=== PATIENT | male | born 1945 | race Caucasian/White ===

== ENCOUNTER → 2018-05-30 | Outpatient (CLI) | payer OTHER, MEDICARE ==
[~2018-05-30] MED LIST: ALFU1TAB2 PO; ALPR0.25 PO; ASCO1CAP3 PO; ASPI-461 PO; BICA50TA40 PO; BUME1TAB PO; CHOL20007 PO; FERR1TAB23; FINA5TAB4 PO; FOLI1TAB8 PO; INSDGI SC; LEVO100T PO; METO25TA4 PO; MULT-506 PO; OXGN; WARF3TAB PO; WARF6TAB PO; ZOLP5TAB PO; humalog
[2018-05-30 14:22] VITALS: BP 136/74; PULSE 70; TEMP 36.5; O2SAT 94
--- NOTE | 2018-05-30 16:09 | Radiation Oncology Follow-Up ---
Radiation Oncology Follow-Up Date of Visit May 30, 2018. Reason For Visit One-month follow-up and cancer survivorship care plan Radiation Completion Date 04/25/18 Diagnosis (1) Prostate cancer Status: Acute Onset Date: 01/14/2018 Location: Both lobes of the prostate Histology Subtype: Adenocarcinoma Stage: ll (Biopsy stage) Permanent Comment: History of benign prostatic hypertrophy Rising PSA, pretreatment PSA 5.7 corrected due to finasteride Status post ultrasound-guided biopsies January 14, 2018 Adenocarcinoma of the prostate Dallas 4+3 and 4+4 Prostate volume 74.6 Prostate density 0.076 Hormone suppression with Casodex. (Recommendation for 6-12 months) Gold fiducial markers and Space OAR were placed. Status post completion of radiation therapy April 25, 2018. He received 7000 cGy Last Edited By: Tricia Soto on May 06, 2018 07:56 History of Present Illness Mr. Shah is a 72-year-old male with a family history of prostate cancer. The patient's father was diagnosed with prostate cancer and treated with surgery. He passed in his 80s from causes unrelated to his prostate cancer. The patient has 2 brothers age 65 and 69 and they are both being screened. He has no children. The patient has been followed with screening mammograms. In October 2010 PSA was 0.69. September 2012 PSA was 0.92. In December 2013 PSA was 1.18. In June 2017 PSA was 2.17. On December 21, 2017 the PSA was 2.85. During this time the patient has been on finasteride and therefore each of these figures need to be doubled with an effective PSA in December of this year of 5.7. The patient was seen by Dr. Jen Cross on December 26, 2017 with the noted rising PSA while on finasteride. The finasteride was given for severe LUTS. Examination at that time reportedly revealed nodularity on the right side of the prostate. She discussed ultrasound-guided biopsies with the patient and he agreed. The patient was on Coumadin and his transition was performed. On January 14, 2018 the patient underwent ultrasound- guided biopsies. His estimated gland size on SEBASTIAN was 50 g with her examination showing no asymmetry or induration. By ultrasound the size of the prostate was 5.4 x 5.5 x 4.8 cm given an approximate volume of 74.6 cm. This gives a PSA density of 0.08. A total of 14 biopsies were taken. Biopsies in the left lateral base, left base, left lateral mid, left mid and left apex were all benign. One biopsy from the right base was positive for adenocarcinoma Rocio grade 4+3 involving 60% of the core tissue sample with no perineural invasion identified. Biopsy from the right lateral base was positive for adenocarcinoma Dallas grade 4+3 involving 80% of the core tissue sample with no perineural invasion identified. One of two biopsies from the right mid gland the right mid gland were positive for adenocarcinoma Rocio grade 4+3 involving 25% of the core tissue sample with no perineural invasion identified. One of two biopsies in the right lateral mid gland were positive for adenocarcinoma Rocio grade 4+3 involving 90% of the core tissue sample with no perineural invasion identified. One biopsy from the left lateral apex was positive for adenocarcinoma Orcio grade 4+4 involving 33% of the core tissue sample with no perineural invasion identified. One biopsy from the right apex was positive for adenocarcinoma Rocio grade 4+4 involving 50% of the core tissue sample with no perineural invasion identified. One biopsy from the right lateral apex was positive for adenocarcinoma Rocio grade 4+4 involving 33% of the core tissue sample with no perineural invasion identified. Therefore a total of 7of 14 biopsies were positive. 1 in the left gland and 10 in the right gland. 6 biopsies were Rocio grade 4+3 and 3 biopsies were Dallas grade 4+4. Accession #: [id number]. Patient therefore has a high risk prostate cancer. Patient return to discuss the results of the biopsy with Dr. Cross on January. He had tolerated the procedure well. Given the patient's age and the high risk cancer she felt the patient was likely to develop symptoms within his lifetime if left untreated. She was concerned that surgery may be difficult for him to tolerate and discussed all viable treatment options. She was kind enough to ask us to see this patient to review with him the radiation treatment options. His final decision was to proceed with hormone suppression with Casodex. He had gold fiducial markers and Space OAR placed. He then underwent radiation therapy utilizing hypo-fractionation. This is completed April 25, 2018. He received 7000 cGy. Interim History He has been doing well over the past month. His urinary symptoms have steadily improved. Today gave an AUA score of 8. At the end of treatment he had given an AUA score of 15. He completed and expanded prostate cancer index composite for clinical practice and gave a score of 1 of 12 and urinary incontinence symptoms. He gave a score of 2 of 12 and urinary irritation symptoms. He gave a score of 0 of 12 and bowel symptoms. He gave a score of 4 of 12 and sexual symptoms. He gave a score of 1 of 12 and hormonal vitality symptoms. His total was 8 of 60. He does continue on Proscar and Uroxatral. He also continues on bicalutamide. We discussed side effects of bicalutamide. He is having some nipple tenderness. He gives us a level 1. It only occurs if it is accidentally bumped. He had a recheck PSA May 27, 2018 and that was less than 0.02. Allergies Coded Allergies: Penicillins (Verified Allergy, Unknown, rash, 03/17/16) Statins (Verified Allergy, Unknown, ., 03/17/16) Furosemide (Verified Adverse Reaction, Severe, kidney failure, 03/17/16) Home Medications Scheduled Alfuzosin Hcl (Alfuzosin Hcl Er), 10 MG PO QAM Ascorbic Acid (Vitamin C), 500 MG PO QAM Aspirin (Aspirin), 81 MG PO QAM Bicalutamide (Casodex), 1 TAB PO DAILY Bumetanide (Bumex), 1 MG PO QAM Cholecalciferol (Vitamin D3), 1 TAB PO DAILY Ferrous Sulfate (Iron), TAB BID Finasteride (Proscar), 5 MG PO QAM Folic Acid (Folvite), 5 MG PO QAM Home O2 Therapy (Oxygen), 2 LITERS NA UD Insulin Glargine (Lantus), 50 SC PM Levothyroxine Sodium (Synthroid), 100 MCG PO QAM Metoprolol Succinate (Toprol Xl), 1 TAB PO DAILY Multivitamin (Multivitamin), 1 TAB PO DAILY Warfarin Sodium (Coumadin), 1 TAB PO Sunday and Sunday Warfarin Sodium (Coumadin), 1 TAB PO ue sun Zolpidem Tartrate (Ambien), 2.5 MG PO HSPRN [humalog], 2-10 blood sugar check Scheduled PRN Alprazolam (Xanax), 0.25 MG PO Q8H PRN for Anxiety Review of Systems Gastrointestinal: Symptoms: WNL Oral: Symptoms: No Problems Respiratory: Symptoms: WNL, SOB With Exertion Urinary: Symptoms: WNL, Nocturia Comments: Nocturia x 1-2, urge incontinence - dribbling, see AUA & EPIC Skin: Symptoms: No Problems Additional Notes: He completed a distress management report and answered "no" to all questions. Physical Exam Vital Signs Date Time Temp Pulse Resp B/P (MAP) Pulse Ox O2 Delivery O2 Flow Rate FiO2 05/30/18 14:22 36.5 70 16 136/74 94 ECOG Performance Status: 0 General Appearance: no apparent distress Eyes: normal inspection, EOMI ENT: normal ENT inspection, hearing grossly normal Neck: no adenopathy, thyroid normal Respiratory/Chest: lungs clear, no respiratory distress, no accessory muscle use Cardiovascular: regular rate, rhythm, no gallop, no murmur Abdomen: non tender, soft, no organomegaly Extremities: no pedal edema Neurologic/Psychiatric: no motor/sensory deficits, alert, normal mood/affect Skin: warm/dry Pain Management Patient Reports Pain: No Initial Pain Intensity: 0.0 Pain Management Plan He denies pain therefore requires no pain management. Laboratory Laboratory Results: were reviewed Laboratory Comments: See interim history. Pathology Pathology Results: were reviewed, and pertinent findings noted in HPI Imaging Imaging Studies: not applicable Assessment & Plan Plan: Continue regular follow-up with his primary care provider and urology. He continues on the Uroxatral, Proscar, and bicalutamide. We discussed the recommendation of bicalutamide for 12-18 months. He is having minimal side effects and plans to continue the medication. We asked him to return to our office in 6 months. An order was given for a PSA prior to that visit. He is seeing Dr. Cross June 25, 2018. Today we completed a cancer survivorship care plan. A copy of the document was given to the patient. He was given a survivorship booklet. He may call our office if he has any questions or concerns in the interim. Total Time In Follow-Up I spent 20 minutes speaking to the patient in performing examination. I spent 20 minutes reviewing information, preparing the survivorship document, and completing this note. Copy To James Lunsford MD; Jen Cross MD
== END | disposition home or self-care (01) ==
LOC: C.ONC 14:14
PROVIDERS: ATTEND Physician Assistant Medical
DX: Z08 Encounter for follow-up examination after completed treatment for malignant neoplasm (principal); Z92.3 Personal history of irradiation; Z85.46 Personal history of malignant neoplasm of prostate

== ENCOUNTER 2018-12-25 14:19 | Inpatient (IN) ==
--- NOTE | 2018-12-25 15:22 | XRay Report ---
SINGLE VIEW CHEST CLINICAL HISTORY: Atypical chest pain. FINDINGS: An AP, portable, upright chest radiograph is compared to study dated 03/19/2016 and correlate d with chest CT dated 03/17/2016. The examination is degraded by portable technique and patient rotatio n. A 3-lead cardiac pacemaker is new from previous and partially obscures the left upper chest. The p atient is status post midline sternotomy. The heart is enlarged and there is atherosclerotic calcific ation of the thoracic aorta. There is pulmonary vascular congestion with mild interstitial edema. The re are small pleural effusions with bibasilar consolidation. No pneumothorax is seen. The skeletal st ructures are osteopenic. The bony thorax is grossly intact. IMPRESSION: 1. Cardiomegaly and cardiac pacemaker. There is evidence of congestive failure and mild interstitial edema. 2. There are small pleural effusions with bibasilar consolidation. This likely represents atelectasis . Correlate clinically for evidence of superimposed pneumonia. Electronically signed by: Donnie Gomez M.D. 12/25/2018 3:21 PM
[2018-12-25] MEDS ORDERED: SODIUM CHLORIDE 0.9% 250 ML IV PRN ×2 (15:41→19:25)
[2018-12-25 15:54] LABS: Hematocrit (blood only) 21.2 % (42-52); Hemoglobin 6.9 g/dL (14.0-18.0); Mean Corpuscular Hgb Conc 32.5 g/dL (32-36); Mean Platelet Volume 10.3 fL (7.4-10.4); Nucleated RBC # (auto) 0.02 K/uL (0-0); Nucleated RBC % (auto) 0.4 %; Platelet Count 112 K/uL (130-400); RDW Coefficient of Variation 15.9 % (11.5-14.5); RDW Standard Deviation 57.3 fL (36.4-46.3); Red Blood Count 2.12 M/uL (4.7-6.1); White Blood Count 5.43 K/uL (4.8-10.8)
[2018-12-25 15:55] LABS: Albumin Level 3.4 gm/dl (3.4-5.0); Calcium 9.1 mg/dl (8.5-10.1); Creatinine Clr Calc Pharmacy 32.4 ml/min; Est GFR (African American) 28.7; Est GFR (Non-African American) 24.7; Potassium 4.5 mmol/L (3.5-5.1)
[2018-12-25 16:00] LABS: Albumin Globulin Ratio 0.8 (0.9-2); Bilirubin,Total 0.4 mg/dl (0.2-1); Globulin 4.3 gm/dl (2.5-4.0); Total Protein 7.7 gm/dl (6.4-8.2); Troponin I 0.045 ng/ml (0-0.045)
[2018-12-25 16:05] LABS: Prothrombin Time 45.7 Seconds (9.0-12.0)
[2018-12-25 16:08] LABS: Basophils # (auto) 0.01 K/uL (0-0.2); Basophils % (auto) 0.2 %; Eosinophils # (auto) 0.07 K/uL (0-0.5); Eosinophils % (auto) 1.3 %; Immature Granulocytes # (auto) 0.03 K/uL (0.00-0.02); Immature Granulocytes % (auto) 0.6 %; Lymphocytes # (auto) 0.83 K/uL (1.2-3.4); Lymphocytes % (auto) 15.3 %; Monocytes # (auto) 0.47 K/uL (0.11-0.59); Monocytes % (auto) 8.7 %; Neutrophils # (auto) 4.02 K/uL (1.4-6.5); Neutrophils % (auto) 73.9 %; RBC Morphology Unremarkable
[2018-12-25] MEDS ORDERED: PHYTONADIONE 5 MG in SODIUM CHLORIDE 0.9% 50 ML IV ONE (17:50)
--- NOTE | 2018-12-25 18:16 | History & Physical Report ---
Date of Service December 25, 2018 Assessment & Plan (1) Anemia: Pt with hx anemia of chronic disease, on procrit (last dose 12/13/18), follows with Dr Perez. Has had noted downtrending Hgb's over past several months. 11/18/18 Hgb: 7.5, had 1 unit PRBC transfusion on 11/19/18 and Hgb: 9.0 on 11/22/18. Hgb: 8.2 on 12/18/18. Today Hgb: 6.6 and was referred to ER. Pt reports past couple of weeks with fatigue, lightheaded with walking, SOB with exertion, intermittent CP not associated with exertion. Denies current CP Vitals stable in ER with P: 68, R: 18, BP: 134/80, 170.74, 100% on 3L NC In ER Hgb: 6.9, Hct: 21. Plt: 112. BUN: 83, Cr: 2.5, INR: 5. Was given NSS at 15ml/hr for 250ml total -type and cross and transfuse 2 units with lasix between 2 units -monitor H&H -hold aspirin and coumadin (2) Melena: Reported melena past week. Had positive FOBT outpatient last week. Denies hematochezia. Hx colonoscopy 2016 showed diverticulosis sigmoid colon INR: 5.0 GI bleed vs supratherapeutic INR -PRBC transfusion as above for anemia -protonix IV -clear liquids for now, NPO midnight -GI consult appreciate recommendations, spoke with thoracic surgeon and aware -monitor H&H, INR (3) Supratherapeutic INR: Last INR check on 12/03/18 was 2.7. INR: 5.0. Pt with melena -spoke with Dr Delarosa recommended 5-10mg vitamin K IV -hold coumadin and aspirin for now -monitor INR (4) Paroxysmal atrial fibrillation: INR: 5.0. Holding coumadin as above Current sinus rhythm -continue metoprolol -monitor (5) S/P AVR (aortic valve replacement): S/P bioprosthetic aortic valve replacement and bioprosthetic mitral valve replacement in 2016 at [facility] (6) CAD (coronary artery disease): S/P CABG reported intermittent left sided anterior CP x 1-2 months not associated with exertion Troponin: 0.045. EKG paced rhythm -trend troponin -holding aspirin for now with anemia and melena -continue metoprolol (7) Systolic and diastolic CHF, chronic: History echo 08/2018: EF: 53%, aortic bioprosthetic valve without significant regurgitation, mitral valve bioprosthesis without significant regurgitation, moderate left atrial enlargement, pulmonary hypertension present CXR: Cardiomegaly and cardiac pacemaker. There is evidence of congestive failure and mild interstitial edema. There are small pleural effusions with bibasilar consolidation. This likely represents atelectasis. No rales on exam -continue po bumex and spironolactone -monitor (8) History of complete heart block: S/P Pacemaker (9) DM type 2 (diabetes mellitus, type 2): A1c: 5.9 on 11/18/18. Pt on lantus and humalog sliding scale -basal bolus insulin -monitor BSGs (10) HTN (hypertension): Stable -continue metoprolol (11) CKD (chronic kidney disease), stage III: Hx CKD III-IV Cr: 2.5. Baseline Cr: 2.1-2.5 -monitor renal functions -avoid nephrotoxic agents when possible (12) Gin's thyroiditis: TSH: 4.3 on 12/03/18 -continue levothyroxine (13) CLARA (obstructive sleep apnea): Not on CPAP -continue 2L oxygen NC at night (14) Prostate cancer: S/P radiation -on casodex (15) BPH (benign prostatic hyperplasia): -continue alfuzosin, finasteride DVT Prophylaxis -SCDs when INR <2.0 Full Code as per discussion with pt Follows with Dr Lunsford for routine care Pt was seen with Dr Robb. See addendum History of Present Illness Chief Complaint: Anemia Primary Care Provider: James Lunsford Pt is 73 y/o M with PMH chronic anemia on Procrit, Gin's, DM II, CKD III- IV, thrombocytopenia, HTN, dyslipidemia, CLARA on 2L NCHS, obesity, restrictive lung disease, CAD s/p CABG, heart block s/p pacemaker, chronic systolic and diastolic heart failure, paroxysmal atrial fibrillation, carotid stenosis, pulmonary hypertension, prostate cancer s/p radiation is on casodex presented to ER for anemia with Hgb 6.6 today. Patient with history of chronic anemia and has been on Procrit. Last Procrit on 12/13/18, has been following with Dr. Perez- hematology. Has had noted downtrending hemoglobins over the past several months. Hemoglobin 7.5 on 11/18/18 and received 1 unit PRBCs on 11/19/18. Patient states for the past week has been having dark black colored stools and feeling lightheaded with walking, fatigue and short of breath. Patient states past couple of days has been using his oxygen continuous to help with shortness of breath (usually just uses HS). He also reports has been having intermittent anterior chest pain over the past 2 months not related to exertion that sometimes . Denies any current chest pain. Patient had positive fecal occult blood test last week. Last INR was 2.7 on 12/03/18. Pt reports chronic bilateral extremity edema, feels increased edema with increased salt intake. Denies fever/chills, diaphoresis, N/V/D/C, ALEJANDRO, syncope, vision changes, neck pain, palpitations, cough, sore throat, choking, otalgia, rhinorrhea, abdominal pain, paresthesias, rashes, urinary symptoms. History of colonoscopy in 2016: Diverticula in sigmoid colon History echo 08/2018: EF: 53%, aortic bioprosthetic valve without significant regurgitation, mitral valve bioprosthesis without significant regurgitation, moderate left atrial enlargement, pulmonary hypertension present Allergies Allergy/AdvReac Type Severity Reaction Status Date / Time Penicillins Allergy Unknown rash Verified 11/20/18 07:16 [id number] Reductase Allergy Unknown . Verified 11/20/18 07:16 Inhibitor furosemide AdvReac Severe kidney Verified 11/20/18 07:16 failure Home Medications Home Medications Medication Instructions Recorded Confirmed Type alfuzosin 1 tab PO PM 12/25/18 12/25/18 History aspirin 81 mg PO DAILY 12/25/18 12/25/18 History bicalutamide [Casodex] 50 mg PO DAILY 12/25/18 12/25/18 History bumetanide 1 mg PO DAILY 12/25/18 12/25/18 History cholecalciferol (vitamin D3) 2,000 unit PO BID 12/25/18 12/25/18 History [Vitamin D3] finasteride 5 mg PO HS 12/25/18 12/25/18 History folic acid 5 mg PO DAILY 12/25/18 12/25/18 History insulin glargine 50 unit SUBCUT HS 12/25/18 12/25/18 History insulin lispro [Humalog U-100 1 sliding scale dose SUBCUT UD 12/25/18 12/25/18 History Insulin] levothyroxine 100 mcg PO DAILY 12/25/18 12/25/18 History metoprolol succinate 50 mg PO BID 12/25/18 12/25/18 History spironolactone 12.5 mg PO UD 12/25/18 12/25/18 History warfarin 3 mg PO UD 12/25/18 12/25/18 History Past Med/Surg History Medical History History of complete heart block (Chronic) s/p pacemaker Paroxysmal atrial fibrillation (Chronic) History of pacemaker (Chronic) Dyslipidemia (Chronic) BPH (benign prostatic hyperplasia) (Chronic) Diverticulosis (Chronic) Depression (Chronic) Osteoarthritis (Chronic) Systolic and diastolic CHF, chronic (Chronic) "echo 03/16/2016 - EF 35-39% (was normal on prior echo), mod-severe aortic valve regurgitation, severe pulmonary HTN" Restrictive lung disease (Chronic) Moderate to severe pulmonary hypertension (Chronic) CLARA (obstructive sleep apnea) (Chronic) CKD (chronic kidney disease), stage III (Chronic) CKD III-IV DM type 2 (diabetes mellitus, type 2) (Chronic) HTN (hypertension) (Chronic) Gin's thyroiditis (Chronic) CAD (coronary artery disease) (Chronic) "1999 - CABG x 1 06/2014 - ACS, cath at the time showed patent graft, non obstructive disease to LAD and circumflex, augustine RCA 100% occluded " Aortic insufficiency (Chronic) Prostate cancer (Chronic 01/14/18) "History of benign prostatic hypertrophy Rising PSA, pretreatment PSA 5.7 corrected due to finasteride Status post ultrasound-guided biopsies January 14, 2018 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 (Recommendation for 6-12 months) Gold fiducial markers and Space OAR were placed. Status post completion of radiation therapy April 25, 2018. 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 Prostate volume 74.6 Prostate density 0.076 " Surgical History S/P MVR (mitral valve replacement) (Chronic) S/P CABG x 1 (Chronic) S/P AVR (aortic valve replacement) (Chronic) "1999, cadaver valve " Social History Communication Ability: Effective Editor In Chief Required: No Beliefs That Will Affect Care: None Current Living Situation: Spouse Other Information That Helps Us Care for You: No Feels Safe at Home: Yes Safety Concerns: Feels Safe At This Time Smoking Status: Former smoker Hx Alcohol Use: No Hx Substance Use: No Review of Systems All systems reviewed & are unremarkable except as noted in HPI & below Physical Exam Vital Signs (Past 24 Hours): Last Vital Signs Temp 36.5 C 12/25/18 18:01 Pulse 60 12/25/18 18:01 Resp 13 12/25/18 18:01 BP 143/66 H 12/25/18 18:01 Pulse Ox 100 12/25/18 18:01 Physical Exam: General: no acute distress, WDWN Head: normocephalic, atraumatic Eyes: PERRL, EOM's intact, pale conjunctiva, anicteric ENT: normal inspection external ears, nose, mucous membranes moist Neck: supple, trachea midline Lungs: clear, no respiratory distress CV: RRR, 1+ pretibial edema Abd: normal BS, soft, non-tender Ext: no cyanosis, no calf tenderness Neuro: A&O x 3, no focal deficits noted, normal affect Skin: warm, dry, pale Results & Data Laboratory Results Short CBC 12/25/18 Range/Units 15:21 WBC 5.43 (4.8-10.8) K/uL Hgb 6.9 L* (14.0-18.0) g/dL Hct 21.2 L (42-52) % Plt Count 112 L (130-400) K/uL BMP 12/25/18 15:21 Sodium 135 L Potassium 4.5 Chloride 100 Carbon Dioxide 29 BUN 83 H Creatinine 2.50 H Glucose 149 H Calcium 9.1 Cardiac Enzymes 12/25/18 Range/Units 15:21 Troponin I 0.045 (0-0.045) ng/ml Liver Function 12/25/18 Range/Units 15:21 Total Bilirubin 0.4 (0.2-1) mg/dl AST 18 (15-37) U/L ALT 21 (12-78) U/L Alkaline Phosphatase 133 H (45-117) U/L Albumin 3.4 (3.4-5.0) gm/dl Diagnostic Findings CXR: IMPRESSION: 1. Cardiomegaly and cardiac pacemaker. There is evidence of congestive failure and mild interstitial edema. 2. There are small pleural effusions with bibasilar consolidation. This likely represents atelectasis. Correlate clinically for evidence of superimposed pneumonia. ECG Rate (beats per minute): 66 Findings: + paced rhythm Supervising Physician Co-Signing Physician Notes I have seen and examined the patient and have discussed the case with the provider above. I agree with the assessment and plan as stated. Chronic anemia on Procrit with recent rise in INR for uncertain reason. No ETOH use. No OTC medications or diet changes. No recent medication changes. Melena noted for the last week. Currently appears euvolemic on exam. Lungs CTA, no peripheral edema, no abdominal pain. Hemodynamically stable. Therefore, agree with plan to continue diuretics even in the setting of possible GIB, as this appears to be slow and likley related to oozing from elevated INR. Also giving two units of blood and do not want to precipitate volume overload. If he was to have acute blood loss or hemodynamic instability, would recommend holding diuretics, of course. PPI BID, GI aware of case and will see in am. ASA held and coumadin reversed with vit K 5mg IV x 1 dose. Pt states he has had exposure to mustard gas as a child related to gardening, and that the plan moving forward was a BM biopsy. Cont supportive care. DO Cezar
[2018-12-25] MEDS ORDERED: GLUCOSE 40% GEL 15 GM TUBE PO PRN (19:17)
[2018-12-25] MEDS ORDERED: GLUCAGON FOR INJ 1 MG VIAL SQ PRN (19:17)
[2018-12-25] MEDS ORDERED: ACETAMINOPHEN 325 MG TAB PO PRN (19:17)
[2018-12-25] MEDS ORDERED: CARBOHYDRATES FOR HYPOGLYCEMIA PO PRN (19:17)
[2018-12-25] MEDS ORDERED: GLUCOSE 10 TABS/TUBE PO PRN (19:17)
[2018-12-25] MEDS ORDERED: DEXTROSE 50% 50 ML SYRINGE IV PRN (19:17)
[2018-12-25] MEDS ORDERED: FUROSEMIDE 40 MG in SYRINGE 0 ML IV SCH (20:00)
[2018-12-25] MEDS ORDERED: PANTOprazole 40 MG in SYRINGE 0 ML IV SCH (21:00)
[2018-12-25] MEDS: FINASTERIDE 5 MG TAB PO SCH (22:05)
[2018-12-25] MEDS: METOPROLOL SUCC 50MG EXT REL TAB PO SCH (22:05)
[2018-12-25] MEDS: ALFUZOSIN HCL 10 MG TAB PO SCH (22:05)
[2018-12-25] MEDS: INSULIN ASPART 100 UNITS/ML 3 ML PEN SC SCH (22:06)
[2018-12-25] MEDS: INSULIN GLARGINE SOLOSTAR 100 UNITS/ML 3 ML PEN SC SCH (22:06)
--- NOTE | 2018-12-26 00:39 | Emergency Department Note ---
Entered by Deniz Condon acting as a scribe for History of Present Illness General Chief complaint: Chest Pain Stated complaint: CHEST PAIN, WEAKNESS, DIZZINESS Time Seen by Provider: 12/25/18 14:40 Source: patient and family Limitations: no limitations History of Present Illness Provider complaint: Anemia Onset (ago): week(s) (3) Location: chest Radiation: back and extremity (Left arm) Pain Consistency: + intermittent Maximum Pain Intensity: 8 Quality: + other (Pressure) Associated symptoms: + other (Hemoglobin of 6.0); no shortness of breath Treatments prior to arrival: none The patient is a 73 year old male who presents to the Emergency Room for an anemic hemoglobin levels. The patient states that he had a hemoglobin level of 6.0 today. He does have low hemoglobin at baseline, but usually runs from 8-9, 6.0 is a significantly low level for him. The patient adds that he has noticed "black" stools recently, and had his last bowel movement yesterday. The patient was transfused 1 liter of blood 3 weeks ago as an outpatient. The patient has a history of CABG 3 years ago as well as replacement of the aortic and mitral valves. He complains of intermittent chest pain for the past 3 weeks as well. He describes the pain as a "pressure" that lasts 1-3 minutes before spontaneously resolving. This pain radiates into the back and down the left arm. This pain is not exertional and usually onsets later in the evening. The patient's at bedside adds that he has seemed more short of breath recently, but he has not increased his home oxygen. The patient does sleep sitting up. Home Medications Home Medications Medication Instructions Recorded Confirmed Type alfuzosin 1 tab PO PM 12/25/18 12/25/18 History aspirin 81 mg PO DAILY 12/25/18 12/25/18 History bicalutamide [Casodex] 50 mg PO DAILY 12/25/18 12/25/18 History bumetanide 1 mg PO DAILY 12/25/18 12/25/18 History cholecalciferol (vitamin D3) 2,000 unit PO BID 12/25/18 12/25/18 History [Vitamin D3] finasteride 5 mg PO HS 12/25/18 12/25/18 History folic acid 5 mg PO DAILY 12/25/18 12/25/18 History insulin glargine 50 unit SUBCUT HS 12/25/18 12/25/18 History insulin lispro [Humalog U-100 1 sliding scale dose SUBCUT UD 12/25/18 12/25/18 History Insulin] levothyroxine 100 mcg PO DAILY 12/25/18 12/25/18 History metoprolol succinate 50 mg PO BID 12/25/18 12/25/18 History spironolactone 12.5 mg PO UD 12/25/18 12/25/18 History warfarin 3 mg PO UD 12/25/18 12/25/18 History Allergies Allergy/AdvReac Type Severity Reaction Status Date / Time Penicillins Allergy Unknown rash Verified 11/20/18 07:16 Wlvqtel-Kuz-Rjp Reductase Allergy Unknown . Verified 11/20/18 07:16 Inhibitor furosemide AdvReac Severe kidney Verified 11/20/18 07:16 failure Past Med/Surg History Medical History History of complete heart block (Chronic) s/p pacemaker Paroxysmal atrial fibrillation (Chronic) History of pacemaker (Chronic) Dyslipidemia (Chronic) BPH (benign prostatic hyperplasia) (Chronic) Diverticulosis (Chronic) Depression (Chronic) Osteoarthritis (Chronic) Systolic and diastolic CHF, chronic (Chronic) "echo 03/16/2016 - EF 35-39% (was normal on prior echo), mod-severe aortic valve regurgitation, severe pulmonary HTN" Restrictive lung disease (Chronic) Moderate to severe pulmonary hypertension (Chronic) CLARA (obstructive sleep apnea) (Chronic) CKD (chronic kidney disease), stage III (Chronic) CKD III-IV DM type 2 (diabetes mellitus, type 2) (Chronic) HTN (hypertension) (Chronic) Gin's thyroiditis (Chronic) CAD (coronary artery disease) (Chronic) "1999 - CABG x 1 06/2014 - ACS, cath at the time showed patent graft, non obstructive disease to LAD and circumflex, [place] RCA 100% occluded " Aortic insufficiency (Chronic) Prostate cancer (Chronic 01/14/18) "History of benign prostatic hypertrophy Rising PSA, pretreatment PSA 5.7 corrected due to finasteride Status post ultrasound-guided biopsies January 14, 2018 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 (Recommendation for 6-12 months) Gold fiducial markers and Space OAR were placed. Status post completion of radiation therapy April 25, 2018. 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 Prostate volume 74.6 Prostate density 0.076 " Surgical History S/P MVR (mitral valve replacement) (Chronic) S/P CABG x 1 (Chronic) S/P AVR (aortic valve replacement) (Chronic) "1999, cadaver valve " Family History Other Hypertension Prostate cancer Social History Communication Ability: Effective Check Out Cashier Required: No Beliefs That Will Affect Care: None Current Living Situation: Spouse Other Information That Helps Us Care for You: No Feels Safe at Home: Yes Safety Concerns: Feels Safe At This Time Smoking Status: Former smoker Hx Alcohol Use: No Hx Substance Use: No Review of Systems See HPI for pertinent positives & negatives. and A total of 10 systems reviewed and were otherwise negative Physical Exam Vital Signs Vital Signs - 24 hr 12/25/18 14:22 12/25/18 14:45 12/25/18 15:00 Temperature 36.4 C L Temperature Source Oral Sepsis Recent Fever Within 48 Hours No Sepsis Action Taken by Nursing No Action Required Pulse Rate 68 75 Pulse Rate [Apical] 71 Pulse Rate from SpO2 Sensor 93 H Pulse Rhythm Pulse Rhythm [Apical] Regular Pulse Strength Pulse Strength [Apical] Respiratory Rate 18 15 6 L Respiratory Effort / Characteristics Non-Labored Non-Labored Respiratory Depth Normal Normal Respiratory Pattern Regular Regular Blood Pressure 134/80 143/59 H Blood Pressure [Right Arm] 126/80 Blood Pressure Mean 98 87 Blood Pressure Mean [Right Arm] 95 Blood Pressure Position Sitting Blood Pressure Position [Right Arm] Sitting Pulse Oximetry 92 100 100 Oxygen Delivery Method Nasal Cannula Nasal Cannula Nasal Cannula Oxygen Flow Rate 2 3 3 12/25/18 15:10 12/25/18 15:37 12/25/18 18:01 Temperature 36.5 C Temperature Source Oral Sepsis Recent Fever Within 48 Hours Sepsis Action Taken by Nursing Pulse Rate 60 Pulse Rate [Apical] 64 Pulse Rate from SpO2 Sensor Pulse Rhythm Pulse Rhythm [Apical] Pulse Strength Pulse Strength [Apical] Respiratory Rate 16 13 Respiratory Effort / Characteristics Respiratory Depth Respiratory Pattern Blood Pressure 143/66 H Blood Pressure [Right Arm] 170/74 H Blood Pressure Mean 91 Blood Pressure Mean [Right Arm] 106 Blood Pressure Position Sitting Blood Pressure Position [Right Arm] Pulse Oximetry 100 100 100 Oxygen Delivery Method Nasal Cannula Nasal Cannula Oxygen Flow Rate 3 3 3 12/25/18 18:19 12/25/18 18:28 12/25/18 18:34 Temperature 36.6 C 36.7 C Temperature Source Oral Oral Sepsis Recent Fever Within 48 Hours Sepsis Action Taken by Nursing Pulse Rate 63 62 Pulse Rate [Apical] 60 Pulse Rate from SpO2 Sensor Pulse Rhythm Pulse Rhythm [Apical] Regular Pulse Strength Pulse Strength [Apical] Respiratory Rate 10 L 10 L 12 Respiratory Effort / Characteristics Non-Labored Respiratory Depth Normal Respiratory Pattern Blood Pressure 155/71 H 155/77 H Blood Pressure [Right Arm] 155/71 H Blood Pressure Mean 99 103 Blood Pressure Mean [Right Arm] 99 Blood Pressure Position Sitting Sitting Blood Pressure Position [Right Arm] Sitting Pulse Oximetry 100 100 3 L Oxygen Delivery Method Room Air Oxygen Flow Rate 3 3 12/25/18 19:00 12/25/18 19:04 12/25/18 19:42 Temperature 36.5 C 36.5 C 36.6 C Temperature Source Oral Oral Axillary Sepsis Recent Fever Within 48 Hours Sepsis Action Taken by Nursing Pulse Rate 62 63 Pulse Rate [Apical] 62 Pulse Rate from SpO2 Sensor Pulse Rhythm Regular Pulse Rhythm [Apical] Regular Pulse Strength Normal Pulse Strength [Apical] Normal Respiratory Rate 20 20 18 Respiratory Effort / Characteristics Non-Labored Spontaneous Respiratory Depth Normal Respiratory Pattern Regular Blood Pressure 151/81 H 167/78 H Blood Pressure [Right Arm] 151/81 H Blood Pressure Mean 104 107 Blood Pressure Mean [Right Arm] 104 Blood Pressure Position Lying Blood Pressure Position [Right Arm] Lying Pulse Oximetry 96 98 99 Oxygen Delivery Method Nasal Cannula Oxygen Flow Rate 2 2 12/25/18 20:04 12/25/18 20:38 12/25/18 20:39 Temperature 36.1 C L 36.5 C 36.5 C Temperature Source Axillary Oral Oral Sepsis Recent Fever Within 48 Hours Sepsis Action Taken by Nursing Pulse Rate 62 62 62 Pulse Rate [Apical] Pulse Rate from SpO2 Sensor Pulse Rhythm Regular Regular Pulse Rhythm [Apical] Pulse Strength Normal Normal Pulse Strength [Apical] Respiratory Rate 16 18 18 Respiratory Effort / Characteristics Respiratory Depth Respiratory Pattern Blood Pressure 151/63 H 143/56 H 143/56 H Blood Pressure [Right Arm] Blood Pressure Mean 92 85 85 Blood Pressure Mean [Right Arm] Blood Pressure Position Lying Lying Blood Pressure Position [Right Arm] Pulse Oximetry 98 99 99 Oxygen Delivery Method Oxygen Flow Rate 2 4 4 12/25/18 21:10 12/25/18 21:25 12/25/18 21:48 Temperature 36.6 C 36.4 C L 36.5 C Temperature Source Oral Oral Oral Sepsis Recent Fever Within 48 Hours Sepsis Action Taken by Nursing Pulse Rate 65 66 68 Pulse Rate [Apical] Pulse Rate from SpO2 Sensor Pulse Rhythm Regular Regular Pulse Rhythm [Apical] Pulse Strength Normal Normal Pulse Strength [Apical] Respiratory Rate 18 18 18 Respiratory Effort / Characteristics Respiratory Depth Respiratory Pattern Blood Pressure 165/65 H 165/84 H 180/90 H Blood Pressure [Right Arm] Blood Pressure Mean 98 111 120 Blood Pressure Mean [Right Arm] Blood Pressure Position Lying Blood Pressure Position [Right Arm] Pulse Oximetry 99 98 68 L Oxygen Delivery Method Oxygen Flow Rate 4 4 12/25/18 22:10 12/25/18 23:09 12/25/18 23:55 Temperature 36.7 C 36.5 C 36.6 C Temperature Source Oral Oral Oral Sepsis Recent Fever Within 48 Hours Sepsis Action Taken by Nursing Pulse Rate 64 81 82 Pulse Rate [Apical] Pulse Rate from SpO2 Sensor Pulse Rhythm Regular Pulse Rhythm [Apical] Pulse Strength Normal Pulse Strength [Apical] Respiratory Rate 18 16 18 Respiratory Effort / Characteristics Respiratory Depth Respiratory Pattern Blood Pressure 170/79 H 154/59 H 136/54 L Blood Pressure [Right Arm] Blood Pressure Mean 109 90 81 Blood Pressure Mean [Right Arm] Blood Pressure Position Lying Blood Pressure Position [Right Arm] Pulse Oximetry 98 99 98 Oxygen Delivery Method Oxygen Flow Rate 4 2 2 GENERAL: Awake, alert, chronically-ill appearing. HENT: Normocephalic, atraumatic. Oropharynx with dry mucous membranes and ot herwise unremarkable. EYES: Normal conjunctiva. Sclera non-icteric. NECK: Supple. No nuchal rigidity. FROM. No JVD. RESPIRATORY: Clear to auscultation. CARDIAC: Regular rate, normal rhythm. Extremities warm and well perfused. Pulses equal. ABDOMEN: Soft, non-distended. No tenderness to palpation. No rebound or guarding. No masses. RECTAL: Per Resident Physician rectal exam - Melena guiac positive stool on exam. MUSCULOSKELETAL: Chest examination reveals no tenderness. The back is symmetrical on inspection without obvious abnormality. There is no CVA tenderness to palpation. No joint edema. LOWER EXTREMITIES: Calves are equal size bilaterally and non-tender. No edema. No discoloration. NEURO: Normal sensorium. No sensory or motor deficits noted. SKIN: No rash or jaundice noted. Mild pallor. Course 1526: The patient was seen and evaluated by the Resident Physician at this time. History and physical were discussed with me. 1546: Past medical records reviewed. The patient was evaluated in room C10, and a complete history and physical examination were performed. 1541: I reviewed the patient's case with Dr. Ian Wallace [facility] Hospitalist. He will evaluate the patient for further management. Administered Medications Alfuzosin HCl (Uroxatral) 10 mg PO PM EZE Stop: 01/24/19 20:59 Last Admin: 12/25/18 22:05 Dose: 10 mg Documented by: [id number] Finasteride (Proscar) 5 mg PO HS EZE Stop: 01/24/19 20:59 Last Admin: 12/25/18 22:05 Dose: 5 mg Documented by: [id number] Pantoprazole Sodium 40 mg/ (Syringe) 10 mls @ 5 mls/min IV BID EZE Stop: 01/24/19 20:59 Last Admin: 12/25/18 22:06 Dose: 5 mls/min Documented by: [id number] Furosemide 40 mg/ Syringe 4 mls @ 4 mls/min IV TODAY@1999 [facility] Stop: 12/26/18 06:00 Last Admin: 12/25/18 21:22 Dose: 4 mls/min Documented by: [id number] Insulin Aspart (Novolog Flexpen) 0 units SC ACHS EZE Stop: 01/24/19 20:59 Last Admin: 12/25/18 22:06 Dose: 1 units Documented by: [id number] Cosigned by: [id number] Insulin Glargine (Lantus Solostar Pen) 0 - 25 units SC Q12 EZE; Protocol Stop: 01/24/19 20:59 Last Admin: 12/25/18 22:06 Dose: 25 units Documented by: [id number] Cosigned by: [id number] Metoprolol Succinate (Toprol Xl) 50 mg PO BID EZE Stop: 01/24/19 20:59 Last Admin: 12/25/18 22:05 Dose: 50 mg Documented by: [id number] Discontinued Medications Phytonadione 5 mg/ Sodium (Chloride) 50.5 mls @ 101 mls/hr IV ONE ONE Stop: 12/25/18 18:19 Last Infusion: 12/25/18 18:52 Dose: 0 mls/hr Documented by: [id number] Admin: 12/25/18 18:22 Dose: 101 mls/hr Documented by: [id number] Medical Decision Making Differential Diagnosis Differential diagnosis: Etiologies such as esophagitis, variceal bleed, [place], [place] tear, gastritis, peptic ulcer disease, AVM, inflammatory bowel disease, ischemia, diverticulosis, colitis, malignancy, coagulopathy, thrombocytopenia, fissure, hemorrhoid, epistaxis , as well as others were entertained. Medical Records Attestation: I reviewed the patient's medical records. Home Medications Current Medication List: was personally reviewed by me Laboratory Data Attestation: I reviewed the patient's lab results. Result diagrams: 12/25/18 15:21 12/25/18 15:21 Lab Results 12/25/18 12/25/18 12/25/18 Range/Units 15:21 15:21 15:21 WBC 5.43 (4.8-10.8) K/uL RBC 2.12 L (4.7-6.1) M/uL Hgb 6.9 L* (14.0-18.0) g/dL Hct 21.2 L (42-52) % MCV 100.0 (80-100) fL MCH 32.5 (25-34) pg MCHC 32.5 (32-36) g/dL RDW Std Deviation 57.3 H (36.4-46.3) fL RDW Coeff of Imtiaz 15.9 H (11.5-14.5) % Plt Count 112 L (130-400) K/uL MPV 10.3 (7.4-10.4) fL Immature Gran % (Auto) 0.6 % Neut % (Auto) 73.9 % Lymph % (Auto) 15.3 % Stephenson % (Auto) 8.7 % Eos % (Auto) 1.3 % Baso % (Auto) 0.2 % Immature Gran # (Auto) 0.03 H (0.00-0.02) K/uL Neut # (Auto) 4.02 (1.4-6.5) K/uL Lymph # (Auto) 0.83 L (1.2-3.4) K/uL Stephenson # (Auto) 0.47 (0.11-0.59) K/uL Eos # (Auto) 0.07 (0-0.5) K/uL Baso # (Auto) 0.01 (0-0.2) K/uL Absolute Nucleated RBC 0.02 H (0-0) K/uL Nucleated RBC % (auto) 0.4 % RBC Morphology Unremarkable PT 45.7 H (9.0-12.0) Seconds INR 5.0 H (0.9-1.1) Sodium 135 L (136-145) mmol/L Potassium 4.5 (3.5-5.1) mmol/L Chloride 100 (98-107) mmol/L Carbon Dioxide 29 (21-32) mmol/L Anion Gap 6.0 (3-11) BUN 83 H (7-18) mg/dl Creatinine 2.50 H (0.6-1.4) mg/dl Est Cr Clr Drug Dosing 32.4 ml/min Est GFR ( Amer) 28.7 Est GFR (Non-Af Amer) 24.7 BUN/Creatinine Ratio 33.0 H (10-20) Glucose 149 H (70-99) mg/dl POC Glucose (70-99) Calcium 9.1 (8.5-10.1) mg/dl Magnesium 2.0 (1.8-2.4) mg/dl Total Bilirubin 0.4 (0.2-1) mg/dl AST 18 (15-37) U/L ALT 21 (12-78) U/L Alkaline Phosphatase 133 H (45-117) U/L Troponin I 0.045 (0-0.045) ng/ml NT-Pro-B Natriuret Pep 5053 H (0-900) pg/ml Total Protein 7.7 (6.4-8.2) gm/dl Albumin 3.4 (3.4-5.0) gm/dl Globulin 4.3 H (2.5-4.0) gm/dl Albumin/Globulin Ratio 0.8 L (0.9-2) Blood Type Antibody Screen Crossmatch 12/25/18 12/25/18 12/25/18 Range/Units 15:21 15:21 15:36 WBC (4.8-10.8) K/uL RBC (4.7-6.1) M/uL Hgb (14.0-18.0) g/dL Hct (42-52) % MCV (80-100) fL MCH (25-34) pg MCHC (32-36) g/dL RDW Std Deviation (36.4-46.3) fL RDW Coeff of Imtiaz (11.5-14.5) % Plt Count (130-400) K/uL MPV (7.4-10.4) fL Immature Gran % (Auto) % Neut % (Auto) % Lymph % (Auto) % Stephenson % (Auto) % Eos % (Auto) % Baso % (Auto) % Immature Gran # (Auto) (0.00-0.02) K/uL Neut # (Auto) (1.4-6.5) K/uL Lymph # (Auto) (1.2-3.4) K/uL Stephenson # (Auto) (0.11-0.59) K/uL Eos # (Auto) (0-0.5) K/uL Baso # (Auto) (0-0.2) K/uL Absolute Nucleated RBC (0-0) K/uL Nucleated RBC % (auto) % RBC Morphology PT (9.0-12.0) Seconds INR (0.9-1.1) Sodium (136-145) mmol/L Potassium (3.5-5.1) mmol/L Chloride (98-107) mmol/L Carbon Dioxide (21-32) mmol/L Anion Gap (3-11) BUN (7-18) mg/dl Creatinine (0.6-1.4) mg/dl Est Cr Clr Drug Dosing ml/min Est GFR ( Amer) Est GFR (Non-Af Amer) BUN/Creatinine Ratio (10-20) Glucose (70-99) mg/dl POC Glucose (70-99) Calcium (8.5-10.1) mg/dl Magnesium Cancelled (1.8-2.4) mg/dl Total Bilirubin (0.2-1) mg/dl AST (15-37) U/L ALT (12-78) U/L Alkaline Phosphatase (45-117) U/L Troponin I (0-0.045) ng/ml NT-Pro-B Natriuret Pep Cancelled (0-900) pg/ml Total Protein (6.4-8.2) gm/dl Albumin (3.4-5.0) gm/dl Globulin (2.5-4.0) gm/dl Albumin/Globulin Ratio (0.9-2) Blood Type O Negative Antibody Screen NEGATIVE Crossmatch See Detail 12/25/18 12/25/18 12/25/18 Range/Units 21:02 21:03 22:01 WBC (4.8-10.8) K/uL RBC (4.7-6.1) M/uL Hgb (14.0-18.0) g/dL Hct (42-52) % MCV (80-100) fL MCH (25-34) pg MCHC (32-36) g/dL RDW Std Deviation (36.4-46.3) fL RDW Coeff of Imtiaz (11.5-14.5) % Plt Count (130-400) K/uL MPV (7.4-10.4) fL Immature Gran % (Auto) % Neut % (Auto) % Lymph % (Auto) % Stephenson % (Auto) % Eos % (Auto) % Baso % (Auto) % Immature Gran # (Auto) (0.00-0.02) K/uL Neut # (Auto) (1.4-6.5) K/uL Lymph # (Auto) (1.2-3.4) K/uL Stephenson # (Auto) (0.11-0.59) K/uL Eos # (Auto) (0-0.5) K/uL Baso # (Auto) (0-0.2) K/uL Absolute Nucleated RBC (0-0) K/uL Nucleated RBC % (auto) % RBC Morphology PT (9.0-12.0) Seconds INR (0.9-1.1) Sodium (136-145) mmol/L Potassium (3.5-5.1) mmol/L Chloride (98-107) mmol/L Carbon Dioxide (21-32) mmol/L Anion Gap (3-11) BUN (7-18) mg/dl Creatinine (0.6-1.4) mg/dl Est Cr Clr Drug Dosing ml/min Est GFR ( Amer) Est GFR (Non-Af Amer) BUN/Creatinine Ratio (10-20) Glucose (70-99) mg/dl POC Glucose 198 H 188 H (70-99) Calcium (8.5-10.1) mg/dl Magnesium (1.8-2.4) mg/dl Total Bilirubin (0.2-1) mg/dl AST (15-37) U/L ALT (12-78) U/L Alkaline Phosphatase (45-117) U/L Troponin I 0.042 (0-0.045) ng/ml NT-Pro-B Natriuret Pep (0-900) pg/ml Total Protein (6.4-8.2) gm/dl Albumin (3.4-5.0) gm/dl Globulin (2.5-4.0) gm/dl Albumin/Globulin Ratio (0.9-2) Blood Type Antibody Screen Crossmatch Imaging Data Attestation: I personally reviewed and interpreted this imaging study as follows: Radiologist's Impression: SINGLE VIEW CHEST CLINICAL HISTORY: Atypical chest pain. FINDINGS: An AP, portable, upright chest radiograph is compared to study dated 03/19/2016 and correlated with chest CT dated 03/17/2016. The examination is degraded by portable technique and patient rotation. A 3-lead cardiac pacemaker is new from previous and partially obscures the left upper chest. The patient is status post midline sternotomy. The heart is enlarged and there is atherosclerotic calcification of the thoracic aorta. There is pulmonary vascular congestion with mild interstitial edema. There are small pleural effusions with bibasilar consolidation. No pneumothorax is seen. The skeletal structures are osteopenic. The bony thorax is grossly intact. IMPRESSION: 1. Cardiomegaly and cardiac pacemaker. There is evidence of congestive failure and mild interstitial edema. 2. There are small pleural effusions with bibasilar consolidation. This likely represents atelectasis. Correlate clinically for evidence of superimposed pneumonia. Electronically signed by: Donnie Gomez M.D. 12/25/2018 3:21 PM ECG Data Attestation: I personally reviewed and interpreted this ECG as follows: Indication: chest pain Rate (beats per minute): 66 Rhythm: other (Paced rhythm) Findings: no ST depression, no ST elevation and no acute ischemic change Blood Pressure Blood Pressure Findings: Elevated blood pressure Blood Pressure Disposition: further management by hospitalist RENETTA Eddy The patient is a pleasant 73 y/o gentleman with a pmhx of CHF, heart block s/p ppm, MVR, AVR, HTN, HLD, CKD, CLARA who presents to the emergency department with intermittent CP and SOB in the setting of black stools over the past week with outpatient labs demonstrating Hbg 6.6 per HPI. On arrival the patient is fatigued/chronically ill appearing but in NAD, AFVSS. On exam patient has mild pallor. Abdomen is nontender. Rectal exam per Dr. Gallagher, resident, demonstrates melena/guaiac positive. EKG demonstrates paced rhythm without evidence of ischemia. CXR with evidence of mild congestive failure. Given labs confirmed through [facility] in the setting of active melena patient was consented for blood trasnfusion by Dr. Gallagher and 2 units prbcs were ordered. Labs in ED confirming patients anemia with Hbg 6.9. Platelets 112 similar to prior range. Cr. 2.5 similar to recent value however BUN elevated from previous at 83. Troponin 0.045. INR 5.0 will defer reversal to admitting team given hemodynamically stable. Of note, patient blood type is O negative. Patient was approved to be given O+ by Dr. Young given low inventory of O negative blood. Dr. Gallagher confirmed with Dr. Young. Case was d/w by Dr. Gallagher with Evangelina Erazo, [employer] PAC, who will evaluate the patient for admission and likely GI consultation for endoscopy. Impression & Plan Acute upper GI bleeding Critical Care Time I have personally spent greater than 76 minutes of critical care time in the direct management of this patient. This includes bedside care, interpretation of diagnostic studies, and testing, discussion with consultants, patient, and family members, and other required patient management activities. This 76 minutes is in excess of all separately billable procedures. Critical Care Time: Yes Total Critical Care Time: 76 Discharge Plan Visit Data *Final* Discharge Date/Time: 12/25/18 18:33 Chief Complaint: Chest Pain Stated Complaint: CHEST PAIN, WEAKNESS, DIZZINESS ED Provider: Neri Fletcher ED Midlevel Provider: Kobi Gallagher Discharge Problem: Acute upper GI bleeding Patient Disposition: Admitted As Inpatient Discharge Instructions Interventions: ED Discharge Assessment Last Done: 12/25/18 18:33 The scribe's documentation has been prepared under my direction and personally reviewed by me in its entirety. I confirm that the note above accurately reflects all work, treatment, procedures, and medical decision making performed by me.
[2018-12-26 02:37] LABS: Hematocrit (blood only) 23.2 % (42-52); Hemoglobin 7.7 g/dL (14.0-18.0); Mean Corpuscular Hgb Conc 33.2 g/dL (32-36); Mean Corpuscular Volume 97.1 fL (80-100); Mean Platelet Volume 9.6 fL (7.4-10.4); Platelet Count 112 K/uL (130-400); RDW Coefficient of Variation 16.5 % (11.5-14.5); RDW Standard Deviation 57.1 fL (36.4-46.3); Red Blood Count 2.39 M/uL (4.7-6.1); White Blood Count 4.93 K/uL (4.8-10.8)
[2018-12-26 02:48] LABS: INR 2.3 (0.9-1.1); Prothrombin Time 22.5 Seconds (9.0-12.0)
[2018-12-26 02:57] LABS: BUN Creatinine Ratio 34.9 (10-20); Calcium 8.8 mg/dl (8.5-10.1); Creatinine Clr Calc Pharmacy 34.2 ml/min; Est GFR (African American) 30.6; Est GFR (Non-African American) 26.4; Potassium 4.1 mmol/L (3.5-5.1)
[2018-12-26 03:08] LABS: Troponin I 0.092 ng/ml (0-0.045)
[2018-12-26] MEDS ORDERED: SODIUM CHLORIDE 0.9% 250 ML IV PRN (03:15)
[2018-12-26] MEDS: LEVOTHYROXINE SODIUM 100 MCG TABLET PO SCH (06:59)
[2018-12-26] MEDS: INSULIN ASPART 100 UNITS/ML 3 ML PEN SC SCH ×4 (09:06→21:28)
[2018-12-26] MEDS: INSULIN GLARGINE SOLOSTAR 100 UNITS/ML 3 ML PEN SC SCH ×2 (09:25→21:28)
[2018-12-26] MEDS ORDERED: PHYTONADIONE 5 MG in SODIUM CHLORIDE 0.9% 50 ML IV STA (09:49)
[2018-12-26] MEDS ORDERED: PANTOPRAZOLE BOLUS/DRIP 1 EA IV STA (09:51)
[2018-12-26 10:08] LABS: Hematocrit (blood only) 26.4 % (42-52); Hemoglobin 8.9 g/dL (14.0-18.0)
[2018-12-26] MEDS: FOLIC ACID 1 MG TAB PO SCH (10:18)
[2018-12-26] MEDS: METOPROLOL TARTRATE 1 MG/ML VIAL IV SCH ×3 (10:19→21:27)
[2018-12-26] MEDS: METOPROLOL SUCC 50MG EXT REL TAB PO SCH ×2 (10:19→21:26)
[2018-12-26 10:25] LABS: INR 1.8 (0.9-1.1)
[2018-12-26] MEDS ORDERED: PANTOprazole 80 MG in DEXTROSE 5% 100 ML IV ONE (10:30)
[2018-12-26] MEDS: PANTOprazole 40 MG in DEXTROSE 5% 100 ML IV SCH ×3 (10:53→19:47)
--- NOTE | 2018-12-26 11:17 | Cardiology Consultation ---
Date of Consultation December 26, 2018 Assessment & Plan (1) Anemia: s/p 1 unit PRBC symptoms improved to be followed (2) Supratherapeutic INR: reversed with Vit K coumadin being held history reviewed pt initially d/c'ed home after MVR with coumadin and has been continued since surprisingly, no objective findings of atrial fibrillation longer than a few seconds with hx of MVR no other indication for anticoagulation discussed this with the patient and in light of GIB, coumadin will be held for now will cont to monitor pacer checks as an outpatient for episodes of afib pt aware and accepting of cardioembolic risk should he go into afib will cont to follow as an outpatient (3) History of complete heart block: s/p BiV ICD [facility] [facility] device interrogations show only very short bursts of afib longest lasting 8 seconds (4) S/P MVR (mitral valve replacement): as above no indication for anticoagulation after 30 days post-op most recent echo shows appropriately functioning (5) History of pacemaker: (6) Systolic and diastolic CHF, chronic: most recent EF of 53% has required uptitration of BB for PVC suppression to facilitate BiV pacing will change to IV now given npo status follow after EGD (7) Chest pain: resolved with transfusion likely Type II demand ischemia from profound anemia no objective finding of ischemia no further testing necessary at this time will follow as outpatient History of Present Illness Attending Physician: Leona Robb DO History of Present Illness 73 yo cardiovascularly complex M who normally folllows with Dr. Luong/Fran Ennis PA-C of our practice. Presented to [facility] on 12/25/18 with complaints of black tarry stools and chest discomfort at rest. Hgb down to 6.6 with baseline around 9. Symptoms started approx 2 weeks ago. Became tired, fatigued and noticed stool color change. Also developed chest discomfort described as a dull ache. Only occurred at rest. Denied associated symptoms but patient could tell that his anemia had worsened. Seen by pcp on 12/19 with above complaints, testing ordered that showed FOCT + and anemia of 6.6, admission recommended. Received 1 unit PRBC last evening with resolution of symptoms. For EGD by GI colleagues today. Currently feels well at rest. PMHX: 1. S/p Redo AVR and aortic root with 23mm Epic/28mm Gelweave composite root, MVR 29mm Epic, CABG x 1 (Ao- PDA), EVH by Dr. Hendrix 03/23/16 2. Post op complete heart block prompting Biventricular pacemaker ([facility] [id number]) by Dr. Barnes 03/29/16 3. H/o severe pulmonary hypertension -PASP > 70 mm Hg, 03/16/2016, in retrospect likely pulmonary venous hypertension due to left heart failure rather than pulmonary artery hypertension due to lung disease 4. Stage III-IV CKD Allergies Allergy/AdvReac Type Severity Reaction Status Date / Time Penicillins Allergy Unknown rash Verified 11/20/18 07:16 Soskvtu-Cti-Lgm Reductase Allergy Unknown . Verified 11/20/18 07:16 Inhibitor furosemide AdvReac Severe kidney Verified 11/20/18 07:16 failure Home Medications Home Medications Medication Instructions Recorded Confirmed Type alfuzosin 1 tab PO PM 12/25/18 12/25/18 History aspirin 81 mg PO DAILY 12/25/18 12/25/18 History bicalutamide [Casodex] 50 mg PO DAILY 12/25/18 12/25/18 History bumetanide 1 mg PO DAILY 12/25/18 12/25/18 History cholecalciferol (vitamin D3) 2,000 unit PO BID 12/25/18 12/25/18 History [Vitamin D3] finasteride 5 mg PO HS 12/25/18 12/25/18 History folic acid 5 mg PO DAILY 12/25/18 12/25/18 History insulin glargine 50 unit SUBCUT HS 12/25/18 12/25/18 History insulin lispro [Humalog U-100 1 sliding scale dose SUBCUT UD 12/25/18 12/25/18 History Insulin] levothyroxine 100 mcg PO DAILY 12/25/18 12/25/18 History metoprolol succinate 50 mg PO BID 12/25/18 12/25/18 History spironolactone 12.5 mg PO UD 12/25/18 12/25/18 History warfarin 3 mg PO UD 12/25/18 12/25/18 History Patient History Medical History History of complete heart block (Chronic) s/p pacemaker Paroxysmal atrial fibrillation (Chronic) History of pacemaker (Chronic) Dyslipidemia (Chronic) BPH (benign prostatic hyperplasia) (Chronic) Diverticulosis (Chronic) Depression (Chronic) Osteoarthritis (Chronic) Systolic and diastolic CHF, chronic (Chronic) "echo 03/16/2016 - EF 35-39% (was normal on prior echo), mod-severe aortic valv e regurgitation, severe pulmonary HTN" Restrictive lung disease (Chronic) Moderate to severe pulmonary hypertension (Chronic) CLARA (obstructive sleep apnea) (Chronic) CKD (chronic kidney disease), stage III (Chronic) CKD III-IV DM type 2 (diabetes mellitus, type 2) (Chronic) HTN (hypertension) (Chronic) Gin's thyroiditis (Chronic) CAD (coronary artery disease) (Chronic) "1999 - CABG x 1 06/2014 - ACS, cath at the time showed patent graft, non obstructive disease to LAD and circumflex, stebbins RCA 100% occluded " Aortic insufficiency (Chronic) Prostate cancer (Chronic 01/14/18) "History of benign prostatic hypertrophy Rising PSA, pretreatment PSA 5.7 corrected due to finasteride Status post ultrasound-guided biopsies January 14, 2018 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 (Recommendation for 6-12 months) Gold fiducial markers and Space OAR were placed. Status post completion of radiation therapy April 25, 2018. He received 7000 cGy" On 02/06/18 11:33 Tricia Soto wrote "History of benign prostatic hypertrophy Rising PSA, pretreatment PSA 5.7 corrected due to finasteride Status post ultrasound-guided biopsies January 14, 2018 Adenocarcinoma of the prostate [place] 4+3 and 4+4 Prostate volume 74.6 Prostate density 0.076 " Surgical History S/P MVR (mitral valve replacement) (Chronic) S/P CABG x 1 (Chronic) S/P AVR (aortic valve replacement) (Chronic) "1999, cadaver valve " Family History Other Hypertension Prostate cancer Social History Communication Ability: Effective Director Of [employer] Services Required: No Beliefs That Will Affect Care: None Current Living Situation: Spouse Other Information That Helps Us Care for You: No Feels Safe at Home: Yes Safety Concerns: Feels Safe At This Time Smoking Status: Former smoker Hx Alcohol Use: No Hx Substance Use: No Review of Systems as per HPI, all other ROS reviewed and negative. Physical Exam Vital Signs (Past 24 Hours): Last Vital Signs Temp 36.8 C 12/26/18 09:30 Pulse 78 12/26/18 10:19 Resp 18 12/26/18 09:30 BP 153/45 H 12/26/18 10:19 Pulse Ox 98 12/26/18 09:30 Physical Exam: General: Awake, alert and oriented x 3. No acute distress. HEENT: Normocephalic, atraumatic. Pupils equal, round and reactive to light and accommodation. Extraocular muscles are intact. Anicteric sclera. Moist mucous membranes. Neck: No JVD. No bruit. Cardiovascular: Regular. Positive S-4. Normal S-1 and S-2. No S-3. No murmurs or rubs. Pulmonary: Clear to auscultation B/L. No rales, rhonchi or wheezing Abdomen: Bowel sounds x 4, soft. No rebound, guarding or tenderness. No organomegaly. Extremities: No clubbing, cyanosis or edema. +2 pedal pulses bilaterally. Skin: Warm and dry. Results & Data Laboratory Results Laboratory Results - last 24 hr 12/25/18 12/25/18 12/25/18 15:21 15:21 15:21 WBC 5.43 RBC 2.12 L Hgb 6.9 L* Hct 21.2 L MCV 100.0 MCH 32.5 MCHC 32.5 RDW Std Deviation 57.3 H RDW Coeff of Imtiaz 15.9 H Plt Count 112 L MPV 10.3 Immature Gran % (Auto) 0.6 Neut % (Auto) 73.9 Lymph % (Auto) 15.3 [place] % (Auto) 8.7 Eos % (Auto) 1.3 Baso % (Auto) 0.2 Immature Gran # (Auto) 0.03 H Neut # (Auto) 4.02 Lymph # (Auto) 0.83 L [place] # (Auto) 0.47 Eos # (Auto) 0.07 Baso # (Auto) 0.01 Absolute Nucleated RBC 0.02 H Nucleated RBC % (auto) 0.4 RBC Morphology Unremarkable PT 45.7 H INR 5.0 H Sodium 135 L Potassium 4.5 Chloride 100 Carbon Dioxide 29 Anion Gap 6.0 BUN 83 H Creatinine 2.50 H Est Cr Clr Drug Dosing 32.4 Est GFR ( Amer) 28.7 Est GFR (Non-Af Amer) 24.7 BUN/Creatinine Ratio 33.0 H Glucose 149 H POC Glucose Calcium 9.1 Magnesium 2.0 Total Bilirubin 0.4 AST 18 ALT 21 Alkaline Phosphatase 133 H Troponin I 0.045 NT-Pro-B Natriuret Pep 5053 H Total Protein 7.7 Albumin 3.4 Globulin 4.3 H Albumin/Globulin Ratio 0.8 L Blood Type Antibody Screen Crossmatch 12/25/18 12/25/18 12/25/18 15:21 15:21 15:36 WBC RBC Hgb Hct MCV MCH MCHC RDW Std Deviation RDW Coeff of Imtiaz Plt Count MPV Immature Gran % (Auto) Neut % (Auto) Lymph % (Auto) [place] % (Auto) Eos % (Auto) Baso % (Auto) Immature Gran # (Auto) Neut # (Auto) Lymph # (Auto) [place] # (Auto) Eos # (Auto) Baso # (Auto) Absolute Nucleated RBC Nucleated RBC % (auto) RBC Morphology PT INR Sodium Potassium Chloride Carbon Dioxide Anion Gap BUN Creatinine Est Cr Clr Drug Dosing Est GFR ( Amer) Est GFR (Non-Af Amer) BUN/Creatinine Ratio Glucose POC Glucose Calcium Magnesium Cancelled Total Bilirubin AST ALT Alkaline Phosphatase Troponin I NT-Pro-B Natriuret Pep Cancelled Total Protein Albumin Globulin Albumin/Globulin Ratio Blood Type O Negative Antibody Screen NEGATIVE Crossmatch See Detail 12/25/18 12/25/18 12/25/18 21:02 21:03 22:01 WBC RBC Hgb Hct MCV MCH MCHC RDW Std Deviation RDW Coeff of Imtiaz Plt Count MPV Immature Gran % (Auto) Neut % (Auto) Lymph % (Auto) [place] % (Auto) Eos % (Auto) Baso % (Auto) Immature Gran # (Auto) Neut # (Auto) Lymph # (Auto) [place] # (Auto) Eos # (Auto) Baso # (Auto) Absolute Nucleated RBC Nucleated RBC % (auto) RBC Morphology PT INR Sodium Potassium Chloride Carbon Dioxide Anion Gap BUN Creatinine Est Cr Clr Drug Dosing Est GFR ( Amer) Est GFR (Non-Af Amer) BUN/Creatinine Ratio Glucose POC Glucose 198 H 188 H Calcium Magnesium Total Bilirubin AST ALT Alkaline Phosphatase Troponin I 0.042 NT-Pro-B Natriuret Pep Total Protein Albumin Globulin Albumin/Globulin Ratio Blood Type Antibody Screen Crossmatch 12/26/18 12/26/18 12/26/18 02:22 02:22 02:22 WBC 4.93 RBC 2.39 L Hgb 7.7 L Hct 23.2 L MCV 97.1 MCH 32.2 MCHC 33.2 RDW Std Deviation 57.1 H RDW Coeff of Imtiaz 16.5 H Plt Count 112 L MPV 9.6 Immature Gran % (Auto) Neut % (Auto) Lymph % (Auto) [place] % (Auto) Eos % (Auto) Baso % (Auto) Immature Gran # (Auto) Neut # (Auto) Lymph # (Auto) [place] # (Auto) Eos # (Auto) Baso # (Auto) Absolute Nucleated RBC Nucleated RBC % (auto) RBC Morphology PT 22.5 H INR 2.3 H Sodium 139 Potassium 4.1 Chloride 101 Carbon Dioxide 32 Anion Gap 6.0 BUN 83 H Creatinine 2.37 H Est Cr Clr Drug Dosing 34.2 Est GFR ( Amer) 30.6 Est GFR (Non-Af Amer) 26.4 BUN/Creatinine Ratio 34.9 H Glucose 94 POC Glucose Calcium 8.8 Magnesium Total Bilirubin AST ALT Alkaline Phosphatase Troponin I 0.092 H* NT-Pro-B Natriuret Pep Total Protein Albumin Globulin Albumin/Globulin Ratio Blood Type Antibody Screen Crossmatch 12/26/18 12/26/18 12/26/18 03:32 07:38 09:54 WBC RBC Hgb 8.9 L Hct 26.4 L MCV MCH MCHC RDW Std Deviation RDW Coeff of Imtiaz Plt Count MPV Immature Gran % (Auto) Neut % (Auto) Lymph % (Auto) [place] % (Auto) Eos % (Auto) Baso % (Auto) Immature Gran # (Auto) Neut # (Auto) Lymph # (Auto) [place] # (Auto) Eos # (Auto) Baso # (Auto) Absolute Nucleated RBC Nucleated RBC % (auto) RBC Morphology PT INR Sodium Potassium Chloride Carbon Dioxide Anion Gap BUN Creatinine Est Cr Clr Drug Dosing Est GFR ( Amer) Est GFR (Non-Af Amer) BUN/Creatinine Ratio Glucose POC Glucose 96 117 H Calcium Magnesium Total Bilirubin AST ALT Alkaline Phosphatase Troponin I NT-Pro-B Natriuret Pep Total Protein Albumin Globulin Albumin/Globulin Ratio Blood Type Antibody Screen Crossmatch 12/26/18 12/26/18 09:54 09:54 WBC RBC Hgb Hct MCV MCH MCHC RDW Std Deviation RDW Coeff of Imtiaz Plt Count MPV Immature Gran % (Auto) Neut % (Auto) Lymph % (Auto) [place] % (Auto) Eos % (Auto) Baso % (Auto) Immature Gran # (Auto) Neut # (Auto) Lymph # (Auto) [place] # (Auto) Eos # (Auto) Baso # (Auto) Absolute Nucleated RBC Nucleated RBC % (auto) RBC Morphology PT 18.0 H INR 1.8 H Sodium Potassium Chloride Carbon Dioxide Anion Gap BUN Creatinine Est Cr Clr Drug Dosing Est GFR ( Amer) Est GFR (Non-Af Amer) BUN/Creatinine Ratio Glucose POC Glucose Calcium Magnesium Total Bilirubin AST ALT Alkaline Phosphatase Troponin I 0.095 H* NT-Pro-B Natriuret Pep Total Protein Albumin Globulin Albumin/Globulin Ratio Blood Type Antibody Screen Crossmatch
[2018-12-26] MEDS: BICALUTAMIDE 50 MG TAB PO SCH (11:49)
[2018-12-26] MEDS: BUMETANIDE 1 MG TAB PO SCH (11:49)
--- NOTE | 2018-12-26 13:48 | Gastrointestinal Consultation ---
Date of Consultation December 26, 2018 Assessment & Plan (1) Anemia: Pt is a 73 y/o male who presented w worsening anemia, black stools in setting of supratherapuetic INR w Coumadin use for mitral valve replacement and Afib. - Monitor H/H and transfuse prn - PPI bolus and gtt - He's never had EGD eval in the past. Denies tobacco, ETOH, NSAIDs. Discussed w Dr. Trujillo indication for possible EGD evaluation however given his cardiac comorbidities, no continued signs of active GI bleeding, prefer to hold off on EGD at this time and monitor him off Coumadin. - I spoke w Dr. Win (Cardiology): pt may not need to restart Coumadin per Dr. Win; cleared for endoscopic evaluation if needed. - Pt ok for CL diet today. - Will follow (2) Black stool: (3) Supratherapeutic INR: Supervising Physician Co-Signing Physician Notes I have personally seen and examined the patient with ANA Madison. Her note reflects my exam and findings. I agree with her impression and plan. Bleeding related to over anticoagulation. Slowly advance diet as tolerates. Follow H/H. Pt needs daily PPI. Endoscopy would not anything to his care at this point thus making risk of procedure higher than benefits. Bk Trujillo M.D. History of Present Illness Reason for Consultation: Anemia Requesting Physician: Dr. Leona Robb Attending Physician: Dr. Bk Trujillo History of Present Illness Pt is a 73 y/o male w PMHx of chronic anemia on Procrit, Gin's, DM II, CKD III-IV, thrombocytopenia, HTN, dyslipidemia, CLARA on 2L [facility], obesity, restrictive lung disease, CAD s/p CABG, heart block s/p pacemaker, chronic systolic and diastolic heart failure, paroxysmal atrial fibrillation, s/p pacemaker placement, mitral valve replacement on Coumadin, carotid stenosis, pulmonary hypertension, prostate cancer s/p radiation is on casodex presented to ER for wosening anemia. His baseline Hgb is around 9, found to be 6s on presentation. He's been c/o increased fatigue and slight more dyspnea on exertion. His stools have also been black in color x >1 week but stools are formed per his report. He denies any n/v, abd pain. Good appetite. Besides the worsening anemia, his labs are notable for INR of 5, elevated BNP 5053. INR reversed to 1.8 w Vit K 5mg IV last night. He also has elevated Troponin. CXR showed signs of cardiomegaly, congestive failure and mild interstitial edema. Overnight he was tranfused 4U PRBC, H/h up to 8.9/26.4 now. He had BM this AM which was black and soft. His INR was 1.8 today. He's never had EGD eval before. Hx of Colonoscopy in 2016: diverticulosis Allergies Allergy/AdvReac Type Severity Reaction Status Date / Time Penicillins Allergy Unknown rash Verified 11/20/18 07:16 [id number] Reductase Allergy Unknown . Verified 11/20/18 07:16 Inhibitor furosemide AdvReac Severe kidney Verified 11/20/18 07:16 failure Home Medications Home Medications Medication Instructions Recorded Confirmed Type alfuzosin 1 tab PO PM 12/25/18 12/25/18 History aspirin 81 mg PO DAILY 12/25/18 12/25/18 History bicalutamide [Casodex] 50 mg PO DAILY 12/25/18 12/25/18 History bumetanide 1 mg PO DAILY 12/25/18 12/25/18 History cholecalciferol (vitamin D3) 2,000 unit PO BID 12/25/18 12/25/18 History [Vitamin D3] finasteride 5 mg PO HS 12/25/18 12/25/18 History folic acid 5 mg PO DAILY 12/25/18 12/25/18 History insulin glargine 50 unit SUBCUT HS 12/25/18 12/25/18 History insulin lispro [Humalog U-100 1 sliding scale dose SUBCUT UD 12/25/18 12/25/18 History Insulin] levothyroxine 100 mcg PO DAILY 12/25/18 12/25/18 History metoprolol succinate 50 mg PO BID 12/25/18 12/25/18 History spironolactone 12.5 mg PO UD 12/25/18 12/25/18 History warfarin 3 mg PO UD 12/25/18 12/25/18 History Patient History Medical History History of complete heart block (Chronic) s/p pacemaker Paroxysmal atrial fibrillation (Chronic) History of pacemaker (Chronic) Dyslipidemia (Chronic) BPH (benign prostatic hyperplasia) (Chronic) Diverticulosis (Chronic) Depression (Chronic) Osteoarthritis (Chronic) Systolic and diastolic CHF, chronic (Chronic) "echo 03/16/2016 - EF 35-39% (was normal on prior echo), mod-severe aortic valve regurgitation, severe pulmonary HTN" Restrictive lung disease (Chronic) Moderate to severe pulmonary hypertension (Chronic) CLARA (obstructive sleep apnea) (Chronic) CKD (chronic kidney disease), stage III (Chronic) CKD III-IV DM type 2 (diabetes mellitus, type 2) (Chronic) HTN (hypertension) (Chronic) Gin's thyroiditis (Chronic) CAD (coronary artery disease) (Chronic) "1999 - CABG x 1 06/2014 - ACS, cath at the time showed patent graft, non obstructive disease to LAD and circumflex, [place] RCA 100% occluded " Aortic insufficiency (Chronic) Prostate cancer (Chronic 01/14/18) "History of benign prostatic hypertrophy Rising PSA, pretreatment PSA 5.7 corrected due to finasteride Status post ultrasound-guided biopsies January 14, 2018 Adenocarcinoma of the prostate [place] 4+3 and 4+4 Prostate volume 74.6 Prostate density 0.076 Hormone suppression with Casodex. (Recommendation for 6-12 months) Gold fiducial markers and Space OAR were placed. Status post completion of radiation therapy April 25, 2018. He received 7000 cGy" On 02/06/18 11:33 Tricia Soto wrote "History of benign prostatic hypertrophy Rising PSA, pretreatment PSA 5.7 corrected due to finasteride Status post ultrasound-guided biopsies January 14, 2018 Adenocarcinoma of the prostate [place] 4+3 and 4+4 Prostate volume 74.6 Prostate density 0.076 " Surgical History S/P MVR (mitral valve replacement) (Chronic) S/P CABG x 1 (Chronic) S/P AVR (aortic valve replacement) (Chronic) "1999, cadaver valve " Family History Other Hypertension Prostate cancer Social History Communication Ability: Effective Beliefs That Will Affect Care: None Current Living Situation: Spouse Other Information That Helps Us Care for You: No Feels Safe at Home: Yes Safety Concerns: Feels Safe At This Time Smoking Status: Former smoker Hx Alcohol Use: No Hx Substance Use: No Review of Systems Respiratory: + dyspnea on exertion; no cough Cardiovascular: no chest pain Gastrointestinal: as per Subjective / HPI Physical Exam Vital Signs (Past 24 Hours): Last Vital Signs Temp 36.8 C 12/26/18 11:31 Pulse 72 12/26/18 11:31 Resp 18 12/26/18 11:31 BP 156/62 H 12/26/18 11:31 Pulse Ox 98 12/26/18 11:31 Constitutional: WD/WN, vitals as above well groomed, cooperative and comfortable Eyes: PERRL, conjunctivae normal, anicteric sclerae ENMT: external ear and nose normal, oropharynx normal Respiratory: Auscultation: + diminished lung sounds and + crackles Cardiovascular: RRR, no murmur, no edema Gastrointestinal (Abdomen): normal bowel sounds, soft, nontender, no hepatosplenomegaly Skin: no rashes, warm and dry no jaundice Neurologic: Motor/Sensory: no asterixis Psychiatric: A+Ox3, euthymic affect Lymphatic: no lymphedema Results & Data Laboratory Results Laboratory Results - last 72 hr 12/25/18 12/25/18 12/25/18 15:21 15:21 15:21 WBC 5.43 RBC 2.12 L Hgb 6.9 L* Hct 21.2 L MCV 100.0 MCH 32.5 MCHC 32.5 RDW Std Deviation 57.3 H RDW Coeff of Imtiaz 15.9 H Plt Count 112 L MPV 10.3 Immature Gran % (Auto) 0.6 Neut % (Auto) 73.9 Lymph % (Auto) 15.3 [place] % (Auto) 8.7 Eos % (Auto) 1.3 Baso % (Auto) 0.2 Immature Gran # (Auto) 0.03 H Neut # (Auto) 4.02 Lymph # (Auto) 0.83 L [place] # (Auto) 0.47 Eos # (Auto) 0.07 Baso # (Auto) 0.01 Absolute Nucleated RBC 0.02 H Nucleated RBC % (auto) 0.4 RBC Morphology Unremarkable PT 45.7 H INR 5.0 H Sodium 135 L Potassium 4.5 Chloride 100 Carbon Dioxide 29 Anion Gap 6.0 BUN 83 H Creatinine 2.50 H Est Cr Clr Drug Dosing 32.4 Est GFR ( Amer) 28.7 Est GFR (Non-Af Amer) 24.7 BUN/Creatinine Ratio 33.0 H Glucose 149 H POC Glucose Calcium 9.1 Magnesium 2.0 Total Bilirubin 0.4 AST 18 ALT 21 Alkaline Phosphatase 133 H Troponin I 0.045 NT-Pro-B Natriuret Pep 5053 H Total Protein 7.7 Albumin 3.4 Globulin 4.3 H Albumin/Globulin Ratio 0.8 L Blood Type Antibody Screen Crossmatch 12/25/18 12/25/18 12/25/18 15:21 15:21 15:36 WBC RBC Hgb Hct MCV MCH MCHC RDW Std Deviation RDW Coeff of Imtiaz Plt Count MPV Immature Gran % (Auto) Neut % (Auto) Lymph % (Auto) [place] % (Auto) Eos % (Auto) Baso % (Auto) Immature Gran # (Auto) Neut # (Auto) Lymph # (Auto) [place] # (Auto) Eos # (Auto) Baso # (Auto) Absolute Nucleated RBC Nucleated RBC % (auto) RBC Morphology PT INR Sodium Potassium Chloride Carbon Dioxide Anion Gap BUN Creatinine Est Cr Clr Drug Dosing Est GFR ( Amer) Est GFR (Non-Af Amer) BUN/Creatinine Ratio Glucose POC Glucose Calcium Magnesium Cancelled Total Bilirubin AST ALT Alkaline Phosphatase Troponin I NT-Pro-B Natriuret Pep Cancelled Total Protein Albumin Globulin Albumin/Globulin Ratio Blood Type O Negative Antibody Screen NEGATIVE Crossmatch See Detail 12/25/18 12/25/18 12/25/18 21:02 21:03 22:01 WBC RBC Hgb Hct MCV MCH MCHC RDW Std Deviation RDW Coeff of Imtiaz Plt Count MPV Immature Gran % (Auto) Neut % (Auto) Lymph % (Auto) [place] % (Auto) Eos % (Auto) Baso % (Auto) Immature Gran # (Auto) Neut # (Auto) Lymph # (Auto) [place] # (Auto) Eos # (Auto) Baso # (Auto) Absolute Nucleated RBC Nucleated RBC % (auto) RBC Morphology PT INR Sodium Potassium Chloride Carbon Dioxide Anion Gap BUN Creatinine Est Cr Clr Drug Dosing Est GFR ( Amer) Est GFR (Non-Af Amer) BUN/Creatinine Ratio Glucose POC Glucose 198 H 188 H Calcium Magnesium Total Bilirubin AST ALT Alkaline Phosphatase Troponin I 0.042 NT-Pro-B Natriuret Pep Total Protein Albumin Globulin Albumin/Globulin Ratio Blood Type Antibody Screen Crossmatch 12/26/18 12/26/18 12/26/18 02:22 02:22 02:22 WBC 4.93 RBC 2.39 L Hgb 7.7 L Hct 23.2 L MCV 97.1 MCH 32.2 MCHC 33.2 RDW Std Deviation 57.1 H RDW Coeff of Imtiaz 16.5 H Plt Count 112 L MPV 9.6 Immature Gran % (Auto) Neut % (Auto) Lymph % (Auto) [place] % (Auto) Eos % (Auto) Baso % (Auto) Immature Gran # (Auto) Neut # (Auto) Lymph # (Auto) [place] # (Auto) Eos # (Auto) Baso # (Auto) Absolute Nucleated RBC Nucleated RBC % (auto) RBC Morphology PT 22.5 H INR 2.3 H Sodium 139 Potassium 4.1 Chloride 101 Carbon Dioxide 32 Anion Gap 6.0 BUN 83 H Creatinine 2.37 H Est Cr Clr Drug Dosing 34.2 Est GFR ( Amer) 30.6 Est GFR (Non-Af Amer) 26.4 BUN/Creatinine Ratio 34.9 H Glucose 94 POC Glucose Calcium 8.8 Magnesium Total Bilirubin AST ALT Alkaline Phosphatase Troponin I 0.092 H* NT-Pro-B Natriuret Pep Total Protein Albumin Globulin Albumin/Globulin Ratio Blood Type Antibody Screen Crossmatch 12/26/18 12/26/18 12/26/18 03:32 07:38 09:54 WBC RBC Hgb 8.9 L Hct 26.4 L MCV MCH MCHC RDW Std Deviation RDW Coeff of Imtiaz Plt Count MPV Immature Gran % (Auto) Neut % (Auto) Lymph % (Auto) [place] % (Auto) Eos % (Auto) Baso % (Auto) Immature Gran # (Auto) Neut # (Auto) Lymph # (Auto) [place] # (Auto) Eos # (Auto) Baso # (Auto) Absolute Nucleated RBC Nucleated RBC % (auto) RBC Morphology PT INR Sodium Potassium Chloride Carbon Dioxide Anion Gap BUN Creatinine Est Cr Clr Drug Dosing Est GFR ( Amer) Est GFR (Non-Af Amer) BUN/Creatinine Ratio Glucose POC Glucose 96 117 H Calcium Magnesium Total Bilirubin AST ALT Alkaline Phosphatase Troponin I NT-Pro-B Natriuret Pep Total Protein Albumin Globulin Albumin/Globulin Ratio Blood Type Antibody Screen Crossmatch 12/26/18 12/26/18 12/26/18 09:54 09:54 11:06 WBC RBC Hgb Hct MCV MCH MCHC RDW Std Deviation RDW Coeff of Imtiaz Plt Count MPV Immature Gran % (Auto) Neut % (Auto) Lymph % (Auto) [place] % (Auto) Eos % (Auto) Baso % (Auto) Immature Gran # (Auto) Neut # (Auto) Lymph # (Auto) [place] # (Auto) Eos # (Auto) Baso # (Auto) Absolute Nucleated RBC Nucleated RBC % (auto) RBC Morphology PT 18.0 H INR 1.8 H Sodium Potassium Chloride Carbon Dioxide Anion Gap BUN Creatinine Est Cr Clr Drug Dosing Est GFR ( Amer) Est GFR (Non-Af Amer) BUN/Creatinine Ratio Glucose POC Glucose 119 H Calcium Magnesium Total Bilirubin AST ALT Alkaline Phosphatase Troponin I 0.095 H* NT-Pro-B Natriuret Pep Total Protein Albumin Globulin Albumin/Globulin Ratio Blood Type Antibody Screen Crossmatch
--- NOTE | 2018-12-26 18:04 | Hospitalist Progress Note ---
Date of Service December 26, 2018 Assessment & Plan (1) Anemia: acute blood loss anemia in the setting of anemia of chronic disease. s/p blood overnight and he is improved. Cont to monitor H/H off coumadin. No further vit K reversal is warranted. GI deferring EGD at this time. Advancing diet. (2) Supratherapeutic INR: resolved after vitamin K, INR 1.8 today. (3) S/P AVR (aortic valve replacement): S/P bioprosthetic aortic valve replacement and bioprosthetic mitral valve replacement in 2016 at [facility] [place]. Cardiology consulted. (4) CAD (coronary artery disease): S/P CABG, cont medical management (5) Systolic and diastolic CHF, chronic: euvolemic, chronic and stable. (6) DM type 2 (diabetes mellitus, type 2): A1c: 5.9 on 11/18/18. DC Lantus and cont ISS/Novolog with carb coverage. (7) CKD (chronic kidney disease), stage III: Hx CKD III-IV Cr: improved to 2.4. Baseline Cr: 2.1-2.5 -monitor renal functions -avoid nephrotoxic agents when possible (8) CLARA (obstructive sleep apnea): Not on CPAP -continue 2L oxygen NC at night (9) History of pacemaker: (10) DVT prophylaxis: chemoprophylaxis for DVT contraindicated in setting of bleeding Full Code dispo-to home when medically stable. Leona Robb DO [facility] Hospitalist Subjective doing well persistent bloody stools overnight required 3 units pRBCs feeling well this am denies abd pain Physical Exam Vital Signs (Past 24 Hours): Last Vital Signs Temp 36.6 C 12/26/18 15:02 Pulse 79 12/26/18 15:02 Resp 18 12/26/18 15:02 BP 146/54 H 12/26/18 15:02 Pulse Ox 99 12/26/18 15:02 Physical Exam: General: no acute distress, WDWN Head: normocephalic, atraumatic ENT: MMM Lungs: clear, no respiratory distress CV: RRR, S1/2 heard Abd: normal BS, soft, non-tender Ext: no cyanosis, no calf tenderness Neuro: A&O x 3, no focal deficits noted, normal affect Skin: warm, dry Results & Data Laboratory Results Short CBC 12/26/18 12/26/18 Range/Units 02:22 09:54 WBC 4.93 (4.8-10.8) K/uL Hgb 7.7 L 8.9 L (14.0-18.0) g/dL Hct 23.2 L 26.4 L (42-52) % Plt Count 112 L (130-400) K/uL BMP 12/26/18 02:22 Sodium 139 Potassium 4.1 Chloride 101 Carbon Dioxide 32 BUN 83 H Creatinine 2.37 H Glucose 94 Calcium 8.8 Cardiac Enzymes 12/25/18 12/26/18 12/26/18 Range/Units 21:02 02:22 09:54 Troponin I 0.042 0.092 H* 0.095 H* (0-0.045) ng/ml Medications Administered Current Inpatient Medications Acetaminophen (Tylenol) 650 mg PO Q4H PRN PRN Reason: Pain or Fever Stop: 01/24/19 19:16 Alfuzosin HCl (Uroxatral) 10 mg PO PM EZE Stop: 01/24/19 20:59 Last Admin: 12/25/18 22:05 Dose: 10 mg Documented by: Bicalutamide (Casodex) 50 mg PO DAILY EZE Stop: 01/25/19 08:59 Last Admin: 12/26/18 11:49 Dose: 50 mg Documented by: Bumetanide (Bumex) 1 mg PO DAILY EZE Stop: 01/25/19 08:59 Last Admin: 12/26/18 11:49 Dose: 1 mg Documented by: Dextrose (Dextrose 50%) 25 - 50 ml IV UD PRN; Protocol PRN Reason: Hypoglycemia Protocol Stop: 01/24/19 19:16 Finasteride (Proscar) 5 mg PO HS EZE Stop: 01/24/19 20:59 Last Admin: 12/25/18 22:05 Dose: 5 mg Documented by: Folic Acid (Folvite) 5 mg PO DAILY EZE Stop: 01/25/19 08:59 Last Admin: 12/26/18 10:18 Dose: Not Given Documented by: Glucagon (Glucagen) 1 mg SQ UD PRN; Protocol PRN Reason: Hypoglycemia Protocol Stop: 01/24/19 19:16 Glucose (Glucose 40%) 15 - 30 gm PO UD PRN; Protocol PRN Reason: Hypoglycemia Protocol Stop: 01/24/19 19:16 Glucose (Dex4 Glucose) 4 - 8 tabs PO UD PRN; Protocol PRN Reason: Hypoglycemia Protocol Stop: 01/24/19 19:16 Sodium Chloride (Nss) 250 mls @ 15 mls/hr IV .[id number] PRN PRN Reason: For Transfusion Stop: 01/25/19 03:14 Pantoprazole Sodium 40 mg/ (Dextrose) 100 mls @ 20 mls/hr IV Q5H [facility] Stop: 01/25/19 10:29 Last Admin: 12/26/18 15:26 Dose: 20 mls/hr Documented by: Insulin Aspart (Novolog Flexpen) 0 units SC ACHS [facility] Stop: 01/24/19 20:59 Last Admin: 12/26/18 17:43 Dose: Not Given Documented by: Insulin Glargine (Lantus Solostar Pen) 0 - 25 units SC Q12 [facility]; Protocol Stop: 01/24/19 20:59 Last Admin: 12/26/18 09:25 Dose: 13 units Documented by: Levothyroxine Sodium (Synthroid) 100 mcg PO DAILYBB [facility] Stop: 01/25/19 06:29 Last Admin: 12/26/18 06:59 Dose: 100 mcg Documented by: Metoprolol Succinate (Toprol Xl) 50 mg PO BID [facility] Stop: 01/24/19 20:59 Last Admin: 12/26/18 10:19 Dose: Not Given Documented by: Metoprolol Tartrate (Lopressor) 5 mg IV Q6H [facility] Stop: 01/25/19 09:59 Last Admin: 12/26/18 17:42 Dose: 5 mg Documented by: Miscellaneous (Carbohydrates For Hypoglycemia) 15 - 30 gm PO UD PRN PRN Reason: Hypoglycemia Treatment Stop: 01/24/19 19:16 Spironolactone (Aldactone) 12.5 mg PO MoWeFr@0900 [facility] Stop: 01/26/19 08:59
[2018-12-26] MEDS: ALFUZOSIN HCL 10 MG TAB PO SCH (21:26)
[2018-12-26] MEDS: FINASTERIDE 5 MG TAB PO SCH (21:26)
[2018-12-27] MEDS: PANTOprazole 40 MG in DEXTROSE 5% 100 ML IV SCH ×3 (00:38→12:08)
[2018-12-27] MEDS: METOPROLOL TARTRATE 1 MG/ML VIAL IV SCH (04:00)
[2018-12-27] MEDS: LEVOTHYROXINE SODIUM 100 MCG TABLET PO SCH (05:39)
[2018-12-27 06:38] LABS: Hematocrit (blood only) 26.5 % (42-52); Hemoglobin 8.7 g/dL (14.0-18.0); Mean Corpuscular Hgb Conc 32.8 g/dL (32-36); Mean Corpuscular Volume 96.4 fL (80-100); Mean Platelet Volume 10.4 fL (7.4-10.4); Nucleated RBC # (auto) 0.02 K/uL (0-0); Nucleated RBC % (auto) 0.3 %; Platelet Count 118 K/uL (130-400); RDW Coefficient of Variation 17.3 % (11.5-14.5); RDW Standard Deviation 59.2 fL (36.4-46.3); Red Blood Count 2.75 M/uL (4.7-6.1); White Blood Count 5.67 K/uL (4.8-10.8)
[2018-12-27 07:15] LABS: BUN Creatinine Ratio 27.5 (10-20); Calcium 8.7 mg/dl (8.5-10.1); Creatinine Clr Calc Pharmacy 31.3 ml/min; Est GFR (African American) 27.5; Est GFR (Non-African American) 23.7; Potassium 3.8 mmol/L (3.5-5.1)
[2018-12-27] MEDS: INSULIN ASPART 100 UNITS/ML 3 ML PEN SC SCH ×4 (07:59→20:31)
[2018-12-27] MEDS ORDERED: SPIRONOLACTONE 25 MG TAB PO SCH (09:00)
[2018-12-27] MEDS: BICALUTAMIDE 50 MG TAB PO SCH (10:54)
[2018-12-27] MEDS: BUMETANIDE 1 MG TAB PO SCH (10:54)
[2018-12-27] MEDS: FOLIC ACID 1 MG TAB PO SCH (10:54)
[2018-12-27] MEDS: METOPROLOL SUCC 50MG EXT REL TAB PO SCH ×2 (10:54→20:27)
--- NOTE | 2018-12-27 11:37 | Hospitalist Progress Note ---
Date of Service December 27, 2018 Assessment & Plan (1) Anemia: Anemia secondary to acute blood loss secondary to supratherapeutic INR with warfarin. Warfarin was reversed with vitamin K and the patient received a total of 3 units of packed red blood cells with improvement in H&H. Overnight H&H has remained stable. Patient reports no further bowel movements that are concerning. He does have baseline anemia and therefore may not respond as quickly from his bleed. Would like to monitor 1 more day to ensure counts are steady and there is normalization of his bowel movements. Continue regular diet. GI is deferring EGD at this time. Per cardiology patient does not need any further Coumadin. (2) S/P AVR (aortic valve replacement): S/P bioprosthetic aortic valve replacement and bioprosthetic mitral valve replacement in 2016 at [facility] [place] Cardiology consulted. (3) CAD (coronary artery disease): S/P CABG, cont medical management (4) Systolic and diastolic CHF, chronic: euvolemic, chronic and stable. (5) DM type 2 (diabetes mellitus, type 2): A1c: 5.9 on 11/18/18. DC Lantus and cont ISS/Novolog with carb coverage. (6) CKD (chronic kidney disease), stage III: Hx CKD III-IV Cr: improved to 2.4. Baseline Cr: 2.1-2.5 -monitor renal functions -avoid nephrotoxic agents when possible (7) CLARA (obstructive sleep apnea): Not on CPAP -continue 2L oxygen NC at night (8) History of pacemaker: (9) DVT prophylaxis: chemoprophylaxis for DVT contraindicated in setting of bleeding Full Code dispo-to home when medically stable. Leona Robb DO [facility] Hospitalist Subjective Patient feels well today. He reports no consistent blood in his stool. However, he reports several bowel movements consistent with diarrhea after eating a salad last night. He denies any abdominal pain this morning. He reports being afebrile. He has some weakness because of his issues with bleeding. He reports being sedentary at home and then here as well. He has been moving around minimally with assistance in his room but is not traveled into the hallway to take labs. He lives at home and is independent at baseline. Will have physical therapy see him today. Physical Exam Vital Signs (Past 24 Hours): Last Vital Signs Temp 37.2 C 12/27/18 07:56 Pulse 86 12/27/18 10:50 Resp 18 12/27/18 07:56 BP 131/63 12/27/18 10:50 Pulse Ox 99 12/27/18 07:56 Physical Exam: General: no acute distress, WDWN Head: normocephalic, atraumatic ENT: MMM Lungs: clear, no respiratory distress CV: RRR, S1/2 heard Abd: normal BS, soft, non-tender Ext: no cyanosis, no calf tenderness Neuro: A&O x 3, no focal deficits noted, normal affect Skin: warm, dry Results & Data Laboratory Results Short CBC 12/27/18 Range/Units 05:52 WBC 5.67 (4.8-10.8) K/uL Hgb 8.7 L (14.0-18.0) g/dL Hct 26.5 L (42-52) % Plt Count 118 L (130-400) K/uL BMP 12/27/18 05:52 Sodium 137 Potassium 3.8 Chloride 101 Carbon Dioxide 30 BUN 71 H Creatinine 2.59 H Glucose 100 H Calcium 8.7 Medications Administered Current Inpatient Medications Acetaminophen (Tylenol) 650 mg PO Q4H PRN PRN Reason: Pain or Fever Stop: 01/24/19 19:16 Alfuzosin HCl (Uroxatral) 10 mg PO PM EZE Stop: 01/24/19 20:59 Last Admin: 12/26/18 21:26 Dose: 10 mg Documented by: Bicalutamide (Casodex) 50 mg PO DAILY EZE Stop: 01/25/19 08:59 Last Admin: 12/27/18 10:54 Dose: 50 mg Documented by: Bumetanide (Bumex) 1 mg PO DAILY EZE Stop: 01/25/19 08:59 Last Admin: 12/27/18 10:54 Dose: 1 mg Documented by: Dextrose (Dextrose 50%) 25 - 50 ml IV UD PRN; Protocol PRN Reason: Hypoglycemia Protocol Stop: 01/24/19 19:16 Finasteride (Proscar) 5 mg PO HS EZE Stop: 01/24/19 20:59 Last Admin: 12/26/18 21:26 Dose: 5 mg Documented by: Folic Acid (Folvite) 5 mg PO DAILY EZE Stop: 01/25/19 08:59 Last Admin: 12/27/18 10:54 Dose: 5 mg Documented by: Glucagon (Glucagen) 1 mg SQ UD PRN; Protocol PRN Reason: Hypoglycemia Protocol Stop: 01/24/19 19:16 Glucose (Glucose 40%) 15 - 30 gm PO UD PRN; Protocol PRN Reason: Hypoglycemia Protocol Stop: 01/24/19 19:16 Glucose (Dex4 Glucose) 4 - 8 tabs PO UD PRN; Protocol PRN Reason: Hypoglycemia Protocol Stop: 01/24/19 19:16 Sodium Chloride (Nss) 250 mls @ 15 mls/hr IV .[id number] PRN PRN Reason: For Transfusion Stop: 01/25/19 03:14 Pantoprazole Sodium 40 mg/ (Dextrose) 100 mls @ 20 mls/hr IV Q5H [facility] Stop: 01/25/19 10:29 Last Admin: 12/27/18 05:39 Dose: 20 mls/hr Documented by: Insulin Aspart (Novolog Flexpen) 0 units SC ACHS EZE Stop: 01/24/19 20:59 Last Admin: 12/27/18 07:59 Dose: 3 units Documented by: Levothyroxine Sodium (Synthroid) 100 mcg PO DAILYBB [facility] Stop: 01/25/19 06:29 Last Admin: 12/27/18 05:39 Dose: 100 mcg Documented by: Metoprolol Succinate (Toprol Xl) 50 mg PO BID [facility] Stop: 01/24/19 20:59 Last Admin: 12/27/18 10:54 Dose: 50 mg Documented by: Miscellaneous (Carbohydrates For Hypoglycemia) 15 - 30 gm PO UD PRN PRN Reason: Hypoglycemia Treatment Stop: 01/24/19 19:16 Spironolactone (Aldactone) 12.5 mg PO MoWeFr@0900 EZE Stop: 01/26/19 08:59 Last Admin: 12/27/18 10:54 Dose: 12.5 mg Documented by:
--- NOTE | 2018-12-27 13:06 | Gastroenterology Progress Note ---
Date of Service December 27, 2018 Assessment & Plan (1) Anemia: Pt is a 73 y/o male who presented w worsening anemia, black stools in setting of supratherapuetic INR w Coumadin use for mitral valve replacement and Afib. Coumadin held. INR now 1.8, most recent gross bleeding last evening. At this point, would defer upper endoscopy (no prior GI symptoms, bleeding likely diffuse, due to supratherapeutic INR). DC protonix drip. Daily po PPI. Advance diet as tolerated. GI will sign off. Please notify us if new/worsening GI issues. (2) Black stool: (3) Supratherapeutic INR: Supervising Physician Co-Signing Physician Notes I have personally seen and examined the patient with ANA Rueda. Her note reflects my exam and findings. I agree with her impression and plan. Stable from GI perspective. Eating well with no signs of active bleeding. Bk Trujillo M.D. Subjective Mr. Justus Shah is a 73 yr old male admitted 12/26 for melena, anemia in the setting of supra-therapeutic INR. Today INR 8. Hb 6.1 on arrival, received 2 unitls of blood, Hb 8.9 yesterday ->8.7 today. Most recent Melena last night, large, loose. No abdominal pain. hemodynamically stable. Constitutional: + fatigue (very); no fever, no chills and no body aches Eyes: no problem reported Ear, Nose, Mouth, Throat: no problem reported Respiratory: + dyspnea (on limited physical activity post transfusion); no cough, no hemoptysis and no wheezing Cardiovascular: no chest pain, no palpitations and no edema Gastrointestinal: as per Subjective / HPI; no abdominal pain Neurologic: no gait abnormality, no localized weakness, no tremor(s) and no confusion Psychiatric: no behavioral changes and no panic attacks Allergy / Immunological: no cough and no rash Physical Exam Vital Signs (Past 24 Hours): Last Vital Signs Temp 37.2 C 12/27/18 12:02 Pulse 74 12/27/18 12:02 Resp 18 12/27/18 12:02 BP 107/41 L 12/27/18 12:02 Pulse Ox 90 12/27/18 12:02 Constitutional: WD/WN, vitals as above Eyes: PERRL, conjunctivae normal, anicteric sclerae ENMT: external ear and nose normal, oropharynx normal Neck: trachea midline, no thyromegaly Respiratory: normal respiratory effort, lungs clear to auscultation Cardiovascular: RRR, no murmur, no edema Gastrointestinal (Abdomen): Inspection/Auscultation: + hypoactive bowel sounds Percussion/Palpation: abdomen soft; abdomen nontender Skin: no rashes, warm and dry Neurologic: PERRL, EOMI, accommodation nl, no face palsy, no dysarthria Lymphatic: no cervical or axillary lymphadenopathy Results & Data Laboratory Results See HPI Diagnostic Findings CXR 12/25 1. Cardiomegaly and cardiac pacemaker. There is evidence of congestive failure and mild interstitial edema. 2. There are small pleural effusions with bibasilar consolidation. This likely represents atelectasis. Correlate clinically for evidence of superimposed pneumonia. Medications Administered PPI drip
[2018-12-27] MEDS: FINASTERIDE 5 MG TAB PO SCH (20:27)
[2018-12-27] MEDS: ALFUZOSIN HCL 10 MG TAB PO SCH (20:27)
[2018-12-28] MEDS: LEVOTHYROXINE SODIUM 100 MCG TABLET PO SCH (06:37)
[2018-12-28 07:04] LABS: Hematocrit (blood only) 26.5 % (42-52); Hemoglobin 8.8 g/dL (14.0-18.0); Mean Corpuscular Hgb Conc 33.2 g/dL (32-36); Mean Corpuscular Volume 97.8 fL (80-100); RDW Coefficient of Variation 16.9 % (11.5-14.5); RDW Standard Deviation 59.2 fL (36.4-46.3); Red Blood Count 2.71 M/uL (4.7-6.1); White Blood Count 4.91 K/uL (4.8-10.8)
[2018-12-28 07:30] LABS: Creatinine Clr Calc Pharmacy 29.7 ml/min; Est GFR (African American) 25.8; Est GFR (Non-African American) 22.2; Potassium 4.1 mmol/L (3.5-5.1)
[2018-12-28 07:39] LABS: Mean Platelet Volume 9.4 fL (7.4-10.4); Platelet Count 97 K/uL (130-400); Platelet Estimate Decreased (Normal)
[2018-12-28] MEDS: METOPROLOL SUCC 50MG EXT REL TAB PO SCH (08:39)
[2018-12-28] MEDS: BUMETANIDE 1 MG TAB PO SCH (08:43)
[2018-12-28] MEDS: BICALUTAMIDE 50 MG TAB PO SCH (08:43)
[2018-12-28] MEDS: FOLIC ACID 1 MG TAB PO SCH (08:44)
[2018-12-28] MEDS: INSULIN ASPART 100 UNITS/ML 3 ML PEN SC SCH ×2 (08:48→13:29)
[2018-12-28] MEDS ORDERED: PANTOprazole 40 MG TAB PO SCH (09:00)
--- NOTE | 2018-12-28 14:20 | Discharge Summary ---
Date of Service December 28, 2018 Admission HPI Per Admitting Provider Pt is 73 y/o M with PMH chronic anemia on Procrit, Gin's, DM II, CKD III- IV, thrombocytopenia, HTN, dyslipidemia, CLARA on 2L NCHS, obesity, restrictive lung disease, CAD s/p CABG, heart block s/p pacemaker, chronic systolic and diastolic heart failure, paroxysmal atrial fibrillation, carotid stenosis, pulmonary hypertension, prostate cancer s/p radiation is on casodex presented to ER for anemia with Hgb 6.6 today. Patient with history of chronic anemia and has been on Procrit. Last Procrit on 12/13/18, has been following with Dr. Perez- hematology. Has had noted downtrending hemoglobins over the past several months. Hemoglobin 7.5 on 11/18/18 and received 1 unit PRBCs on 11/19/18. Patient states for the past week has been having dark black colored stools and feeling lightheaded with walking, fatigue and short of breath. Patient states past couple of days has been using his oxygen continuous to help with shortness of breath (usually just uses HS). He also reports has been having intermittent anterior chest pain over the past 2 months not related to exertion that sometimes . Denies any current chest pain. Patient had positive fecal occult blood test last week. Last INR was 2.7 on 12/03/18. Pt reports chronic bilateral extremity edema, feels increased edema with increased salt intake. Denies fever/chills, diaphoresis, N/V/D/C, ALEJANDRO, syncope, vision changes, neck pain, palpitations, cough, sore throat, choking, otalgia, rhinorrhea, abdominal pain, paresthesias, rashes, urinary symptoms. History of colonoscopy in 2016: Diverticula in sigmoid colon History echo 08/2018: EF: 53%, aortic bioprosthetic valve without significant regurgitation, mitral valve bioprosthesis without significant regurgitation, moderate left atrial enlargement, pulmonary hypertension present Admission Exam Per Admitting Provider General: no acute distress, WDWN Head: normocephalic, atraumatic Eyes: PERRL, EOM's intact, pale conjunctiva, anicteric ENT: normal inspection external ears, nose, mucous membranes moist Neck: supple, trachea midline Lungs: clear, no respiratory distress CV: RRR, 1+ pretibial edema Abd: normal BS, soft, non-tender Ext: no cyanosis, no calf tenderness Neuro: A&O x 3, no focal deficits noted, normal affect Skin: warm, dry, pale Principal Diagnosis Acute GI blood loss anemia in setting of chronic idiopathic anemia Stage IV CKD Discharge Data Allergies Allergy/AdvReac Type Severity Reaction Status Date / Time Penicillins Allergy Unknown rash Verified 11/20/18 07:16 [id number] Reductase Allergy Unknown . Verified 11/20/18 07:16 Inhibitor furosemide AdvReac Severe kidney Verified 11/20/18 07:16 failure Consultations 12/25/18 19:17 Consult Case Management - Discharge Planning Routine 12/25/18 19:27 Consult Cardiology Routine Consult Gastroenterology Routine Hospital Course (1) Anemia: (2) S/P AVR (aortic valve replacement): (3) CAD (coronary artery disease): (4) Systolic and diastolic CHF, chronic: (5) DM type 2 (diabetes mellitus, type 2): (6) CKD (chronic kidney disease), stage III: (7) CLARA (obstructive sleep apnea): (8) History of pacemaker: 73 yo M on coumadin presented with INR 5.2 and a Hb of 6.0 after black stools for several days. He has a h/o chronic anemia for many years for which he is followed by Hematology and is currently taking Procrit. He was admitted to the Hospitalist service and transfused 3 units pRBC after reversal of INR with vitamin K. PPI drip was started for possibly upper GI bleed. GI was consulted and recommended against endoscopy with clinical improvement with blood replacement. Cardiology was consulted in the setting of chest pains that were reported. The patient also had a notable history of aortic and mitral bioprosthetic valves which was the reason for the coumadin. His pacemaker was interrogated revealing no significant episodes of atrial fibrillation and in light of recent GI bleed, coumadin was discontinued. After receiving the blood he received a dose of Lasix. He is typically on Bumex, and stated that the Lasix had made his creatinine rise significantly in the past. His creatinine did continue to rise but was still within reasonable range at discharge as discussed with Nephrology. Baseline creatinine was 2.1-2.5 and creatinine at discharge was 2.7. He is typically seen by Dr. Acevedo, and will plan for BMP weekly x 3 weeks to ensure he is not progressing with respect to his CKD. On day of discharge he was hemodynamically stable and afebrile. He was not physically examined as he had to leave without being seen to get to a function with family. I did speak with him by phone regarding his follow-up appointments and the need for bloodwork. He verbalized understanding with intent to comply. Total Time Total Time Spent Total Time Spent (In Minutes): 60 Total Time Includes: Examination of the Patient, Discharge Planning, Medication Reconciliation, Communication With Other Providers and Other (setup followup) Discharge Plan Discharge Items Patient Disposition: Home - Self-Care Reason For Visit: ANEMIA Discharge Diagnosis: Acute GI blood loss anemia in setting of chronic idiopathic anemia Stage IV CKD Condition: Good Discharge Goals: Improve disease control Activity: Resume your previous activity Non-emergency contact: Primary Care Provider and Roving Hand Call non-emergency contact if: you have any medication questions, your symptoms worsen, your pain is not controlled and you have a fever Follow-up/Referrals: James Lunsford M.D. [Primary Care Provider] - Diet: Carb Consistent or DM2 and Heart Healthy Other Ambulatory Orders: Basic Metabolic Panel (Q7D) Timeframe: 20190111 Location: Determined by Patient Ordered By: Leona Robb Basic Metabolic Panel (Q7D) Timeframe: 20190118 Location: Determined by Patient Ordered By: Leona Robb Basic Metabolic Panel (Q7D) Timeframe: 20190104 Location: Determined by Patient Ordered By: Leona Robb Addtl Provider Instructions: Please take all medications as instructed on discharge list below. Please note your no longer needing Coumadin moving forward. He will need weekly blood work for the next 3 weeks which should be sent to your primary care doctor as well as Dr. Burnham and nephrology. This is to monitor your kidney function. Blood work will be nonfasting. You had the following appointments scheduled post discharge: Date & Time 01/02/2019 9:40 AM Provider Bhumi Fallon DO Department Family [facility] [place] [facility] Date & Time 01/03/2019 12:30 PM Provider ANA Umanzor Department Gastroenterology, [facility] It was a pleasure taking care of you! Please call if you have any questions or problems. You can reach a [facility] hospitalist on duty at [facility] 24 hours a day by calling [phone]. Take care of yourself. DO John Roman Hospitalist Prescriptions: New pantoprazole 40 mg Tablet,Delayed Release (Dr/Ec) 40 mg PO QAM Qty: 90 RF: 1 Continued bicalutamide [Casodex] 50 mg Tablet 50 mg PO DAILY RF: 0 insulin glargine 100 unit/mL Solution 50 unit SUBCUT HS RF: 0 metoprolol succinate 50 mg Tablet Extended Release 24 Hr 50 mg PO BID RF: 0 aspirin 81 mg Tablet,Delayed Release (Dr/Ec) 81 mg PO DAILY RF: 0 spironolactone 25 mg Tablet 12.5 mg PO UD RF: 0 levothyroxine 100 mcg Tablet 100 mcg PO DAILY RF: 0 bumetanide 1 mg Tablet 1 mg PO DAILY RF: 0 folic acid 1 mg Tablet 5 mg PO DAILY RF: 0 finasteride 5 mg Tablet 5 mg PO HS RF: 0 Humalog U-100 Insulin 100 unit/mL Cartridge 1 sliding scale dose SUBCUT UD RF: 0 alfuzosin 10 mg tablet extended release 24 hr 1 tab PO PM RF: 0 cholecalciferol (vitamin D3) [Vitamin D3] 2,000 unit Capsule 2,000 unit PO BID RF: 0 Discontinued warfarin 6 mg Tablet 3 mg PO UD RF: 0 Stand-Alone Forms: Call Back Authorization, [facility] Discharge Orders: Discharge Order (Routine); Ordered 12/28/18 Ordered By: Leona Robb Admission Data Admit Date/Time: 12/25/18 17:39 Attending Provider: Leona Robb Admit Provider: Leona Robb Primary Care Provider: James Lunsford Other Providers: Abisai Durham Donald S. Service: Medical Other Interventions: Discharge Summary Assessment (RN) Last Done: 12/28/18 14:35 DC Date/Time DO NOT enter until pt leaves facility: 12/28/18 15:15
== END 2018-12-28 15:15 | disposition home or self-care (01) | DRG 378 ==
LOC: ED 14:19 → 2E 18:33 → 4W 12-27 14:15

== ENCOUNTER 2019-08-25 15:21 | Inpatient (IN) ==
[2019-08-25] MEDS ORDERED: ACETAMINOPHEN 325 MG TAB PO PRN (15:23)
--- NOTE | 2019-08-25 17:04 | XRay Report ---
XR chest 2V PA/lateral CLINICAL HISTORY: 73 years-old Male presenting with volume overload. TECHNIQUE: PA and lateral views of the chest were obtained. COMPARISON: 12/25/2018. FINDINGS: Left subclavian pacer with leads to the right atrium, right ventricular apex, and coronary sinus. Med isis sternotomy wires. Atherosclerosis of the aortic arch. Cardiac silhouette moderately enlarged. Vale n pulmonary artery may also be enlarged. Persistent extensive irregular bandlike opacities in the rig ht mid to lower lung and to a lesser extent at the left lung base. Small right pleural effusion, whic h may be increased from prior. No pneumothorax. Degenerative changes of the thoracic spine. Upper abd omen normal. IMPRESSION: 1. Cardiomegaly with new or increased right pleural effusion. 2. Partially chronic mid to basilar irregular bandlike opacities, right greater than left. This coul d represent chronic scarring though this may be increased especially on the right. Superimposed infil trate at the right lung base is difficult to exclude. Electronically signed by: Kiran Herrera M.D. 08/25/2019 5:02 PM
--- NOTE | 2019-08-25 18:05 | History & Physical Report ---
Date of Service August 25, 2019 Assessment & Plan (1) Acute on chronic combined systolic and diastolic CHF (congestive heart failure): Pt with progressive peripheral edema, worsening respiratory status/increased O2 demand, and 10 lb wt gain over past 2-3 weeks. Saw cardiology today who referred pt for direct admission for IV diuresis. Creatinine is elevated from baseline at 3.63 and pt has noted decreased urinary output over past few days. BNP >9000 - Consult cardiology - IV diuresis but will need to discuss with nephrology ongoing plan due to worsening renal function - Daily weights - I's and O'S - Low salt diet (2) CKD (chronic kidney disease), stage III: Creatinine is elevated from baseline with decreased urinary output - Consult nephrology - Follow labs daily (3) DM type 2 (diabetes mellitus, type 2): Pt is on baseline Lantus with Humalog sliding scale at home. He noted some issues with hyperglycemia when he was on the prednisone with sugars up to 400 but improved since stopping. Sugars may be >200 in evenings but this morning sugar was 76, which is typical for him. - Baseline insulin with sliding scale while admitted (4) Paroxysmal atrial fibrillation: Not on Coumadin due to recent GI bleed and symptomatic anemia (5) History of complete heart block: s/p PPM placement in 2016 - EKG reviewed and appears to be appropriately paced (6) CAD (coronary artery disease): s/p CABG x 1 (7) Moderate to severe pulmonary hypertension: Question of underlying lung disease contributing - pt being worked up for potential sarcoidosis as outpatient. Based on results of bronchoscopy and EUS, potential whole LN biopsy is being discussed (8) Dyslipidemia: Patient has a history of statin intolerance so not currently on medication for this (9) Anemia: Multifactorial due to iron deficiency and CKD - last Hgb outpt on 08/11/19 was 9.2 - Follow while admitted although no evidence of active bleeding at present - Procrit per nephrology Patient seen and examined with collaborating physician, Dr. Harris. Plan of care discussed and as outlined above. Dr. Harris will discuss diuretic dosing with nephrology this evening. Code status discussed with pt and his - he would like to be full code at this time. DVT prophyaxis with MASSIMO murphy. 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 History obtained from patient, his and pt's [employer] head[employer] operator (Dr. Luong). Pt has been undergoing extensive work-up for possible sarcoid as an outpatient including bronchoscopy 07/10/19 and EUS 08/19/19. Overall, pt has maintained baseline until past few weeks. Over the past 2-3 weeks, pt has noted progressive dyspnea on exertion - will get short of breath even walking from room to room. Although he has not noted shortness of breath at rest, his pulseox on room air at rest has been in the upper 80s at times. Pt uses oxygen at night and prn during the day. Typically he only uses 2L but has noted increased oxygen demand to 3L at times over the past few days. Pt has also noted progressive LE edema with associated 10 lb wt gain over the past two weeks. Of note, pt has been on prednisone due to the question of sarcoidosis but this was weaned down and stopped 2 days ago. Pt also had been on amlodipine but this was stopped a week ago due to the worsening edema. Pt was at the urologist office today for routine follow-up and mentioned that he has had minimal urine output the past 2-3 days, particularly today. Urology told patient that there was no mechanical obstruction. Pt presented to the [employer] head[employer] operator office for further evaluation and was ultimately referred for direct admission. Allergies Allergy/AdvReac Type Severity Reaction Status Date / Time Penicillins Allergy Unknown rash Verified 08/06/19 15:33 furosemide AdvReac Severe kidney Verified 08/06/19 15:33 failure ropinirole [From Requip] AdvReac Unknown psych Verified 08/25/19 19:31 complications Hqymzuc-Bhr-Lxx Reductase AdvReac Unknown Muscle Pain Verified 08/06/19 15:33 Inhibitor Home Medications Home Medications Medication Instructions Recorded Confirmed Type Humalog U-100 Insulin 1 sliding scale dose SUBCUT UD 12/25/18 08/25/19 History Lantus U-100 Insulin 50 unit SUBCUT HS 12/25/18 08/25/19 History alfuzosin 1 tab PO PM 12/25/18 08/25/19 History aspirin 81 mg PO HS 12/25/18 08/25/19 History folic acid 5 mg PO DAILY 12/25/18 08/25/19 History levothyroxine 100 mcg PO DAILY 12/25/18 08/25/19 History metoprolol succinate 50 mg PO BID 12/25/18 08/25/19 History spironolactone 12.5 mg PO 3XWK 12/25/18 08/25/19 History Procrit 10,000 unit SUBCUT Q14D 08/06/19 08/25/19 History furosemide 80 mg PO DAILY 08/06/19 08/25/19 History pantoprazole 40 mg PO DAILY 08/06/19 08/25/19 History Past Med/Surg History Medical History Anemia Anxiety Aortic insufficiency (Chronic) BPH (benign prostatic hyperplasia) (Chronic) CAD (coronary artery disease) (Chronic) "1999 - CABG x 1 06/2014 - ACS, cath at the time showed patent graft, non obstructive disease to LAD and circumflex, [place] RCA 100% occluded " Chronic back pain CKD (chronic kidney disease), stage III (Chronic) CKD III-IV, monitoring. Diverticulosis (Chronic) DM type 2 (diabetes mellitus, type 2) (Chronic) iddm Dyslipidemia (Chronic) Gin's thyroiditis (Chronic) History of complete heart block (Chronic) s/p pacemaker History of pacemaker (Chronic) March 2016, [facility]. HTN (hypertension) (Chronic) Hypothyroidism Lung nodule 3mm - benign Moderate to severe pulmonary hypertension (Chronic) hx On home oxygen therapy 2lpm via n/c CLARA (obstructive sleep apnea) (Chronic) hx. Osteoarthritis (Chronic) Pacemaker [employer] device. Placed March 2016, follows with Dr. Luong, last checked ~1.5 months ago. Paroxysmal atrial fibrillation (Chronic) infrequently Prostate cancer (Chronic 01/14/18) "History of benign prostatic hypertrophy Rising PSA, pretreatment PSA 5.7 corrected due to finasteride Status post ultrasound-guided biopsies January 14, 2018 Adenocarcinoma of the prostate [place] 4+3 and 4+4 Prostate volume 74.6 Prostate density 0.076 Hormone suppression with Casodex. (Recommendation for 6-12 months) Gold fiducial markers and Space OAR were placed. Status post completion of radiation therapy April 25, 2018. He received 7000 cGy" On 02/06/18 11:33 Tricia Vargas Soto wrote "History of benign prostatic hypertrophy Rising PSA, pretreatment PSA 5.7 corrected due to finasteride Status post ultrasound-guided biopsies January 14, 2018 Adenocarcinoma of the prostate [place] 4+3 and 4+4 Prostate volume 74.6 Prostate density 0.076 " Skin cancer Systolic and diastolic CHF, chronic (Chronic) "echo 03/16/2016 - EF 35-39% (was normal on prior echo), mod-severe aortic valve regurgitation, severe pulmonary HTN" Surgical History History of bronchoscopy History of colonoscopy History of surgical removal of lesion S/P AVR (aortic valve replacement) (Chronic) 1999, valve & 2015 [employer] Mechanical valve ([place]) S/P CABG x 1 (Chronic) 1999 & 2015 ([place]) S/P MVR (mitral valve replacement) (Chronic) Family History Other Hypertension Prostate cancer Social History Preferred Language: Slovenian Communication Ability: Effective Digital 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 Manager Required: No Beliefs That Will Affect Care: None Current Living Situation: Spouse Other Information That Helps Us Care for You: No Feels Safe at Home: Yes Safety Concerns: Feels Safe At This Time Smoking Status: Never smoker Tobacco Type: cigarettes ; Cigarettes Per Day: 20 x4 years ; Do You Dip or Chew Tobacco: No ; Second Hand Exposure: No ; Hx Alcohol Use: No Hx Substance Use: No Review of Systems Review of Systems: All systems reviewed & are unremarkable except as noted in HPI & below Constitutional: + fatigue, + anorexia and + weight gain; no fever, no chills and no sweats Eyes: no diplopia and no worsening vision Ear, Nose, Mouth, Throat: no nasal congestion, no nasal discharge and no sore throat Respiratory: + cough (occasional dry) and + dyspnea on exertion; no chest congestion, no hemoptysis and no wheezing Cardiovascular: + orthopnea and + edema; no chest pain, no palpitations, no lightheadedness and no syncope Gastrointestinal: + diarrhea/loose stools (loose stools past couple weeks); no abdominal pain, no nausea, no vomiting, no constipation and no blood in stools Genitourinary: + difficulty urinating and + decreased urination; no dysuria, no urinary frequency and no hematuria Musculoskeletal: + problem reported (chronic arthritis); no back pain and no neck pain Integumentary: no rash and no skin ulcer Neurologic: + unsteadiness (due to neuropathy) and + numbness; no seizure-like activity, no dizziness, no syncope and no headache(s) Psychiatric: no depression and no anxiety Endocrine: Insulin-requiring diabetes - sugar this AM 77 Physical Exam Constitutional: WD/WN, vitals as above no acute distress Eyes: + anicteric sclerae; no conjunctival abnormality ENMT: external ear and nose normal, oropharynx normal Neck: trachea midline Respiratory: no respiratory distress and does not use accessory muscles Auscultation: + diminished lung sounds (at right > left base) and + crackles (faint bibasilar crackles); no rhonchi and no wheezes Cardiovascular: Rate/Rhythm: regular rate and regular rhythm Heart Sounds: no gallop and no cardiac rub Vessels: no JVD Extremities: normal capillary refill and + edema (to just below knees bilaterally) +crisp valve click Gastrointestinal (Abdomen): Inspection/Auscultation: + abdomen distended and normal bowel sounds Percussion/Palpation: abdomen soft; abdomen nontender Musculoskeletal: Head/Neck/Chest: normocephalic, head atraumatic and neck supple Extremities: no cyanosis Skin: no jaundice Neurologic: moves all extremities; no focal motor deficits Speech / Cognition: normal speech Markedly diminished sensation bilateral LE distal to mid-boles Psychiatric: A+Ox3, euthymic affect Results & Data Vital Signs (Past 12 Hours) Vital Signs Temp Pulse Resp BP Pulse Ox 08/25/19 16:15 36.5 C 75 21 160/57 H 92 Laboratory Results Laboratory Results - last 24 hr 08/25/19 08/25/19 08/25/19 16:26 17:45 17:45 WBC 7.15 RBC 2.77 L Hgb 8.5 L Hct 25.7 L MCV 92.8 MCH 30.7 MCHC 33.1 RDW Std Deviation 48.5 H RDW Coeff of Imtiaz 14.2 Plt Count 118 L MPV 10.0 Immature Gran % (Auto) 0.4 Neut % (Auto) 71.5 Lymph % (Auto) 16.9 [place] % (Auto) 10.3 Eos % (Auto) 0.8 Baso % (Auto) 0.1 Immature Gran # (Auto) 0.03 H Neut # (Auto) 5.10 Lymph # (Auto) 1.21 [place] # (Auto) 0.74 H Eos # (Auto) 0.06 Baso # (Auto) 0.01 Sodium 133 L Potassium 4.6 Chloride 98 Carbon Dioxide 27 Anion Gap 8.0 BUN 79 H Creatinine 3.63 H Est Cr Clr Drug Dosing Not Reportable Est GFR ( Amer) 18.3 Est GFR (Non-Af Amer) 15.8 BUN/Creatinine Ratio 21.8 H Glucose 109 H POC Glucose 117 H Calcium 8.8 Magnesium 1.9 Total Bilirubin 0.8 AST 9 L ALT 15 Alkaline Phosphatase 104 NT-Pro-B Natriuret Pep 9042 H Total Protein 7.4 Albumin 3.1 L Globulin 4.3 H Albumin/Globulin Ratio 0.7 L Diagnostic Findings CXR 08/25/19 - IMPRESSION: 1. Cardiomegaly with new or increased right pleural effusion. 2. Partially chronic mid to basilar irregular bandlike opacities, right greater than left. This could represent chronic scarring though this may be increased especially on the right. Superimposed infiltrate at the right lung base is difficult to exclude. Code Status & VTE Plan VTE Prophylaxis Plan VTE Prophylaxis will be ordered: Yes Supervising Physician Co-Signing Physician Notes Attending Addendum: delayed entry date of service 08/25/19 care coordinated with MAKENZIE Sharpe please refer to her notes for full details, I agree with her notes patient seen and examined, records reviewed by myself as well on exam, patient seen resting in bed, comfortable on 2 L NC denies active chest pain, dyspnea, dizziness no other symptoms VS noted and reviewed oriented x 3, not in distress, speaks in sentences with no effort nor accessory muscle use normal rate, regular rhythm, no murmurs mild rales at the bases, no wheezing obese, non distended, soft, nontender grade 2 lower leg edema, erythema, warmth no neuro deficits Hg 8.1 Crea 3.6 CXR 1. Cardiomegaly with new or increased right pleural effusion. 2. Partially chronic mid to basilar irregular bandlike opacities, right greater than left. This could represent chronic scarring though this may be increased especially on the right. Superimposed infiltrate at the right lung base is diffi cult to exclude. ASSESSMENT AND PLAN ACUTE ON CHRONIC DIASTOLIC AND SYSTOLIC CHF EXACERBATION CKD 3-4 - baseline crea 2.7, now 3.6 - discussed with Dr. 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 transplanted heart: [place] heart Qualified Code(s): I25.10 - Atherosclerotic heart disease of [place] coronary artery without angina pectoris (3) Anemia Anemia type: unspecified type Qualified Code(s): D64.9 - Anemia, unspecified
[2019-08-25 18:08] LABS: Basophils # (auto) 0.01 K/uL (0-0.2); Basophils % (auto) 0.1 %; Eosinophils # (auto) 0.06 K/uL (0-0.5); Eosinophils % (auto) 0.8 %; Hematocrit (blood only) 25.7 % (42-52); Hemoglobin 8.5 g/dL (14.0-18.0); Immature Granulocytes # (auto) 0.03 K/uL (0.00-0.02); Immature Granulocytes % (auto) 0.4 %; Lymphocytes # (auto) 1.21 K/uL (1.2-3.4); Lymphocytes % (auto) 16.9 %; Mean Corpuscular Hemoglobin 30.7 pg (25-34); Mean Corpuscular Volume 92.8 fL (80-100); Monocytes # (auto) 0.74 K/uL (0.11-0.59); Monocytes % (auto) 10.3 %; Neutrophils % (auto) 71.5 %; Platelet Count 118 K/uL (130-400); RDW Coefficient of Variation 14.2 % (11.5-14.5); RDW Standard Deviation 48.5 fL (36.4-46.3); Red Blood Count 2.77 M/uL (4.7-6.1); White Blood Count 7.15 K/uL (4.8-10.8)
[2019-08-25 18:15] LABS: Mean Corpuscular Hgb Conc 33.1 g/dL (32-36)
[2019-08-25 18:18] LABS: Alanine Aminotransferase 15 U/L (12-78); Albumin Level 3.1 gm/dl (3.4-5.0); Aspartate Aminotransferase 9 U/L (15-37); BUN Creatinine Ratio 21.8 (10-20); Blood Urea Nitrogen 79 mg/dl (7-18); Calcium 8.8 mg/dl (8.5-10.1); Carbon Dioxide 27 mmol/L (21-32); Chloride 98 mmol/L (98-107); Est GFR (African American) 18.3; Est GFR (Non-African American) 15.8; Glucose 109 mg/dl (70-99); Magnesium 1.9 mg/dl (1.8-2.4); Potassium 4.6 mmol/L (3.5-5.1); Sodium 133 mmol/L (136-145)
[2019-08-25 18:24] LABS: Albumin Globulin Ratio 0.7 (0.9-2); Alkaline Phosphatase 104 U/L (45-117); Bilirubin,Total 0.8 mg/dl (0.2-1); Globulin 4.3 gm/dl (2.5-4.0); NT Pro B Type Natriuretic Pept 9042 pg/ml (0-900); Total Protein 7.4 gm/dl (6.4-8.2)
[2019-08-25] MEDS ORDERED: DEXTROSE 50% 50 ML SYRINGE IV PRN (19:26)
[2019-08-25] MEDS ORDERED: GLUCOSE 10 TABS/TUBE PO PRN (19:26)
[2019-08-25] MEDS ORDERED: CARBOHYDRATES FOR HYPOGLYCEMIA PO PRN (19:26)
[2019-08-25] MEDS ORDERED: GLUCAGON FOR INJ 1 MG VIAL SQ PRN (19:26)
[2019-08-25] MEDS ORDERED: GLUCOSE 40% GEL 15 GM TUBE PO PRN (19:26)
[2019-08-25] MEDS: ASPIRIN 81 MG ECTAB PO SCH (20:59)
[2019-08-25] MEDS: INSULIN GLARGINE SOLOSTAR 100 UNITS/ML 3 ML PEN SC SCH (20:59)
[2019-08-25] MEDS ORDERED: FUROSEMIDE 80 MG in SYRINGE 0 ML IV SCH (21:00)
[2019-08-25] MEDS: INSULIN ASPART 100 UNITS/ML 3 ML PEN SC SCH (21:02)
[2019-08-25] MEDS: METOPROLOL SUCC 50MG EXT REL TAB PO SCH (21:02)
[2019-08-25] MEDS: ALFUZOSIN HCL 10 MG TAB PO SCH (21:03)
[2019-08-26] MEDS: LEVOTHYROXINE SODIUM 100 MCG TABLET PO SCH (05:35)
[2019-08-26 05:45] LABS: Basophils # (auto) 0.01 K/uL (0-0.2); Basophils % (auto) 0.2 %; Eosinophils # (auto) 0.06 K/uL (0-0.5); Hematocrit (blood only) 25.4 % (42-52); Hemoglobin 8.1 g/dL (14.0-18.0); Immature Granulocytes # (auto) 0.02 K/uL (0.00-0.02); Immature Granulocytes % (auto) 0.3 %; Lymphocytes # (auto) 0.93 K/uL (1.2-3.4); Lymphocytes % (auto) 16.1 %; Mean Corpuscular Hemoglobin 29.8 pg (25-34); Mean Corpuscular Hgb Conc 31.9 g/dL (32-36); Mean Corpuscular Volume 93.4 fL (80-100); Monocytes # (auto) 0.71 K/uL (0.11-0.59); Monocytes % (auto) 12.3 %; Neutrophils # (auto) 4.03 K/uL (1.4-6.5); Neutrophils % (auto) 70.1 %; Platelet Count 108 K/uL (130-400); RDW Coefficient of Variation 14.3 % (11.5-14.5); RDW Standard Deviation 48.9 fL (36.4-46.3); Red Blood Count 2.72 M/uL (4.7-6.1); White Blood Count 5.76 K/uL (4.8-10.8)
[2019-08-26 06:11] LABS: BUN Creatinine Ratio 22.3 (10-20); Blood Urea Nitrogen 86 mg/dl (7-18); Calcium 8.5 mg/dl (8.5-10.1); Carbon Dioxide 28 mmol/L (21-32); Chloride 98 mmol/L (98-107); Est GFR (African American) 16.8; Est GFR (Non-African American) 14.5; Glucose 124 mg/dl (70-99); Magnesium 1.8 mg/dl (1.8-2.4); Potassium 4.8 mmol/L (3.5-5.1); Sodium 132 mmol/L (136-145)
[2019-08-26] MEDS: INSULIN ASPART 100 UNITS/ML 3 ML PEN SC SCH ×5 (07:43→21:01)
[2019-08-26] MEDS: INSULIN GLARGINE SOLOSTAR 100 UNITS/ML 3 ML PEN SC SCH ×2 (07:43→21:00)
[2019-08-26] MEDS: METOPROLOL SUCC 50MG EXT REL TAB PO SCH ×2 (07:44→20:59)
[2019-08-26] MEDS: PANTOprazole 40 MG TAB PO SCH (07:44)
[2019-08-26] MEDS: FOLIC ACID 1 MG TAB PO SCH (07:45)
[2019-08-26] MEDS ORDERED: BUMETANIDE 2 MG in SYRINGE 0 ML IV ONE (09:15)
--- NOTE | 2019-08-26 10:13 | Cardiology Consultation ---
Date of Consultation August 26, 2019 Assessment & Plan (1) Volume overload: This does appear to be multifactorial in nature with most significant component being worsening renal failure. Unfortunately he has not diuresed at all with 80 mg of IV Lasix overnight. The patient believes the Bumex works better for him so I will give him Bumex 2 mg IV x1 now and follow his urine output. My suspicion is that this will not be a more beneficial and he will likely require increased diuresis with the either continuous IV diuretic infusion or initiation of dialysis. Obvious I will defer this to our nephrology colleagues. (2) Acute on chronic renal failure: (3) History of complete heart block: (4) Paroxysmal atrial fibrillation: (5) CAD (coronary artery disease): (6) S/P AVR (aortic valve replacement): (7) Moderate to severe pulmonary hypertension: (8) Restrictive lung disease: History of Present Illness Reason for Consultation: `volume overload Requesting Physician: Reji Attending Physician: Gianluca Sharp MD History of Present Illness It was my pleasure to see Mr. Shah in consultation today August 26, 2019. He is a very pleasant 73-year-old gentleman who follows very closely with Dr. Luong of our cardiology practice. He presented to [facility] clinic on 08/25/2019 to be evaluated for urology for possible urinary obstruction after he is been retaining fluid for several weeks now. At that time no urinary obstruction was found and he was seen in the cardiology clinic with Dr. Holt. He was found to be significantly volume overloaded and directly admitted to telemetry. Mr. Shah states that ever since he was discharged from [facility] he has been starting to retain fluid. He was admitted there for symptomatic hypercalcemia at which time his chronic Bumex was changed to furosemide. Since discharge he notes that he has been up over 10 pounds and is having significant dyspnea with minimal exertion. His lower extremity edema has significantly worsened as well to the point where now his legs are very heavy and uncomfortable to walk with. On admission he was found to have worsening renal function and he was given 80 mg of IV Lasix overnight without any urine output. Currently states he feels okay at rest but admits that he does not have much of an appetite and the food just does not taste the same anymore. From Dr. Luong's clinic note of 08/25/19: "in May, the patient had outpatient blood work revealing new severe hypercalcemia with calcium level of 14. His calculated GFR creatinine were little bit worse than his previous baseline but not elevated to the point that would explain his hypercalcemia. He was subsequently admitted to [facility] from 06/12/2019 until 06/16/2019. His chronic diuretic treatment with Bumex was discontinued at that time and replaced with furosemide 80 milligrams by mouth daily. There were concerns of possible sarcoidosis based on lymphadenopathy seen on chest imaging. He therefore had been seen by thoracic medicine and underwent endobronchial ultrasound guided lymph node biopsy. The biopsy was negative for sarcoid, met as noted in the thoracic medicine follow-up note, this does not completely exclude sarcoid. He finished a tapering course of prednisone 2 days ago. His recent transthoracic echocardiogram had revealed a interval decline in his LVEF to the range of 45%. He had undergone a transesophageal echocardiogram on 08/12/2019 for evaluation of possible bile prosthetic mitral valve dysfunction. Both the bioprosthetic mitral valve and the aortic valve bioprosthesis well seated and functioning normally without significant stenosis or regurgitation. A 1.3 centimeter x 0.5 centimeter mobile echodensity was noted on the ventricular aspect of the prosthetic mitral valve. It was felt that the differential diagnosis included potential thrombus, or retained rupture chordae from the [place] subvalvular mitral valve apparatus. It was felt that it was less likely to be a vegetation as it was on the ventricular aspect of the prosthesis and his recent blood cultures were within normal limits." Allergies Allergy/AdvReac Type Severity Reaction Status Date / Time Penicillins Allergy Unknown rash Verified 08/06/19 15:33 furosemide AdvReac Severe kidney Verified 08/06/19 15:33 failure ropinirole [From Requip] AdvReac Unknown psych Verified 08/25/19 19:31 complications Zolzjxq-Zuh-Avv Reductase AdvReac Unknown Muscle Pain Verified 08/06/19 15:33 Inhibitor Home Medications Home Medications Medication Instructions Recorded Confirmed Type Humalog U-100 Insulin 1 sliding scale dose SUBCUT UD 12/25/18 08/25/19 History Lantus U-100 Insulin 50 unit SUBCUT HS 12/25/18 08/25/19 History alfuzosin 1 tab PO PM 12/25/18 08/25/19 History aspirin 81 mg PO HS 12/25/18 08/25/19 History folic acid 5 mg PO DAILY 12/25/18 08/25/19 History levothyroxine 100 mcg PO DAILY 12/25/18 08/25/19 History metoprolol succinate 50 mg PO BID 12/25/18 08/25/19 History spironolactone 12.5 mg PO 3XWK 12/25/18 08/25/19 History Procrit 10,000 unit SUBCUT Q14D 08/06/19 08/25/19 History furosemide 80 mg PO DAILY 08/06/19 08/25/19 History pantoprazole 40 mg PO DAILY 08/06/19 08/25/19 History Patient History Medical History Anemia Anxiety Aortic insufficiency (Chronic) BPH (benign prostatic hyperplasia) (Chronic) CAD (coronary artery disease) (Chronic) "1999 - CABG x 1 06/2014 - ACS, cath at the time showed patent graft, non obstructive disease to LAD and circumflex, [place] RCA 100% occluded " Chronic back pain CKD (chronic kidney disease), stage III (Chronic) CKD III-IV, monitoring. Diverticulosis (Chronic) DM type 2 (diabetes mellitus, type 2) (Chronic) iddm Dyslipidemia (Chronic) Gin's thyroiditis (Chronic) History of complete heart block (Chronic) s/p pacemaker History of pacemaker (Chronic) March 2016, [facility]. HTN (hypertension) (Chronic) Hypothyroidism Lung nodule 3mm - benign Moderate to severe pulmonary hypertension (Chronic) hx On home oxygen therapy 2lpm via n/c LCARA (obstructive sleep apnea) (Chronic) hx. Osteoarthritis (Chronic) Pacemaker [employer] device. Placed March 2016, follows with Dr. Luong, last checked ~1.5 months ago. Paroxysmal atrial fibrillation (Chronic) infrequently Prostate cancer (Chronic 01/14/18) "History of benign prostatic hypertrophy Rising PSA, pretreatment PSA 5.7 corrected due to finasteride Status post ultrasound-guided biopsies January 14, 2018 Adenocarcinoma of the prostate [place] 4+3 and 4+4 Prostate volume 74.6 Prostate density 0.076 Hormone suppression with Casodex. (Recommendation for 6-12 months) Gold fiducial markers and Space OAR were placed. Status post completion of radiation therapy April 25, 2018. He received 7000 cGy" On 02/06/18 11:33 Tricia Soto wrote "History of benign prostatic hypertrophy Rising PSA, pretreatment PSA 5.7 corrected due to finasteride Status post ultrasound-guided biopsies January 14, 2018 Adenocarcinoma of the prostate [place] 4+3 and 4+4 Prostate volume 74.6 Prostate density 0.076 " Skin cancer Systolic and diastolic CHF, chronic (Chronic) "echo 03/16/2016 - EF 35-39% (was normal on prior echo), mod-severe aortic valve regurgitation, severe pulmonary HTN" Surgical History History of bronchoscopy History of colonoscopy History of surgical removal of lesion S/P AVR (aortic valve replacement) (Chronic) 1999, & 2016 Bovine Mechanical valve ([facility]) S/P CABG x 1 (Chronic) 1999 & 2015 ([facility]) S/P MVR (mitral valve replacement) (Chronic) Family History Other Hypertension Prostate cancer Social History Preferred Language: [place] Communication Ability: Effective 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 No acute distress. HEENT: Normocephalic, atraumatic. Pupils equal, round and reactive to light and accommodation. Extraocular muscles are intact. Anicteric sclera. Moist mucous membranes. Neck: No JVD. No bruit. Cardiovascular: Regular. Positive S-4. Normal S-1 and S-2. No S-3. No murmurs or rubs. Pulmonary: Clear to auscultation B/L but poor air movement in the B/L bases. No rales, rhonchi or wheezing Abdomen: Bowel sounds x 4, soft. No rebound, guarding or tenderness. No organomegaly. Extremities: No clubbing, cyanosis. +1 B/L LE pitting edema. +2 pedal pulses bilaterally. Skin: Warm and dry. Results & Data Vital Signs (Past 12 Hours) Vital Signs Temp Pulse Resp BP Pulse Ox 08/26/19 08:14 36.9 C 86 18 161/76 H 97 08/26/19 04:40 37.0 C 68 20 130/79 97 08/26/19 00:04 36.8 C 70 19 130/64 98 Laboratory Results Current Inpatient Medications Acetaminophen (Tylenol) 650 mg PO Q4H PRN PRN Reason: Pain or Fever Stop: 09/24/19 15:22 Alfuzosin HCl (Uroxatral) 10 mg PO PM EZE Stop: 09/24/19 20:59 Last Admin: 08/25/19 21:03 Dose: 10 mg Documented by: Aspirin (Ecotrin Ectab) 81 mg PO HS EZE Stop: 09/24/19 20:59 Last Admin: 08/25/19 20:59 Dose: 81 mg Documented by: Dextrose (Dextrose 50%) 25 - 50 ml IV UD PRN; Protocol PRN Reason: Hypoglycemia Protocol Stop: 09/24/19 19:25 Folic Acid (Folvite) 5 mg PO DAILY EZE Stop: 09/25/19 08:59 Last Admin: 08/26/19 07:45 Dose: 5 mg Documented by: Glucagon (Glucagen) 1 mg SQ UD PRN; Protocol PRN Reason: Hypoglycemia Protocol Stop: 09/24/19 19:25 Glucose (Dex4 Glucose) 4 - 8 tabs PO UD PRN; Protocol PRN Reason: Hypoglycemia Protocol Stop: 09/24/19 19:25 Glucose (Glucose 40%) 15 - 30 gm PO UD PRN; Protocol PRN Reason: Hypoglycemia Protocol Stop: 09/24/19 19:25 Insulin Aspart (Novolog Flexpen) 0 units SC ACHS [facility] Stop: 09/24/19 20:59 Last Admin: 08/26/19 07:51 Dose: 6 units Documented by: Insulin Glargine (Lantus Solostar Pen) 20 units SC BID [facility] Stop: 09/24/19 20:59 Last Admin: 08/26/19 07:43 Dose: 20 units Documented by: Levothyroxine Sodium (Synthroid) 100 mcg PO DAILYBB [facility] Stop: 09/25/19 06:29 Last Admin: 08/26/19 05:35 Dose: 100 mcg Documented by: Metoprolol Succinate (Toprol Xl) 50 mg PO BID EZE Stop: 09/24/19 20:59 Last Admin: 08/26/19 07:44 Dose: 50 mg Documented by: Miscellaneous (Carbohydrates For Hypoglycemia) 15 - 30 gm PO UD PRN PRN Reason: Hypoglycemia Protocol Stop: 09/24/19 19:25 Pantoprazole Sodium (Protonix) 40 mg PO DAILY EZE Stop: 09/25/19 08:59 Last Admin: 08/26/19 07:44 Dose: 40 mg Documented by: Medications Administered Laboratory Results - last 24 hr 08/25/19 08/25/19 08/25/19 16:26 17:45 17:45 WBC 7.15 RBC 2.77 L Hgb 8.5 L Hct 25.7 L MCV 92.8 MCH 30.7 MCHC 33.1 RDW Std Deviation 48.5 H RDW Coeff of Imtiaz 14.2 Plt Count 118 L MPV 10.0 Immature Gran % (Auto) 0.4 Neut % (Auto) 71.5 Lymph % (Auto) 16.9 [place]rell % (Auto) 10.3 Eos % (Auto) 0.8 Baso % (Auto) 0.1 Immature Gran # (Auto) 0.03 H Neut # (Auto) 5.10 Lymph # (Auto) 1.21 Terrell # (Auto) 0.74 H Eos # (Auto) 0.06 Baso # (Auto) 0.01 Sodium 133 L Potassium 4.6 Chloride 98 Carbon Dioxide 27 Anion Gap 8.0 BUN 79 H Creatinine 3.63 H Est Cr Clr Drug Dosing Not Reportable Est GFR ( Amer) 18.3 Est GFR (Non-Af Amer) 15.8 BUN/Creatinine Ratio 21.8 H Glucose 109 H POC Glucose 117 H Calcium 8.8 Magnesium 1.9 Total Bilirubin 0.8 AST 9 L ALT 15 Alkaline Phosphatase 104 NT-Pro-B Natriuret Pep 9042 H Total Protein 7.4 Albumin 3.1 L Globulin 4.3 H Albumin/Globulin Ratio 0.7 L 08/25/19 08/26/19 08/26/19 20:45 03:16 05:23 WBC RBC Hgb Hct MCV MCH MCHC RDW Std Deviation RDW Coeff of Imtiaz Plt Count MPV Immature Gran % (Auto) Neut % (Auto) Lymph % (Auto) Terrell % (Auto) Eos % (Auto) Baso % (Auto) Immature Gran # (Auto) Neut # (Auto) Lymph # (Auto) Terrell # (Auto) Eos # (Auto) Baso # (Auto) Sodium 132 L Potassium 4.8 Chloride 98 Carbon Dioxide 28 Anion Gap 6.0 BUN 86 H Creatinine 3.88 H Est Cr Clr Drug Dosing Not Reportable Est GFR ( Amer) 16.8 Est GFR (Non-Af Amer) 14.5 BUN/Creatinine Ratio 22.3 H Glucose 124 H POC Glucose 170 H 83 Calcium 8.5 Magnesium 1.8 Total Bilirubin AST ALT Alkaline Phosphatase NT-Pro-B Natriuret Pep Total Protein Albumin Globulin Albumin/Globulin Ratio 08/26/19 08/26/19 05:23 07:14 WBC 5.76 RBC 2.72 L Hgb 8.1 L Hct 25.4 L MCV 93.4 MCH 29.8 MCHC 31.9 L RDW Std Deviation 48.9 H RDW Coeff of Imtiaz 14.3 Plt Count 108 L MPV 10.0 Immature Gran % (Auto) 0.3 Neut % (Auto) 70.1 Lymph % (Auto) 16.1 [place]rell % (Auto) 12.3 Eos % (Auto) 1.0 Baso % (Auto) 0.2 Immature Gran # (Auto) 0.02 Neut # (Auto) 4.03 Lymph # (Auto) 0.93 L [place]rell # (Auto) 0.71 H Eos # (Auto) 0.06 Baso # (Auto) 0.01 Sodium Potassium Chloride Carbon Dioxide Anion Gap BUN Creatinine Est Cr Clr Drug Dosing Est GFR ( Amer) Est GFR (Non-Af Amer) BUN/Creatinine Ratio Glucose POC Glucose 169 H Calcium Magnesium Total Bilirubin AST ALT Alkaline Phosphatase NT-Pro-B Natriuret Pep Total Protein Albumin Globulin Albumin/Globulin Ratio (1) CAD (coronary artery disease) Associated angina: without angina Coronary Disease-Associated Artery/Lesion type: [place] artery [place] vs. transplanted heart: [place] heart Qualified Code(s): I25.10 - Atherosclerotic heart disease of [place] coronary artery without angina pectoris
[2019-08-26] MEDS: AMLODIPINE BESYLATE 5 MG TAB PO SCH ×2 (11:11→11:16)
--- NOTE | 2019-08-26 15:22 | Hospitalist Progress Note ---
Date of Service August 26, 2019 Assessment & Plan (1) Acute on chronic combined systolic and diastolic CHF (congestive heart failure): Pt was sent to the ER from cardiology office to the ER for with worsening SOB and weight gained in 2-3 weeks CXR showed cardiomegaly with new or increased right pleural effusion. Partially chronic mid to basilar irregular bandlike opacities, right greater than left. BNP admission 9K Received 80mg IV lasix with minimal urine outpout Pt believes that bumex is more effective for him compare to lasix Case discussed with cardiology and Bumex1 given today Monitor I/O's Continue fluid restriction Follow up cxr in am Continue BMP (2) CKD (chronic kidney disease), stage III: Creatinine worsening to 3.88 Nephrology on board for diuretic management Monitor BMP daily (3) DM type 2 (diabetes mellitus, type 2): Will check Hab1c On Lantus 20mg BID Monitor BS (4) Paroxysmal atrial fibrillation: Not on Coumadin due to recent GI bleed and symptomatic anemia (5) History of complete heart block: s/p PPM placement in 2016 Stable (6) CAD (coronary artery disease): s/p CABG x 1 (7) Moderate to severe pulmonary hypertension: Question of underlying lung disease contributing - pt being worked up for potential sarcoidosis as outpatient. Based on results of bronchoscopy and EUS, potential whole LN biopsy is being discussed (8) Dyslipidemia: Patient has a history of statin intolerance so not currently on medication for this (9) Anemia: Multifactorial due to iron deficiency and CKD Hgb dropped to 8.1 Monitor CBC DVT px on SCD due to thrombocytopenia Code Status FULL CODE Subjective Pt was seen and examined Sitting in chair with no distress Pt said that his breathing is ok as long as he does not exert himself He said that he did not diuresis much with the Lasix Denies any chest pain, palpitation and SOB Physical Exam Physical Exam: General- No acute distress Head- atraumatic Eyes- PERRL, EOMI, ENT- oropharynx clear Neck- supple, no JVD Lungs- clear to auscultation Heart- regular rhythm; no murmur Abdomen- normal bowel sounds, soft, nontender Extremities- no calf tenderness, +edema Neuro- alert, oriented x 3; PERRL, EOMI; no facial palsy; no dysarthria Skin- warm & dry Results & Data Vital Signs (Past 12 Hours) Vital Signs Temp Pulse Resp BP Pulse Ox 08/26/19 11:10 36.7 C 65 18 141/66 H 98 08/26/19 08:14 36.9 C 86 18 161/76 H 97 08/26/19 04:40 37.0 C 68 20 130/79 97 (1) DM type 2 (diabetes mellitus, type 2) Diabetes mellitus mcfp insulin use: with mcfp use Diabetes mellitus complication status: with neurologic complications Diabetes mellitus complication detail: with unspecified neuropathy Qualified Code(s): E11.40 - Type 2 diabetes mellitus with diabetic neuropathy, unspecified; Z79.4 - jail (current) use of insulin (2) CAD (coronary artery disease) Coronary Disease-Associated Artery/Lesion type: [place] artery [place] vs. transplanted heart: [place] heart Associated angina: without angina Qualified Code(s): I25.10 - Atherosclerotic heart disease of [place] coronary artery without angina pectoris (3) Anemia Anemia type: unspecified type Qualified Code(s): D64.9 - Anemia, unspecified
--- NOTE | 2019-08-26 17:39 | Nephrology Consultation ---
Date of Consultation August 26, 2019 Assessment & Plan (1) Acute on chronic renal failure: baseline creatinine high 2s w/ historically about 200 mg daily proteinuria from dm. presented 08/25 w/ volume overload and creatinine 3.6, up to 3.9 today after 80 mg iv lasix; needs diuresis -urine studies ordered -cont strict I/O -daily bmp -no urgent HD needed, cannot r/o this admission -avoid nephrotoxins Present on Admission?: Yes (2) Volume overload: had 2 mg bumex this am; will give another 3 mg now IV -cont FR, low Na diet -daily standing wt -needs diuresis and if we cannot achieve this needs dialysis Present on Admission?: Yes (3) Anemia: follows w/ anemia clinic; hgb generally 9-10s; 8 today > ? low d/t volume on board/ dilution. chronic immune thrombocytopenia w/ plts in 90-100s Present on Admission?: Yes History of Present Illness Reason for Consultation: CRISTIN on CKd Requesting Physician: Dr Harris Attending Physician: Gianluca Sharp MD History of Present Illness 73 y/o M whom I'm asked to see for CRISTIN on CKD after he was admitted w/ acute on chronic heart failure. Other PMH includes CKD4, DM>20 years, htn dx'd in his teens, CAD s/p 1V CABG, aortic root repair and aortic redo and mitral valve replacements, pAF not on AC, severe plm HTN, prostate CA s/p XRT, chronic anemia follows at anemia clinic, chronic immune thrombocytopenia, suspected sarcoidosis. Admitted late may 3 days to [facility] for what proved to be non PTH mediated hypercalcemia (ca 14.6): had bronch, LN bx which were negative for sarcoid but the dx is still under consideration. At d/c his bumex was changed to lasix. Recent TTE w/ EF decline to 45%. Late last month he had KWESI > valves working well but noted to have thrombus v ruptured c. tendinae versus much less likely vegetation on mitral prosthesis. In past 2 wks as of yesterday had gained 10 lb and w/ worsening LE edema, exertional dyspnea. He follows w/ Dr Soliman in CKD clinic; baseline creatinine in mid - high 2's. On presentation his creatinine was 3.6; this am up to 3.9. chemistries including Ca acceptable. Last evening he had 80 mg iv lasix yesterday; had 2 mg iv lasix this am. no standing wts recorded so far this admission. he is about 200 mL negative today. stopped amlodipine about 10 days ago and completed steroid course for suspected sarcoid about saem time- feels swelling worsened a lot on these meds Allergies Allergy/AdvReac Type Severity Reaction Status Date / Time Penicillins Allergy Unknown rash Verified 08/06/19 15:33 furosemide AdvReac Severe kidney Verified 08/06/19 15:33 failure ropinirole [From Requip] AdvReac Unknown psych Verified 08/25/19 19:31 complications Ehqurqb-Jhx-Iby Reductase AdvReac Unknown Muscle Pain Verified 08/06/19 15:33 Inhibitor Home Medications Home Medications Medication Instructions Recorded Confirmed Type Humalog U-100 Insulin 1 sliding scale dose SUBCUT UD 12/25/18 08/25/19 History Lantus U-100 Insulin 50 unit SUBCUT HS 12/25/18 08/25/19 History alfuzosin 1 tab PO PM 12/25/18 08/25/19 History aspirin 81 mg PO HS 12/25/18 08/25/19 History folic acid 5 mg PO DAILY 12/25/18 08/25/19 History levothyroxine 100 mcg PO DAILY 12/25/18 08/25/19 History metoprolol succinate 50 mg PO BID 12/25/18 08/25/19 History spironolactone 12.5 mg PO 3XWK 12/25/18 08/25/19 History Procrit 10,000 unit SUBCUT Q14D 08/06/19 08/25/19 History furosemide 80 mg PO DAILY 08/06/19 08/25/19 History pantoprazole 40 mg PO DAILY 08/06/19 08/25/19 History Patient History Medical History Anemia Anxiety Aortic insufficiency (Chronic) BPH (benign prostatic hyperplasia) (Chronic) CAD (coronary artery disease) (Chronic) "1999 - CABG x 1 06/2014 - ACS, cath at the time showed patent graft, non obstructive disease to LAD and circumflex, [place] RCA 100% occluded " Chronic back pain CKD (chronic kidney disease), stage III (Chronic) CKD III-IV, monitoring. Diverticulosis (Chronic) DM type 2 (diabetes mellitus, type 2) (Chronic) iddm Dyslipidemia (Chronic) Gin's thyroiditis (Chronic) History of complete heart block (Chronic) s/p pacemaker History of pacemaker (Chronic) March 2016, [facility]. HTN (hypertension) (Chronic) Hypothyroidism Lung nodule 3mm - benign Moderate to severe pulmonary hypertension (Chronic) hx On home oxygen therapy 2lpm via n/c CLARA (obstructive sleep apnea) (Chronic) hx. Osteoarthritis (Chronic) Pacemaker [employer] device. Placed March 2016, follows with Dr. Luong, last checked ~1.5 months ago. Paroxysmal atrial fibrillation (Chronic) infrequently Prostate cancer (Chronic 01/14/18) "History of benign prostatic hypertrophy Rising PSA, pretreatment PSA 5.7 corrected due to finasteride Status post ultrasound-guided biopsies January 14, 2018 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 (Recommendation for 6-12 months) Gold fiducial markers and Space OAR were placed. Status post completion of radiation therapy April 25, 2018. He received 7000 cGy" On 02/06/18 11:33 Tricia M Charles wrote "History of benign prostatic hypertrophy Rising PSA, pretreatment PSA 5.7 corrected due to finasteride Status post ultrasound-guided biopsies January 14, 2018 Adenocarcinoma of the prostate [place] 4+3 and 4+4 Prostate volume 74.6 Prostate density 0.076 " Skin cancer Systolic and diastolic CHF, chronic (Chronic) "echo 03/16/2016 - EF 35-39% (was normal on prior echo), mod-severe aortic valve regurgitation, severe pulmonary HTN" Surgical History History of bronchoscopy History of colonoscopy History of surgical removal of lesion S/P AVR (aortic valve replacement) (Chronic) 1999, & 2016 Bovine Mechanical valve ([facility]) S/P CABG x 1 (Chronic) 1999 & 2016 ([facility]) S/P MVR (mitral valve replacement) (Chronic) Family History Other Hypertension Prostate cancer Social History Preferred Language: [place] Communication Ability: Effective Account Liaison Hospice Required: No Beliefs That Will Affect Care: None Current Living Situation: Spouse Other Information That Helps Us Care for You: No Feels Safe at Home: Yes Safety Concerns: Feels Safe At This Time Smoking Status: Never smoker Tobacco Type: cigarettes ; Cigarettes Per Day: 20 x4 years ; Do You Dip or Chew Tobacco: No ; Second Hand Exposure: No ; Hx Alcohol Use: No Hx Substance Use: No Review of Systems Review of Systems: All systems reviewed & are unremarkable except as noted in HPI & below Respiratory: as per Subjective / HPI Cardiovascular: as per Subjective / HPI Genitourinary: + as per Subjective / HPI and + decreased urination Neurologic: no behavioral changes Psychiatric: + anxiety Physical Exam Constitutional: well developed, well nourished, + obese and cooperative sitting u pin chair on 02nc Eyes: EOM intact bilaterally ENMT: Ears: no external ear abnormality Nose: no external nose abnormality Mouth: + dry oral mucous membranes Neck: no nuchal rigidity Respiratory: normal respiratory effort Auscultation: + diminished lung sounds Cardiovascular: Rate/Rhythm: regular rate and regular rhythm Extremities: + edema (4+ pedal, 1+ distal thigh BL, 2-3+ ant tibial) Gastrointestinal (Abdomen): Inspection/Auscultation: normal bowel sounds Percussion/Palpation: abdomen soft; abdomen nontender Musculoskeletal: Extremities: strength 5/5 throughout Skin: no rashes, warm and dry Neurologic: guerin, fluent speech, no tremor Psychiatric: Orientation: alert and oriented x 3 Eye Contact: good eye contact Speech: normal rate/rhythm/volume of speech Affect: + anxious affect Genitourinary: no hein Results & Data Vital Signs (Past 12 Hours) Vital Signs Temp Pulse Pulse Resp BP Pulse Ox 08/26/19 15:51 68 08/26/19 15:45 36.6 C 67 20 136/59 L 97 08/26/19 11:10 36.7 C 65 18 141/66 H 98 08/26/19 08:14 36.9 C 86 18 161/76 H 97 Laboratory Results 08/26/19 05:23 08/26/19 05:23 Diagnostic Findings CXR 1. Cardiomegaly with new or increased right pleural effusion. 2. Partially chronic mid to basilar irregular bandlike opacities, right greater than left. This could represent chronic scarring though this may be increased especially on the right. Superimposed infiltrate at the right lung base is diffi cult to exclude. (1) Anemia Anemia type: unspecified type Qualified Code(s): D64.9 - Anemia, unspecified (2) Acute on chronic renal failure Acute renal failure type: unspecified Chronic kidney disease stage: stage 4 (severe) Qualified Code(s): N17.9 - Acute kidney failure, unspecified; N18.4 - Chronic kidney disease, stage 4 (severe) (3) Volume overload Hypervolemia type: other Qualified Code(s): E87.79 - Other fluid overload
[2019-08-26] MEDS ORDERED: BUMETANIDE 3 MG in SYRINGE 0 ML IV ONE (18:00)
[2019-08-26 19:19] LABS: Appearance Urine Clear (Clear); Bacteria Urine Automated Negative (Negative); Bilirubin Urine Negative (Negative); Blood Urine 3+ (Negative); Color Urine Yellow; Glucose Urine UA Negative (Negative); Ketones Urine Negative (Negative); Leukocyte Esterase Urine Trace (Negative); Nitrite Urine Negative (Negative); Protein Urine 2+ (Negative); Specific Gravity Urine 1.014 (1.000-1.030); Urobilinogen Urine Negative (Negative)
[2019-08-26 19:31] LABS: Creatinine Urine Random 64.6 mg/dl; Protein Creatinine Ratio Urine 0.9 (0-0.2); Total Protein Urine Random 57.1 mg/dl (0-11.9)
[2019-08-26] MEDS: ALFUZOSIN HCL 10 MG TAB PO SCH (20:58)
[2019-08-26] MEDS: ASPIRIN 81 MG ECTAB PO SCH (20:59)
[2019-08-27] MEDS: LEVOTHYROXINE SODIUM 100 MCG TABLET PO SCH (06:23)
[2019-08-27 06:38] LABS: Basophils # (auto) 0.01 K/uL (0-0.2); Basophils % (auto) 0.2 %; Eosinophils # (auto) 0.07 K/uL (0-0.5); Eosinophils % (auto) 1.1 %; Hematocrit (blood only) 23.7 % (42-52); Hemoglobin 7.7 g/dL (14.0-18.0); Immature Granulocytes # (auto) 0.02 K/uL (0.00-0.02); Immature Granulocytes % (auto) 0.3 %; Lymphocytes # (auto) 1.07 K/uL (1.2-3.4); Lymphocytes % (auto) 16.9 %; Mean Corpuscular Hemoglobin 30.1 pg (25-34); Mean Corpuscular Hgb Conc 32.5 g/dL (32-36); Mean Corpuscular Volume 92.6 fL (80-100); Mean Platelet Volume 10.1 fL (7.4-10.4); Monocytes % (auto) 12.7 %; Neutrophils # (auto) 4.35 K/uL (1.4-6.5); Neutrophils % (auto) 68.8 %; Platelet Count 116 K/uL (130-400); RDW Coefficient of Variation 14.3 % (11.5-14.5); RDW Standard Deviation 47.8 fL (36.4-46.3); Red Blood Count 2.56 M/uL (4.7-6.1); White Blood Count 6.32 K/uL (4.8-10.8)
[2019-08-27 07:04] LABS: RBC Morphology Unremarkable
[2019-08-27 07:16] LABS: BUN Creatinine Ratio 23.3 (10-20); Blood Urea Nitrogen 97 mg/dl (7-18); Calcium 8.4 mg/dl (8.5-10.1); Carbon Dioxide 28 mmol/L (21-32); Chloride 99 mmol/L (98-107); Est GFR (African American) 15.4; Est GFR (Non-African American) 13.3; Glucose 99 mg/dl (70-99); Potassium 4.5 mmol/L (3.5-5.1); Sodium 135 mmol/L (136-145)
[2019-08-27] MEDS: METOPROLOL SUCC 50MG EXT REL TAB PO SCH ×2 (07:57→21:07)
[2019-08-27] MEDS: PANTOprazole 40 MG TAB PO SCH (07:57)
[2019-08-27] MEDS: FOLIC ACID 1 MG TAB PO SCH (07:57)
[2019-08-27] MEDS: INSULIN ASPART 100 UNITS/ML 3 ML PEN SC SCH ×4 (07:58→21:10)
[2019-08-27] MEDS: INSULIN GLARGINE SOLOSTAR 100 UNITS/ML 3 ML PEN SC SCH ×2 (07:59→21:11)
[2019-08-27] MEDS: AMLODIPINE BESYLATE 5 MG TAB PO SCH (09:43)
--- NOTE | 2019-08-27 09:44 | Cardiology Progress Note ---
Date of Service August 27, 2019 Assessment & Plan (1) Volume overload: This does appear to be multifactorial in nature with most significant component being worsening renal failure. Unfortunately only minimal diuresis overnight with additional IV bumex Obvious I will defer this to our nephrology colleagues. (2) Acute on chronic renal failure: renal function continues to decline approx 1L negative (3) History of complete heart block: s/p PPM placement current V-paced rhythm with underlying afib (4) Paroxysmal atrial fibrillation: likely now permanent INR subtherapeutic, cont coumadin would not start heparin at this time (5) CAD (coronary artery disease): stable (6) S/P AVR (aortic valve replacement): s/p KWESI valve functioning appropriately (7) Moderate to severe pulmonary hypertension: stable (8) Restrictive lung disease: stable Subjective Pt seen and examined, oob in chair. States that he feels about the same. Can't tell if there's improvement in his breathing or LE edema. Refused amlodipine, believed it would cause swelling. Denies cp, palpitations, lightheadedness or dizziness. tele reviewed: afib with v-pacing. Review of Systems Review of Systems: All systems reviewed & are unremarkable except as noted in HPI & below Physical Exam Physical Exam: General: Awake, alert and oriented x 3. No acute distress. HEENT: Normocephalic, atraumatic. Pupils equal, round and reactive to light and accommodation. Extraocular muscles are intact. Anicteric sclera. Moist mucous membranes. Neck: No JVD. No bruit. Cardiovascular: irregularly irregular, unable to appreciate murmur, rub or gallop. Pulmonary: Clear to auscultation bilaterally with poor air movement in the B/L bases. No rales, rhonchi, or wheezing. Abdomen: Bowel sounds x 4, soft. No rebound, guarding or tenderness. No organomegaly. Extremities: No clubbing, cyanosis. Chronic venous stasis changes. +edema. +2 pedal pulses bilaterally. Skin: Warm and dry. Results & Data Vital Signs (Past 12 Hours) Vital Signs Temp Pulse Pulse Resp BP Pulse Ox 08/27/19 07:55 37 C 62 18 143/61 H 97 08/27/19 04:28 36.4 C L 60 19 128/56 L 97 08/27/19 00:00 68 08/26/19 23:26 36.3 C L 69 18 125/64 95 (1) Volume overload Hypervolemia type: other Qualified Code(s): E87.79 - Other fluid overload (2) Acute on chronic renal failure Acute renal failure type: unspecified Chronic kidney disease stage: stage 4 (severe) Qualified Code(s): N17.9 - Acute kidney failure, unspecified; N18.4 - Chronic kidney disease, stage 4 (severe) (3) CAD (coronary artery disease) Coronary Disease-Associated Artery/Lesion type: [place] artery [place] vs. transplanted heart: [place] heart Associated angina: without angina Qualified Code(s): I25.10 - Atherosclerotic heart disease of [place] coronary artery without angina pectoris
--- NOTE | 2019-08-27 16:49 | Hospitalist Progress Note ---
Date of Service August 27, 2019 Assessment & Plan (1) Acute on chronic combined systolic and diastolic CHF (congestive heart failure): Admitted with volume overload, acute decompensation of biventricular CHF Pt was sent to the ER from cardiology office to the ER for with worsening SOB and weight gained in 2-3 weeks CXR showed cardiomegaly with new or increased right pleural effusion. Partially chronic mid to basilar irregular bandlike opacities, right greater than left. BNP admission 9K Received 80mg IV Lasix with minimal urine output Appreciate input from cardiology and nephrology Nephrology ordered Bumex 3 mg IV x1 at 1700/Then Bumex 2 mg IV x1 at 2100 then scheduled bumex dose 4 mg IV BID ( 7 am /5 pm ) Monitor I/O's Continue fluid restriction 1.5 L /daily (2) CKD (chronic kidney disease), stage III: Creatinine worsening to 3.88 -> 4 Nephrology on board for diuretic as above has progressive renal disease with minimum urine output with aggressive diuresis may need Dialysis if medical tx ( diuretics not effective ) for vol management pt and his aware (3) DM type 2 (diabetes mellitus, type 2): On Lantus 20mg BID insulin SSI (4) Paroxysmal atrial fibrillation: Not on Coumadin due to recent GI bleed and symptomatic anemia (5) History of complete heart block: s/p PPM placement in 2016 Stable (6) CAD (coronary artery disease): s/p CABG x 1 (7) Moderate to severe pulmonary hypertension: Question of underlying lung disease contributing - pt being worked up for potential sarcoidosis as outpatient. (8) Dyslipidemia: Patient has a history of statin intolerance so not currently on medication for this (9) Anemia: Multifactorial due to iron deficiency and CKD Hgb dropped to 8.1-> 7.7 tx for hb < 7 or if symptomatic given vol overload , will be cautious about transfusion IMMUNE THROMBOCYTOPENIA : chronic follow cbc no evidence of active bleeding DVT px on SCD due to thrombocytopenia Code Status FULL CODE DISPOSITION ; lives at home with has home 02 cont tele monitoring in PCU plan to discharge home when medically stable Subjective Patient sitting up on chair, no complaint of shortness of breath, no cough, no chest heaviness States he feels like the same, does not appreciate much improvement of his symptoms since admission Chronic orthopnea Urine output remains very poor Mild improvement on lower extremity edema Patient and his voiced concern: Side effect of Norvasc/amlodipine can worsen his lower extremity edema Once to avoid it Willing for other antihypertensive agents Ordered for Norvasc to be on hold We will discussed with cardiology for alternative antihypertensive meds if indicated Review of Systems Review of Systems: All systems reviewed & are unremarkable except as noted in HPI & below Physical Exam Constitutional: WD/WN, vitals as above + obese; no acute distress Eyes: PERRL, conjunctivae normal, anicteric sclerae ENMT: external ear and nose normal, oropharynx normal Neck: trachea midline, no thyromegaly Respiratory: normal respiratory effort; no respiratory distress and no cough Auscultation: + rales Bibasilar Rales Cardiovascular: Rate/Rhythm: + abnormal rate (Irregularly irregular) Extremities: + pedal edema (+1 bilateral ankle edema) Gastrointestinal (Abdomen): Inspection/Auscultation: + abdomen distended and normal bowel sounds Percussion/Palpation: abdomen soft; abdomen nontender Musculoskeletal: no cyanosis or clubbing, extremities motor strength 5/5 Skin: no rashes, warm and dry Neurologic: PERRL, EOMI, accommodation nl, no face palsy, no dysarthria Psychiatric: A+Ox3, euthymic affect Results & Data Vital Signs (Past 12 Hours) Vital Signs Temp Pulse Resp BP Pulse Ox 08/27/19 16:30 36.8 C 18 140/69 96 08/27/19 11:09 36.5 C 67 20 136/65 97 08/27/19 07:55 37 C 62 18 143/61 H 97 (1) DM type 2 (diabetes mellitus, type 2) Diabetes mellitus complication detail: with unspecified neuropathy Diabetes mellitus complication status: with neurologic complications 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 transplanted heart: [place] heart Qualified Code(s): I25.10 - Atherosclerotic heart disease of [place] coronary artery without angina pectoris (3) Anemia Anemia type: unspecified type Qualified Code(s): D64.9 - Anemia, unspecified
[2019-08-27] MEDS ORDERED: BUMETANIDE 3 MG in SYRINGE 0 ML IV ONE (17:04)
[2019-08-27] MEDS ORDERED: BUMETANIDE 2 MG in SYRINGE 0 ML IV ONE ×2 (17:40→21:10)
--- NOTE | 2019-08-27 18:56 | Nephrology Progress Note ---
Date of Service August 27, 2019 Assessment & Plan (1) Acute on chronic renal failure: baseline creatinine high 2s w/ historically about 200 mg daily proteinuria from dm. presented 08/25 w/ volume overload and creatinine 3.6, up to 4.2 today after 80 mg iv lasix; needs diuresis -urine studies ordered -cont strict I/O -daily bmp -no urgent HD needed, cannot r/o this admission -avoid nephrotoxins (2) Volume overload: will start standing bumex IV 2 mg bid [address] wt = 105.1 > 104 -cont FR, low Na diet -daily standing wt -needs diuresis and if we cannot achieve this needs dialysis (3) Anemia: follows w/ anemia clinic; hgb generally 9-10s; dropped further to 7.7 today > ? low d/t volume on board/ dilution. will check iron studies in am; consider epo dose tomorrow as well. chronic immune thrombocytopenia w/ plts in 90-100s Subjective seen on rounds today at 1020 approx; care coordinated w/ dr torres. uneventful nightsome response to bumex; no worsening sob; edema not much changed; denies voidign difficulties, rash, decreased po, n/v Review of Systems Review of Systems: All systems reviewed & are unremarkable except as noted in HPI & below Physical Exam Constitutional: well developed, well nourished, + obese and cooperative (sitting in bed on 2L NC) Eyes: EOM intact bilaterally ENMT: Ears: no external ear abnormality Nose: no external nose abnormality Mouth: + dry oral mucous membranes Neck: no nuchal rigidity Respiratory: normal respiratory effort Auscultation: + diminished lung sounds Cardiovascular: Rate/Rhythm: regular rate and regular rhythm Extremities: + edema (3+ pedal, 1+ distal thigh BL, 2+ ant tibial) Gastrointestinal (Abdomen): Inspection/Auscultation: normal bowel sounds Percussion/Palpation: abdomen soft; abdomen nontender Musculoskeletal: Extremities: strength 5/5 throughout Skin: no rashes, warm and dry Neurologic: guerin, fluent speech, no tremor Psychiatric: Orientation: alert and oriented x 3 Eye Contact: good eye contact Speech: normal rate/rhythm/volume of speech Affect: + anxious affect Results & Data Vital Signs (Past 12 Hours) Vital Signs Temp Pulse Pulse Resp BP Pulse Ox 08/27/19 16:30 36.8 C 18 140/69 96 11/13/19 16:00 64 08/27/19 11:09 36.5 C 67 20 136/65 97 08/27/19 07:55 37 C 62 18 143/61 H 97 (1) Acute on chronic renal failure Acute renal failure type: unspecified Chronic kidney disease stage: stage 4 (severe) Qualified Code(s): N17.9 - Acute kidney failure, unspecified; N18.4 - Chronic kidney disease, stage 4 (severe) (2) Volume overload Hypervolemia type: other Qualified Code(s): E87.79 - Other fluid overload (3) Anemia Anemia type: unspecified type Qualified Code(s): D64.9 - Anemia, unspecified
[2019-08-27] MEDS: ASPIRIN 81 MG ECTAB PO SCH (21:06)
[2019-08-27] MEDS: ALFUZOSIN HCL 10 MG TAB PO SCH (21:08)
[2019-08-28 05:50] LABS: Hematocrit (blood only) 23.5 % (42-52); Hemoglobin 7.8 g/dL (14.0-18.0); Mean Corpuscular Hemoglobin 30.5 pg (25-34); Mean Corpuscular Hgb Conc 33.2 g/dL (32-36); Mean Corpuscular Volume 91.8 fL (80-100); Mean Platelet Volume 9.9 fL (7.4-10.4); Platelet Count 127 K/uL (130-400); RDW Coefficient of Variation 14.1 % (11.5-14.5); RDW Standard Deviation 47.2 fL (36.4-46.3); Red Blood Count 2.56 M/uL (4.7-6.1); White Blood Count 5.79 K/uL (4.8-10.8)
[2019-08-28 06:24] LABS: BUN Creatinine Ratio 23.7 (10-20); Blood Urea Nitrogen 101 mg/dl (7-18); Calcium 8.3 mg/dl (8.5-10.1); Carbon Dioxide 26 mmol/L (21-32); Chloride 100 mmol/L (98-107); Est GFR (Non-African American) 12.9; Glucose 74 mg/dl (70-99); Potassium 4.5 mmol/L (3.5-5.1); Sodium 137 mmol/L (136-145)
[2019-08-28 06:26] LABS: Iron 30 mcg/dl (35-175); Transferrin 190 mg/dl (200-360); Transferrin Percent Saturation 11 % (20-50)
[2019-08-28] MEDS: LEVOTHYROXINE SODIUM 100 MCG TABLET PO SCH (06:28)
[2019-08-28 07:11] LABS: Anisocytosis Present
--- NOTE | 2019-08-28 08:11 | Hospitalist Progress Note ---
Date of Service August 28, 2019 Assessment & Plan (1) Acute on chronic combined systolic and diastolic CHF (congestive heart failure): Volume status continues to improve, Got total 5 mg of IV Bumex yesterday: Urine output:Total Output 1350 mL negative Balance -585 ml Continue to monitor I/O's Continue fluid restriction 1.5 L /daily Admitted with volume overload, acute decompensation of biventricular CHF Pt was sent to the ER from cardiology office to the ER for with worsening SOB and weight gained in 2-3 weeks CXR showed cardiomegaly with new or increased right pleural effusion. Partially chronic mid to basilar irregular bandlike opacities, right greater than left. BNP admission 9K Received 80mg IV Lasix admission with minimal urine output Appreciate input from cardiology and nephrology Nephrology ordered Bumex 3 mg IV x1 at 1700/Then Bumex 2 mg IV x1 at 2100- given on 08/27/2019 then scheduled bumex dose 4 mg IV BID ( 7 am /5 pm ) We will continue to monitor volume status, renal function while receiving diuretics POSSIBLE OBSTRUCTIVE SLEEP APNEA Reports of having poor sleep for a number of years Feels " foggy" throughout the day Does report of having shortness of breath at night, which he attributed to his heart failure Was diagnosed with CLARA in the past, had CPAP machine Afterwards he had significant weight loss, not had a refitting for the CPAP mask,-machine was returned for not using it We will order for nocturnal pulse oximetry Trial of CPAP afterwards, if patient's nocturnal pulse oximetry showed significant desaturation And patient's underlying biventricular heart failure CPAP machine at night may help significantly-counseling provided to patient, willing to be compliant with CPAP machine-if approved (2) CKD (chronic kidney disease), stage III: Creatinine worsening to 3.88 -> 4 Nephrology on board for diuretic as above has progressive renal disease with minimum urine output with aggressive diuresis may need Dialysis if medical tx ( diuretics not effective ) for vol management pt and his aware ANEMIA OF CHRONIC DISEASE Hemoglobin 7.8 Continue to monitor Was on Procrit as an outpatient Iron studies shows low iron 30, transferrin: 190, percent saturation 11%: Suggestive of iron deficiency anemia, We will add iron supplement Transfusion for hemoglobin less than 7 or if patient is symptomatic Given patient's presentation with volume overload, will be cautious about PRBC transfusion (3) DM type 2 (diabetes mellitus, type 2): On Lantus 20mg BID insulin SSI (4) Paroxysmal atrial fibrillation: Rate controlled Not on Coumadin due to recent GI bleed and symptomatic anemia On metoprolol succinate 50 mg twice daily (5) History of complete heart block: s/p PPM placement in 2016 Stable (6) CAD (coronary artery disease): s/p CABG x 1 No complaint of angina symptoms, no chest heaviness, No outpatient cardiac meds (7) Moderate to severe pulmonary hypertension: Question of underlying lung disease contributing - pt being worked up for potential sarcoidosis as outpatient. Order nocturnal pulse oximetry to assess for obstructive sleep apnea (8) Dyslipidemia: Patient has a history of statin intolerance so not currently on medication for this IMMUNE THROMBOCYTOPENIA : chronic follow cbc no evidence of active bleeding DVT px on SCD due to thrombocytopenia CODE STATUS: Full code Disposition: Lives at home with , independent in his ADLs Has home O2, on 2 L oxygen via nasal cannula chronically Plan to discharge home when medically stable Subjective Patient sitting up on edge of bed, finishing breakfast Had an uneventful night, No complaint of chest heaviness, shortness of breath, no dyspnea on exertion of palpitation no dizzy spell or lightheadedness reports he was not able to sleep more than 1-2 hours last night, has been a chronic issue Thinks his urination was a little bit better after getting IV Bumex Lower extremity swelling has improved No cough, no fever or chills Review of Systems Review of Systems: All systems reviewed & are unremarkable except as noted in HPI & below Physical Exam Constitutional: WD/WN, vitals as above + obese; no acute distress Eyes: PERRL, conjunctivae normal, anicteric sclerae ENMT: external ear and nose normal, oropharynx normal Neck: trachea midline, no thyromegaly Respiratory: normal respiratory effort; no respiratory distress and no cough Auscultation: + rales (Bibasilar,) Cardiovascular: Rate/Rhythm: + abnormal rate (Irregularly irregular) Extrem ities: + pedal edema (Trace bilateral ankle edema, improved since yesterday); no edema (No lower extremity edema) Gastrointestinal (Abdomen): Inspection/Auscultation: normal bowel sounds Percussion/Palpation: abdomen soft; abdomen nontender Musculoskeletal: no cyanosis or clubbing, extremities motor strength 5/5 Skin: no rashes, warm and dry Neurologic: PERRL, EOMI, accommodation nl, no face palsy, no dysarthria Psychiatric: A+Ox3, euthymic affect Results & Data Vital Signs (Past 12 Hours) Vital Signs Temp Pulse Resp BP Pulse Ox 08/28/19 07:06 36.8 C 61 19 149/64 H 97 08/28/19 04:27 36.5 C 62 20 132/58 L 96 08/27/19 23:35 36.8 C 66 18 139/55 L 96 (1) DM type 2 (diabetes mellitus, type 2) Diabetes mellitus complication detail: with unspecified neuropathy Diabetes mellitus complication status: with neurologic complications Diabetes mellitus longterm insulin use: with longterm use Qualified Code(s): E11.40 - Type 2 diabetes mellitus with diabetic neuropathy, unspecified; 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 transplanted heart: [place] heart Qualified Code(s): I25.10 - Atherosclerotic heart disease of [place] coronary artery without angina pectoris
[2019-08-28] MEDS: INSULIN ASPART 100 UNITS/ML 3 ML PEN SC SCH ×4 (08:29→21:28)
[2019-08-28] MEDS: BUMETANIDE 2 MG in SYRINGE 0 ML IV SCH ×2 (08:30→16:51)
[2019-08-28] MEDS: FOLIC ACID 1 MG TAB PO SCH (08:31)
[2019-08-28] MEDS: INSULIN GLARGINE SOLOSTAR 100 UNITS/ML 3 ML PEN SC SCH ×2 (08:33→21:30)
[2019-08-28] MEDS: FERROUS FUMARATE/ASCORBIC ACID 65 MG CAPCR PO SCH (08:57)
[2019-08-28] MEDS: PANTOprazole 40 MG TAB PO SCH (08:58)
[2019-08-28] MEDS: METOPROLOL SUCC 50MG EXT REL TAB PO SCH ×2 (08:58→21:22)
[2019-08-28] MEDS ORDERED: IRON SUCROSE 200 MG in 0.9 % SODIUM CHLORIDE 100 ML IV ONE (09:00)
--- NOTE | 2019-08-28 11:45 | Cardiology Progress Note ---
Date of Service August 28, 2019 Assessment & Plan (1) Volume overload: This does appear to be multifactorial in nature with most significant component being worsening renal failure. Unfortunately only minimal diuresis overnight with continued IV bumex Obvious I will defer this to our nephrology colleagues for diuresis management. (2) Acute on chronic renal failure: renal function continues to decline approx 1.4 L negative since admission (3) History of complete heart block: s/p PPM placement current V-paced rhythm with underlying afib (4) Paroxysmal atrial fibrillation: likely now permanent Coumadin has been previously held due to anemia Would not restart at this time Risk of cardioembolic event discussed with the patient and he is in agreement with holding anticoagulation (5) CAD (coronary artery disease): stable (6) S/P AVR (aortic valve replacement): s/p KWESI valve functioning appropriately (7) Moderate to severe pulmonary hypertension: stable (8) Restrictive lung disease: stable Subjective Pt seen and examined out of bed in chair, states he is doing okay today but still has persistent lower extremity edema and dyspnea with minimal exertion. Denies any chest pain, palpitations, lightheadedness, dizziness or syncope. Telemetry review: Shows atrial fibrillation with a ventricular paced rhythm Review of Systems Review of Systems: All systems reviewed & are unremarkable except as noted in HPI & below Physical Exam Physical Exam: General: Awake, alert and oriented x 3. No acute distress. HEENT: Normocephalic, atraumatic. Pupils equal, round and reactive to light and accommodation. Extraocular muscles are intact. Anicteric sclera. Moist mucous membranes. Neck: No JVD. No bruit. Cardiovascular: irregularly irregular, unable to appreciate murmur, rub or gallop. Pulmonary: Clear to auscultation bilaterally with poor air movement bilateral bases. No rales, rhonchi, or wheezing. Abdomen: Bowel sounds x 4, soft. No rebound, guarding or tenderness. No organomegaly. Extremities: No clubbing, cyanosis, chronic venous stasis changes and +1 edema. +2 pedal pulses bilaterally. Skin: Warm and dry. Results & Data Vital Signs (Past 12 Hours) Vital Signs Temp Pulse Resp BP Pulse Ox 08/28/19 07:06 36.8 C 61 19 149/64 H 97 08/28/19 04:27 36.5 C 62 20 132/58 L 96 Laboratory Results Laboratory Results - last 24 hr 08/27/19 08/27/19 08/27/19 06:00 16:06 20:13 WBC RBC Hgb Hct MCV MCH MCHC RDW Std Deviation RDW Coeff of Imtiaz Plt Count MPV Anisocytosis Present Sodium Potassium Chloride Carbon Dioxide Anion Gap BUN Creatinine Est Cr Clr Drug Dosing Est GFR ( Amer) Est GFR (Non-Af Amer) BUN/Creatinine Ratio Glucose POC Glucose 191 H 193 H Calcium Iron Transferrin Transferrin % Sat Ferritin 08/28/19 08/28/19 08/28/19 05:24 05:24 05:24 WBC 5.79 RBC 2.56 L Hgb 7.8 L Hct 23.5 L MCV 91.8 MCH 30.5 MCHC 33.2 RDW Std Deviation 47.2 H RDW Coeff of Imtiaz 14.1 Plt Count 127 L MPV 9.9 Anisocytosis Sodium 137 Potassium 4.5 Chloride 100 Carbon Dioxide 26 Anion Gap 11.0 BUN 101 H Creatinine 4.27 H Est Cr Clr Drug Dosing Not Reportable Est GFR ( Amer) 15.0 Est GFR (Non-Af Amer) 12.9 BUN/Creatinine Ratio 23.7 H Glucose 74 POC Glucose Calcium 8.3 L Iron 30 L Transferrin 190 L Transferrin % Sat 11 L Ferritin 213.9 08/28/19 08/28/19 08/28/19 06:16 07:07 11:34 WBC RBC Hgb Hct MCV MCH MCHC RDW Std Deviation RDW Coeff of Imtiaz Plt Count MPV Anisocytosis Sodium Potassium Chloride Carbon Dioxide Anion Gap BUN Creatinine Est Cr Clr Drug Dosing Est GFR ( Amer) Est GFR (Non-Af Amer) BUN/Creatinine Ratio Glucose POC Glucose 101 H 93 Pending Calcium Iron Transferrin Transferrin % Sat Ferritin Medications Administered Current Inpatient Medications Acetaminophen (Tylenol) 650 mg PO Q4H PRN PRN Reason: Pain or Fever Stop: 09/24/19 15:22 Alfuzosin HCl (Uroxatral) 10 mg PO PM EZE Stop: 09/24/19 20:59 Last Admin: 08/27/19 21:08 Dose: 10 mg Documented by: Amlodipine Besylate (Norvasc) 5 mg PO QAM EZE Stop: 09/25/19 10:14 Last Admin: 08/27/19 09:43 Dose: Not Given Documented by: Aspirin (Ecotrin Ectab) 81 mg PO HS EZE Stop: 09/24/19 20:59 Last Admin: 08/27/19 21:06 Dose: 81 mg Documented by: Dextrose (Dextrose 50%) 25 - 50 ml IV UD PRN; Protocol PRN Reason: Hypoglycemia Protocol Stop: 09/24/19 19:25 Docusate Sodium/Ferrous Fumarate (Linda-Sequels) 65 mg PO QAM EZE Stop: 09/27/19 08:59 Last Admin: 08/28/19 08:57 Dose: 65 mg Documented by: Folic Acid (Folvite) 5 mg PO DAILY EZE Stop: 09/25/19 08:59 Last Admin: 08/28/19 08:31 Dose: 5 mg Documented by: Glucagon (Glucagen) 1 mg SQ UD PRN; Protocol PRN Reason: Hypoglycemia Protocol Stop: 09/24/19 19:25 Glucose (Dex4 Glucose) 4 - 8 tabs PO UD PRN; Protocol PRN Reason: Hypoglycemia Protocol Stop: 09/24/19 19:25 Glucose (Glucose 40%) 15 - 30 gm PO UD PRN; Protocol PRN Reason: Hypoglycemia Protocol Stop: 09/24/19 19:25 Bumetanide 2 mg/ Syringe 8 mls @ 4 mls/min IV BID@0900,1700 EZE Stop: 09/27/19 08:59 Last Admin: 08/28/19 08:30 Dose: 4 mls/min Documented by: Insulin Aspart (Novolog Flexpen) 0 units SC ACHS EZE Stop: 09/24/19 20:59 Last Admin: 08/28/19 08:29 Dose: Not Given Documented by: Insulin Glargine (Lantus Solostar Pen) 20 units SC BID EZE Stop: 09/24/19 20:59 Last Admin: 08/28/19 08:33 Dose: 20 units Documented by: Levothyroxine Sodium (Synthroid) 100 mcg PO DAILYBB EZE Stop: 09/25/19 06:29 Last Admin: 08/28/19 06:28 Dose: 100 mcg Documented by: Metoprolol Succinate (Toprol Xl) 50 mg PO BID EZE Stop: 09/24/19 20:59 Last Admin: 08/28/19 08:58 Dose: 50 mg Documented by: Miscellaneous (Carbohydrates For Hypoglycemia) 15 - 30 gm PO UD PRN PRN Reason: Hypoglycemia Protocol Stop: 09/24/19 19:25 Last Admin: 08/27/19 04:02 Dose: 15 gm Documented by: Pantoprazole Sodium (Protonix) 40 mg PO DAILY EZE Stop: 09/25/19 08:59 Last Admin: 08/28/19 08:58 Dose: 40 mg Documented by: (1) Volume overload Hypervolemia type: other Qualified Code(s): E87.79 - Other fluid overload (2) Acute on chronic renal failure Acute renal failure type: unspecified Chronic kidney disease stage: stage 4 (severe) Qualified Code(s): N17.9 - Acute kidney failure, unspecified; N18.4 - Chronic kidney disease, stage 4 (severe) (3) CAD (coronary artery disease) Coronary Disease-Associated Artery/Lesion type: [place] artery [place] vs. transplanted heart: [place] heart Associated angina: without angina Qualified Code(s): I25.10 - Atherosclerotic heart disease of [place] coronary artery without angina pectoris
--- NOTE | 2019-08-28 17:12 | Nephrology Progress Note ---
Date of Service August 28, 2019 Assessment & Plan (1) Acute on chronic renal failure: baseline creatinine high 2s w/ historically about 200 mg daily proteinuria from dm. presented 08/25 w/ volume overload and creatinine 3.6, up to 4.3 today after 80 mg iv lasix; needs diuresis -urine studies ordered -cont strict I/O -daily bmp> chemistries remain acceptable -no urgent HD needed, cannot r/o this admission -avoid nephrotoxins (2) Volume overload: will start standing bumex IV 2 mg bid [address] wt = 105.1 > 104 >103.6 -cont FR, low Na diet -daily standing wt appreciated and should continue -needs diuresis and if we cannot achieve this needs dialysis (3) Anemia: follows w/ anemia clinic; hgb generally 9-10s; stable at 7.8 today > ? low d/t volume on board/ dilution. t stn = 11% > started venofer load 200 mg 08/28; consider epo dose tomorrow as well. chronic immune thrombocytopenia w/ plts in 90-100s adn at baseline Subjective no change in poor sleep; wt down 1/2 kg; creat continues to worsen but rate has slowed some; no voidnign difficiutles; minimal change to edema; no n/v, no confusion or tremors Review of Systems Review of Systems: All systems reviewed & are unremarkable except as noted in HPI & below Physical Exam Constitutional: well developed, well nourished, + obese and cooperative (sitting in chair on 2L NC) Eyes: EOM intact bilaterally ENMT: Ears: no external ear abnormality Nose: no external nose abnormality Mouth: + dry oral mucous membranes Neck: no nuchal rigidity Respiratory: normal respiratory effort Auscultation: + diminished lung sounds and + crackles (bibasilar) Cardiovascular: Rate/Rhythm: regular rate and regular rhythm Extremities: + edema (3+ pedal, 1+ distal thigh BL, 2+ ant tibial) Gastrointestinal (Abdomen): Inspection/Auscultation: normal bowel sounds Percussion/Palpation: abdomen soft; abdomen nontender Musculoskeletal: Extremities: strength 5/5 throughout Skin: no rashes, warm and dry Psychiatric: Orientation: alert and oriented x 3 Eye Contact: good eye contact Speech: normal rate/rhythm/volume of speech Affect: + anxious affect Results & Data Vital Signs (Past 12 Hours) Vital Signs Temp Pulse Resp BP Pulse Ox 08/28/19 15:37 36.5 C 63 21 145/65 H 96 08/28/19 12:14 36.6 C 67 18 143/62 H 97 08/28/19 07:06 36.8 C 61 19 149/64 H 97 Laboratory Results 08/28/19 05:24 08/28/19 05:24 (1) Acute on chronic renal failure Acute renal failure type: unspecified Chronic kidney disease stage: stage 4 (severe) Qualified Code(s): N17.9 - Acute kidney failure, unspecified; N18.4 - Chronic kidney disease, stage 4 (severe) (2) Volume overload Hypervolemia type: other Qualified Code(s): E87.79 - Other fluid overload (3) Anemia Anemia type: unspecified type Qualified Code(s): D64.9 - Anemia, unspecified
[2019-08-28] MEDS: ALFUZOSIN HCL 10 MG TAB PO SCH (21:23)
[2019-08-28] MEDS: ASPIRIN 81 MG ECTAB PO SCH (21:23)
[2019-08-29] MEDS: LEVOTHYROXINE SODIUM 100 MCG TABLET PO SCH (06:34)
[2019-08-29 06:55] LABS: Hemoglobin 7.9 g/dL (14.0-18.0); Mean Corpuscular Hemoglobin 30.6 pg (25-34); Mean Corpuscular Hgb Conc 32.9 g/dL (32-36); Mean Platelet Volume 9.5 fL (7.4-10.4); Platelet Count 126 K/uL (130-400); RDW Coefficient of Variation 14.3 % (11.5-14.5); RDW Standard Deviation 48.6 fL (36.4-46.3); Red Blood Count 2.58 M/uL (4.7-6.1); White Blood Count 6.29 K/uL (4.8-10.8)
[2019-08-29 07:32] LABS: BUN Creatinine Ratio 23.6 (10-20); Blood Urea Nitrogen 103 mg/dl (7-18); Calcium 7.9 mg/dl (8.5-10.1); Carbon Dioxide 27 mmol/L (21-32); Chloride 101 mmol/L (98-107); Est GFR (African American) 14.6; Est GFR (Non-African American) 12.6; Glucose 102 mg/dl (70-99); Potassium 4.5 mmol/L (3.5-5.1); Sodium 137 mmol/L (136-145)
[2019-08-29] MEDS ORDERED: IRON SUCROSE 300 MG in SODIUM CHLORIDE 0.9% 250 ML IV SCH (08:00)
[2019-08-29] MEDS: INSULIN ASPART 100 UNITS/ML 3 ML PEN SC SCH ×5 (08:00→22:31)
[2019-08-29] MEDS: FERROUS FUMARATE/ASCORBIC ACID 65 MG CAPCR PO SCH (08:03)
[2019-08-29] MEDS: INSULIN GLARGINE SOLOSTAR 100 UNITS/ML 3 ML PEN SC SCH ×2 (08:04→22:31)
[2019-08-29] MEDS: FOLIC ACID 1 MG TAB PO SCH (08:04)
[2019-08-29] MEDS: METOPROLOL SUCC 50MG EXT REL TAB PO SCH ×2 (08:05→20:58)
[2019-08-29] MEDS: PANTOprazole 40 MG TAB PO SCH (08:05)
[2019-08-29] MEDS ORDERED: metOLazone 2.5 MG TABLET PO ONE (08:30)
[2019-08-29] MEDS: BUMETANIDE 3 MG in SYRINGE 0 ML IV SCH ×2 (08:40→17:05)
--- NOTE | 2019-08-29 09:24 | Cardiology Progress Note ---
Date of Service August 29, 2019 Assessment & Plan (1) Volume overload: This does appear to be multifactorial in nature with most significant component being worsening renal failure. Unfortunately only minimal diuresis overnight with continued IV bumex Obvious I will defer this to our nephrology colleagues for diuresis management. (2) Acute on chronic renal failure: renal function continues to decline approx 2.3 L negative since admission (3) History of complete heart block: s/p PPM placement current V-paced rhythm with underlying afib (4) Paroxysmal atrial fibrillation: likely now permanent Coumadin has been previously held due to anemia Would not restart at this time Risk of cardioembolic event discussed with the patient and he is in agreement with holding anticoagulation (5) CAD (coronary artery disease): stable (6) S/P AVR (aortic valve replacement): s/p KWESI valve functioning appropriately (7) Moderate to severe pulmonary hypertension: stable (8) Restrictive lung disease: stable Subjective Pt seen and examined out of bed in chair, states he is doing okay today, no sob at rest but has not ambulated much. Denies any chest pain, palpitations, lightheadedness, dizziness or syncope. He is accepting of the likelihood that HD will be necessary. Telemetry review: Shows atrial fibrillation with a ventricular paced rhythm Review of Systems Review of Systems: All systems reviewed & are unremarkable except as noted in HPI & below Physical Exam Physical Exam: General: Awake, alert and oriented x 3. No acute distress. HEENT: Normocephalic, atraumatic. Pupils equal, round and reactive to light and accommodation. Extraocular muscles are intact. Anicteric sclera. Moist mucous membranes. Neck: No JVD. No bruit. Cardiovascular: irregularly irregular, unable to appreciate murmur, rub or gallop. Pulmonary: Clear to auscultation bilaterally. No rales, rhonchi, or wheezing. Abdomen: Bowel sounds x 4, soft. No rebound, guarding or tenderness. No organomegaly. Extremities: No clubbing, cyanosis or edema. +2 pedal pulses bilaterally. Skin: Warm and dry. Results & Data Vital Signs (Past 12 Hours) Vital Signs Temp Pulse Pulse Resp BP Pulse Ox Pulse Ox 08/29/19 07:19 36.5 C 60 18 125/61 97 08/29/19 03:13 36.5 C 67 19 140/64 97 08/29/19 01:00 65 100 08/28/19 23:22 37.0 C 60 19 123/61 99 08/28/19 21:36 72 98 (1) Volume overload Hypervolemia type: other Qualified Code(s): E87.79 - Other fluid overload (2) Acute on chronic renal failure Acute renal failure type: unspecified Chronic kidney disease stage: stage 4 (severe) Qualified Code(s): N17.9 - Acute kidney failure, unspecified; N18.4 - Chronic kidney disease, stage 4 (severe) (3) CAD (coronary artery disease) Coronary Disease-Associated Artery/Lesion type: [place] artery [place] vs. transplanted heart: [place] heart Associated angina: without angina Qualified Code(s): I25.10 - Atherosclerotic heart disease of [place] coronary artery without angina pectoris
--- NOTE | 2019-08-29 13:01 | Nephrology Progress Note ---
Date of Service August 29, 2019 Assessment & Plan (1) Acute on chronic renal failure: baseline creatinine high 2s w/ historically about 200 mg daily proteinuria from dm. presented 08/25 w/ volume overload and creatinine 3.6, up to 4.4 today on bid bumex 2 mg iv; needs more diuresis; no steven uremia yet but concern will develop -urine studies ordered -cont strict I/O -daily bmp> chemistries remain acceptable -no urgent HD needed, cannot r/o this admission and will actually consult genie goodson for possible TDC for 09/01 given slow diuresis and climbing bun; Dr Davis aware -avoid nephrotoxins (2) Volume overload: >>increased standing bumex IV 2 >> 3 mg bid 17 and added metolazone 2.5 mg 30 mg before am dose admitting st wt = 105.1 > 104 >103.6>103.5 -cont FR, low Na diet -daily standing wt appreciated and should continue -needs diuresis and if we cannot achieve this needs dialysis (3) Anemia: follows w/ anemia clinic; hgb generally 9-10s; stable at 7.8 today > ? low d/t volume on board/ dilution. t stn = 11% > started venofer load 200 mg 08/28; 300 mg IV venofer given 08/29; ordered epo dose [id number] units for tomorrow as well as another 300 mg venofer chronic immune thrombocytopenia w/ plts in 90-100s adn at baseline Subjective seen on rounds at 0745; no change in breathing or edema. takes his meds in [place] and tolerates few other vehicles he states. no n/v. no confusion or tremor Review of Systems Review of Systems: All systems reviewed & are unremarkable except as noted in HPI & below Physical Exam Constitutional: well developed, well nourished, + obese and cooperative (si tting in chair on 2L NC) Eyes: EOM intact bilaterally ENMT: Ears: no external ear abnormality Nose: no external nose abnormality Mouth: + dry oral mucous membranes Neck: no nuchal rigidity Respiratory: normal respiratory effort Auscultation: + diminished lung sounds and + crackles (bibasilar) Cardiovascular: Rate/Rhythm: regular rate and regular rhythm Extremities: + edema (3+ pedal, 1+ distal thigh BL, 2+ ant tibial) Gastrointestinal (Abdomen): Inspection/Auscultation: normal bowel sounds Percussion/Palpation: abdomen soft; abdomen nontender Musculoskeletal: Extremities: strength 5/5 throughout Skin: no rashes, warm and dry Psychiatric: Orientation: alert and oriented x 3 Eye Contact: good eye contact Speech: normal rate/rhythm/volume of speech Affect: + anxious affect Results & Data Vital Signs (Past 12 Hours) Vital Signs Temp Pulse Resp BP Pulse Ox 08/29/19 11:12 36.7 C 62 18 153/60 H 97 08/29/19 07:19 36.5 C 60 18 125/61 97 08/29/19 03:13 36.5 C 67 19 140/64 97 Laboratory Results 08/29/19 06:35 08/29/19 06:35 (1) Anemia Anemia type: unspecified type Qualified Code(s): D64.9 - Anemia, unspecified (2) Acute on chronic renal failure Acute renal failure type: unspecified Chronic kidney disease stage: stage 4 (severe) Qualified Code(s): N17.9 - Acute kidney failure, unspecified; N18.4 - Chronic kidney disease, stage 4 (severe) (3) Volume overload Hypervolemia type: other Qualified Code(s): E87.79 - Other fluid overload
--- NOTE | 2019-08-29 17:05 | Hospitalist Progress Note ---
Date of Service August 29, 2019 Assessment & Plan (1) Acute on chronic combined systolic and diastolic CHF (congestive heart failure): Bumex dose adjusted to 3 mg IV BID added 2.5 mg of Metolazone 2.5 mg 30 min before Am dose of Iv bumex given the continued worsening of BUN/Cr -concern for possible need for dialysis in near future Nephrology discussed the option with Pt and family , Continue to monitor I/O's Continue fluid restriction 1.5 L /daily Admitted with volume overload, acute decompensation of biventricular CHF Pt was sent to the ER from cardiology office to the ER for with worsening SOB and weight gained in 2-3 weeks CXR showed cardiomegaly with new or increased right pleural effusion. Partially chronic mid to basilar irregular bandlike opacities, right greater than left. BNP admission 9K Received 80mg IV Lasix admission with minimal urine output Appreciate input from cardiology and nephrology POSSIBLE OBSTRUCTIVE SLEEP APNEA Reports of having poor sleep for a number of years Feels " foggy" throughout the day Does report of having shortness of breath at night, which he attributed to his heart failure Was diagnosed with CLARA in the past, had CPAP machine Afterwards he had significant weight loss, not had a refitting for the CPAP mask,-machine was returned for not using it nocturnal pulse oximetry shows desaturation of spo2 below 88% for 32 sec (2) CKD (chronic kidney disease), stage III: Creatinine worsening to 3.88 -> 4 Nephrology on board for diuretic as above has progressive renal disease with minimum urine output with aggressive diuresis may need Dialysis if medical tx ( diuretics not effective ) for vol management pt and his aware ANEMIA OF CHRONIC DISEASE Hemoglobin 7.8 Continue to monitor ordered for Procrit by Nephrology , Iron studies shows low iron 30, transferrin: 190, percent saturation 11%: Suggestive of iron deficiency anemia, ordered Iv venofer by Nephrology (3) DM type 2 (diabetes mellitus, type 2): On Lantus 20mg BID insulin SSI (4) Paroxysmal atrial fibrillation: Rate controlled Not on Coumadin due to recent GI bleed and symptomatic anemia On metoprolol succinate 50 mg twice daily (5) History of complete heart block: s/p PPM placement in 2016 Stable (6) CAD (coronary artery disease): s/p CABG x 1 No complaint of angina symptoms, no chest heaviness, No outpatient cardiac meds (7) Moderate to severe pulmonary hypertension: Question of underlying lung disease contributing - pt being worked up for potential sarcoidosis as outpatient. nocturnal pulse oximetry ordered (8) Dyslipidemia: Patient has a history of statin intolerance so not currently on medication for this IMMUNE THROMBOCYTOPENIA : chronic follow cbc no evidence of active bleeding DVT px on SCD due to thrombocytopenia CODE STATUS: Full code Disposition: Lives at home with , independent in his ADLs Has home O2, on 2 L oxygen via nasal cannula chronically Plan to discharge home when medically stable Subjective pt sitting on chair no complain of SOB , on 2 L 02 ( chronically ) no fever or chills no cough pt reports of some improvement of urine out put ( says he is been urinating a bit more since past 2 days , after addition of IV bumex ) feels lower ext edema has remained unchanged no change in appetite no sign of uremia -normal baseline energy , comfortable , conversing appropriately present at bedside Physical Exam Constitutional: WD/WN, vitals as above + obese; no acute distress Eyes: PERRL, conjunctivae normal, anicteric sclerae ENMT: external ear and nose normal, oropharynx normal Neck: trachea midline, no thyromegaly Respiratory: normal respiratory effort; no respiratory distress and no cough Auscultation: + rales (Bibasilar,) Cardiovascular: Rate/Rhythm: + abnormal rate (Irregularly irregular) Extremities: + pedal edema +1 bilateral pedal edema Gastrointestinal (Abdomen): Inspection/Auscultation: normal bowel sounds Percussion/Palpation: abdomen soft; abdomen nontender Musculoskeletal: no cyanosis or clubbing, extremities motor strength 5/5 Skin: no rashes, warm and dry Neurologic: PERRL, EOMI, accommodation nl, no face palsy, no dysarthria Psychiatric: A+Ox3, euthymic affect Results & Data Vital Signs (Past 12 Hours) Vital Signs Temp Pulse Resp BP Pulse Ox 08/29/19 15:47 36.5 C 63 16 140/66 95 08/29/19 11:12 36.7 C 62 18 153/60 H 97 08/29/19 07:19 36.5 C 60 18 125/61 97 (1) DM type 2 (diabetes mellitus, type 2) Diabetes mellitus complication detail: with unspecified neuropathy Diabetes mellitus complication status: with neurologic complications Diabetes mellitus exterminator helper insulin use: with exterminator helper use Qualified Code(s): E11.40 - Type 2 diabetes mellitus with diabetic neuropathy, unspecified; Z79.4 - terminal gauger supervisor (current) use of insulin (2) CAD (coronary artery disease) Associated angina: without angina Coronary Disease-Associated Artery/Lesion type: [place] artery [place] vs. transplanted heart: [place] heart Qualified Code(s): I25.10 - Atherosclerotic heart disease of [place] coronary artery without angina pectoris
[2019-08-29] MEDS: ALFUZOSIN HCL 10 MG TAB PO SCH (20:58)
[2019-08-29] MEDS: ASPIRIN 81 MG ECTAB PO SCH (20:58)
[2019-08-30 06:57] LABS: Hematocrit (blood only) 24.6 % (42-52); Mean Corpuscular Hemoglobin 30.2 pg (25-34); Mean Corpuscular Hgb Conc 32.5 g/dL (32-36); Mean Corpuscular Volume 92.8 fL (80-100); Platelet Count 134 K/uL (130-400); RDW Coefficient of Variation 14.3 % (11.5-14.5); RDW Standard Deviation 48.8 fL (36.4-46.3); Red Blood Count 2.65 M/uL (4.7-6.1)
[2019-08-30 07:36] LABS: BUN Creatinine Ratio 24.1 (10-20); Blood Urea Nitrogen 106 mg/dl (7-18); Calcium 7.8 mg/dl (8.5-10.1); Carbon Dioxide 27 mmol/L (21-32); Chloride 102 mmol/L (98-107); Est GFR (African American) 14.5; Est GFR (Non-African American) 12.5; Glucose 85 mg/dl (70-99); Potassium 4.2 mmol/L (3.5-5.1); Sodium 138 mmol/L (136-145)
[2019-08-30] MEDS: PANTOprazole 40 MG TAB PO SCH (08:32)
[2019-08-30] MEDS: METOPROLOL SUCC 50MG EXT REL TAB PO SCH ×2 (08:32→20:28)
[2019-08-30] MEDS: IRON SUCROSE 300 MG in SODIUM CHLORIDE 0.9% 250 ML IV SCH (08:32)
[2019-08-30] MEDS: FERROUS FUMARATE/ASCORBIC ACID 65 MG CAPCR PO SCH (08:32)
[2019-08-30] MEDS: BUMETANIDE 3 MG in SYRINGE 0 ML IV SCH ×2 (08:32→17:00)
[2019-08-30] MEDS: LEVOTHYROXINE SODIUM 100 MCG TABLET PO SCH (08:32)
[2019-08-30] MEDS: FOLIC ACID 1 MG TAB PO SCH (08:32)
[2019-08-30] MEDS: INSULIN GLARGINE SOLOSTAR 100 UNITS/ML 3 ML PEN SC SCH ×2 (08:41→22:45)
[2019-08-30] MEDS: INSULIN ASPART 100 UNITS/ML 3 ML PEN SC SCH ×4 (08:41→22:45)
[2019-08-30] MEDS ORDERED: EPOETIN ALFA 40,000 UNITS/ML VIAL SQ ONE (11:50)
--- NOTE | 2019-08-30 11:50 | Cardiology Progress Note ---
Date of Service August 30, 2019 Assessment & Plan (1) Volume overload: This does appear to be multifactorial in nature with most significant component being worsening renal failure. on bumex gtt Obvious I will defer this to our nephrology colleagues for diuresis management. (2) Acute on chronic renal failure: renal function without significant change from 08/29 approx 2.8 L negative since admission (3) History of complete heart block: s/p PPM placement current V-paced rhythm with underlying afib (4) Paroxysmal atrial fibrillation: likely now permanent Coumadin has been previously held due to anemia Would not restart at this time Risk of cardioembolic event discussed with the patient and he is in agreement with holding anticoagulation (5) CAD (coronary artery disease): stable (6) S/P AVR (aortic valve replacement): s/p KWESI valve functioning appropriately (7) Moderate to severe pulmonary hypertension: stable (8) Restrictive lung disease: stable Subjective Pt seen and examined, oob in chair, sleeping. No complaints. Denies cp, sob, palpitations, lightheadedness or dizziness. tele reviewed: vpaced with underlying afib Review of Systems Review of Systems: All systems reviewed & are unremarkable except as noted in HPI & below Physical Exam Physical Exam: General: Awake, alert and oriented x 3. No acute distress. HEENT: Normocephalic, atraumatic. Pupils equal, round and reactive to light and accommodation. Extraocular muscles are intact. Anicteric sclera. Moist mucous membranes. Neck: No JVD. No bruit. Cardiovascular: irregularly irregular, unable to appreciate murmur, rub or gallop. Pulmonary: Clear to auscultation bilaterally. No rales, rhonchi, or wheezing. Abdomen: Bowel sounds x 4, soft. No rebound, guarding or tenderness. No o rganomegaly. Extremities: No clubbing, cyanosis or edema. +2 pedal pulses bilaterally. Skin: Warm and dry. Results & Data Vital Signs (Past 12 Hours) Vital Signs Temp Pulse Resp BP Pulse Ox 08/30/19 07:59 37.2 C 71 18 147/86 H 95 08/30/19 03:41 36.8 C 78 20 143/69 H 97 Laboratory Results Laboratory Results - last 24 hr 08/29/19 08/29/19 08/30/19 16:32 20:30 06:18 WBC 6.70 RBC 2.65 L Hgb 8.0 L Hct 24.6 L MCV 92.8 MCH 30.2 MCHC 32.5 RDW Std Deviation 48.8 H RDW Coeff of Imtiaz 14.3 Plt Count 134 MPV 10.0 Sodium Potassium Chloride Carbon Dioxide Anion Gap BUN Creatinine Est Cr Clr Drug Dosing Est GFR ( Amer) Est GFR (Non-Af Amer) BUN/Creatinine Ratio Glucose POC Glucose 144 H 136 H Calcium 08/30/19 08/30/19 08/30/19 06:18 07:33 11:15 WBC RBC Hgb Hct MCV MCH MCHC RDW Std Deviation RDW Coeff of Imtiaz Plt Count MPV Sodium 138 Potassium 4.2 Chloride 102 Carbon Dioxide 27 Anion Gap 9.0 BUN 106 H Creatinine 4.39 H Est Cr Clr Drug Dosing Not Reportable Est GFR ( Amer) 14.5 Est GFR (Non-Af Amer) 12.5 BUN/Creatinine Ratio 24.1 H Glucose 85 POC Glucose 121 H 158 H Calcium 7.8 L Medications Administered Current Inpatient Medications Acetaminophen (Tylenol) 650 mg PO Q4H PRN PRN Reason: Pain or Fever Stop: 09/24/19 15:22 Last Admin: 08/29/19 13:38 Dose: 650 mg Documented by: Alfuzosin HCl (Uroxatral) 10 mg PO PM EZE Stop: 09/24/19 20:59 Last Admin: 08/29/19 20:58 Dose: 10 mg Documented by: Amlodipine Besylate (Norvasc) 5 mg PO QAM EZE Stop: 09/25/19 10:14 Last Admin: 08/27/19 09:43 Dose: Not Given Documented by: Aspirin (Ecotrin Ectab) 81 mg PO HS EZE Stop: 09/24/19 20:59 Last Admin: 08/29/19 20:58 Dose: 81 mg Documented by: Dextrose (Dextrose 50%) 25 - 50 ml IV UD PRN; Protocol PRN Reason: Hypoglycemia Protocol Stop: 09/24/19 19:25 Docusate Sodium/Ferrous Fumarate (Linda-Sequels) 65 mg PO QAM EZE Stop: 09/27/19 08:59 Last Admin: 08/30/19 08:32 Dose: 65 mg Documented by: Epoetin Chris (Procrit) 40,000 units SQ ONE ONE Stop: 08/30/19 11:51 Folic Acid (Folvite) 5 mg PO DAILY EZE Stop: 09/25/19 08:59 Last Admin: 08/30/19 08:32 Dose: 5 mg Documented by: Glucagon (Glucagen) 1 mg SQ UD PRN; Protocol PRN Reason: Hypoglycemia Protocol Stop: 09/24/19 19:25 Glucose (Dex4 Glucose) 4 - 8 tabs PO UD PRN; Protocol PRN Reason: Hypoglycemia Protocol Stop: 09/24/19 19:25 Glucose (Glucose 40%) 15 - 30 gm PO UD PRN; Protocol PRN Reason: Hypoglycemia Protocol Stop: 09/24/19 19:25 Bumetanide 3 mg/ Syringe 12 mls @ 4 mls/min IV BID@0900,1700 EZE Stop: 09/28/19 08:59 Last Admin: 08/30/19 08:32 Dose: 4 mls/min Documented by: Iron Sucrose 300 mg/ Sodium (Chloride) 265 mls @ 176.667 mls/hr IV TODAY EZE Stop: 09/29/19 07:59 Last Infusion: 08/30/19 10:13 Dose: Infused Documented by: Insulin Aspart (Novolog Flexpen) 0 units SC ACHS EZE Stop: 09/24/19 20:59 Last Admin: 08/30/19 08:41 Dose: 3 units Documented by: Insulin Glargine (Lantus Solostar Pen) 20 units SC BID EZE Stop: 09/24/19 20:59 Last Admin: 08/30/19 08:41 Dose: 20 units Documented by: Levothyroxine Sodium (Synthroid) 100 mcg PO DAILYBB EZE Stop: 09/25/19 06:29 Last Admin: 08/30/19 08:32 Dose: 100 mcg Documented by: Metoprolol Succinate (Toprol Xl) 50 mg PO BID EZE Stop: 09/24/19 20:59 Last Admin: 08/30/19 08:32 Dose: 50 mg Documented by: Miscellaneous (Carbohydrates For Hypoglycemia) 15 - 30 gm PO UD PRN PRN Reason: Hypoglycemia Protocol Stop: 09/24/19 19:25 Last Admin: 08/27/19 04:02 Dose: 15 gm Documented by: Pantoprazole Sodium (Protonix) 40 mg PO DAILY EZE Stop: 09/25/19 08:59 Last Admin: 08/30/19 08:32 Dose: 40 mg Documented by: (1) Volume overload Hypervolemia type: other Qualified Code(s): E87.79 - Other fluid overload (2) Acute on chronic renal failure Acute renal failure type: unspecified Chronic kidney disease stage: stage 4 (severe) Qualified Code(s): N17.9 - Acute kidney failure, unspecified; N18.4 - Chronic kidney disease, stage 4 (severe) (3) CAD (coronary artery disease) Coronary Disease-Associated Artery/Lesion type: [place] artery [place] vs. transplanted heart: [place] heart Associated angina: without angina Qualified Code(s): I25.10 - Atherosclerotic heart disease of [place] coronary artery without angina pectoris
[2019-08-30] MEDS ORDERED: METOPROLOL TARTRATE 1 MG/ML VIAL IV PRN (12:51)
--- NOTE | 2019-08-30 16:05 | Hospitalist Progress Note ---
Date of Service August 30, 2019 Assessment & Plan (1) Acute on chronic combined systolic and diastolic CHF (congestive heart failure): On Bumex 3 mg IV twice daily given the continued worsening of BUN/Cr -concern for possible need for dialysis in near future Nephrology discussed the option with Pt and family , Continue to monitor I/O's Continue fluid restriction 1.5 L /daily Admitted with volume overload, acute decompensation of biventricular CHF Pt was sent to the ER from cardiology office to the ER for with worsening SOB and weight gained in 2-3 weeks CXR showed cardiomegaly with new or increased right pleural effusion. Partially chronic mid to basilar irregular bandlike opacities, right greater than left. BNP admission 9K Received 80mg IV Lasix admission with minimal urine output Appreciate input from cardiology and nephrology TACHYARRHYTHMIA/DIZZY SPELL Episode of tachycardia noted in telemetry, Patient is continued with beta-kati, ordered IV PRN Lopressor for heart rate more than 100 Patient was asymptomatic during that. Reports of worsening of fatigue, feeling dizzy lightheaded when standing up Concern of being too dehydrated with ongoing IV diuresis Ordered for orthostatic vital to be checked POSSIBLE OBSTRUCTIVE SLEEP APNEA Reports of having poor sleep for a number of years Feels " foggy" throughout the day Does report of having shortness of breath at night, which he attributed to his heart failure Was diagnosed with CLARA in the past, had CPAP machine Afterwards he had significant weight loss, not had a refitting for the CPAP mask,-machine was returned for not using it nocturnal pulse oximetry shows desaturation of spo2 below 88% for 32 sec (2) CKD (chronic kidney disease), stage III: Creatinine worsening to 3.88 -> 4.37-> 4.39 significant change in creatinine since 1115 Approximately 2.8 L negative balance since admission Nephrology on board for diuretic as above has progressive renal disease with minimum urine output with aggressive diuresis may need Dialysis if medical tx ( diuretics not effective ) for vol management pt and his aware ANEMIA OF CHRONIC DISEASE Hemoglobin remained stable 7.87.98 Continue to monitor ordered for Procrit by Nephrology , Iron studies shows low iron 30, transferrin: 190, percent saturation 11%: Suggestive of iron deficiency anemia, ordered Iv venofer by Nephrology (3) DM type 2 (diabetes mellitus, type 2): On Lantus 20mg BID insulin SSI (4) Paroxysmal atrial fibrillation: Rate controlled Not on Coumadin due to recent GI bleed and symptomatic anemia On metoprolol succinate 50 mg twice daily (5) History of complete heart block: s/p PPM placement in 2016 Stable (6) CAD (coronary artery disease): s/p CABG x 1 No complaint of angina symptoms, no chest heaviness, No outpatient cardiac meds (7) Moderate to severe pulmonary hypertension: Question of underlying lung disease contributing - pt being worked up for potential sarcoidosis as outpatient. nocturnal pulse oximetry ordered (8) Dyslipidemia: Patient has a history of statin intolerance so not currently on medication for this IMMUNE THROMBOCYTOPENIA : chronic follow cbc no evidence of active bleeding DVT px on SCD due to thrombocytopenia CODE STATUS: Full code Disposition: Lives at home with , independent in his ADLs Has home O2, on 2 L oxygen via nasal cannula chronically Plan to discharge home when medically stable Update given to patient's present at bedside Subjective Brief episode of tachyarrhythmia heart rate went up to 120s noted and monitor around 12: 30 pm today Patient remained symptomatic, sitting on chair, Heart rate improved to 70s80s spontaneously Patient reports of improvement of urine output, Still feels very weak and tired, Complains of feeling dizzy and lightheaded when trying to stand up in attempt to go to the restroom Fever or chills Bilateral lower extremity swelling remains unchanged Physical Exam Constitutional: WD/WN, vitals as above + obese; no acute distress Eyes: PERRL, conjunctivae normal, anicteric sclerae ENMT: external ear and nose normal, oropharynx normal Neck: trachea midline, no thyromegaly Respiratory: normal respiratory effort; no respiratory distress and no cough Auscultation: + rales (Bibasilar,) Cardiovascular: Rate/Rhythm: + abnormal rate (Irregularly irregular) Extremities: + pedal edema Gastrointestinal (Abdomen): Inspection/Auscultation: normal bowel sounds Percussion/Palpation: abdomen soft; abdomen nontender Musculoskeletal: no cyanosis or clubbing, extremities motor strength 5/5 Skin: no rashes, warm and dry Neurologic: PERRL, EOMI, accommodation nl, no face palsy, no dysarthria Psychiatric: A+Ox3, euthymic affect Results & Data Vital Signs (Past 12 Hours) Vital Signs Temp Pulse Resp BP Pulse Ox Pulse Ox Pulse Ox 08/30/19 15:37 36.7 C 65 21 143/52 H 99 08/30/19 15:04 98 96 08/30/19 11:36 36.8 C 71 18 157/75 H 94 08/30/19 07:59 37.2 C 71 18 147/86 H 95 (1) DM type 2 (diabetes mellitus, type 2) Diabetes mellitus complication detail: with unspecified neuropathy Diabetes mellitus complication status: with neurologic complications Diabetes mellitus usp insulin use: with intermediate designer use Qualified Code(s): E11.40 - Type 2 diabetes mellitus with diabetic neuropathy, unspecified; Z79.4 - penitentiary (current) use of insulin (2) CAD (coronary artery disease) Associated angina: without angina Coronary Disease-Associated Artery/Lesion type: [place] artery [place] vs. transplanted heart: [place] heart Qualified Code(s): I25.10 - Atherosclerotic heart disease of [place] coronary artery w ithout angina pectoris
--- NOTE | 2019-08-30 17:30 | Hospitalist Progress Note ---
Date of Service August 30, 2019 Subjective ORTHOSTATIC VITALS DONE : Lyin/46 HR : 64 sitting : 132/62 ; HR 67 standing :133/65 : HR 79 -no orthostatic change in Vitals no sign of dehydration ok to continue with current regimen of IV bumex Roberta Rosario MD Results & Data Vital Signs (Past 12 Hours) Vital Signs Temp Pulse Resp BP Pulse Ox Pulse Ox Pulse Ox 08/30/19 15:37 36.7 C 65 21 143/52 H 99 08/30/19 15:04 98 96 08/30/19 11:36 36.8 C 71 18 157/75 H 94 08/30/19 07:59 37.2 C 71 18 147/86 H 95
[2019-08-30] MEDS: ASPIRIN 81 MG ECTAB PO SCH (20:29)
[2019-08-30] MEDS: ALFUZOSIN HCL 10 MG TAB PO SCH (20:29)
[2019-08-31] MEDS: LEVOTHYROXINE SODIUM 100 MCG TABLET PO SCH (06:52)
--- NOTE | 2019-08-31 08:03 | Consultation ---
Date of Consultation August 31, 2019 Assessment & Plan (1) Acute on chronic renal failure: Patient is scheduled for PermCath insertion on Sunday. Will wait to hear the final decision from nephrology in the morning on Sunday. I have discussed the risks options and benefits of the procedure with the patient. The patient understands the risks options and benefits and agrees to the procedure. Acute renal failure type: unspecified Chronic kidney disease stage: stage 4 (severe) Qualified Code(s): N17.9 - Acute kidney failure, unspecified; N18.4 - Chronic kidney disease, stage 4 (severe) History of Present Illness Reason for Consultation: Acute kidney injury Attending Physician: Roberta Rosario MD History of Present Illness This is a 73-year-old gentleman who has acute injury on chronic kidney disease. He was admitted for acute on chronic congestive heart failure. His other pertinent diseases or diabetes mellitus, hypertension, coronary occlusive disease with coronary bypass grafting, aortic root repair, aortic redo and right mitral valve replacement, atrial fib, severe pulmonary hypertension, prostate cancer, chronic immune thrombocytopenia. He has had treatment while in the hospital diuretics. At this point he is in need of dialysis for removal of external fluid. Allergies Allergy/AdvReac Type Severity Reaction Status Date / Time Penicillins Allergy Unknown rash Verified 08/06/19 15:33 furosemide AdvReac Severe kidney Verified 08/06/19 15:33 failure ropinirole [From Requip] AdvReac Unknown psych Verified 08/25/19 19:31 complications Grdngje-Uag-Zcx Reductase AdvReac Unknown Muscle Pain Verified 08/06/19 15:33 Inhibitor Home Medications Home Medications Medication Instructions Recorded Confirmed Type Humalog U-100 Insulin 1 sliding scale dose SUBCUT UD 12/25/18 08/25/19 History Lantus U-100 Insulin 50 unit SUBCUT HS 12/25/18 08/25/19 History alfuzosin 1 tab PO PM 12/25/18 08/25/19 History aspirin 81 mg PO HS 12/25/18 08/25/19 History folic acid 5 mg PO DAILY 12/25/18 08/25/19 History levothyroxine 100 mcg PO DAILY 12/25/18 08/25/19 History metoprolol succinate 50 mg PO BID 12/25/18 08/25/19 History spironolactone 12.5 mg PO 3XWK 12/25/18 08/25/19 History Procrit 10,000 unit SUBCUT Q14D 08/06/19 08/25/19 History furosemide 80 mg PO DAILY 08/06/19 08/25/19 History pantoprazole 40 mg PO DAILY 08/06/19 08/25/19 History Patient History Medical History Anemia Anxiety Aortic insufficiency (Chronic) BPH (benign prostatic hyperplasia) (Chronic) CAD (coronary artery disease) (Chronic) "1999 - CABG x 1 06/2014 - ACS, cath at the time showed patent graft, non obstructive disease to LAD and circumflex, ute RCA 100% occluded " Chronic back pain CKD (chronic kidney disease), stage III (Chronic) CKD III-IV, monitoring. Diverticulosis (Chronic) DM type 2 (diabetes mellitus, type 2) (Chronic) iddm Dyslipidemia (Chronic) Gin's thyroiditis (Chronic) History of complete heart block (Chronic) s/p pacemaker History of pacemaker (Chronic) March 2016, [facility]. HTN (hypertension) (Chronic) Hypothyroidism Lung nodule 3mm - benign Moderate to severe pulmonary hypertension (Chronic) hx On home oxygen therapy 2lpm via n/c CLARA (obstructive sleep apnea) (Chronic) hx. Osteoarthritis (Chronic) Pacemaker [employer] device. Placed March 2016, follows with Dr. Luong, last checked ~1.5 months ago. 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 (Recommendation for 6-12 months) Gold fiducial markers and Space OAR were placed. Status post completion of radiation therapy April 25, 2018. 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 Prostate volume 74.6 Prostate density 0.076 " Skin cancer Systolic and diastolic CHF, chronic (Chronic) "echo 03/16/2016 - EF 35-39% (was normal on prior echo), mod-severe aortic valve regurgitation, severe pulmonary HTN" Surgical History History of bronchoscopy History of colonoscopy History of surgical removal of lesion S/P AVR (aortic valve replacement) (Chronic) 1999, valve & 2016 [employer] Mechanical valve ([place]) S/P CABG x 1 (Chronic) 1999 & 2016 ([place]) S/P MVR (mitral valve replacement) (Chronic) Family History Other Hypertension Prostate cancer Social History Preferred Language: Croatian Communication Ability: Effective Edge Glue 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 Tender Required: No Beliefs That Will Affect Care: None Current Living Situation: Spouse Other Information That Helps Us Care for You: No Feels Safe at Home: Yes Safety Concerns: Feels Safe At This Time Smoking Status: Never smoker Tobacco Type: cigarettes ; Cigarettes Per Day: 20 x4 years ; Do You Dip or Chew Tobacco: No ; Second Hand Exposure: No ; Hx Alcohol Use: No Hx Substance Use: No Review of Systems Review of Systems: All systems reviewed & are unremarkable except as noted in HPI & below Physical Exam Constitutional: WD/WN, vitals as above Neck: trachea midline Respiratory: normal respiratory effort Auscultation: + diminished lung sounds Cardiovascular: Rate/Rhythm: regular rate and regular rhythm Extremities: + edema Gastrointestinal (Abdomen): Inspection/Auscultation: abdomen normal to inspection Skin: no rashes, warm and dry Psychiatric: Orientation: alert and oriented x 3 Results & Data Vital Signs (Past 12 Hours) Vital Signs Temp Pulse Resp BP Pulse Ox 08/31/19 07:19 36.9 C 77 18 156/69 H 96 08/31/19 04:52 37.1 C 70 18 136/63 90 08/30/19 23:35 37.2 C 60 20 130/62 96
[2019-08-31] MEDS: INSULIN ASPART 100 UNITS/ML 3 ML PEN SC SCH ×4 (08:07→21:58)
[2019-08-31] MEDS: INSULIN GLARGINE SOLOSTAR 100 UNITS/ML 3 ML PEN SC SCH ×2 (08:08→21:57)
[2019-08-31] MEDS: BUMETANIDE 3 MG in SYRINGE 0 ML IV SCH (08:09)
[2019-08-31] MEDS: IRON SUCROSE 300 MG in SODIUM CHLORIDE 0.9% 250 ML IV SCH (08:09)
[2019-08-31] MEDS: PANTOprazole 40 MG TAB PO SCH (08:10)
[2019-08-31] MEDS: FOLIC ACID 1 MG TAB PO SCH (08:10)
[2019-08-31] MEDS: METOPROLOL SUCC 50MG EXT REL TAB PO SCH ×2 (08:10→20:45)
[2019-08-31] MEDS: FERROUS FUMARATE/ASCORBIC ACID 65 MG CAPCR PO SCH (08:11)
[2019-08-31 10:35] LABS: BUN Creatinine Ratio 25.5 (10-20); Blood Urea Nitrogen 115 mg/dl (7-18); Calcium 7.6 mg/dl (8.5-10.1); Carbon Dioxide 27 mmol/L (21-32); Chloride 100 mmol/L (98-107); Est GFR (African American) 14.1; Est GFR (Non-African American) 12.2; Glucose 199 mg/dl (70-99); Potassium 3.9 mmol/L (3.5-5.1); Sodium 137 mmol/L (136-145)
--- NOTE | 2019-08-31 11:34 | Cardiology Progress Note ---
Date of Service August 31, 2019 Assessment & Plan (1) Volume overload: This does appear to be multifactorial in nature with most significant component being worsening renal failure. on bumex gtt Obvious I will defer this to our nephrology colleagues for diuresis management. (2) Acute on chronic renal failure: renal function without significant change from 08/29 approx 3.2 L negative since admission he is now becoming frustrated with lack of diuresis tentative plan for port placement I would place him as a moderate risk for any adverse periprocedural cardiac events, risk approx <5% discussed risk with him, patient states that he understands, is accepting of the risk and would wish to proceed should it be deemed necessary (3) History of complete heart block: s/p PPM placement current V-paced rhythm with underlying afib (4) Paroxysmal atrial fibrillation: likely now permanent Coumadin has been previously held due to anemia Would not restart at this time Risk of cardioembolic event discussed with the patient and he is in agreement with holding anticoagulation (5) CAD (coronary artery disease): stable (6) S/P AVR (aortic valve replacement): s/p KWESI valve functioning appropriately (7) Moderate to severe pulmonary hypertension: stable (8) Restrictive lung disease: stable Subjective Pt seen and examined, oob in chair. States that he does not feel well today. Has not been sleeping well, a little depressed given ongoing renal impairment and lack of diuresis. LE edema persists. Denies cp, sob, palpitations, lightheadedness or dizziness. tele reviewed: vpaced with underlying afib Review of Systems Review of Systems: All systems reviewed & are unremarkable except as noted in HPI & below Physical Exam Physical Exam: General: Awake, alert and oriented x 3. No acute distress. HEENT: Normocephalic, atraumatic. Pupils equal, round and reactive to light and accommodation. Extraocular muscles are intact. Anicteric sclera. Moist mucous membranes. Neck: No JVD. No bruit. Cardiovascular: Regular. Positive S-4. Normal S-1 and S-2. No S-3. No murmurs or rubs. Pulmonary: Clear to auscultation B/L. No rales, rhonchi or wheezing Abdomen: Bowel sounds x 4, soft. No rebound, guarding or tenderness. No organomegaly. Extremities: No clubbing, cyanosis or edema. +2 pedal pulses bilaterally. Skin: Warm and dry. Results & Data Vital Signs (Past 12 Hours) Vital Signs Temp Pulse Resp BP Pulse Ox 08/31/19 11:21 37 C 72 18 146/69 H 97 08/31/19 07:19 36.9 C 77 18 156/69 H 96 08/31/19 04:52 37.1 C 70 18 136/63 90 08/30/19 23:35 37.2 C 60 20 130/62 96 Laboratory Results Laboratory Results - last 24 hr 08/30/19 08/30/19 08/31/19 16:29 20:32 07:13 Sodium Potassium Chloride Carbon Dioxide Anion Gap BUN Creatinine Est Cr Clr Drug Dosing Est GFR ( Amer) Est GFR (Non-Af Amer) BUN/Creatinine Ratio Glucose POC Glucose 140 H 134 H 109 H Calcium 08/31/19 08/31/19 09:42 11:21 Sodium 137 Potassium 3.9 Chloride 100 Carbon Dioxide 27 Anion Gap 10.0 BUN 115 H Creatinine 4.49 H Est Cr Clr Drug Dosing Not Reportable Est GFR ( Amer) 14.1 Est GFR (Non-Af Amer) 12.2 BUN/Creatinine Ratio 25.5 H Glucose 199 H POC Glucose 171 H Calcium 7.6 L Medications Administered Current Inpatient Medications Acetaminophen (Tylenol) 650 mg PO Q4H PRN PRN Reason: Pain or Fever Stop: 09/24/19 15:22 Last Admin: 08/29/19 13:38 Dose: 650 mg Documented by: Alfuzosin HCl (Uroxatral) 10 mg PO PM EZE Stop: 09/24/19 20:59 Last Admin: 08/30/19 20:29 Dose: 10 mg Documented by: Amlodipine Besylate (Norvasc) 5 mg PO QAM ZEE Stop: 09/25/19 10:14 Last Admin: 08/27/19 09:43 Dose: Not Given Documented by: Aspirin (Ecotrin Ectab) 81 mg PO HS [facility] Stop: 09/24/19 20:59 Last Admin: 08/30/19 20:29 Dose: 81 mg Documented by: Dextrose (Dextrose 50%) 25 - 50 ml IV UD PRN; Protocol PRN Reason: Hypoglycemia Protocol Stop: 09/24/19 19:25 Docusate Sodium/Ferrous Fumarate (Linda-Sequels) 65 mg PO QAM EZE Stop: 09/27/19 08:59 Last Admin: 08/31/19 08:11 Dose: 65 mg Documented by: Folic Acid (Folvite) 5 mg PO DAILY EZE Stop: 09/25/19 08:59 Last Admin: 08/31/19 08:10 Dose: 5 mg Documented by: Glucagon (Glucagen) 1 mg SQ UD PRN; Protocol PRN Reason: Hypoglycemia Protocol Stop: 09/24/19 19:25 Glucose (Dex4 Glucose) 4 - 8 tabs PO UD PRN; Protocol PRN Reason: Hypoglycemia Protocol Stop: 09/24/19 19:25 Glucose (Glucose 40%) 15 - 30 gm PO UD PRN; Protocol PRN Reason: Hypoglycemia Protocol Stop: 09/24/19 19:25 Bumetanide 3 mg/ Syringe 12 mls @ 4 mls/min IV BID@0900,1700 [facility] Stop: 09/28/19 08:59 Last Admin: 08/31/19 08:09 Dose: 4 mls/min Documented by: Iron Sucrose 300 mg/ Sodium (Chloride) 265 mls @ 176.667 mls/hr IV TODAY [facility] Stop: 09/29/19 07:59 Last Infusion: 08/31/19 09:44 Dose: Infused Documented by: Clindamycin Phosphate (Cleocin) 600 mg in 54 mls @ 100 mls/hr IV PREOP [facility] Stop: 09/02/19 05:59 Insulin Aspart (Novolog Flexpen) 0 units SC ACHS [facility] Stop: 09/24/19 20:59 Last Admin: 08/31/19 08:07 Dose: 3 units Documented by: Insulin Glargine (Lantus Solostar Pen) 20 units SC BID EZE Stop: 09/24/19 20:59 Last Admin: 08/31/19 08:08 Dose: 20 units Documented by: Levothyroxine Sodium (Synthroid) 100 mcg PO DAILYBB [facility] Stop: 09/25/19 06:29 Last Admin: 08/31/19 06:52 Dose: 100 mcg Documented by: Metoprolol Succinate (Toprol Xl) 50 mg PO BID [facility] Stop: 09/24/19 20:59 Last Admin: 08/31/19 08:10 Dose: 50 mg Documented by: Metoprolol Tartrate (Lopressor) 5 mg IV Q6 PRN PRN Reason: HR> 100 Stop: 09/29/19 17:59 Miscellaneous (Carbohydrates For Hypoglycemia) 15 - 30 gm PO UD PRN PRN Reason: Hypoglycemia Protocol Stop: 09/24/19 19:25 Last Admin: 08/27/19 04:02 Dose: 15 gm Documented by: Pantoprazole Sodium (Protonix) 40 mg PO DAILY EZE Stop: 09/25/19 08:59 Last Admin: 08/31/19 08:10 Dose: 40 mg Documented by: (1) Volume overload Hypervolemia type: other Qualified Code(s): E87.79 - Other fluid overload (2) Acute on chronic renal failure Acute renal failure type: unspecified Chronic kidney disease stage: stage 4 (severe) Qualified Code(s): N17.9 - Acute kidney failure, unspecified; N18.4 - Chronic kidney disease, stage 4 (severe) (3) CAD (coronary artery disease) Coronary Disease-Associated Artery/Lesion type: [place] artery [place] vs. transplanted heart: [place] heart Associated angina: without angina Qualified Code(s): I25.10 - Atherosclerotic heart disease of [place] coronary artery without angina pectoris
--- NOTE | 2019-08-31 12:28 | Hospitalist Progress Note ---
Date of Service August 31, 2019 Assessment & Plan (1) Acute on chronic combined systolic and diastolic CHF (congestive heart failure): On Bumex 3 mg IV twice daily given the continued worsening of BUN/Cr -may need Dialysis Nephrology discussed the option with Pt and family , vascular surgery consulted scheduled for Perm Cath placement for dialysis access tomorrow pt is ordered for NPO past mid night Continue to monitor I/O's Continue fluid restriction 1.5 L /daily Admitted with volume overload, acute decompensation of biventricular CHF Pt was sent to the ER from cardiology office to the ER for with worsening SOB and weight gained in 2-3 weeks CXR showed cardiomegaly with new or increased right pleural effusion. Partially chronic mid to basilar irregular bandlike opacities, right greater than left. BNP admission 9K Received 80mg IV Lasix admission with minimal urine output Appreciate input from cardiology and nephrology TACHYARRHYTHMIA/DIZZY SPELL no further episode possible due to Uremia Patient is continued with beta-kati, ordered IV PRN Lopressor for heart rate more than 100 Patient was asymptomatic during that. Reports of worsening of fatigue, feeling dizzy lightheaded when standing up Orthostatic vitals been negative scheduled for Dialysis catheter tomorrow Nephrology to decide when ist session of dialysis will be done POSSIBLE OBSTRUCTIVE SLEEP APNEA Reports of having poor sleep for a number of years Feels " foggy" throughout the day Does report of having shortness of breath at night, which he attributed to his heart failure Was diagnosed with CLARA in the past, had CPAP machine Afterwards he had significant weight loss, not had a refitting for the CPAP mask,-machine was returned for not using it repeat out pt sleep study recommended (2) CKD (chronic kidney disease), stage III: Creatinine worsening to 3.88 -> 4.37-> 4.39 -remains the same Approximately 2.8 L negative balance since admission Nephrology on board for diuretic as above has progressive renal disease with minimum urine output with aggressive diuresis may need Dialysis if medical tx ( diuretics not effective ) for vol management pt and his aware /scheduled for dialysis catheter tomorrow ANEMIA OF CHRONIC DISEASE Hemoglobin remained stable 7.87.98 Continue to monitor ordered for Procrit by Nephrology , Iron studies shows low iron 30, transferrin: 190, percent saturation 11%: Suggestive of iron deficiency anemia, IV venofer ordered by Nephrology (3) DM type 2 (diabetes mellitus, type 2): On Lantus 20mg BID insulin SSI (4) Paroxysmal atrial fibrillation: Rate controlled Not on Coumadin due to recent GI bleed and symptomatic anemia On metoprolol succinate 50 mg twice daily (5) History of complete heart block: s/p PPM placement in 2016 Stable (6) CAD (coronary artery disease): s/p CABG x 1 No complaint of angina symptoms, no chest heaviness, No outpatient cardiac meds (7) Moderate to severe pulmonary hypertension: Question of underlying lung disease contributing - pt being worked up for potential sarcoidosis as outpatient. needs out pt sleep study for CPAP /Bipap at night (8) Dyslipidemia: Patient has a history of statin intolerance so not currently on medication for this IMMUNE THROMBOCYTOPENIA : chronic follow cbc no evidence of active bleeding DVT px on SCD due to thrombocytopenia CODE STATUS: Full code Disposition: Lives at home with , independent in his ADLs Has home O2, on 2 L oxygen via nasal cannula chronically Plan to discharge home when medically stable Update given to patient's present at bedside Subjective complains of ongoing weakness and fatigue no complain of chest pain , has baseline Orthopnea /CONNER which has not improved much no complain of palpitation , dizzy spell no cough , no fever or chills lower ext + 1 edema remains unchanged Physical Exam Constitutional: WD/WN, vitals as above + obese; no acute distress Eyes: PERRL, conjunctivae normal, anicteric sclerae ENMT: external ear and nose normal, oropharynx normal Neck: trachea midline, no thyromegaly Respiratory: normal respiratory effort; no respiratory distress and no cough Auscultation: + rales (Bibasilar,) Cardiovascular: Rate/Rhythm: + abnormal rate (Irregularly irregular) Extremities: + pedal edema Gastrointestinal (Abdomen): Inspection/Auscultation: normal bowel sounds Percussion/Palpation: abdomen soft; abdomen nontender Musculoskeletal: no cyanosis or clubbing, extremities motor strength 5/5 Skin: no rashes, warm and dry Neurologic: PERRL, EOMI, accommodation nl, no face palsy, no dysarthria Psychiatric: A+Ox3, euthymic affect Results & Data Vital Signs (Past 12 Hours) Vital Signs Temp Pulse Resp BP Pulse Ox 08/31/19 11:21 37 C 72 18 146/69 H 97 08/31/19 07:19 36.9 C 77 18 156/69 H 96 08/31/19 04:52 37.1 C 70 18 136/63 90 (1) DM type 2 (diabetes mellitus, type 2) Diabetes mellitus complication detail: with unspecified neuropathy Diabetes mellitus complication status: with neurologic complications Diabetes mellitus adjunct faculty for medical terminology insulin use: with adjunct faculty for medical terminology use Qualified Code(s): E11.40 - Type 2 diabetes mellitus with diabetic neuropathy, unspecified; Z79.4 - skilled nursing (current) use of insulin (2) CAD (coronary artery disease) Associated angina: without angina Coronary Disease-Associated Artery/Lesion t ype: [place] artery [place] vs. transplanted heart: [place] heart Qualified Code(s): I25.10 - Atherosclerotic heart disease of [place] coronary artery without angina pectoris
[2019-08-31] MEDS ORDERED: metOLazone 5 MG TABLET PO ONE (14:30)
--- NOTE | 2019-08-31 15:49 | Progress Note ---
DATE: 08/31/2019 SUBJECTIVE: Despite high dose of IV Bumex, no significant diuresis and he still has massive volume overload. He does have shortness of breath. Appetite is poor. PHYSICAL EXAMINATION: GENERAL: Elderly white male who is in some respiratory distress. He is obese. HEENT: Mucous membrane is moist. NECK: Supple. No jugular venous distention. CARDIOVASCULAR: Regular rate and rhythm. EXTREMITIES: Shows 3+ edema all the way extending into his upper abdomen. No rashes or issues with the skin. VITAL SIGNS: From this morning blood pressure 146/69, pulse rate 72, temperature 37 degrees Celsius, 97% on 2 liter nasal cannula. LABORATORY TESTS: Hemoglobin is down to 8.0, platelet count 134, BUN 115, creatinine 4.49, calcium 7.6. Chest x-ray shows cardiomegaly with right pleural effusion. ASSESSMENT AND PLAN: Acute on chronic renal failure. At this time, the patient's BUN and creatinine is getting worse and he is getting increasingly volume overloaded. This is despite aggressive dose of Bumex, but even with that, he is really not diuresing and he is quite frustrated. At this time, I agree with the plan of starting dialysis for fluid removal. I discussed his plan for outpatient dialysis which will be done in [place]. He would like the dialysis to be done with [facility] in [place] as that unit has 6 days a week of dialysis. Increase dose of Bumex to 4 mg 3 times a day and add metolazone 5 mg for now. MTDD
[2019-08-31] MEDS: BUMETANIDE 4 MG in SYRINGE 0 ML IV SCH (16:25)
[2019-08-31] MEDS: ASPIRIN 81 MG ECTAB PO SCH (20:45)
[2019-08-31] MEDS: ALFUZOSIN HCL 10 MG TAB PO SCH (20:45)
[2019-09-01] MEDS ORDERED: CLINDAMYCIN 600 MG/54 ML BAG IV SCH (06:00)
[2019-09-01] MEDS: LEVOTHYROXINE SODIUM 100 MCG TABLET PO SCH (07:15)
--- NOTE | 2019-09-01 08:05 | Nephrology Progress Note ---
Date of Service September 01, 2019 Assessment & Plan (1) Acute on chronic renal failure: baseline creatinine high 2s w/ historically about 200 mg daily proteinuria from dm. presented 08/25 w/ volume overload and creatinine 3.6, up to 4.8 yesterday on bid bumex iv, intensified over weekend; biggest indication to start hd is vol OL -cont strict I/O and FR -daily bmp> f/u from today -for TDC today; plan first HD this afternoon or tomorrow depending on timing of tdc; HD not emergent; plan HD tomorrow as well if still in house >>>pt needs OP HD [facility] [place] arranged before d/c -avoid nephrotoxins (2) Volume overload: >>for now cont intensified bumex IV and metolazone admitting st wt = 105.1 > 104 >103.6>103.5 >> 103.2 today -cont FR, low Na diet -daily standing wt appreciated and should continue -diuresis stalled even on intensified diuretics so needs dialysis (3) Anemia: follows w/ anemia clinic; hgb generally 9-10s; stable in 8s recently > ? low d/t volume on board/ dilution. t stn = 11% > started venofer load 200 mg 08/28; 300 mg IV venofer given 08/29; 08/30 had epo dose 28135 units as well as another 300 mg venofer >will give venofer w/ HD and epo chronic immune thrombocytopenia w/ plts in 90-100s adn at baseline Subjective had run of vtach overnight w/ some sx lightheadedness, malaise. has happened a few times this admission; was during BM. this am feels fine. npo for tdc; unchanged edema, no n/v, no sob, no voiding issue. Review of Systems Review of Systems: All systems reviewed & are unremarkable except as noted in HPI & below Physical Exam Constitutional: well developed, well nourished, + obese and cooperative (sitting in chair on 02 NC) Eyes: EOM intact bilaterally ENMT: Ears: no external ear abnormality Nose: no external nose abnormality Mouth: + dry oral mucous membranes Neck: no nuchal rigidity Respiratory: normal respiratory effort Auscultation: + diminished lung sounds and + crackles (bibasilar) Cardiovascular: Rate/Rhythm: regular rate and regular rhythm Extremities: + edema (3+ pedal, 2+ ant tibial) Gastrointestinal (Abdomen): Inspection/Auscultation: normal bowel sounds Percussion/Palpation: abdomen soft; abdomen nontender Musculoskeletal: Extremities: strength 5/5 throughout Skin: no rashes, warm and dry Neurologic: guerin, fluent speech, no tremor Psychiatric: Orientation: alert and oriented x 3 Eye Contact: good eye contact Speech: normal rate/rhythm/volume of speech Affect: + anxious affect Results & Data Vital Signs (Past 12 Hours) Vital Signs Temp Pulse Resp BP Pulse Ox 09/01/19 07:41 36.8 C 68 16 142/69 H 98 09/01/19 04:00 36.8 C 76 18 145/48 H 94 08/31/19 23:25 36.8 C 63 20 164/60 H 97 Laboratory Results AM labs pending (1) Anemia Anemia type: unspecified type Qualified Code(s): D64.9 - Anemia, unspecified (2) Acute on chronic renal failure Acute renal failure type: unspecified Chronic kidney disease stage: stage 4 (severe) Qualified Code(s): N17.9 - Acute kidney failure, unspecified; N18.4 - Chronic kidney disease, stage 4 (severe) (3) Volume overload Hypervolemia type: other Qualified Code(s): E87.79 - Other fluid overload
[2019-09-01] MEDS: INSULIN ASPART 100 UNITS/ML 3 ML PEN SC SCH ×4 (08:13→20:59)
[2019-09-01] MEDS: IRON SUCROSE 300 MG in SODIUM CHLORIDE 0.9% 250 ML IV SCH (08:15)
[2019-09-01] MEDS: BUMETANIDE 4 MG in SYRINGE 0 ML IV SCH ×2 (08:16→17:07)
[2019-09-01] MEDS ORDERED: EPOETIN ALFA 10,000 UNITS/ML VIAL IV ONE (08:25)
[2019-09-01] MEDS ORDERED: SODIUM CHLORIDE 0.9% 1000ML 1,000 ML IV PRN (08:25)
[2019-09-01 08:38] LABS: Hemoglobin 8.3 g/dL (14.0-18.0); Mean Corpuscular Hgb Conc 31.9 g/dL (32-36); Mean Corpuscular Volume 93.9 fL (80-100); Mean Platelet Volume 9.7 fL (7.4-10.4); Platelet Count 143 K/uL (130-400); RDW Coefficient of Variation 14.5 % (11.5-14.5); RDW Standard Deviation 49.6 fL (36.4-46.3); Red Blood Count 2.77 M/uL (4.7-6.1); White Blood Count 7.17 K/uL (4.8-10.8)
[2019-09-01 09:16] LABS: BUN Creatinine Ratio 25.3 (10-20); Blood Urea Nitrogen 124 mg/dl (7-18); Calcium 7.7 mg/dl (8.5-10.1); Carbon Dioxide 29 mmol/L (21-32); Chloride 101 mmol/L (98-107); Est GFR (African American) 12.7; Est GFR (Non-African American) 10.9; Glucose 99 mg/dl (70-99); Potassium 4.1 mmol/L (3.5-5.1); Sodium 138 mmol/L (136-145)
[2019-09-01] MEDS ORDERED: HEPARIN SOD (PORCINE) 5,000 UNITS/ML VIAL ONE (09:56)
[2019-09-01] MEDS ORDERED: LIDOCAINE HCL 1% 20 ML VIAL ONE (09:56)
--- NOTE | 2019-09-01 10:09 | History & Physical Bridge Note ---
Date of Service September 01, 2019 History & Physical Bridge Note Patient for permcath insertion today. I have discussed the risks options and benefits of the procedure with the patient. The patient understands the risks options and benefits and agrees to the procedure. I have examined the patient, reviewed the History & Physical and in the interval since the performance of the History & Physical I have noted the following changes of clinical significance: no changes noted
[2019-09-01] MEDS ORDERED: fentaNYL citrate 100 MCG/2 ML VIAL ONE (10:30)
[2019-09-01] MEDS ORDERED: MIDAZOLAM HCL 1 MG/ML 2ML VIAL ONE (10:30)
--- NOTE | 2019-09-01 10:35 | Pre Anesthesia Assessment ---
Date of Service September 01, 2019 Pre Sedation Assessment Vital Signs Temp Pulse Pulse Resp BP BP Pulse Ox 09/01/19 09:27 36.9 C 76 20 157/66 H 97 09/01/19 07:41 36.8 C 68 16 142/69 H 98 09/01/19 04:00 36.8 C 76 18 145/48 H 94 08/31/19 23:25 36.8 C 63 20 164/60 H 97 08/31/19 19:11 36.3 C L 69 17 137/70 95 08/31/19 15:44 36.8 C 61 21 132/60 96 08/31/19 11:21 37 C 72 18 146/69 H 97 Cardiovascular RRR, no murmur, no edema Respiratory normal respiratory effort, lungs clear to auscultation Pre-Sedation Airway Assessment Smoking Status: Never smoker Hx Sleep Apnea: Yes Short, Thick Neck: No Thyromental Distance: > or= 3.5 Finger Breadths Oral Cavity: + WNL Mallampati Class: II ASA: ASA4 NPO Status Date of Last Intake of Fluids: 08/31/19 Time of Last Intake of Fluids: 21:00 Date of Last Intake of Solid Food: 08/31/19 Time of Last Intake of Solid Foods: 21:00 Procedure Planning Contraindications for Sedation: none Current Medications Reviewed: Yes Notes The planned sedation has been discussed with the patient. Informed Consent was obtained. I have identified the patient, determined the appropriateness of sedation and have assessed the patient immediately prior to the procedure. All medicine(s) and interventions are by my order.
--- NOTE | 2019-09-01 11:07 | Post Operative Brief Note ---
Immediate Post Op Note v1 Date of Surgery September 01, 2019 Pre & Post Diagnosis Operation Date: 09/01/19 08:20 Pre-Op Diagnosis: acute kidney injury Post-Op Diagnosis: acute kidney injury I identified the patient and participated in the time-out.: Yes Procedure Operation Date: 09/01/19 08:20 Actual Procedures p Insertion Of Perm Catheter, Right Internal Jugular Approach, Ultrasound Localization Of Right Internal Jugular Vein, Fluoroscopy For Positioning, Moderate Concious Sedation 1038 to 1116(Right) - Chris Davis MD Surgeon Chris Davis MD Food Safety Coordinator MD Ambar Estimated Blood Loss 5 Findings Consistent with Post-Op Diagnosis Anesthesia Type RN Sedation Complications none Disposition Accompanied Patient To Recovery: No Disposition: Recovery Room
--- NOTE | 2019-09-01 11:13 | Operative Report ---
Post Operative Report Pre & Post Diagnosis Operation Date: 09/01/19 08:20 Pre-Op Diagnosis: acute kidney injury Post-Op Diagnosis: acute kidney injury I identified the patient and participated in the time-out.: Yes Procedure Operation Date: 09/01/19 08:20 Actual Procedures p Insertion Of Perm Catheter, Right Internal Jugular Approach, Ultrasound Loc alization Of Right Internal Jugular Vein, Fluoroscopy For Positioning, Moderate Concious Sedation 1038 to(Right) - Chris Davis MD Surgeon Chris Davis MD Hammer Smith MD Ambar Estimated Blood Loss 5 Findings Consistent with Post-Op Diagnosis Specimens none Anesthesia Type RN Sedation Complications none Disposition Accompanied Patient To Recovery: No Disposition: Recovery Room Indications 73-year-old gentleman who has acute injury on chronic kidney disease. He was admitted for acute on chronic congestive heart failure. He needs dialysis for removal of fluid. I have discussed the risks options and benefits of the procedure with the patient. The patient understands the risks options and benefits and agrees to the procedure. Description of Procedure Patient was taken to the angio suite and placed in the supine position. The [right] side of the neck and chest wall were prepped and draped in a sterile manner. The patient was identified and a timeout was performed. Local anesthe felix was then administered to the appropriate areas of the neck and chest wall. Ultrasound was then used to locate the [right] internal jugular vein. The vein compressed easily, had no filing defects, and was patent. The vein was then punctured under direct ultrasound imaging. A guidewire was then passed centrally under fluoroscopic imaging. A stab wound was then made in the anterior chest wall and a [19] cm permcath was passed from the stab wound on the chest wall to the puncture site on the neck. The puncture site was then dilated till the 14Fr peel away sheath was inserted. The permcath was then inserted through the sheath to a central position in the distal superior vena cava. The peel away sheath was then removed. The catheter was then sutured in place using nylon sutures. The puncture was then closed using a 4-0 Vicryl subcuticular suture. Dermabond was used for a dressing on the puncture site. Both ports aspirated and flushed easily and were then packed with heparin. A sterile dressing was applied to the catheter. The patient left the angio suite in good condition and tolerated the procedure well. 1.4min flouro, [address] Davis was present and scrubbed for the entire procedure.
[2019-09-01] MEDS: INSULIN GLARGINE SOLOSTAR 100 UNITS/ML 3 ML PEN SC SCH ×2 (11:16→20:58)
--- NOTE | 2019-09-01 11:32 | Post Anesthesia Assessment ---
Date of Service September 01, 2019 Post Sedation Assessment Vital Signs Temp Pulse Pulse Pulse Resp BP BP 09/01/19 11:16 77 17 163/83 H 09/01/19 11:11 78 17 151/86 H 09/01/19 11:08 74 17 173/100 H 09/01/19 11:03 76 17 179/88 H 09/01/19 10:58 74 17 173/68 H 09/01/19 10:53 78 18 158/46 H 09/01/19 10:48 76 18 166/77 H 09/01/19 10:43 76 18 113/38 L 09/01/19 10:38 75 18 172/82 H 09/01/19 10:36 76 18 167/81 H 09/01/19 09:27 36.9 C 76 20 157/66 H 09/01/19 07:41 36.8 C 68 16 142/69 H 09/01/19 04:00 36.8 C 76 18 145/48 H 08/31/19 23:25 36.8 C 63 20 164/60 H 08/31/19 19:11 36.3 C L 69 17 137/70 08/31/19 15:44 36.8 C 61 21 132/60 Pulse Ox 09/01/19 11:16 98 09/01/19 11:11 98 09/01/19 11:08 100 09/01/19 11:03 100 09/01/19 10:58 100 09/01/19 10:53 100 09/01/19 10:48 100 09/01/19 10:43 100 09/01/19 10:38 100 09/01/19 10:36 99 09/01/19 09:27 97 09/01/19 07:41 98 09/01/19 04:00 94 08/31/19 23:25 97 08/31/19 19:11 95 08/31/19 15:44 96 Recovery Score Activity: Moves 4 extremities Respiration: Deep Breath/Cough Circulation: +/-20% PreAnes Value Consciousness: Fully Awake Oxygen Saturation: O2 needed for >90% Post Anesthesia Score: 9 Discharge Sedation Level of Care: Fast Track Phase II Post Sedation Plan On clinical assessment, the patient appears to have tolerated the sedation without complications. Patient is recovering as anticipated. Patient will continue to be monitored by nursing and may be discharged when sedation discharge criteria are met per below protocol. Upon Completions of procedure up to 15 minutes continue every 5 minute vital signs and the P.A.R. score; then discharge to a Phase I or Fast Track to Phase II per the following guidelines: * Discharge Patient to appropriate Phase II area if PAR is 8 or greater or return to pre- procedure baseline. The post - procedure orders will be as directed. * If PAR score is less than 8 or not return to pre-procedure baseline then patient will follow Phase I monitoring till PAR is reached for Phase II. The Phase I may be done in procedure room or may call to secure a Phase I area. * If naloxone or flumazenil are used for reversal, hold in Phase I for continued monitoring from when last reversal dose was given for a minimum of 60 minutes or longer pending the nurse and/or physician discretion of patient condition before discharge to Phase II. Please call the Sedation Physician to re-evaluate and complete post-note for discharge to Phase II area. Do NOT discharge from procedure sedation or Phase 1 until post- sedation evaluation note is complete by procedure /sedation MD Sedation Discharge Instructions to be given to the patient at discharge to home.
[2019-09-01] MEDS: PANTOprazole 40 MG TAB PO SCH (13:14)
[2019-09-01] MEDS: FOLIC ACID 1 MG TAB PO SCH (13:15)
[2019-09-01] MEDS: FERROUS FUMARATE/ASCORBIC ACID 65 MG CAPCR PO SCH (13:15)
[2019-09-01] MEDS: METOPROLOL SUCC 50MG EXT REL TAB PO SCH ×2 (13:15→20:57)
[2019-09-01 14:36] LABS: Hepatitis B Surface Ab Quant < 3.10 mIU/mL (>or=10mIU/mL Immune); Hepatitis B Surface Antibody Non-Immune
[2019-09-01 14:47] LABS: Hepatitis B Surface Antigen Neg (Neg)
--- NOTE | 2019-09-01 15:43 | Cardiology Progress Note ---
Date of Service September 01, 2019 Assessment & Plan (1) Volume overload: This does appear to be multifactorial in nature with most significant component being worsening renal failure. For initiation of dialysis today (2) Acute on chronic renal failure: Unsuccessful IV diuresis. For initiation of hemodialysis starting today. I would place him as a moderate risk for any adverse periprocedural cardiac events, risk approx <5% discussed risk with him, patient states that he understands, is accepting of the risk and would wish to proceed should it be deemed necessary (3) History of complete heart block: s/p PPM placement current V-paced rhythm with underlying afib (4) Paroxysmal atrial fibrillation: likely now permanent Coumadin has been previously held due to anemia Would not restart at this time Risk of cardioembolic event discussed with the patient and he is in agreement with holding anticoagulation (5) CAD (coronary artery disease): stable (6) S/P AVR (aortic valve replacement): s/p KWESI valve functioning appropriately (7) Moderate to severe pulmonary hypertension: stable (8) Restrictive lung disease: stable Subjective Patient seen and examined status post port placement. States he is currently feeling well and is anxious to start dialysis treatment. Denies any chest pain, shortness of breath, palpitations, lightheadedness, dizziness or syncope. Telemetry reviewed: Shows a V paced rhythm with underlying atrial fibrillation. Review of Systems Review of Systems: All systems reviewed & are unremarkable except as noted in HPI & below Physical Exam Physical Exam: General: Awake, alert and oriented x 3. No acute distress. HEENT: Normocephalic, atraumatic. Pupils equal, round and reactive to light and accommodation. Extraocular muscles are intact. Anicteric sclera. Moist mucous membranes. Neck: No JVD. No bruit. Cardiovascular: irregularly irregular, unable to appreciate murmur, rub or gallop. Pulmonary: Clear to auscultation bilaterally. No rales, rhonchi, or wheezing. Abdomen: Bowel sounds x 4, soft. No rebound, guarding or tenderness. No organomegaly. Extremities: No clubbing, cyanosis or edema. +2 pedal pulses bilaterally. Skin: Warm and dry. Results & Data Vital Signs (Past 12 Hours) Vital Signs Temp Pulse Pulse Pulse Pulse Resp BP 09/01/19 15:30 74 154/38 H 09/01/19 15:15 69 129/55 L 09/01/19 15:00 79 133/68 09/01/19 14:45 72 122/40 L 09/01/19 14:30 61 116/33 L 09/01/19 14:15 67 132/39 L 09/01/19 14:00 62 136/43 L 09/01/19 13:56 68 18 09/01/19 13:45 37.1 C 62 09/01/19 13:30 36.9 C 65 18 09/01/19 13:00 67 20 09/01/19 12:30 64 18 09/01/19 12:00 36.7 C 70 18 09/01/19 11:45 74 20 09/01/19 11:30 36.8 C 72 18 09/01/19 11:16 77 17 09/01/19 11:11 78 17 09/01/19 11:08 74 17 09/01/19 11:03 76 17 09/01/19 10:58 74 17 09/01/19 10:53 78 18 09/01/19 10:48 76 18 09/01/19 10:43 76 18 09/01/19 10:38 75 18 09/01/19 10:36 76 18 09/01/19 09:27 36.9 C 76 20 09/01/19 07:41 36.8 C 68 16 09/01/19 04:00 36.8 C 76 18 BP BP Pulse Ox 09/01/19 15:30 09/01/19 15:15 09/01/19 15:00 09/01/19 14:45 09/01/19 14:30 09/01/19 14:15 09/01/19 14:00 09/01/19 13:56 138/64 98 09/01/19 13:45 09/01/19 13:30 140/68 98 09/01/19 13:00 142/68 H 98 09/01/19 12:30 147/72 H 96 09/01/19 12:00 140/68 96 09/01/19 11:45 146/74 H 98 09/01/19 11:30 144/72 H 98 09/01/19 11:16 163/83 H 98 09/01/19 11:11 151/86 H 98 09/01/19 11:08 173/100 H 100 09/01/19 11:03 179/88 H 100 09/01/19 10:58 173/68 H 100 09/01/19 10:53 158/46 H 100 09/01/19 10:48 166/77 H 100 09/01/19 10:43 113/38 L 100 09/01/19 10:38 172/82 H 100 09/01/19 10:36 167/81 H 99 09/01/19 09:27 157/66 H 97 09/01/19 07:41 142/69 H 98 09/01/19 04:00 145/48 H 94 (1) Volume overload Hypervolemia type: other Qualified Code(s): E87.79 - Other fluid overload (2) Acute on chronic renal failure Acute renal failure type: unspecified Chronic kidney disease stage: stage 4 (severe) Qualified Code(s): N17.9 - Acute kidney failure, unspecified; N18.4 - Chronic kidney disease, stage 4 (severe) (3) CAD (coronary artery disease) Coronary Disease-Associated Artery/Lesion type: [place] artery [place] vs. transplanted heart: [place] heart Associated angina: without angina Qualified Code(s): I25.10 - Atherosclerotic heart disease of [place] coronary artery without angina pectoris
--- NOTE | 2019-09-01 18:19 | Hospitalist Progress Note ---
Date of Service September 01, 2019 Assessment & Plan (1) Acute on chronic combined systolic and diastolic CHF (congestive heart failure): S/P perm cath placement Underwent HD today Continue to monitor I/O's Continue fluid restriction 1.5 L /daily Admitted with volume overload, acute decompensation of biventricular CHF Pt was sent to the ER from cardiology office to the ER for with worsening SOB and weight gained in 2-3 weeks CXR showed cardiomegaly with new or increased right pleural effusion. Partially chronic mid to basilar irregular bandlike opacities, right greater than left. BNP admission 9K Received 80mg IV Lasix admission with minimal urine output Appreciate input from cardiology and nephrology plan to cont HD for vol managment TACHYARRHYTHMIA/DIZZY SPELL no further episode possible due to Uremia Patient is continued with beta-kati, ordered IV PRN Lopressor for heart rate more than 100 Patient was asymptomatic during that. Reports of worsening of fatigue, feeling dizzy lightheaded when standing up Orthostatic vitals been negative s/p Dialysis today Nephrology following , appreciate input ACUTE GOUTY ARTHRITIS OF LEFT WRIST : increased pain /tenderness, swelling and warmth on left hand ,wrist with swelling or fingers xray shows soft tissue swelling no evidence of fx prior hx of Gout can not be treated with NSAID's due to advaned CKD pt refued to have prednisione POSSIBLE OBSTRUCTIVE SLEEP APNEA Reports of having poor sleep for a number of years Feels " foggy" throughout the day Does report of having shortness of breath at night, which he attributed to his heart failure Was diagnosed with CLARA in the past, had CPAP machine Afterwards he had significant weight loss, not had a refitting for the CPAP mask,-machine was returned for not using it repeat out pt sleep study recommended (2) CKD (chronic kidney disease), stage III: s/p dialysis today has progressive renal disease with minimum urine output with aggressive diuresis will need out pt set up for chronic dialysis Nephrology following closely ANEMIA OF CHRONIC DISEASE Hemoglobin remained stable 7.87.98 Continue to monitor ordered for Procrit by Nephrology , Iron studies shows low iron 30, transferrin: 190, percent saturation 11%: Suggestive of iron deficiency anemia, IV venofer ordered by Nephrology (3) DM type 2 (diabetes mellitus, type 2): On Lantus 20mg BID insulin SSI (4) Paroxysmal atrial fibrillation: Rate controlled Not on Coumadin due to recent GI bleed and symptomatic anemia On metoprolol succinate 50 mg twice daily (5) History of complete heart block: s/p PPM placement in 2016 Stable (6) CAD (coronary artery disease): s/p CABG x 1 No complaint of angina symptoms, no chest heaviness, No outpatient cardiac meds (7) Moderate to severe pulmonary hypertension: Question of underlying lung disease contributing - pt being worked up for potential sarcoidosis as outpatient. needs out pt sleep study for CPAP /Bipap at night (8) Dyslipidemia: Patient has a history of statin intolerance so not currently on medication for this IMMUNE THROMBOCYTOPENIA : chronic follow cbc no evidence of active bleeding DVT px on SCD due to thrombocytopenia CODE STATUS: Full code Disposition: Lives at home with , independent in his ADLs Has home O2, on 2 L oxygen via nasal cannula chronically Plan to discharge home when medically stable Update given to patient's present at bedside Subjective s/p perm cath placement today underwent 2 hrs of dialysis says weakness and fatigue remains unchanged (felt more tired after HD ) Denies any chest pain, shortness of breath, palpitations, lightheadedness, dizziness or syncope. complains of persistent pain and swelling of rt wrist possible gout flare ( prior hx of gout arthritis ) pt refused trial of prednisone Physical Exam Constitutional: WD/WN, vitals as above + obese; no acute distress Eyes: PERRL, conjunctivae normal, anicteric sclerae ENMT: external ear and nose normal, oropharynx normal Neck: trachea midline, no thyromegaly Respiratory: normal respiratory effort; no respiratory distress and no cough Auscultation: + rales (Bibasilar,) Cardiovascular: Rate/Rhythm: + abnormal rate (Irregularly irregular) Extremities: + pedal edema Gastrointestinal (Abdomen): Inspection/Auscultation: normal bowel sounds Percussion/Palpation: abdomen soft; abdomen nontender Musculoskeletal: Spine: no buttock tenderness Extremities: + joint enlargement (rt hand and wrist swollen with tendernss /redness and increased warmth) Skin: no rashes, warm and dry Neurologic: PERRL, EOMI, accommodation nl, no face palsy, no dysarthria Psychiatric: A+Ox3, euthymic affect Results & Data Vital Signs (Past 12 Hours) Vital Signs Temp Pulse Pulse Pulse Pulse Resp BP 09/01/19 15:45 74 148/48 H 09/01/19 15:30 74 154/38 H 09/01/19 15:15 69 129/55 L 09/01/19 15:00 79 133/68 09/01/19 14:45 72 122/40 L 09/01/19 14:30 61 116/33 L 09/01/19 14:15 67 132/39 L 09/01/19 14:00 62 136/43 L 09/01/19 13:56 68 18 09/01/19 13:45 37.1 C 62 09/01/19 13:30 36.9 C 65 18 09/01/19 13:00 67 20 09/01/19 12:30 64 18 09/01/19 12:00 36.7 C 70 18 09/01/19 11:45 74 20 09/01/19 11:30 36.8 C 72 18 09/01/19 11:16 77 17 09/01/19 11:11 78 17 09/01/19 11:08 74 17 09/01/19 11:03 76 17 09/01/19 10:58 74 17 09/01/19 10:53 78 18 09/01/19 10:48 76 18 09/01/19 10:43 76 18 09/01/19 10:38 75 18 09/01/19 10:36 76 18 09/01/19 09:27 36.9 C 76 20 09/01/19 07:41 36.8 C 68 16 BP BP Pulse Ox 09/01/19 15:45 09/01/19 15:30 09/01/19 15:15 09/01/19 15:00 09/01/19 14:45 09/01/19 14:30 09/01/19 14:15 09/01/19 14:00 09/01/19 13:56 138/64 98 09/01/19 13:45 09/01/19 13:30 140/68 98 09/01/19 13:00 142/68 H 98 09/01/19 12:30 147/72 H 96 09/01/19 12:00 140/68 96 09/01/19 11:45 146/74 H 98 09/01/19 11:30 144/72 H 98 09/01/19 11:16 163/83 H 98 09/01/19 11:11 151/86 H 98 09/01/19 11:08 173/100 H 100 09/01/19 11:03 179/88 H 100 09/01/19 10:58 173/68 H 100 09/01/19 10:53 158/46 H 100 09/01/19 10:48 166/77 H 100 09/01/19 10:43 113/38 L 100 09/01/19 10:38 172/82 H 100 09/01/19 10:36 167/81 H 99 09/01/19 09:27 157/66 H 97 09/01/19 07:41 142/69 H 98 (1) DM type 2 (diabetes mellitus, type 2) Diabetes mellitus complication detail: with unspecified neuropathy Diabetes mellitus complication status: with neurologic complications Diabetes mellitus care home insulin use: with terminal computer 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 transplanted heart: [place] heart Qualified Code(s): I25.10 - Atherosclerotic heart disease of [place] coronary artery without angina pectoris
--- NOTE | 2019-09-01 18:35 | XRay Report ---
XR hand LT min 3V routine CLINICAL HISTORY: 73 years-old Male presenting with LEFT WRIST AND HAND PAIN. TECHNIQUE: Frontal, oblique, and lateral views of the left hand were obtained. COMPARISON: None. FINDINGS: Extensive atherosclerosis. There may also be chondrocalcinosis of the triangular fibrocartilage compl ex. No acute fracture or malalignment. Mild degenerative changes at the first carpometacarpal articul ation. Soft tissue swelling over the dorsum of the hand most pronounced at the level of the metacarpa l heads. IMPRESSION: 1. No acute osseous injury. 2. Extensive soft tissue swelling over the dorsum of the hand, possibly contusion. Electronically signed by: Kiran Herrera M.D. 09/01/2019 6:33 PM
--- NOTE | 2019-09-01 18:36 | XRay Report ---
XR forearm LT 2V CLINICAL HISTORY: 73 years-old Male presenting with LEFT ARM PAIN STATUS post twisting injury. TECHNIQUE: Frontal and lateral views of the left forearm were obtained. COMPARISON: None. FINDINGS: The elbow joint is grossly congruent. Proximal and distal radial ulnar articulations grossly congruen t. No gross evidence of an elbow joint effusion. No acute fracture or malalignment. No advanced degen erative change. Extensive atherosclerosis. Diffuse soft tissue swelling and subcutaneous edema. Skin thickening may be present along the forearm. IMPRESSION: 1. No acute osseous injury. 2. Nonspecific diffuse soft tissue swelling. Electronically signed by: Kiran Herrera M.D. 09/01/2019 6:35 PM
[2019-09-01] MEDS: ASPIRIN 81 MG ECTAB PO SCH (20:58)
[2019-09-01] MEDS: ALFUZOSIN HCL 10 MG TAB PO SCH (20:58)
[2019-09-02] MEDS: LEVOTHYROXINE SODIUM 100 MCG TABLET PO SCH (06:07)
[2019-09-02] MEDS ORDERED: SODIUM CHLORIDE 0.9% 1000ML 1,000 ML IV PRN (07:19)
[2019-09-02] MEDS ORDERED: HEPARIN SOD (PORCINE) 1000 UNIT/ML 10 ML VIAL IV ONE (07:19)
[2019-09-02] MEDS: INSULIN ASPART 100 UNITS/ML 3 ML PEN SC SCH ×4 (07:38→20:38)
[2019-09-02] MEDS: INSULIN GLARGINE SOLOSTAR 100 UNITS/ML 3 ML PEN SC SCH ×2 (07:39→20:37)
[2019-09-02] MEDS: IRON SUCROSE 300 MG in SODIUM CHLORIDE 0.9% 250 ML IV SCH (09:24)
[2019-09-02] MEDS: HEPARIN SOD (PORCINE) 1000 UNIT/ML 10 ML VIAL IV SCH ×2 (11:39→11:40)
[2019-09-02] MEDS: BUMETANIDE 2 MG in SYRINGE 0 ML IV SCH ×2 (13:03→17:29)
[2019-09-02] MEDS: FERROUS FUMARATE/ASCORBIC ACID 65 MG CAPCR PO SCH (13:03)
[2019-09-02] MEDS: FOLIC ACID 1 MG TAB PO SCH (13:04)
[2019-09-02] MEDS: PANTOprazole 40 MG TAB PO SCH (13:04)
[2019-09-02] MEDS: METOPROLOL SUCC 50MG EXT REL TAB PO SCH ×2 (13:04→20:36)
[2019-09-02] MEDS ORDERED: predniSONE 5 MG TAB PO SCH (15:00)
--- NOTE | 2019-09-02 15:31 | Nephrology Progress Note ---
Date of Service September 02, 2019 Assessment & Plan (1) Acute on chronic renal failure: baseline creatinine high 2s w/ historically about 200 mg daily proteinuria from dm. presented 08/25 w/ volume overload and creatinine 3.6, up to 4.9 today w/ climbing bun despite HD on bid bumex iv, intensified over weekend; biggest indication to start hd is vol OL -cont strict I/O and FR -daily bmp -got TDC 09/01 and first HD same day -for HD today w/ gentle UF still less than 1L; plan HD tomorrow as well if still in house >>>pt needs OP HD [facility] [place] arranged before d/c -avoid nephrotoxins (2) Volume overload: >>w/ increased bun, lowered bumex to [address] wt = 105.1 > 104 >103.6>103.5 >> 103.2 09/01 -cont FR, low Na diet -daily standing wt appreciated and should continue -diuresis stalled even on intensified diuretics so needs dialysis (3) Anemia: follows w/ anemia clinic; hgb generally 9-10s; stable in 8s recently > ? low d/t volume on board/ dilution. t stn = 11% > started venofer load 200 mg 08/28; 300 mg IV venofer given 08/29; 08/30 had epo dose 08339 units as well as another 300 mg venofer >will give venofer w/ HD and epo chronic immune thrombocytopenia w/ plts in 90-100s adn at baseline Subjective many questions about OP dialysis on rounds htis am; tolerated HD yesterday; painful to dialyze in bed; hopes for chair; no sob; no change in edema (told him this will take time); no n/v, no voiding issues worried his hands are slightly swollen w/ some red NT joints Review of Systems Review of Systems: All systems reviewed & are unremarkable except as noted in HPI & below Physical Exam Constitutional: well developed, well nourished, + obese and cooperative (sitting in chair on 02 NC eating breakfast) Eyes: EOM intact bilaterally ENMT: Ears: no external ear abnormality Nose: no external nose abnormality Mouth: + dry oral mucous membranes Neck: no nuchal rigidity Respiratory: normal respiratory effort Auscultation: + diminished lung sounds and + crackles (bibasilar) Cardiovascular: Rate/Rhythm: regular rate and regular rhythm Extremities: + edema (3+ pedal, 2+ ant tibial) Gastrointestinal (Abdomen): Inspection/Auscultation: normal bowel sounds Percussion/Palpation: abdomen soft; abdomen nontender Musculoskeletal: Extremities: strength 5/5 throughout Skin: no rashes, warm and dry Neurologic: [place], fluent speech, no tremor Psychiatric: Orientation: alert and oriented x 3 Eye Contact: good eye contact Speech: normal rate/rhythm/volume of speech Affect: + anxious affect Results & Data Vital Signs (Past 12 Hours) Vital Signs Temp Pulse Pulse Pulse Resp BP BP 09/02/19 13:44 36.8 C 70 09/02/19 13:00 66 09/02/19 12:22 70 126/87 09/02/19 12:00 62 162/73 H 09/02/19 11:40 71 168/85 H 09/02/19 11:20 54 L 158/85 H 09/02/19 11:00 65 159/73 H 09/02/19 10:43 64 155/78 H 09/02/19 10:20 72 158/88 H 09/02/19 10:00 63 164/76 H 09/02/19 09:25 36.8 C 75 09/02/19 07:57 37.0 C 80 16 158/99 H 09/02/19 07:15 85 09/02/19 03:51 37.1 C 71 20 BP Pulse Ox 09/02/19 13:44 130/80 09/02/19 13:00 09/02/19 12:22 09/02/19 12:00 09/02/19 11:40 09/02/19 11:20 09/02/19 11:00 09/02/19 10:43 09/02/19 10:20 09/02/19 10:00 09/02/19 09:25 09/02/19 07:57 96 09/02/19 07:15 09/02/19 03:51 166/71 H 96 Laboratory Results 09/01/19 08:25 09/01/19 08:25 (1) Acute on chronic renal failure Acute renal failure type: unspecified Chronic kidney disease stage: stage 4 (severe) Qualified Code(s): N17.9 - Acute kidney failure, unspecified; N18.4 - Chronic kidney disease, stage 4 (severe) (2) Volume overload Hypervolemia type: other Qualified Code(s): E87.79 - Other fluid overload (3) Anemia Anemia type: unspecified type Qualified Code(s): D64.9 - Anemia, unspecified
--- NOTE | 2019-09-02 16:38 | Hospitalist Progress Note ---
Date of Service September 02, 2019 Assessment & Plan (1) Acute on chronic combined systolic and diastolic CHF (congestive heart failure): got Perm Cath placed on 09/01/19 and had ist dialysis tx had repeat HD today with removal of approx 1L of fluid pt reports no change in lower ext edema or orthopnea appreciate input from Nephrology plan for dialysis tomorrow will need out pt dialysis set up at [place] arranged before d/c Continue fluid restriction 1.5 L /daily Admitted with volume overload, acute decompensation of biventricular CHF Pt was sent to the ER from cardiology office to the ER for with worsening SOB and weight gained in 2-3 weeks CXR showed cardiomegaly with new or increased right pleural effusion. Partially chronic mid to basilar irregular bandlike opacities, right greater than left. BNP admission 9K Received 80mg IV Lasix admission with minimal urine output Appreciate input from cardiology and nephrology plan to cont HD for vol managment TACHYARRHYTHMIA/DIZZY SPELL no further episode possible due to Uremia Patient is continued with beta-kati, ordered IV PRN Lopressor for heart rate more than 100 Patient was asymptomatic during that. Reports of worsening of fatigue, feeling dizzy lightheaded when standing up Orthostatic vitals been negative cont HD Nephrology following , appreciate input ACUTE GOUTY ARTHRITIS OF LEFT WRIST : increased pain /tenderness, swelling and warmth on left hand ,wrist with swel ling or fingers xray shows soft tissue swelling no evidence of fx prior hx of Gout can not be treated with NSAID's due to advanced CKD pt was initially very reluctant to try Prednisone as left wrist swelling and pain cont to worsen willing for prednisone ordered for PO Prednisone 10 mg daily X 5 days POSSIBLE OBSTRUCTIVE SLEEP APNEA Reports of having poor sleep for a number of years Feels " foggy" throughout the day Does report of having shortness of breath at night, which he attributed to his heart failure Was diagnosed with CLARA in the past, had CPAP machine Afterwards he had significant weight loss, not had a refitting for the CPAP mask,-machine was returned for not using it repeat out pt sleep study recommended (2) CKD (chronic kidney disease), stage III: s/p dialysis has progressive renal disease with minimum urine output with aggressive diuresis will need out pt set up for chronic dialysis Nephrology following closely ANEMIA OF CHRONIC DISEASE Hemoglobin remained stable 7.87.98 Continue to monitor ordered for Procrit by Nephrology , Iron studies shows low iron 30, transferrin: 190, percent saturation 11%: Suggestive of iron deficiency anemia, IV venofer ordered by Nephrology (3) DM type 2 (diabetes mellitus, type 2): On Lantus 20mg BID insulin SSI (4) Paroxysmal atrial fibrillation: Rate controlled Not on Coumadin due to recent GI bleed and symptomatic anemia On metoprolol succinate 50 mg twice daily (5) History of complete heart block: s/p PPM placement in 2016 Stable (6) CAD (coronary artery disease): s/p CABG x 1 No complaint of angina symptoms, no chest heaviness, No outpatient cardiac meds (7) Moderate to severe pulmonary hypertension: Question of underlying lung disease contributing - pt being worked up for potential sarcoidosis as outpatient. needs out pt sleep study for CPAP /Bipap at night (8) Dyslipidemia: Patient has a history of statin intolerance so not currently on medication for this IMMUNE THROMBOCYTOPENIA : chronic follow cbc no evidence of active bleeding DVT px on SCD due to thrombocytopenia CODE STATUS: Full code Disposition: Lives at home with , independent in his ADLs Has home O2, on 2 L oxygen via nasal cannula chronically Plan to discharge in next 1-2 days home when medically stable Subjective had dialysis today feels no change in SOB , weakness or fatigue left hand swelling , pain has increased worried about possible acute gout attack willing to take Prednisone no fever or chills Physical Exam Constitutional: WD/WN, vitals as above + obese; no acute distress Eyes: PERRL, conjunctivae normal, anicteric sclerae ENMT: external ear and nose normal, oropharynx normal Neck: trachea midline, no thyromegaly Respiratory: normal respiratory effort; no respiratory distress and no cough Auscultation: + rales (Bibasilar,) Cardiovascular: Rate/Rhythm: + abnormal rate (Irregularly irregular) Extremities: + pedal edema Gastrointestinal (Abdomen): Inspection/Auscultation: normal bowel sounds Percussion/Palpation: abdomen soft; abdomen nontender Musculoskeletal: no cyanosis or clubbing, extremities motor strength 5/5 Spine: no buttock tenderness Extremities: + joint enlargement (rt hand and wrist swollen with tendernss /redness and increased warmth) Skin: no rashes, warm and dry Neurologic: PERRL, EOMI, accommodation nl, no face palsy, no dysarthria Psychiatric: A+Ox3, euthymic affect Results & Data Vital Signs (Past 12 Hours) Vital Signs Temp Pulse Pulse Pulse Pulse Resp BP 09/02/19 15:52 36.8 C 75 16 09/02/19 13:44 36.8 C 70 09/02/19 13:00 66 09/02/19 12:22 70 126/87 09/02/19 12:00 62 162/73 H 09/02/19 11:40 71 168/85 H 09/02/19 11:20 54 L 158/85 H 09/02/19 11:00 65 159/73 H 09/02/19 10:43 64 155/78 H 09/02/19 10:20 72 158/88 H 09/02/19 10:00 63 164/76 H 09/02/19 09:25 36.8 C 75 09/02/19 07:57 37.0 C 80 16 09/02/19 07:15 85 BP BP Pulse Ox 09/02/19 15:52 146/53 H 99 09/02/19 13:44 130/80 09/02/19 13:00 09/02/19 12:22 09/02/19 12:00 09/02/19 11:40 09/02/19 11:20 09/02/19 11:00 09/02/19 10:43 09/02/19 10:20 09/02/19 10:00 09/02/19 09:25 09/02/19 07:57 158/99 H 96 09/02/19 07:15 (1) DM type 2 (diabetes mellitus, type 2) Diabetes mellitus complication detail: with unspecified neuropathy Diabetes mellitus complication status: with neurologic complications Diabetes mellitus snf insulin use: with manager long term care use Qualified Code(s): E11.40 - Type 2 diabetes mellitus with diabetic neuropathy, unspecified; Z79.4 - director long term care (current) use of insulin (2) CAD (coronary artery disease) Associated angina: without angina Coronary Disease-Associated Artery/Lesion type: [place] artery [place] vs. transplanted heart: [place] heart Qualified Code(s): I25.10 - Atherosclerotic heart disease of [place] coronary artery without angina pectoris
[2019-09-02] MEDS ORDERED: predniSONE 5 MG TAB PO STA (17:26)
[2019-09-02] MEDS: ASPIRIN 81 MG ECTAB PO SCH (20:36)
[2019-09-02] MEDS: ALFUZOSIN HCL 10 MG TAB PO SCH (20:36)
[2019-09-03] MEDS: LEVOTHYROXINE SODIUM 100 MCG TABLET PO SCH (06:03)
[2019-09-03 07:11] LABS: BUN Creatinine Ratio 17.3 (10-20); Blood Urea Nitrogen 63 mg/dl (7-18); Calcium 7.9 mg/dl (8.5-10.1); Carbon Dioxide 28 mmol/L (21-32); Chloride 101 mmol/L (98-107); Est GFR (African American) 18.2; Est GFR (Non-African American) 15.7; Glucose 119 mg/dl (70-99); Potassium 4.3 mmol/L (3.5-5.1); Sodium 137 mmol/L (136-145)
[2019-09-03] MEDS: BUMETANIDE 2 MG in SYRINGE 0 ML IV SCH (07:41)
[2019-09-03] MEDS: FERROUS FUMARATE/ASCORBIC ACID 65 MG CAPCR PO SCH (07:43)
[2019-09-03] MEDS: FOLIC ACID 1 MG TAB PO SCH (07:43)
[2019-09-03] MEDS: PANTOprazole 40 MG TAB PO SCH (07:44)
[2019-09-03] MEDS: predniSONE 10 MG TABLET PO SCH (07:44)
[2019-09-03] MEDS: METOPROLOL SUCC 50MG EXT REL TAB PO SCH ×2 (07:44→21:33)
[2019-09-03] MEDS ORDERED: HEPARIN SOD (PORCINE) 1000 UNIT/ML 10 ML VIAL IV ONE (07:58)
[2019-09-03] MEDS ORDERED: SODIUM CHLORIDE 0.9% 1000ML 1,000 ML IV PRN (07:58)
[2019-09-03] MEDS: INSULIN ASPART 100 UNITS/ML 3 ML PEN SC SCH ×4 (08:24→21:32)
[2019-09-03] MEDS: INSULIN GLARGINE SOLOSTAR 100 UNITS/ML 3 ML PEN SC SCH ×2 (08:25→21:30)
[2019-09-03] MEDS ORDERED: EPOETIN ALFA 20,000 UNITS/ML VIAL IV ONE (08:30)
[2019-09-03] MEDS: HEPARIN SOD (PORCINE) 1000 UNIT/ML 10 ML VIAL IV SCH ×3 (10:17→12:26)
--- NOTE | 2019-09-03 12:57 | Hospitalist Progress Note ---
Date of Service September 03, 2019 Assessment & Plan (1) Acute on chronic combined systolic and diastolic CHF (congestive heart failure): Acute on chronic systolic/diastolic CHF exacerbation --CXR:Cardiomegaly with new or increased right pleural effusion. Partially chronic mid to basilar irregular bandlike opacities, right greater than left. This could represent chronic scarring though this may be increased especially on the right. Superimposed infiltrate at the right lung base is difficult to exclude. Failed adequate diuresis with IV diuretics Had Permanent Cath placed on 09/01/19 Dialysis as per nephrology Volume status better Continue p.o. diuretics Appreciate nephrology/vascular surgery/Cardiology Input Needs outpatient dialysis set up prior to discharge Case management consulted Tachyarrhythmia/Dizziness H/O P.afib, Complete heart block S/P PPM Placement Transient episode Likely now permanent atrial fibrillation Continue metoprolol Orthostatic vitals negative Cardiology on board Acute gouty arthritis of Left/Right Wrist: X ray: No acute osseous injury. Extensive soft tissue swelling over the dorsum of the hand, possibly contusion. H/O Gout Avoid NSAIDs in setting of advanced CKD Continue prednisone Obstructive sleep apnea Chronic respiratory failure with hypoxia Previously was using CPAP machine Currently on 2 L of oxygen at bedtime States he has no longer had CLARA due to significant weight loss May need repeat sleep study as outpatient (2) CKD (chronic kidney disease), stage III: Currently initiated on dialysis s/p dialysis Progressive renal disease Needs follow-up with nephrology upon discharge Anemia of chronic disease: ckd, iron deficiency Hemoglobin at baseline Monitor CBC Procrit, IV Venofer as per nephrology (3) DM type 2 (diabetes mellitus, type 2): Continue ISS, Lantus Monitor BGs (4) Paroxysmal atrial fibrillation: Rate controlled Continue metoprolol Previously was on Coumadin--currently no anticoagulation secondary to significant GI bleed (5) History of complete heart block: s/p PPM placement in 2016 Stable (6) CAD (coronary artery disease): s/p CABG x 1 Continue Aspirin, Metoprolol H/O statin intolerance (7) Moderate to severe pulmonary hypertension: Question of underlying lung disease contributing - pt being worked up for potential sarcoidosis as outpatient. Needs out patient sleep study (8) Dyslipidemia: h/o statin intolerance Immune thrombocytopenia: Stable No bleeding issues IMMUNE THROMBOCYTOPENIA : chronic Monitor platelets DVT Px: SCD Re:Anemia, thrombocytopenia CODE STATUS: Full code Disposition: Plan to discharge home when outpatient dialysis set up Subjective Patient is seen and examined at bedside Wrist pain/swelling/erythema improving Had hemodialysis earlier today Denies any chest pain, shortness of breath, dizziness, nausea, abdominal pain Eager to get discharged Offers no other complaints Review of Systems Review of Systems: All systems reviewed & are unremarkable except as noted in HPI & below Physical Exam Physical Exam: Physical Exam: Vitals signs as noted above General Appearance:Obese, no apparent distress Head: normocephalic, Atraumatic Eyes: normal inspection, EOMI Neck: supple, Trachea midline Respiratory/Chest: Normal breath sounds, CTA, Catheter on R side of chest Cardiovascular: Irregularly, Irregular, No murmur Abdomen/GI:Soft, Non tender, Bowel sounds present Extremities/Musculoskelatal:normal inspection, B/L LE edema, R/L Wrist mild tender/swelling, minimal erythema Neurologic/Psych:AAOX3, grossly no focal neurological deficits Skin: normal color, warm Results & Data Vital Signs (Past 12 Hours) Vital Signs Temp Pulse Pulse Pulse Resp BP BP 09/03/19 12:20 64 163/76 H 09/03/19 12:00 60 172/81 H 09/03/19 11:40 64 157/75 H 09/03/19 11:20 60 151/77 H 09/03/19 11:00 64 163/82 H 09/03/19 10:40 55 L 161/80 H 09/03/19 10:20 61 158/83 H 09/03/19 10:00 65 146/73 H 09/03/19 09:40 62 171/83 H 09/03/19 09:25 60 175/86 H 09/03/19 09:18 36.6 C 60 09/03/19 07:21 36.5 C 60 20 179/94 H 09/03/19 02:44 37.0 C 59 L 16 158/53 H Pulse Ox 09/03/19 12:20 09/03/19 12:00 09/03/19 11:40 09/03/19 11:20 09/03/19 11:00 09/03/19 10:40 09/03/19 10:20 09/03/19 10:00 09/03/19 09:40 09/03/19 09:25 09/03/19 09:18 09/03/19 07:21 98 09/03/19 02:44 99 Laboratory Results [facility] 09/03/19 06:04 Sodium 137 Potassium 4.3 Chloride 101 Carbon Dioxide 28 BUN 63 H Creatinine 3.64 H D Glucose 119 H Calcium 7.9 L (1) DM type 2 (diabetes mellitus, type 2) Diabetes mellitus senior care insulin use: with senior care use Diabetes mellitus complication status: with neurologic complications Diabetes mellitus complication detail: with unspecified neuropathy Qualified Code(s): E11.40 - Type 2 diabetes mellitus with diabetic neuropathy, unspecified; 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 transplanted heart: [place] heart Associated angina: without angina Qualified Code(s): I25.10 - Atherosclerotic heart disease of [place] coronary artery without angina pectoris
--- NOTE | 2019-09-03 16:09 | Nephrology Progress Note ---
Date of Service September 03, 2019 Assessment & Plan (1) ESRD (end stage renal disease) on dialysis: from dm. presented 08/25 w/ volume overload and creatinine 3.6 >> vol OL diuretic refractory and started HD 09/01 -cont strict I/O and FR -daily bmp -got TDC 09/01 and first HD same day -for HD today w/ gentle UF 4.5L; next HD 09/05 if still in house or 09/05 or 09/06 depending on OP chair time >>>pt needs OP HD at [facility] [place] arranged before d/c -avoid nephrotoxins Present on Admission?: Yes (2) Volume overload: >>w/ increased bun, lowered bumex to [address] wt = 105.1 > 104 >103.6>103.5 >> 103.2 09/01 -cont FR, low Na diet -daily standing wt appreciated and should continue -diuresis stalled even on intensified diuretics so needs dialysis (3) Anemia: follows w/ anemia clinic; hgb generally 9-10s; stable in 8s recently > ? low d/t volume on board/ dilution. t stn = 11% > started venofer load 200 mg 08/28; 300 mg IV venofer given 08/29; 08/30 had epo dose 06797 units as well as another 300 mg venofer >will give venofer w/ HD and epo chronic immune thrombocytopenia w/ plts in 90-100s adn at baseline Subjective seen on rounds this am; tolerated hd yesterday; hands remain swollen umm L nonpainful w/ red knuckles Review of Systems Review of Systems: All systems reviewed & are unremarkable except as noted in HPI & below Cardiovascular: + dyspnea on exertion (notices less) and + edema (minimal change so far) Physical Exam Constitutional: well developed, well nourished, + obese and cooperative (sitting in chair on 02 NC ) Eyes: EOM intact bilaterally ENMT: Ears: no external ear abnormality Nose: no external nose abnormality Mouth: + dry oral mucous membranes Neck: no nuchal rigidity Respiratory: normal respiratory effort Auscultation: + diminished lung sounds and + crackles (bibasilar) Cardiovascular: Rate/Rhythm: regular rate and regular rhythm Extremities: + edema (3+ pedal, 2+ ant tibial) Gastrointestinal (Abdomen): Inspection/Auscultation: normal bowel sounds Percussion/Palpation: abdomen soft; abdomen nontender Musculoskeletal: Extremities: strength 5/5 throughout Skin: no rashes, warm and dry Psychiatric: Orientation: alert and oriented x 3 Eye Contact: good eye contact Speech: normal rate/rhythm/volume of speech Affect: + anxious affect Results & Data Vital Signs (Past 12 Hours) Vital Signs Temp Pulse Pulse Pulse Resp BP BP 09/03/19 13:45 36.9 C 68 09/03/19 13:00 60 160/79 H 09/03/19 12:40 59 L 163/82 H 09/03/19 12:20 64 163/76 H 09/03/19 12:00 60 172/81 H 09/03/19 11:40 64 157/75 H 09/03/19 11:20 60 151/77 H 09/03/19 11:00 64 163/82 H 09/03/19 10:40 55 L 161/80 H 09/03/19 10:20 61 158/83 H 09/03/19 10:00 65 146/73 H 09/03/19 09:40 62 171/83 H 09/03/19 09:25 60 175/86 H 09/03/19 09:18 36.6 C 60 09/03/19 07:21 36.5 C 60 20 179/94 H BP Pulse Ox 09/03/19 13:45 169/93 H 09/03/19 13:00 09/03/19 12:40 09/03/19 12:20 09/03/19 12:00 09/03/19 11:40 09/03/19 11:20 09/03/19 11:00 09/03/19 10:40 09/03/19 10:20 09/03/19 10:00 09/03/19 09:40 09/03/19 09:25 09/03/19 09:18 09/03/19 07:21 98 Laboratory Results 09/01/19 08:25 09/03/19 06:04 (1) Volume overload Hypervolemia type: other Qualified Code(s): E87.79 - Other fluid overload (2) Anemia Anemia type: unspecified type Qualified Code(s): D64.9 - Anemia, unspecified
[2019-09-03] MEDS: ALFUZOSIN HCL 10 MG TAB PO SCH (21:33)
[2019-09-03] MEDS: BUMETANIDE 1 MG TAB PO SCH (21:33)
[2019-09-03] MEDS: ASPIRIN 81 MG ECTAB PO SCH (21:36)
[2019-09-04] MEDS: LEVOTHYROXINE SODIUM 100 MCG TABLET PO SCH (05:58)
[2019-09-04 06:45] LABS: Hematocrit (blood only) 25.5 % (42-52); Hemoglobin 8.1 g/dL (14.0-18.0); Mean Corpuscular Hemoglobin 30.7 pg (25-34); Mean Corpuscular Hgb Conc 31.8 g/dL (32-36); Mean Corpuscular Volume 96.6 fL (80-100); Mean Platelet Volume 8.8 fL (7.4-10.4); Nucleated RBC # (auto) 0.05 K/uL (0-0); Nucleated RBC % (auto) 0.7 %; Platelet Count 138 K/uL (130-400); RDW Coefficient of Variation 14.9 % (11.5-14.5); RDW Standard Deviation 50.9 fL (36.4-46.3); Red Blood Count 2.64 M/uL (4.7-6.1); White Blood Count 7.56 K/uL (4.8-10.8)
[2019-09-04 07:22] LABS: Blood Urea Nitrogen 38 mg/dl (7-18); Calcium 8.1 mg/dl (8.5-10.1); Carbon Dioxide 28 mmol/L (21-32); Chloride 102 mmol/L (98-107); Est GFR (African American) 23.8; Est GFR (Non-African American) 20.6; Glucose 120 mg/dl (70-99); Magnesium 1.8 mg/dl (1.8-2.4); Potassium 3.3 mmol/L (3.5-5.1); Sodium 137 mmol/L (136-145)
[2019-09-04] MEDS: INSULIN ASPART 100 UNITS/ML 3 ML PEN SC SCH ×4 (08:11→20:20)
[2019-09-04] MEDS: INSULIN GLARGINE SOLOSTAR 100 UNITS/ML 3 ML PEN SC SCH ×2 (08:12→20:21)
[2019-09-04] MEDS: PANTOprazole 40 MG TAB PO SCH (08:16)
[2019-09-04] MEDS: predniSONE 10 MG TABLET PO SCH (08:16)
[2019-09-04] MEDS: FOLIC ACID 1 MG TAB PO SCH (08:17)
[2019-09-04] MEDS: FERROUS FUMARATE/ASCORBIC ACID 65 MG CAPCR PO SCH (08:17)
[2019-09-04] MEDS: BUMETANIDE 1 MG TAB PO SCH ×2 (08:18→20:13)
[2019-09-04] MEDS: METOPROLOL SUCC 50MG EXT REL TAB PO SCH ×2 (08:18→20:16)
[2019-09-04] MEDS ORDERED: POTASSIUM CHLORIDE 20 MEQ TABCR PO ONE (08:45)
--- NOTE | 2019-09-04 10:39 | Cardiology Progress Note ---
Date of Service September 04, 2019 Assessment & Plan (1) Volume overload: This does appear to be multifactorial in nature with most significant component being worsening renal failure. He has been initiated on hemodialysis and will continue as an outpatient. Obviously no further cardiac testing or intervention is necessary at this time. Recommend follow-up as an outpatient as already scheduled. Okay to discharge home from a cardiac standpoint. (2) Acute on chronic renal failure: Unsuccessful IV diuresis. For initiation of hemodialysis starting today. I would place him as a moderate risk for any adverse periprocedural cardiac events, risk approx <5% discussed risk with him, patient states that he understands, is accepting of the risk and would wish to proceed should it be deemed necessary (3) History of complete heart block: s/p PPM placement current V-paced rhythm with underlying afib (4) Paroxysmal atrial fibrillation: likely now permanent Coumadin has been previously held due to anemia Would not restart at this time Risk of cardioembolic event discussed with the patient and he is in agreement with holding anticoagulation (5) CAD (coronary artery disease): stable (6) S/P AVR (aortic valve replacement): s/p KWESI valve functioning appropriately (7) Moderate to severe pulmonary hypertension: stable (8) Restrictive lung disease: stable Subjective Patient seen and examined out of bed in chair. States that he is tolerating the initiation of hemodialysis well but still feels that he is a little volume overloaded and retaining fluid in his legs and hands. He has not ambulated much so is not sure if his breathing is improving. But he denies any chest pain, palpitations, lightheadedness or dizziness. Telemetry reviewed: V paced rhythm with underlying atrial fibrillation Review of Systems Review of Systems: All systems reviewed & are unremarkable except as noted in HPI & below Physical Exam Physical Exam: General: Awake, alert and oriented x 3. No acute distress. HEENT: Normocephalic, atraumatic. Pupils equal, round and reactive to light and accommodation. Extraocular muscles are intact. Anicteric sclera. Moist mucous membranes. Neck: No JVD. No bruit. Cardiovascular: irregularly irregular, unable to appreciate murmur, rub or gallop. Pulmonary: Clear to auscultation bilaterally. No rales, rhonchi, or wheezing. Abdomen: Bowel sounds x 4, soft. No rebound, guarding or tenderness. No organomegaly. Extremities: No clubbing, cyanosis or edema. +2 pedal pulses bilaterally. Skin: Warm and dry. Results & Data Vital Signs (Past 12 Hours) Vital Signs Temp Pulse Pulse Resp BP BP Pulse Ox 09/04/19 07:49 36.8 C 60 18 156/87 H 99 09/04/19 07:20 36.7 C 65 18 148/54 H 99 09/04/19 03:31 36.6 C 63 18 123/75 95 09/04/19 00:24 69 155/91 H 09/03/19 23:35 36.9 C 64 18 171/90 H 98 (1) Volume overload Hypervolemia type: other Qualified Code(s): E87.79 - Other fluid overload (2) Acute on chronic renal failure Acute renal failure type: unspecified Chronic kidney disease stage: stage 4 (severe) Qualified Code(s): N17.9 - Acute kidney failure, unspecified; N18.4 - Chronic kidney disease, stage 4 (severe) (3) CAD (coronary artery disease) Coronary Disease-Associated Artery/Lesion type: [place] artery [place] vs. transplanted heart: [place] heart Associated angina: without angina Qualified Code(s): I25.10 - Atherosclerotic heart disease of [place] coronary artery without angina pectoris
[2019-09-04] MEDS ORDERED: POTASSIUM CHLORIDE 20 MEQ/15 ML UDC PO STA (13:52)
--- NOTE | 2019-09-04 17:40 | Hospitalist Progress Note ---
Date of Service September 04, 2019 Assessment & Plan (1) Acute on chronic combined systolic and diastolic CHF (congestive heart failure): Acute on chronic systolic/diastolic CHF exacerbation --CXR:Cardiomegaly with new or increased right pleural effusion. Partially chronic mid to basilar irregular bandlike opacities, right greater than left. This could represent chronic scarring though this may be increased especially on the right. Superimposed infiltrate at the right lung base is difficult to exclude. Failed adequate diuresis with IV diuretics Had Permanent Cath placed on 09/01/19 Dialysis as per nephrology Volume status improving Continue p.o. diuretics during Non dialysis days Appreciate nephrology/vascular surgery/Cardiology Input Outpatient dialysis set up to begin on 09/08/19 Likely hemodialysis tomorrow Case management on board Tachyarrhythmia/Dizziness H/O P.afib, Complete heart block S/P PPM Placement Transient episode Likely now permanent atrial fibrillation Continue metoprolol Orthostatic vitals negative Cardiology on board Acute gouty arthritis of Left/Right Wrist: X ray: No acute osseous injury. Extensive soft tissue swelling over the dorsum of the hand, possibly contusion. H/O Gout Avoid NSAIDs in setting of advanced CKD Continue prednisone Obstructive sleep apnea Chronic respiratory failure with hypoxia Previously was using CPAP machine Currently on 2 L of oxygen at bedtime States he has no longer had CLARA due to significant weight loss May need repeat sleep study as outpatient (2) CKD (chronic kidney disease), stage III: Currently initiated on dialysis s/p dialysis Progressive renal disease Needs follow-up with nephrology upon discharge Anemia of chronic disease: ckd, iron deficiency Hemoglobin at baseline Monitor CBC Procrit, IV Venofer as per nephrology (3) DM type 2 (diabetes mellitus, type 2): Continue ISS, Lantus Monitor BGs (4) Paroxysmal atrial fibrillation: Rate controlled Continue metoprolol Previously was on Coumadin--currently no anticoagulation secondary to significant GI bleed (5) History of complete heart block: s/p PPM placement in 2016 Stable (6) CAD (coronary artery disease): s/p CABG x 1 Continue Aspirin, Metoprolol H/O statin intolerance (7) Moderate to severe pulmonary hypertension: Question of underlying lung disease contributing - pt being worked up for potential sarcoidosis as outpatient. Needs out patient sleep study (8) Dyslipidemia: h/o statin intolerance Immune thrombocytopenia: Stable No bleeding issues Monitor DVT Px: SCD Re:Anemia, thrombocytopenia CODE STATUS: Full code Disposition: Plan to discharge home when able Subjective Patient is seen and examined at bedside No new complaints B/L leg swelling better Still has R wrist tenderness, swelling Denies any chest pain, shortness of breath, dizziness, nausea, abdominal pain Review of Systems Review of Systems: All systems reviewed & are unremarkable except as noted in HPI & below Physical Exam Physical Exam: Physical Exam: Vitals signs as noted above General Appearance:Obese, no apparent distress Head: normocephalic, Atraumatic Eyes: normal inspection, EOMI Neck: supple, Trachea midline Respiratory/Chest: Normal breath sounds, CTA, Catheter on R side of chest Cardiovascular: Irregularly, Irregular, No murmur Abdomen/GI:Soft, Non tender, Bowel sounds present Extremities/Musculoskelatal:normal inspection, B/L LE edema, R/L Wrist mild tender/swelling, minimal erythema Neurologic/Psych:AAOX3, grossly no focal neurological deficits Skin: normal color, warm Results & Data Vital Signs (Past 12 Hours) Vital Signs Temp Pulse Resp BP BP Pulse Ox 09/04/19 16:34 36.7 C 66 16 173/92 H 99 09/04/19 11:48 36.8 C 62 18 164/84 H 99 09/04/19 07:49 36.8 C 60 18 156/87 H 99 09/04/19 07:20 36.7 C 65 18 148/54 H 99 Laboratory Results Short CBC 09/04/19 Range/Units 06:34 WBC 7.56 (4.8-10.8) K/uL Hgb 8.1 L (14.0-18.0) g/dL Hct 25.5 L (42-52) % Plt Count 138 (130-400) K/uL BMP 09/04/19 06:34 Sodium 137 Potassium 3.3 L D Chloride 102 Carbon Dioxide 28 BUN 38 H Creatinine 2.91 H D Glucose 120 H Calcium 8.1 L (1) DM type 2 (diabetes mellitus, type 2) Diabetes mellitus history department chair insulin use: with history department chair use Diabetes mellitus complication status: with neurologic complications Diabetes mellitus complic ation detail: with unspecified neuropathy Qualified Code(s): E11.40 - Type 2 diabetes mellitus with diabetic neuropathy, unspecified; Z79.4 - prison (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 transplanted heart: [place] heart Associated angina: without angina Qualified Code(s): I25.10 - Atherosclerotic heart disease of [place] coronary artery without angina pectoris
[2019-09-04] MEDS: ALFUZOSIN HCL 10 MG TAB PO SCH (20:13)
[2019-09-04] MEDS: ASPIRIN 81 MG ECTAB PO SCH (20:14)
[2019-09-05] MEDS: LEVOTHYROXINE SODIUM 100 MCG TABLET PO SCH (06:09)
[2019-09-05] MEDS ORDERED: SODIUM CHLORIDE 0.9% 1000ML 1,000 ML IV PRN (07:23)
[2019-09-05] MEDS ORDERED: HEPARIN SOD (PORCINE) 1000 UNIT/ML 10 ML VIAL IV ONE (07:23)
[2019-09-05] MEDS ORDERED: EPOETIN ALFA 10,000 UNITS/ML VIAL IV ONE (07:23)
--- NOTE | 2019-09-05 07:28 | Nephrology Progress Note ---
Date of Service September 05, 2019 Assessment & Plan (1) ESRD (end stage renal disease) on dialysis: from dm. presented 08/25 w/ volume overload and creatinine 3.6 >> vol OL diuretic refractory and started HD 09/01 -cont strict I/O and FR -daily bmp -got TDC 09/01 and first HD same day -stopped low K diet and ordered K 40 mEq po daily > would d/c on 20 mEq po daily K for now -for HD today w/ gentle UF 2L; next HD 09/08 in [place] at [facility] >> pls include appt time on d/c summary if possible (case mgt should have this info) -avoid nephrotoxins (2) Volume overload: >>w/ increased bun, lowered bumex to 2 mg bid po >> ok to d/c on this admitting st wt = 105.1 > 104 >103.6>103.5 >> 103.2 09/01 -cont FR, low Na diet -daily standing wt appreciated and should continue -diuresis stalled even on intensified diuretics so needs dialysis (3) Anemia: follows w/ anemia clinic; hgb generally 9-10s; stable in 8s recently > ? low d/t volume on board/ dilution. t stn = 11% > had venofer load -epo w/ HD chronic immune thrombocytopenia w/ plts in 90-100s adn at baseline Subjective seen on rounds this am 0740; eating breakfast; no complaints. tolerated HD well; breathing a bit better on exertion; still using 02nc 24/7; no voiding c/o; no chest pain; hand redness/swelling a bit better Review of Systems Review of Systems: All systems reviewed & are unremarkable except as noted in HPI & below Physical Exam Constitutional: well developed, well nourished, + obese and cooperative (sitting in chair on 02 NC ) Eyes: EOM intact bilaterally ENMT: Ears: no external ear abnormality Nose: no external nose abnormality Mouth: + dry oral mucous membranes Neck: no nuchal rigidity Respiratory: normal respiratory effort Auscultation: lungs clear to auscultation bilaterally and + diminished lung sounds (umm BL bases) Cardiovascular: Rate/Rhythm: regular rate and regular rhythm Extremities: + edema (3+ pedal, 2+ ant tibial) Gastrointestinal (Abdomen): Inspection/Auscultation: normal bowel sounds Percussion/Palpation: abdomen soft; abdomen nontender Musculoskeletal: Extremities: strength 5/5 throughout Skin: no rashes, warm and dry Psychiatric: Orientation: alert and oriented x 3 Eye Contact: good eye contact Speech: normal rate/rhythm/volume of speech Affect: + anxious affect Results & Data Vital Signs (Past 12 Hours) Vital Signs Temp Pulse Pulse Resp BP Pulse Ox 09/05/19 04:00 36.8 C 67 18 158/60 H 99 09/05/19 02:08 69 09/05/19 00:02 36.8 C 60 18 150/54 H 98 09/04/19 20:00 36.6 C 62 18 166/62 H 97 Laboratory Results 09/04/19 06:34 09/04/19 06:34 (1) Anemia Anemia type: unspecified type Qualified Code(s): D64.9 - Anemia, unspecified (2) Volume overload Hypervolemia type: other Qualified Code(s): E87.79 - Other fluid overload
[2019-09-05] MEDS ORDERED: HEPARIN SOD (PORCINE) 1000 UNIT/ML 10 ML VIAL IV SCH (07:30)
[2019-09-05 08:20] LABS: BUN Creatinine Ratio 15.8 (10-20); Blood Urea Nitrogen 53 mg/dl (7-18); Calcium 8.1 mg/dl (8.5-10.1); Carbon Dioxide 28 mmol/L (21-32); Chloride 102 mmol/L (98-107); Est GFR (African American) 20.3; Est GFR (Non-African American) 17.5; Glucose 79 mg/dl (70-99); Potassium 3.8 mmol/L (3.5-5.1); Sodium 136 mmol/L (136-145)
[2019-09-05] MEDS: INSULIN ASPART 100 UNITS/ML 3 ML PEN SC SCH ×3 (10:41→14:27)
--- NOTE | 2019-09-05 13:31 | Hospitalist Progress Note ---
Date of Service September 05, 2019 Assessment & Plan (1) Acute on chronic combined systolic and diastolic CHF (congestive heart failure): Acute on chronic systolic/diastolic CHF exacerbation --CXR:Cardiomegaly with new or increased right pleural effusion. Partially chronic mid to basilar irregular bandlike opacities, right greater than left. This could represent chronic scarring though this may be increased especially on the right. Superimposed infiltrate at the right lung base is difficult to exclude. Failed adequate diuresis with IV diuretics Had Permanent Cath placed on 09/01/19 Dialysis as per nephrology Volume status improved Continue p.o. diuretics during Non dialysis days--Bumex 2mg PO BID Appreciate nephrology/vascular surgery/Cardiology Input Outpatient dialysis set up to begin on 09/08/19 at 11:30 am at [facility] Case management on board Tachyarrhythmia/Dizziness H/O P.afib, Complete heart block S/P PPM Placement Transient episode Likely now permanent atrial fibrillation Continue metoprolol Orthostatic vitals negative Cardiology on board Acute gouty arthritis of Left/Right Wrist: X ray: No acute osseous injury. Extensive soft tissue swelling over the dorsum of the hand, possibly contusion. H/O Gout Avoid NSAIDs in setting of advanced CKD Continue prednisone 10 MG daily for 4 more days Advised to follow-up with orthopedic surgery as outpatient if no improvement Obstructive sleep apnea Chronic respiratory failure with hypoxia Previously was using CPAP machine Currently on 2 L of oxygen at bedtime States he has no longer had CLARA due to significant weight loss May need repeat sleep study as outpatient (2) CKD (chronic kidney disease), stage III: Currently initiated on dialysis s/p dialysis Progressive renal disease Needs follow-up with nephrology upon discharge Anemia of chronic disease: ckd, iron deficiency Hemoglobin at baseline Monitor CBC Procrit, IV Venofer as per nephrology (3) DM type 2 (diabetes mellitus, type 2): Continue ISS, Lantus Monitor BGs (4) Paroxysmal atrial fibrillation: Rate controlled Continue metoprolol Previously was on Coumadin--currently no anticoagulation secondary to significant GI bleed (5) History of complete heart block: s/p PPM placement in 2016 Stable (6) CAD (coronary artery disease): s/p CABG x 1 Continue Aspirin, Metoprolol H/O statin intolerance (7) Moderate to severe pulmonary hypertension: Question of underlying lung disease contributing - pt being worked up for potential sarcoidosis as outpatient. Needs out patient sleep study (8) Dyslipidemia: h/o statin intolerance Immune thrombocytopenia: Stable No bleeding issues Monitor DVT Px: SCD Re:Anemia, thrombocytopenia CODE STATUS: Full code Disposition: Plan to discharge home today Subjective Patient is seen and examined at bedside Had hemodialysis earlier today Right wrist swelling much improved Still has some right wrist pain Denies any chest pain, shortness of breath, dizziness, nausea, abdominal pain Offers no other complaints Review of Systems Review of Systems: All systems reviewed & are unremarkable except as noted in HPI & below Physical Exam Physical Exam: Physical Exam: Vitals signs as noted above General Appearance:Obese, no apparent distress Head: normocephalic, Atraumatic Eyes: normal inspection, EOMI Neck: supple, Trachea midline Respiratory/Chest: Normal breath sounds, CTA, Catheter on R side of chest Cardiovascular: Irregularly, Irregular, No murmur Abdomen/GI:Soft, Non tender, Bowel sounds present Extremities/Musculoskelatal:normal inspection, B/L LE edema, R/L Wrist mild tender/swelling, minimal erythema Neurologic/Psych:AAOX3, grossly no focal neurological deficits Skin: normal color, warm Results & Data Vital Signs (Past 12 Hours) Vital Signs Temp Pulse Pulse Pulse Resp BP BP 09/05/19 12:20 69 144/65 H 09/05/19 12:00 64 157/72 H 09/05/19 11:40 66 130/71 09/05/19 11:20 60 138/72 09/05/19 11:00 60 150/66 H 09/05/19 10:40 67 148/70 H 09/05/19 10:20 63 156/68 H 09/05/19 10:00 69 156/73 H 09/05/19 09:40 61 154/84 H 09/05/19 09:20 60 161/81 H 09/05/19 09:08 71 155/80 H 09/05/19 09:02 36.6 C 63 09/05/19 07:53 36.6 C 74 20 139/52 L 09/05/19 04:00 36.8 C 67 18 09/05/19 02:08 69 BP Pulse Ox 09/05/19 12:20 09/05/19 12:00 09/05/19 11:40 09/05/19 11:20 09/05/19 11:00 09/05/19 10:40 09/05/19 10:20 09/05/19 10:00 09/05/19 09:40 09/05/19 09:20 09/05/19 09:08 09/05/19 09:02 09/05/19 07:53 98 09/05/19 04:00 158/60 H 99 09/05/19 02:08 Laboratory Results [facility] 09/05/19 07:33 Sodium 136 Potassium 3.8 D Chloride 102 Carbon Dioxide 28 BUN 53 H Creatinine 3.33 H D Glucose 79 Calcium 8.1 L (1) DM type 2 (diabetes mellitus, type 2) 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 transplanted heart: [place] heart Associated angina: without angina Qualified Code(s): I25.10 - Atherosclerotic heart disease of [place] coronary artery w [facility] angina pectoris
[2019-09-05] MEDS: INSULIN GLARGINE SOLOSTAR 100 UNITS/ML 3 ML PEN SC SCH (13:49)
--- NOTE | 2019-09-05 14:01 | Discharge Summary ---
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 History obtained from patient, his and pt's consumer lender (Dr. Luong). Pt has been undergoing extensive work-up for possible sarcoid as an outpatient including bronchoscopy 07/10/19 and EUS 08/19/19. Overall, pt has maintained baseline until past few weeks. Over the past 2-3 weeks, pt has noted progressive dyspnea on exertion - will get short of breath even walking from room to room. Although he has not noted shortness of breath at rest, his pulseox on room air at rest has been in the upper 80s at times. Pt uses oxygen at night and prn during the day. Typically he only uses 2L but has noted increased oxygen demand to 3L at times over the past few days. Pt has also noted progressive LE edema with associated 10 lb wt gain over the past two weeks. Of note, pt has been on prednisone due to the question of sarcoidosis but this was weaned down and stopped 2 days ago. Pt also had been on amlodipine but this was stopped a week ago due to the worsening edema. Pt was at the urologist office today for routine follow-up and mentioned that he has had minimal urine output the past 2-3 days, particularly today. Urology told patient that there was no mechanical obstruction. Pt presented to the consumer lender office for further evaluation and was ultimately referred for direct admission. Admission Exam Per Admitting Provider Physical Exam Constitutional: WD/WN, vitals as above no acute distress Eyes: + anicteric sclerae; no conjunctival abnormality ENMT: external ear and nose normal, oropharynx normal Neck: trachea midline Respiratory: no respiratory distress and does not use accessory muscles Auscultation: + diminished lung sounds (at right > left base) and + crackles (fa int bibasilar crackles); no rhonchi and no wheezes Cardiovascular: Rate/Rhythm: regular rate and regular rhythm Heart Sounds: no gallop and no cardiac rub Vessels: no JVD Extremities: normal capillary refill and + edema (to just below knees bilaterally) +crisp valve click Gastrointestinal (Abdomen): Inspection/Auscultation: + abdomen distended and normal bowel sounds Percussion/Palpation: abdomen soft; abdomen nontender Musculoskeletal: Head/Neck/Chest: normocephalic, head atraumatic and neck supple Extremities: no cyanosis Skin: no jaundice Neurologic: moves all extremities; no focal motor deficits Speech / Cognition: normal speech Markedly diminished sensation bilateral LE distal to mid-boles Psychiatric: A+Ox3, euthymic affect Principal Diagnosis Acute on chronic systolic/diastolic CHF exacerbation Acute Gout ESRD--On dialysis Discharge Data Allergies Allergy/AdvReac Type Severity Reaction Status Date / Time Penicillins Allergy Mild rash Verified 09/01/19 09:32 furosemide AdvReac Severe kidney Verified 09/01/19 09:32 failure ropinirole [From Requip] AdvReac Intermediate psych Verified 09/01/19 09:32 complications Vuphzio-Hty-Xzq Reductase AdvReac Intermediate Muscle Pain Verified 09/01/19 09 :32 Inhibitor Consultations 08/25/19 15:23 Consult Cardiology Routine Consult Nephrology Routine 08/29/19 13:14 Consult Vascular Surgery Routine Procedures Performed --CXR:Cardiomegaly with new or increased right pleural effusion. Partially chronic mid to basilar irregular bandlike opacities, right greater than left. This could represent chronic scarring though this may be increased especially on the right. Superimposed infiltrate at the right lung base is difficult to exclude. --Left Hand X ray: 1. No acute osseous injury. 2. Extensive soft tissue swelling over the dorsum of the hand, possibly contusion. Operation Date: 09/01/19 08:20 Actual Procedures p Insertion Of Perm Catheter, Right Internal Jugular Approach, Ultrasound Localization Of Right Internal Jugular Vein, Fluoroscopy For Positioning, Moderate Concious Sedation 1038 to 1116(Right) - Chris Davis MD Ordered Studies 09/01/19 07:17 US guide vascular access Routine 09/01/19 08:13 EV cvc insrt tunnel wo prt/information officer Routine Hospital Course (1) Acute on chronic combined systolic and diastolic CHF (congestive heart failure): Acute on chronic systolic/diastolic CHF exacerbation --CXR:Cardiomegaly with new or increased right pleural effusion. Partially chronic mid to basilar irregular bandlike opacities, right greater than left. This could represent chronic scarring though this may be increased especially on the right. Superimposed infiltrate at the right lung base is difficult to exclude. Failed adequate diuresis with IV diuretics Had Permanent Cath placed on 09/01/19 Dialysis as per nephrology Volume status improved Continue p.o. diuretics during Non dialysis days--Bumex 2mg PO BID Appreciate nephrology/vascular surgery/Cardiology Input Outpatient dialysis set up to begin on 09/08/19 at 11:30 am at [facility] Case management on board Tachyarrhythmia/Dizziness H/O P.afib, Complete heart block S/P PPM Placement Transient episode Likely now permanent atrial fibrillation Continue metoprolol Orthostatic vitals negative Cardiology on board Acute gouty arthritis of Left/Right Wrist: X ray: No acute osseous injury. Extensive soft tissue swelling over the dorsum of the hand, possibly contusion. H/O Gout Avoid NSAIDs in setting of advanced CKD Continue prednisone 10 MG daily for 4 more days Advised to follow-up with orthopedic surgery as outpatient if no improvement Obstructive sleep apnea Chronic respiratory failure with hypoxia Previously was using CPAP machine Currently on 2 L of oxygen at bedtime States he has no longer had CLARA due to significant weight loss May need repeat sleep study as outpatient (2) CKD (chronic kidney disease), stage III: Currently initiated on dialysis s/p dialysis Progressive renal disease Needs follow-up with nephrology upon discharge Anemia of chronic disease: ckd, iron deficiency Hemoglobin at baseline Monitor CBC Procrit, IV Venofer as per nephrology (3) DM type 2 (diabetes mellitus, type 2): Continue ISS, Lantus Monitor BGs (4) Paroxysmal atrial fibrillation: Rate controlled Continue metoprolol Previously was on Coumadin--currently no anticoagulation secondary to significant GI bleed (5) History of complete heart block: s/p PPM placement in 2016 Stable (6) CAD (coronary artery disease): s/p CABG x 1 Continue Aspirin, Metoprolol H/O statin intolerance (7) Moderate to severe pulmonary hypertension: Question of underlying lung disease contributing - pt being worked up for potential sarcoidosis as outpatient. Needs out patient sleep study (8) Dyslipidemia: h/o statin intolerance Immune thrombocytopenia: Stable No bleeding issues Monitor DVT Px: SCD Re:Anemia, thrombocytopenia CODE STATUS: Full code Disposition: Plan to discharge home today Total Time Total Time Spent Total Time Spent (In Minutes): 42 minutes Total Time Includes: Examination of the Patient, Discharge Planning, Medication Reconciliation, Communication With Other Providers and Other Discharge Plan Discharge Items Patient Disposition: Home - Self-Care Reason For Visit: VOLUME OVERLOAD,HEART FAILURE Discharge Diagnosis: Acute on chronic systolic/diastolic CHF exacerbation Acute Gout ESRD--On dialysis Activity: Resume your previous activity Exercise/Sports: Gradually increase as tolerated Non-emergency contact: Primary Care Provider, Cable Tester and Senior Product Engineer Call non-emergency contact if: you have any medication questions, your symptoms worsen, your pain is not controlled, your pain is worsening, your pain is unusual for you, you have a fever, your wound has increased redness, your wound has increased drainage and your wound pain has increased Follow-up/Referrals: Bhumi Fallon DO [Primary Care Provider] - Diet: Carb Consistent or DM2 and Heart Healthy Fluids: 2000ml (8 cups) Addtl Attending Provider Instructions: Follow up with your PCP on 09/09/19 at 10:45AM Follow up with your Senior Product Engineer Dr.Stacy Kirkland for dialysis on 09/08/19 at 11:30 am at [facility] as scheduled Follow up with your Cable Tester in 4 weeks Take Bumex 2 mg twice a day only during your nondialysis days (4 days a week)--as been recommended by your ordering machine operator. Discontinued Medications: Furosemide (Lasix) Complete the prednisone course for acute gout as advised Consider following with your orthopedic surgeon if no improvement of your right wrist pain. Seek immediate medical attention if your symptoms reoccur or worsen Call your Primary Care doctor if any of the following symptoms or problems start or get worse: * Shortness of breath or difficulty breathing * Wake up at night short of breath * Chest pain * Cough * Swelling of your hands, feet, or legs * More fatigued or tired with your normal activity * Palpitations - sudden fast heart beats WEIGHT * Weigh yourself every morning after using the bathroom. * Use the same scale. * Wear the same amount of clothing. * Write your weight down on a chart. * Call your Primary Care doctor if you gain more than 2-3 pounds in 1-2 days. MEDICATIONS * Use this discharge instruction sheet for medication instructions. * Take your medications at the time your doctor ordered. * Do not skip a dose of your medicines. * If you miss a dose of medicine, take it as soon as possible, but DO NOT DOUBLE A DOSE. * Read your medicine information when you get home. * Know all of the side effects of your medicine. If in doubt, ask your pharmacist * Call your Primary Care doctor's office if you have any side effects. * Be sure all of your doctors know what medicine and herbs you take (including cold, flu, and herbal medicine). Take the following with you to your follow-up doctor appointments: * Weight Chart * Medication List * List of questions Do not drink excessive alcohol, beer or wine. Pending Studies at Discharge: No Stand-Alone Forms: My [facility] [employer], Smoking Cessation Medications and DC Order Prescriptions: New bumetanide 1 mg Tablet 2 mg PO UD Qty: 60 RF: 0 Linda-Sequels (iron-vit c) 200 mg (65 mg iron)-25 mg Tablet Extended Release 65 mg PO QAM Qty: 30 RF: 0 prednisone 10 mg Tablet 10 mg PO DAILY Qty: 4 RF: 0 Continued pantoprazole 40 mg tablet,delayed release (DR/EC) 40 mg PO DAILY RF: 0 Procrit 10,000 unit/mL Solution 10,000 unit subcut Q14D RF: 0 Lantus U-100 Insulin 100 unit/mL Solution 50 unit SUBCUT HS RF: 0 metoprolol succinate 50 mg Tablet Extended Release 24 Hr 50 mg PO BID RF: 0 aspirin 81 mg Tablet,Delayed Release (Dr/Ec) 81 mg PO HS RF: 0 spironolactone 25 mg Tablet 12.5 mg PO 3XWK RF: 0 levothyroxine 100 mcg Tablet 100 mcg PO DAILY RF: 0 folic acid 1 mg Tablet 5 mg PO DAILY RF: 0 Humalog U-100 Insulin 100 unit/mL Cartridge 1 sliding scale dose SUBCUT UD RF: 0 alfuzosin 10 mg tablet extended release 24 hr 1 tab PO PM RF: 0 Discontinued furosemide 80 mg Tablet 80 mg PO DAILY RF: 0 Discharge Orders: Discharge Order (Routine); Ordered 09/05/19 Ordered By: Harley Kent Admission Data Admit Date/Time: 08/25/19 16:08 Attending Provider: Harley Kent Admit Provider: Jordan Harris Primary Care Provider: Bhumi Fallon Other Providers: Jordan Harris ; Absiai Durham ; Jessica Kirkland ; Chris Davis Other Interventions: Discharge Summary Assessment (RN) Last Done: 09/05/19 15:15 DC Date/Time DO NOT enter until pt leaves facility: 09/05/19 16:48
[2019-09-05] MEDS: FERROUS FUMARATE/ASCORBIC ACID 65 MG CAPCR PO SCH (14:25)
[2019-09-05] MEDS: FOLIC ACID 1 MG TAB PO SCH (14:25)
[2019-09-05] MEDS: PANTOprazole 40 MG TAB PO SCH (14:26)
[2019-09-05] MEDS: predniSONE 10 MG TABLET PO SCH (14:26)
[2019-09-05] MEDS: METOPROLOL SUCC 50MG EXT REL TAB PO SCH (14:26)
[2019-09-06] MEDS ORDERED: BUMETANIDE 1 MG TAB PO SCH (09:00)
== END 2019-09-05 16:48 | disposition home or self-care (01) | DRG 291 ==
LOC: 2E 16:08 → SUATTDRO 16:08 → 2N 09-02 12:03

== ENCOUNTER 2020-04-30 18:56 | Inpatient (IN) ==
[2020-04-30] MEDS ORDERED: ACETAMINOPHEN 325 MG TAB PO PRN (23:21)
[2020-04-30] MEDS ORDERED: NITROGLYCERIN SL 0.4 MG/TAB TAB SL PRN (23:21)
[2020-04-30] MEDS ORDERED: DEXTROSE 50% 50 ML SYRINGE IV PRN (23:24)
[2020-04-30] MEDS ORDERED: GLUCOSE 10 TABS/TUBE PO PRN (23:24)
[2020-04-30] MEDS ORDERED: GLUCOSE 40% GEL 15 GM TUBE PO PRN (23:24)
[2020-04-30] MEDS ORDERED: CARBOHYDRATES FOR HYPOGLYCEMIA PO PRN (23:24)
[2020-04-30] MEDS ORDERED: GLUCAGON FOR INJ 1 MG VIAL SQ PRN (23:24)
[2020-05-01] MEDS: INSULIN ASPART 100 UNITS/ML 3 ML PEN SC SCH ×5 (00:16→21:12)
[2020-05-01] MEDS ORDERED: MELATONIN 3 MG TAB PO PRN (00:48)
[2020-05-01] MEDS ORDERED: OXYCODONE/ACETAMINOPHEN 5mg/325mg TAB PO PRN (00:48)
[2020-05-01] MEDS ORDERED: ALPRAZolam 0.25 MG TABLET PO PRN (00:48)
--- NOTE | 2020-05-01 00:58 | History & Physical Report ---
Date of Service April 30, 2020 Assessment & Plan (1) Hypotension: chronic systolic heart failure secondary to ischemic cardiomyopathy Decreased systolic function with new EF 30 % on 2D echo done at [facility] today Equivocal volume status Home beta-kati and diuretic Rx stopped by patient specialists a few weeks ago with low BP noted during home peritoneal dialysis as per patient Cardiac vegetation on bioprosthetic mitral valve on today's echo hx bioprosthetic MV echodensity on 2019 TTE/KWESI hx bioprosthetic MVR/AVR ? Infective endocarditis Patient not septic. Asymptomatic troponin elevation ? 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 It may contain grammatical or spelling errors. Kindly contact undersigned for clarification of any documentation item in question. Admission and Anticipated Discharge Date Admission Date: April 30, 2020 History of Present Illness Outpatient Chief Complaint: Weakness, abnormal echo Primary Care Provider: Bhumi Fallon DO History obtained from patient and records. Medical history significant for chronic systolic heart failure secondary to ischemic cardiomyopathy (EF 30, TTE 2019), CAD status post CABG, PVD, SSS sp PPM not on Coumadin secondary to recurrent symptomatic anemia/GI bleed as per records, history bioprosthetic MVR/AVR, hx bioprosthetic MV echodensity on 2019 TTE/KWESI, hypertension, hyperlipidemia/statin intolerance, DM 2 insulin requiring, ESRD om PD, chronic anemia (baseline hemoglobin of 8), hypothyroidism, CLARA/restrictive lung disease/pulmonary hypertension as per records, prostate cancer status post radiation status post Casodex Rx, history of hypercalcemia/mediastinal lymphadenopathy/possible sarcoidosis on chronic steroid Rx, chronic thrombocytopenia, past tobacco abuse. Patient found to have prostatic mitral valve obstruction on outpatient TTE last July 2019. KWESI showed no mitral stenosis. 1.3 cm x 0.5 cm mobile echodensity adjacent to the ventricular aspect of prostatic mitral valve (Thrombus versus retained ruptured chordae). Observation recommended as per outpatient Cardiology note. Last confinement August 2019 for decompensated heart failure, acute gout. ESRD. Hemodialysis initiated during confinement. Patient seen at PCPs office 2 months ago for alternating left knee and right pain, soreness and stiffness, followed by leg heaviness and generalized weakness complaints. Steroid taper initiated by PCP Patient's blood pressure has been kind of low on home checks by peritoneal dialysis nurse since last month. 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 The last week patient noted generalized weakness without chest pain, cough, S OB. No fever, no chills, no headache, no abdominal pain. Blood pressure could not be obtained by dialysis nurse at patient's home today. Patient sent to [facility] Emergency Room for evaluation. BP 107/73 at the ER. Pertinent labs : Troponin I 1.62 Lactic acid of 2.4. CRP of 5.22 Blood cultures drawn at the ER. 2D echo done at the ER showed EF 30%, LV wall hypokinesis, large calcified vegetation on the bioprosthetic mitral valve as per report. Patient transferred to [facility] for further evaluation by patient's specialists. 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 Allergies Allergy/AdvReac Type Severity Reaction Status Date / Time atorvastatin Allergy Mild Muscle Pain Verified 04/30/20 23:40 Penicillins Allergy Mild rash Verified 04/30/20 23:40 furosemide AdvReac Severe kidney Verified 04/30/20 23:40 failure ropinirole [From Requip] AdvReac Intermediate psych Verified 04/30/20 23:40 complications Pjfdpkn-Ifk-Nyp Reductase AdvReac Intermediate Muscle Pain Verified 04/30/20 23:40 Inhibitor Home Medications Home Medications Medication Instructions Recorded Confirmed Type Humalog U-100 Insulin 1 sliding scale dose SUBCUT UD 12/25/18 04/30/20 History Lantus U-100 Insulin 45 unit SUBCUT HS 12/25/18 05/01/20 History alfuzosin [Uroxatral] 1 tab PO PM 12/25/18 04/30/20 History aspirin 81 mg PO HS 12/25/18 04/30/20 History folic acid 5 mg PO DAILY 12/25/18 04/30/20 History levothyroxine 100 mcg PO DAILY 12/25/18 04/30/20 History pantoprazole 40 mg PO DAILY 08/06/19 04/30/20 History melatonin 6 mg PO HS PRN 04/30/20 05/01/20 History epoetin beta, methoxy peg [Mircera] 0 mcg SUBCUT DIRECTED PRN 05/01/20 05/01/20 History ferrous sulfate 325 mg PO DAILY 05/01/20 05/01/20 History midodrine 5 mg PO TID 05/01/20 05/01/20 History prednisone 5 mg PO DAILY 05/01/20 05/01/20 History Past Med/Surg History Medical History Anemia (Acute) Anxiety Aortic insufficiency (Chronic) BPH (benign prostatic hyperplasia) (Chronic) CAD (coronary artery disease) (Chronic) "1999 - CABG x 1 06/2014 - ACS, cath at the time showed patent graft, non obstructive disease to LAD and circumflex, [place] RCA 100% occluded " Chronic back pain CKD (chronic kidney disease), stage III (Chronic) CKD III-IV, monitoring. Diverticulosis (Chronic) DM type 2 (diabetes mellitus, type 2) (Chronic) iddm Dyslipidemia (Chronic) ESRD (end stage renal disease) on dialysis (Acute) Gin's thyroiditis (Chronic) History of complete heart block (Chronic) s/p pacemaker History of pacemaker (Chronic) March 2016, [facility]. HTN (hypertension) (Chronic) Hypothyroidism Lung nodule 3mm - benign Moderate to severe pulmonary hypertension (Chronic) hx On home oxygen therapy 2lpm via n/c CLARA (obstructive sleep apnea) (Chronic) hx. Osteoarthritis (Chronic) Pacemaker [employer] device. Placed March 2016, follows with Dr. Luong, last checked ~1.5 months ago. Paroxysmal atrial fibrillation (Chronic) infrequently Prostate cancer (Chronic 01/14/18) "History of benign prostatic hypertrophy Rising PSA, pretreatment PSA 5.7 corrected due to finasteride Status post ultrasound-guided biopsies January 14, 2018 Adenocarcinoma of the prostate [place] 4+3 and 4+4 Prostate volume 74.6 Prostate density 0.076 Hormone suppression with Casodex. (Recommendation for 6-12 months) Gold fiducial markers and Space OAR were placed. Status post completion of radiation therapy April 25, 2018. 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 Prostate volume 74.6 Prostate density 0.076 " Skin cancer Systolic and diastolic CHF, chronic (Chronic) "echo 03/16/2016 - EF 35-39% (was normal on prior echo), mod-severe aortic valve regurgitation, severe pulmonary HTN" Surgical History History of bronchoscopy History of colonoscopy History of surgical removal of lesion S/P AVR (aortic valve replacement) (Chronic) 1999, valve & 2016 Bovine Mechanical valve ([facility]) S/P CABG x 1 (Chronic) 1999 & 2016 ([facility]) S/P MVR (mitral valve replacement) (Chronic) Family History Other Hypertension Prostate cancer Social History Preferred Language: Palestinian Communication Ability: Effective Social Science Analyst Required: No Beliefs That Will Affect Care: None Current Living Situation: Spouse Other Information That Helps Us Care for You: No Feels Safe at Home: Yes Safety Concerns: Feels Safe At This Time Smoking Status: Never smoker Tobacco Type: cigarettes ; Cigarettes Per Day: 20 x4 years ; Do You Dip or Chew Tobacco: No ; Second Hand Exposure: No ; Hx Alcohol Use: No Hx Substance Use: No Review of Systems Review of Systems: As per HPI, all 10 systems reviewed, all other ROS negative Physical Exam Physical Exam: GENERAL: Comfortable, slightly anxious, no respiratory distress SKIN: Pallor, warm HEENT: Alopecia, pale palpebral conjunctivae, no ptosis, dry buccal mucosa NECK : Supple, no tenderness CHEST : Decreased breath sounds, no tenderness HEART : RRR, systolic murmur ABDOMEN: Some distention, nontender, PD port in place EXTREMITIES : Minimal LE swelling, no LE tenderness, no other conspicuous deformities noted NEUROLOGIC : Coherent, no facial asymmetry, no other gross focality Results & Data Results & Data ([facility]) Vital Signs (Past 12 Hours) Vital Signs Temp Pulse Resp BP Pulse Ox 36.8 C 85 20 93/35 L 98 04/30/20 23:20 04/30/20 23:20 04/30/20 23:20 04/30/20 23:20 04/30/20 23:20 Laboratory Results Laboratory Results POC Glucose 156 mg/dl (70-99) H 04/30/20 23:29 04/30 ([facility]OR[facility] Crocker lab work) WBC 10.1, hemoglobin 10.2, hematocrit 31, platelets 105 Sodium 136, potassium 4.2, chloride 99, CO2 26, BUN 54 creatinine 8.7, anion gap 15.2, glucose 127 Troponin I 1.62 Lactic acid 2.4 ESR 42 CRP 5.22 Blood cultures pending Diagnostic Findings EKG (04/30, LORA Crocker) as per my interpretation: Rate 75, paced rhythm Chest x-ray as per my interpretation : Cardiomegaly, elevated right hemidiaphragm
[2020-05-01 01:23] LABS: Basophils # (auto) 0.02 K/uL (0-0.2); Basophils % (auto) 0.2 %; Eosinophils # (auto) 0.08 K/uL (0-0.5); Eosinophils % (auto) 0.8 %; Hematocrit (blood only) 32.5 % (42-52); Hemoglobin 10.4 g/dL (14.0-18.0); Immature Granulocytes # (auto) 0.06 K/uL (0.00-0.02); Immature Granulocytes % (auto) 0.6 %; Lymphocytes # (auto) 1.14 K/uL (1.2-3.4); Lymphocytes % (auto) 10.7 %; Mean Corpuscular Hemoglobin 32.1 pg (25-34); Mean Corpuscular Volume 100.3 fL (80-100); Mean Platelet Volume 10.1 fL (7.4-10.4); Monocytes # (auto) 1.06 K/uL (0.11-0.59); Neutrophils # (auto) 8.25 K/uL (1.4-6.5); Neutrophils % (auto) 77.7 %; Platelet Count 100 K/uL (130-400); RDW Coefficient of Variation 15.1 % (11.5-14.5); RDW Standard Deviation 54.8 fL (36.4-46.3); Red Blood Count 3.24 M/uL (4.7-6.1); White Blood Count 10.61 K/uL (4.8-10.8)
[2020-05-01 01:36] LABS: Partial Thromboplastin Time 28.5 Seconds (21.0-31.0)
[2020-05-01 02:04] LABS: BUN Creatinine Ratio 6.8 (10-20); Calcium 8.2 mg/dl (8.5-10.1); Creatinine Clr Calc Pharmacy 8.5 ml/min; Est GFR (African American) 5.8; Magnesium 1.8 mg/dl (1.8-2.4); Potassium 4.5 mmol/L (3.5-5.1); Troponin I 1.72 ng/ml (0-0.045)
[2020-05-01] MEDS ORDERED: ALBUMIN 25% 50 ML IV ONE ×2 (02:10→03:30)
[2020-05-01 02:16] LABS: Thyroid Stimulating Hormone 1.67 uIu/ml (0.300-4.500)
[2020-05-01] MEDS: LEVOTHYROXINE SODIUM 100 MCG TABLET PO SCH (05:52)
[2020-05-01 07:46] LABS: Estimated Average Glucose 108 mg/dl; Hemoglobin A1C 5.4 % (4.5-5.6)
[2020-05-01] MEDS ORDERED: SEVELAMER HCL 800 MG TABLET PO SCH (08:00)
[2020-05-01] MEDS: FOLIC ACID 1 MG TAB PO SCH (08:01)
[2020-05-01] MEDS: PANTOprazole 40 MG TAB PO SCH (08:02)
[2020-05-01] MEDS: INSULIN GLARGINE SOLOSTAR 100 UNITS/ML 3 ML PEN SC SCH ×2 (08:04→10:25)
--- NOTE | 2020-05-01 08:57 | XRay Report ---
XR chest 1V portable CLINICAL HISTORY: low bp COMPARISON STUDY: Chest radiograph February 28, 2020. FINDINGS: Left subclavian biventricular pacer, right internal jugular dual lumen catheter and median sternotomy wires are noted. There is moderate cardiac without evidence for pulmonary edema. There is minimal right basilar opacity. There is a possible small right pleural effusion. Linear left basilar opacity favors atelectasis. IMPRESSION: 1. No evidence for pulmonary edema. 2. Linear bibasilar opacities suggestive of atelectasis. 3. Possible small right pleural effusion. ACT 112: Negative or not required by law. Electronically signed by: Toro Hill M.D. 05/01/2020 8:56 AM
[2020-05-01] MEDS ORDERED: predniSONE 10 MG TABLET PO SCH (09:00)
[2020-05-01] MEDS ORDERED: METOPROLOL TARTRATE 25 MG TAB PO SCH (09:00)
[2020-05-01] MEDS ORDERED: FERROUS FUMARATE/ASCORBIC ACID 65 MG CAPCR PO SCH (09:00)
--- NOTE | 2020-05-01 10:18 | Cardiology Consultation ---
Date of Consultation May 01, 2020 Assessment & Plan (1) Hypotension: (2) History of complete heart block: (3) Paroxysmal atrial fibrillation: (4) S/P MVR (mitral valve replacement): (5) CAD (coronary artery disease): (6) S/P AVR (aortic valve replacement): (7) Restrictive lung disease: (8) Acute upper GI bleeding: (9) Anemia of chronic disease: (10) ESRD (end stage renal disease) on dialysis: Echocardiogram reviewed shows a precipitous drop of his LV systolic function. Most recent device checks show near 100% RV pacing but unclear if LV lead is also pacing. I suspect that his EF is likely dropping due to the RV pacing and will have the device rep interrogate his device and possibly turn the LV lead back on. I am unable to find any records of this not being used. His blood pressure is now improved and his beta-kati will be restarted. I will also increase his spironolactone to 12.5 mg p.o. daily for the aldosterone antagonistic effects. I will also discuss with our nephrology colleagues whether or not there would be any contraindications to starting Entresto from a nephrology standpoint He is not having any active cardiac complaints and does not appear to be actively ischemic. Will likely require outpatient nuclear stress test to rule out progressive coronary artery disease as a possible cause as well. Continue to monitor on telemetry History of Present Illness Reason for Consultation: Hypotension Requesting Physician: Dr. Helton Attending Physician: Gianluca Sharp MD History of Present Illness It was my pleasure to see Mr. Shah in cardiology consultation today May 01, 2020. He is a very pleasant yet medically complex 74-year-old gentleman who is very well-known to our cardiology practice and primarily follows with Dr. Luong. He was transferred to [facility] from [facility] on 04/30/2020 after presenting to the emergency room with hypotension. His home dialysis nurse reportedly was unable to find a blood pressure. He states that for the last month or so he is just not been feeling well. He states he has no energy just feels very tired and rundown. Upon presentation he was hypotensive and his beta-kati was held. He denies experiencing any complaints of chest pain, shortness of breath, palpitations or syncope. He states his been compliant with his medications as well as his dialysis treatments. Problem List as per Dr. uLong's most recent outpatient visit: 1. S/p Redo AVR and aortic root with 23mm Epic/28mm Gelweave composite root, MVR 29mm Epic, CABG x 1 (Ao-PDA), EV[facility] by Dr. Hendrix 03/23/16 2. Post op complete heart block prompting Biventricular pacemaker ([facility] [id number]) by Dr. Barnes 03/29/16 3. Atrial fibrillation 4. Contraindications to anticoagulation. 5. End stage renal disease on peritoneal dialysis. 6. 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 Allergies Allergy/AdvReac Type Severity Reaction Status Date / Time atorvastatin Allergy Mild Muscle Pain Verified 04/30/20 23:40 Penicillins Allergy Mild rash Verified 04/30/20 23:40 furosemide AdvReac Severe kidney Verified 04/30/20 23:40 failure ropinirole [From Requip] AdvReac Intermediate psych Verified 04/30/20 23:40 complications Raiaove-Mcj-Gqc Reductase AdvReac Intermediate Muscle Pain Verified 04/30/20 23:40 Inhibitor Home Medications Home Medications Medication Instructions Recorded Confirmed Type Humalog U-100 Insulin 1 sliding scale dose SUBCUT UD 12/25/18 04/30/20 History Lantus U-100 Insulin 45 unit SUBCUT HS 12/25/18 05/01/20 History alfuzosin [Uroxatral] 1 tab PO PM 12/25/18 04/30/20 History aspirin 81 mg PO HS 12/25/18 04/30/20 History folic acid 5 mg PO DAILY 12/25/18 04/30/20 History levothyroxine 100 mcg PO DAILY 12/25/18 04/30/20 History pantoprazole 40 mg PO DAILY 08/06/19 04/30/20 History prednisone 10 mg PO DAILY #4 tab 09/05/19 04/30/20 Rx melatonin 6 mg PO HS PRN 04/30/20 05/01/20 History epoetin beta, methoxy peg [Mircera] 0 mcg SUBCUT DIRECTED PRN 05/01/20 05/01/20 History ferrous sulfate 325 mg PO DAILY 05/01/20 05/01/20 History Patient History Medical History Anemia (Acute) Anxiety Aortic insufficiency (Chronic) BPH (benign prostatic hyperplasia) (Chronic) CAD (coronary artery disease) (Chronic) "1999 - CABG x 1 06/2014 - ACS, cath at the time showed patent graft, non obstructive disease to LAD and circumflex, [place] RCA 100% occluded " Chronic back pain CKD (chronic kidney disease), stage III (Chronic) CKD III-IV, monitoring. Diverticulosis (Chronic) DM type 2 (diabetes mellitus, type 2) (Chronic) iddm Dyslipidemia (Chronic) ESRD (end stage renal disease) on dialysis (Acute) Gin's thyroiditis (Chronic) History of complete heart block (Chronic) s/p pacemaker History of pacemaker (Chronic) March 2016, [facility]. HTN (hypertension) (Chronic) Hypothyroidism Lung nodule 3mm - benign Moderate to severe pulmonary hypertension (Chronic) hx On home oxygen therapy 2lpm via n/c CLARA (obstructive sleep apnea) (Chronic) hx. Osteoarthritis (Chronic) Pacemaker [employer] device. Placed March 2016, follows with Dr. Luong, last checked ~1.5 months ago. Paroxysmal atrial fibrillation (Chronic) infrequently Prostate cancer (Chronic 01/14/18) "History of benign prostatic hypertrophy Rising PSA, pretreatment PSA 5.7 corrected due to finasteride Status post ultrasound-guided biopsies January 14, 2018 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 (Recommendation for 6-12 months) Gold fiducial markers and Space OAR were placed. Status post completion of radiation therapy April 25, 2018. 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 Prostate volume 74.6 Prostate density 0.076 " Skin cancer Systolic and diastolic CHF, chronic (Chronic) "echo 03/16/2016 - EF 35-39% (was normal on prior echo), mod-severe aortic valve regurgitation, severe pulmonary HTN" Surgical History History of bronchoscopy History of colonoscopy History of surgical removal of lesion S/P AVR (aortic valve replacement) (Chronic) 1999, cadaver valve & 2016 Bovine Mechanical valve ([facility]) S/P CABG x 1 (Chronic) 1999 & 2016 ([facility]) S/P MVR (mitral valve replacement) (Chronic) Family History Other Hypertension Prostate cancer Social History Preferred Language: Irish Communication Ability: 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 No acute distress. HEENT: Normocephalic, atraumatic. Pupils equal, round and reactive to light and accommodation. Extraocular muscles are intact. Anicteric sclera. Moist mucous membranes. Neck: No JVD. No bruit. Cardiovascular: Regular. Positive S-4. Normal S-1 and S-2. No S-3. 3/6 mid to late systolic ejection murmur, greatest at the right sternal border, second intercostal space with radiation to the bilateral carotids. No rubs. Pulmonary: Clear to auscultation bilaterally. No rales, rhonchi, or wheezing. Abdomen: Bowel sounds x 4, soft. No rebound, guarding or tenderness. No organomegaly. Extremities: No clubbing, cyanosis or edema. +2 pedal pulses bilaterally. Skin: Warm and dry. Results & Data ([facility]) Vital Signs (Past 12 Hours) Vital Signs Temp Pulse Pulse Resp BP Pulse Ox 05/01/20 07:38 36.7 C 81 18 128/46 L 99 05/01/20 02:41 36.7 C 76 16 135/78 100 04/30/20 23:40 81 04/30/20 23:20 36.8 C 85 20 93/35 L 98 (1) CAD (coronary artery disease) Coronary Disease-Associated Artery/Lesion type: [place] artery [place] vs. transplanted heart: apache heart Associated angina: without angina Qualified Code(s): I25.10 - Atherosclerotic heart disease of [place] coronary artery without angina pectoris
[2020-05-01] MEDS ORDERED: PERFLUTREN LIPID MICROSPHERE (DEFINITY) IV ONE (10:30)
--- NOTE | 2020-05-01 10:49 | Nephrology Consultation ---
Date of Consultation May 01, 2020 Assessment & Plan (1) ESRD (end stage renal disease) on dialysis: Patient on peritoneal dialysis but also has both a tunneled hemo-dialysis catheter as well as an AV fistula which may be mature. His volume status currently is acceptable as are chemistries. We are unable to replicate his outpatient prescription since we do not have icodextran on formulary; should not be needed for the moment however; pt to start PD early today d/t weekend hours for dialysis nursing >14 hrs on cycler wtih 5 x 2L exchanges all 2.5%; no LBF -dialysis nurse to check AVF -daily bmp umm with medication changes -started FR 1.2L daily -cont sevelamer current dose Present on Admission?: Yes (2) Anemia of chronic disease: On p.o. iron which is somewhat atypical for dialysis patients. Continue same; monitor hemoglobin at least every other day Present on Admission?: Yes (3) Acute on chronic combined systolic and diastolic CHF (congestive heart failure): cardiology not concerned at this [facility] for active ischemia; lower EF may be due in part to pacing (see their note); medications being optimized; some HTN at present may be due to no dialysis overnight; also had albumin x 2 doses -agree with plans to reintroduce beta-blockade and to start spironolactone; would hold off on Entresto for the moment until we see how reintroducing other medications is tolerated -monitor bp carefully given new medications (4) Fatigue: May be explained by worsened ejection fraction; would however rule out bacteremia. Not overtly septic and not currently on antibiotics nor are these indicated. Doubt a role for anemia here. Immunocompromised state noted. Follow-up [facility] blood cultures and cardiology recommendations -low threshold to remove TDC Present on Admission?: Yes History of Present Illness Reason for Consultation: ESRD on PD Requesting Physician: Dr Guardado Attending Physician: Gianluca Sharp MD History of Present Illness 74 y/o M whom I'm asked to see for dialysis needs after he was transferred here from [facility] with concern for worsened heart failure after TTE there showed newly depressed EF 30% (EF usually more in the 45% range), confirmed by our cardiology colleagues here as well. PMH includes ESRD since 08/2019 currently on PD, complex valvular heart disease s/p redo bioAVR with aortic root graft and CABG 2015 with postop CHB s/p biV pacer and also s/p bioMVR; chronic mediastinal lymphadenopathy (follows with [facility] pulmonary), DM>20 years, htn dx'd in his teens, pAF not on AC, severe plm HTN, osteoarthritis per patient on daily prednisone for this, prostate CA s/p XRT, chronic immune thrombocytopenia. Noted on fall 2018 [facility] to have 1.3 cm mobile echodensity on prosthetic mitral valve attributed to thrombus versus retained ruptured chordae and for ongoing observation. Saw Dr Luong in [facility] cardiology clinic last month and satisfactory, for 7 mo follow up. Patient does tell me however that he used a wheelchair to enter clinic at that appointment rather than his customary walker or cane. He tells me that he has been "totally fatigued" for the past several weeks and worse past week or 2. Not walk 1 room to the next and his house without having to stop to rest. Feels he is slowly becoming more weak. No falls. No orthostatic symptoms. No fevers chills or rigors. Denies dyspnea, orthopnea, edema. He has been on peritoneal dialysis for the past few months under the care of my partner Dr. Acevedo at [facility] [place]. He tells me that his prescription is half to 10 hours on the cycler using 3 x 2.5% dextrose bags followed by a last bag fill of icodextrin, all 2 L bags. Denies issues with dialysis such as issues with the exchanges, with draining, with exit site. He does tell me that he has had markedly diminished urine output over the past few months, down to about 40 ounces daily now. No new or worrisome voiding symptoms. Moves bowels daily. No nausea vomiting or abdominal pain. Further tells me he has a tunneled hemo-dialysis catheter in place. Last TTE in [facility] fall 2018 with EF 45%. Allergies Allergy/AdvReac Type Severity Reaction Status Date / Time atorvastatin Allergy Mild Muscle Pain Verified 04/30/20 23:40 Penicillins Allergy Mild rash Verified 04/30/20 23:40 furosemide AdvReac Severe kidney Verified 04/30/20 23:40 failure ropinirole [From Requip] AdvReac Intermediate psych Verified 04/30/20 23:40 complications Kydbgac-Uxt-Fqq Reductase AdvReac Intermediate Muscle Pain Verified 04/30/20 23:40 Inhibitor Home Medications Home Medications Medication Instructions Recorded Confirmed Type Humalog U-100 Insulin 1 sliding scale dose SUBCUT UD 12/25/18 04/30/20 History Lantus U-100 Insulin 45 unit SUBCUT HS 12/25/18 05/01/20 History alfuzosin [Uroxatral] 1 tab PO PM 12/25/18 04/30/20 History aspirin 81 mg PO HS 12/25/18 04/30/20 History folic acid 5 mg PO DAILY 12/25/18 04/30/20 History levothyroxine 100 mcg PO DAILY 12/25/18 04/30/20 History pantoprazole 40 mg PO DAILY 08/06/19 04/30/20 History prednisone 10 mg PO DAILY #4 tab 09/05/19 04/30/20 Rx melatonin 6 mg PO HS PRN 04/30/20 05/01/20 History epoetin beta, methoxy peg [Mircera] 0 mcg SUBCUT DIRECTED PRN 05/01/20 05/01/20 History ferrous sulfate 325 mg PO DAILY 05/01/20 05/01/20 History Patient History Medical History Anemia (Acute) Anxiety Aortic insufficiency (Chronic) BPH (benign prostatic hyperplasia) (Chronic) CAD (coronary artery disease) (Chronic) "1999 - CABG x 1 06/2014 - ACS, cath at the time showed patent graft, non obstructive disease to LAD and circumflex, [place] RCA 100% occluded " Chronic back pain CKD (chronic kidney disease), stage III (Chronic) CKD III-IV, monitoring. Diverticulosis (Chronic) DM type 2 (diabetes mellitus, type 2) (Chronic) iddm Dyslipidemia (Chronic) ESRD (end stage renal disease) on dialysis (Acute) Gin's thyroiditis (Chronic) History of complete heart block (Chronic) s/p pacemaker History of pacemaker (Chronic) March 2016, [facility] Johnson. HTN (hypertension) (Chronic) Hypothyroidism Lung nodule 3mm - benign Moderate to severe pulmonary hypertension (Chronic) hx On home oxygen therapy 2lpm via n/c CLARA (obstructive sleep apnea) (Chronic) hx. Osteoarthritis (Chronic) Pacemaker [employer] device. Placed March 2016, follows with Dr. Luong, last checked ~1.5 months ago. Paroxysmal atrial fibrillation (Chronic) infrequently Prostate cancer (Chronic 01/14/18) "History of benign prostatic hypertrophy Rising PSA, pretreatment PSA 5.7 corrected due to finasteride Status post ultrasound-guided biopsies January 14, 2018 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 (Recommendation for 6-12 months) Gold fiducial markers and Space OAR were placed. Status post completion of radiation therapy April 25, 2018. He received 7000 cGy" On 02/06/18 11:33 Tricia Soto wrote "History of benign prostatic hypertrophy Rising PSA, pretreatment PSA 5.7 corrected due to finasteride Status post ultrasound-guided biopsies January 14, 2018 Adenocarcinoma of the prostate [place] 4+3 and 4+4 Prostate volume 74.6 Prostate density 0.076 " Skin cancer Systolic and diastolic CHF, chronic (Chronic) "echo 03/16/2016 - EF 35-39% (was normal on prior echo), mod-severe aortic valve regurgitation, severe pulmonary HTN" Surgical History History of bronchoscopy History of colonoscopy History of surgical removal of lesion S/P AVR (aortic valve replacement) (Chronic) 1999, valve & 2016 [place] Mechanical valve ([facility] Johnson) S/P CABG x 1 (Chronic) 1999 & 2015 (S [facility]) S/P MVR (mitral valve replacement) (Chronic) Family History Other Hypertension Prostate cancer Social History Preferred Language: Stateless Communication Ability: Effective Director Of Content And Programming Required: No Beliefs That Will Affect Care: None Current Living Situation: Spouse Other Information That Helps Us Care for You: No Feels Safe at Home: Yes Safety Concerns: Feels Safe At This Time Smoking Status: Never smoker Tobacco Type: cigarettes ; Cigarettes Per Day: 20 x4 years ; Do You Dip or Chew Tobacco: No ; Second Hand Exposure: No ; Hx Alcohol Use: No Hx Substance Use: No Review of Systems Review of Systems: All systems reviewed & are unremarkable except as noted in HPI & below Physical Exam Constitutional: well developed, well nourished and cooperative; no acute distress Eyes: EOM intact bilaterally ENMT: Ears: no external ear abnormality Nose: no external nose abnormality Mouth: + dry oral mucous membranes Neck: no nuchal rigidity Respiratory: normal respiratory effort Auscultation: lungs clear to auscultation bilaterally and + diminished lung sounds Cardiovascular: Rate/Rhythm: regular rate and regular rhythm Heart Sounds: + murmur Extremities: + AV fistula (Right upper extremity antecubital; feels narrow with positive thrill and bruit); no edema Gastrointestinal (Abdomen): Inspection/Auscultation: normal bowel sounds Percussion/Palpation: abdomen soft; abdomen nontender PD catheter left lower quadrant Musculoskeletal: Extremities: + abnormal strength (2 person assist to sit forward in the bed) Skin: no rashes, warm and dry + pallor Neurologic: [place], fluent speech, no tremor Psychiatric: A+Ox3, euthymic affect Insight: good insight Judgement: good judgement Genitourinary: No [place] Results & Data Vital Signs (Past 12 Hours) Vital Signs Temp Pulse Pulse Resp BP Pulse Ox 05/01/20 07:38 36.7 C 81 18 128/46 L 99 05/01/20 02:41 36.7 C 76 16 135/78 100 04/30/20 23:40 81 04/30/20 23:20 36.8 C 85 20 93/35 L 98 Laboratory Results 05/01/20 01:10 05/01/20 01:10 Diagnostic Findings cxr 1. No evidence for pulmonary edema. 2. Linear bibasilar opacities suggestive of atelectasis. 3. Possible small right pleural effusion. TTE today: Unchanged mitral valve lesion with significantly reduced systolic LV function to EF of 20 to 25%
[2020-05-01] MEDS ORDERED: METOPROLOL SUCC 50MG EXT REL TAB PO STA (13:14)
[2020-05-01] MEDS ORDERED: SPIRONOLACTONE 12.5 MG TAB PO ONE (13:14)
--- NOTE | 2020-05-01 15:17 | Hospitalist Progress Note ---
Date of Service May 01, 2020 Assessment & Plan (1) Hypotension: Pt was send to [facility] after her nurse found her BP was low He had an echo at [facility] that showed decreased systolic function with new EF 30 %. Pt was transferred to [facility] BP has been running low for the past week as per patient Metoprolol was d/c due to low BP outpatient Consider to resume outpatient dose of Midrodrine 5mg TID BP stable Continue monitor BP Chronic combined systolic and diastolic CHF (congestive heart failure) Echo at [facility] showed decreased systolic function with new EF 30 %. CXR showed no evidence for pulmonary edema. Possible small right pleural effusion. Repeat echo showed severe reduced LV systolic function with ejection fraction 20 to 25% with dyskinetic apical motion secondary to RV pacing along with moderate global hypokinesis. bioprosthetic mitral valve prosthesis is present with a highly mobile echodense lesion on the ventricular side of the prosthesis this represent retained chordae tendon ER. Severe left atrial enlargement cardio on board Will need outpatient nuclear stress test to rule out progressive coronary artery disease Will get HD today for fluid management Starting on spironolactone Will monitor closely for sign of fluid overload S/P MVR (mitral valve replacement) S/P AVR (aortic valve replacement) ECHO showed bioprosthetic mitral valve prosthesis is present with a highly mobile echodense lesion on the ventricular side of the prosthesis this represent retained chordae tendon ER. Severe left atrial enlargement Stable ESRD on PD Nephrology on board and plan to HD today Monitor closely for volume overload Elevated troponin Possible related to ESRD Troponin peak to 1.95 EKG showed no ischemic changes Denies any chest pain Troponin trending down to 1.3 continue aspirin CAD s/p CABG Denies any chest pain Metoprolol was discontinued due to low BP Continue aspirin Elevated Lactic acid Mostly due to ESRD Afebrile and no leukocytosis Lactic acid 2.8 on admission to 1.9 Will hold on to start abx Continue monitor closely DM type 2 Recent Hba1c 5.4 (ESRD on PD mostly not accurate) Continue novolog sliding scale On Lantus 45 units home dose Will adjust inpatient Lantus dose Anemia Hgb stable DVT prophylaxis on SCDs due to thrombocytopenia Full code Admission and Anticipated Discharge Date Admission Date: April 30, 2020 Subjective Pt was seen and examined. Lying in bed with no distress Pt said that for the past few months he has been feeling more SOB He said that he has no energy and develops SOB with minimal exertion Denies any chest pain, palpitation, fever, diarrhea and cough Physical Exam Physical Exam: General- No acute distress Head- atraumatic Eyes- PERRL, EOMI, ENT- oropharynx clear Neck- supple, no JVD Lungs- clear to auscultation Heart- regular rhythm, +systolic murmur Abdomen- normal bowel sounds, soft, nontender Extremities- no calf tenderness Neuro- alert, oriented x 3; PERRL, EOMI; no facial palsy; no dysarthria Skin- warm & dry Results & Data Results & Data ([facility]) Vital Signs (Past 12 Hours) Vital Signs Temp Pulse Resp BP Pulse Ox 05/01/20 11:42 36.6 C 84 18 172/76 H 100 05/01/20 07:38 36.7 C 81 18 128/46 L 99
[2020-05-01] MEDS ORDERED: INSULIN GLARGINE SOLOSTAR 100 UNITS/ML 3 ML PEN SC SCH ×2 (21:00)
[2020-05-01] MEDS: MIDODRINE HCL 2.5 MG TAB PO SCH (21:08)
[2020-05-01] MEDS: ALFUZOSIN HCL 10 MG TAB PO SCH (21:09)
[2020-05-01] MEDS: ASPIRIN 81 MG ECTAB PO SCH (21:09)
[2020-05-01] MEDS ORDERED: INSULIN GLARGINE SOLOSTAR 100 UNITS/ML 3 ML PEN SC STA (21:22)
[2020-05-02] MEDS: LEVOTHYROXINE SODIUM 100 MCG TABLET PO SCH (05:43)
[2020-05-02] MEDS: MIDODRINE HCL 2.5 MG TAB PO SCH ×3 (05:43→16:53)
[2020-05-02 06:18] LABS: Hematocrit (blood only) 29.4 % (42-52); Hemoglobin 9.5 g/dL (14.0-18.0); Mean Corpuscular Hemoglobin 32.2 pg (25-34); Mean Corpuscular Hgb Conc 32.3 g/dL (32-36); Mean Corpuscular Volume 99.7 fL (80-100); RDW Coefficient of Variation 14.8 % (11.5-14.5); RDW Standard Deviation 52.9 fL (36.4-46.3); Red Blood Count 2.95 M/uL (4.7-6.1); White Blood Count 7.52 K/uL (4.8-10.8)
[2020-05-02 06:36] LABS: Mean Platelet Volume 10.2 fL (7.4-10.4); Platelet Count 94 K/uL (130-400)
[2020-05-02 06:37] LABS: Platelet Estimate Decreased (Normal)
[2020-05-02 07:03] LABS: BUN Creatinine Ratio 7.3 (10-20); Calcium 7.4 mg/dl (8.5-10.1); Creatinine Clr Calc Pharmacy 8.7 ml/min; Est GFR (African American) 5.9; Est GFR (Non-African American) 5.1; Potassium 4.3 mmol/L (3.5-5.1)
[2020-05-02] MEDS: PANTOprazole 40 MG TAB PO SCH (08:01)
[2020-05-02] MEDS: SPIRONOLACTONE 12.5 MG TAB PO SCH (08:01)
[2020-05-02] MEDS: predniSONE 5 MG TAB PO SCH (08:02)
[2020-05-02] MEDS: METOPROLOL SUCC 50MG EXT REL TAB PO SCH (08:02)
[2020-05-02] MEDS: ALFUZOSIN HCL 10 MG TAB PO SCH (08:02)
[2020-05-02] MEDS: FERROUS SULFATE 325 MG TAB PO SCH (08:02)
[2020-05-02] MEDS: INSULIN ASPART 100 UNITS/ML 3 ML PEN SC SCH ×4 (08:03→20:29)
[2020-05-02] MEDS: FOLIC ACID 1 MG TAB PO SCH (09:00)
[2020-05-02] MEDS: INSULIN GLARGINE SOLOSTAR 100 UNITS/ML 3 ML PEN SC SCH ×2 (11:30→20:29)
--- NOTE | 2020-05-02 13:49 | Nephrology Progress Note ---
Date of Service May 02, 2020 Assessment & Plan (1) ESRD (end stage renal disease) on dialysis: Patient on peritoneal dialysis but also has both a tunneled hemo-dialysis catheter as well as an AV fistula which may be mature. His volume status currently is acceptable as are chemistries. We are unable to replicate his outpatient prescription since we do not have icodextran on formulary; should not be needed for the moment however; continue PD with longer tx time in house than home >16 hrs on cycler with 6 x 2.8L exchanges all 2.5%; no LBF -dialysis nurse to check AVF -daily bmp umm with medication changes -cont FR 1.2L daily -cont sevelamer current dose (2) Anemia of chronic disease: On p.o. iron which is somewhat atypical for dialysis patients. Continue same; monitor hemoglobin at least every other day (3) Acute on chronic combined systolic and diastolic CHF (congestive heart failure): cardiology not concerned at this time for active ischemia though he is for DSE for further eval; lower EF may be due in part to pacing (see their note); medications being optimized; some lability in bp noted but no sx. -heart team just reintroduced beta-blockade and started spironolactone; would hold off on Entresto for the moment until we see how reintroducing other medications is tolerated -monitor bp carefully given new medications (4) Fatigue: May be explained by worsened ejection fraction; would however rule out bacteremia. Not overtly septic and not currently on antibiotics nor are these indicated. Doubt a role for anemia here. Immunocompromised state noted. Follow-up [facility] blood cultures and cardiology recommendations -low threshold to remove TDC if indicated; though would try to preseve if possible Admission and Anticipated Discharge Date Admission Date: April 30, 2020 Subjective Had 700 ultrafiltration and 50 cc urine output. Feeling stable no further episodes of symptomatic hypotension. He is walking to and from the bathroom with care but without particular breathing or weakness concerns. PD went well overnight. Review of Systems Review of Systems: All systems reviewed & are unremarkable except as noted in HPI & below Physical Exam Constitutional: well developed, well nourished and cooperative; no acute distress Sitting up in chair on room air Eyes: EOM intact bilaterally ENMT: Ears: no external ear abnormality Nose: no external nose abnormality Mouth: + dry oral mucous membranes Neck: no nuchal rigidity Respiratory: normal respiratory effort Auscultation: lungs clear to auscultation bilaterally and + diminished lung sounds Cardiovascular: Rate/Rhythm: regular rate and regular rhythm Heart Sounds: + murmur Extremities: + AV fistula (Right upper extremity antecubital; feels narrow with positive thrill and bruit); no edema Gastrointestinal (Abdomen): Inspection/Auscultation: normal bowel sounds Percussion/Palpation: abdomen soft; abdomen nontender Musculoskeletal: Extremities: + abnormal strength (2 person assist to sit forward in the bed) Skin: no rashes, warm and dry + pallor Neurologic: Moves all extremities, fluent speech, no tremor Psychiatric: A+Ox3, euthymic affect Insight: good insight Judgement: good judgement Results & Data ([facility]) Vital Signs (Past 12 Hours) Vital Signs Temp Pulse Pulse Resp BP Pulse Ox 05/02/20 11:41 36.4 C L 64 18 111/43 L 98 05/02/20 08:57 36.5 C 60 18 05/02/20 08:00 93 H 05/02/20 07:42 36.5 C 60 18 115/68 100 05/02/20 03:22 36.5 C 68 16 128/32 L 95 Laboratory Results 05/02/20 05:45 05/02/20 05:45
--- NOTE | 2020-05-02 14:27 | Cardiology Progress Note ---
Date of Service May 02, 2020 Assessment & Plan (1) Hypotension: (2) History of complete heart block: (3) Paroxysmal atrial fibrillation: (4) S/P MVR (mitral valve replacement): (5) CAD (coronary artery disease): (6) S/P AVR (aortic valve replacement): (7) Restrictive lung disease: (8) Acute upper GI bleeding: (9) Anemia of chronic disease: (10) ESRD (end stage renal disease) on dialysis: Echocardiogram reviewed shows a precipitous drop of his LV systolic function. Pacemaker interrogation revealed a appropriately functioning by V device with greater than 90% pacing. Given the fact that he does have biventricular pacing I believe an ischemic work-up is warranted at this time to further evaluate his decreased LV systolic function. He will undergo a Lexiscan nuclear stress test in the a.m. His evidence-based beta-kati has been resumed and he is pacing nearly 100% of the time on monitor. Continue spironolactone. No role for Corlanor or Entresto at this time given response to beta-blockade. Continue to monitor on telemetry Subjective Patient seen and examined, chart reviewed. Currently sitting out of bed eating lunch. States he has been feeling okay. Notes that he is feeling well while at rest but still gets significantly fatigued with even minimal exertion. Denies any chest pain, palpitations, lightheadedness, dizziness or syncope. Telemetry reviewed: Ventricularly paced rhythm. Review of Systems Review of Systems: All systems reviewed & are unremarkable except as noted in HPI & below Physical Exam Physical Exam: General: Awake, alert and oriented x 3. No acute distress. HEENT: Normocephalic, atraumatic. Pupils equal, round and reactive to light and accommodation. Extraocular muscles are intact. Anicteric sclera. Moist mucous membranes. Neck: No JVD. No bruit. Cardiovascular: Regular. Positive S-4. Normal S-1 and S-2. No S-3. No murmurs or rubs. Pulmonary: Clear to auscultation B/L. No rales, rhonchi or wheezing Abdomen: Bowel sounds x 4, soft. No rebound, guarding or tenderness. No organomegaly. Extremities: No clubbing, cyanosis or edema. +2 pedal pulses bilaterally. Skin: Warm and dry. Results & Data Vital Signs (Past 12 Hours) Vital Signs Temp Pulse Pulse Resp BP Pulse Ox 05/02/20 11:41 36.4 C L 64 18 111/43 L 98 05/02/20 08:57 36.5 C 60 18 05/02/20 08:00 93 H 05/02/20 07:42 36.5 C 60 18 115/68 100 05/02/20 03:22 36.5 C 68 16 128/32 L 95 (1) CAD (coronary artery disease) Coronary Disease-Associated Artery/Lesion type: [place] artery [place] vs. transplanted heart: [place] heart Associated angina: without angina Qualified Code(s): I25.10 - Atherosclerotic heart disease of [place] coronary artery without angina pectoris
--- NOTE | 2020-05-02 15:17 | Hospitalist Progress Note ---
Date of Service May 02, 2020 Assessment & Plan (1) Hypotension: Pt was send to [facility] after her nurse found her BP was low He had an echo at [facility] that showed decreased systolic function with new EF 30 %. Pt was transferred to [facility] BP has been running low for the past week as per patient Metoprolol was d/c due to low BP outpatient Consider to resume outpatient dose of Midodrine 5mg TID BP stable Chronic combined systolic and diastolic CHF (congestive heart failure) Echo at [facility] showed decreased systolic function with new EF 30 %. CXR showed no evidence for pulmonary edema. Possible small right pleural effusion. Repeat echo showed severe reduced LV systolic function with ejection fraction 20 to 25% with dyskinetic apical motion secondary to RV pacing along with moderate global hypokinesis. bioprosthetic mitral valve prosthesis is present with a highly mobile echodense lesion on the ventricular side of the prosthesis this represent retained chordae tendon ER. Severe left atrial enlargement Cardio on board Plan for nuclear stress test tomorrow to rule out progressive coronary artery disease Continue peritoneal dialysis for fluid management Continue spironolactone Will monitor closely for sign of fluid overload NPO after midnight for nuclear stress test S/P MVR (mitral valve replacement) S/P AVR (aortic valve replacement) ECHO showed bioprosthetic mitral valve prosthesis is present with a highly mobile echodense lesion on the ventricular side of the prosthesis this represent retained chordae tendon ER. Severe left atrial enlargement Stable ESRD on PD Nephrology on board a Continue standard PD Monitor closely for volume overload Elevated troponin Possible related to ESRD Troponin peak to 1.95 EKG showed no ischemic changes Denies any chest pain Troponin trending down to 1.3 continue aspirin CAD s/p CABG Denies any chest pain Metoprolol was discontinued due to low BP Continue aspirin Elevated Lactic acid Mostly due to ESRD Afebrile and no leukocytosis Lactic acid 2.8 on admission to 1.9 Will hold on to start abx Continue monitor closely DM type 2 Recent Hba1c 5.4 (ESRD on PD mostly not accurate) Continue novolog sliding scale On Lantus 45 units home dose Continue inpatient Lantus 10mg BID dose Monitor BS Anemia Hgb 9.5 stable DVT prophylaxis on SCDs due to thrombocytopenia Full code Disposition Continue monitor in telemetry Admission and Anticipated Discharge Date Admission Date: April 30, 2020 Subjective Pt was seen and examined Sitting in bed with no distress Pt said that breathing is a little better Pt said that he gets tired easily with exertion Denies any chest pain, palpitation, dizziness and fever Physical Exam Physical Exam: General- No acute distress Head- atraumatic Eyes- PERRL, EOMI, ENT- oropharynx clear Neck- supple, no JVD Lungs- clear to auscultation Heart- regular rhythm, +systolic murmur Abdomen- normal bowel sounds, soft, nontender Extremities- no calf tenderness Neuro- alert, oriented x 3; PERRL, EOMI; no facial palsy; no dysarthria Skin- warm & dry Results & Data Results & Data ([facility]) Vital Signs (Past 12 Hours) Vital Signs Temp Pulse Pulse Resp BP Pulse Ox 05/02/20 15:04 36.5 C 64 20 132/66 95 05/02/20 11:41 36.4 C L 64 18 111/43 L 98 05/02/20 08:57 36.5 C 60 18 05/02/20 08:00 93 H 05/02/20 07:42 36.5 C 60 18 115/68 100 05/02/20 03:22 36.5 C 68 16 128/32 L 95
[2020-05-02] MEDS: ASPIRIN 81 MG ECTAB PO SCH (20:30)
[2020-05-03] MEDS: LEVOTHYROXINE SODIUM 100 MCG TABLET PO SCH (05:44)
[2020-05-03] MEDS: MIDODRINE HCL 2.5 MG TAB PO SCH ×2 (05:44→13:32)
[2020-05-03 07:15] LABS: BUN Creatinine Ratio 7.5 (10-20); Calcium 7.6 mg/dl (8.5-10.1); Creatinine Clr Calc Pharmacy 8.1 ml/min; Est GFR (African American) 5.5; Est GFR (Non-African American) 4.7
[2020-05-03] MEDS: INSULIN ASPART 100 UNITS/ML 3 ML PEN SC SCH ×2 (08:16→15:03)
[2020-05-03] MEDS: FERROUS SULFATE 325 MG TAB PO SCH (08:17)
[2020-05-03] MEDS: FOLIC ACID 1 MG TAB PO SCH (08:17)
[2020-05-03] MEDS: predniSONE 5 MG TAB PO SCH (08:17)
[2020-05-03] MEDS: SPIRONOLACTONE 12.5 MG TAB PO SCH (08:18)
[2020-05-03] MEDS: INSULIN GLARGINE SOLOSTAR 100 UNITS/ML 3 ML PEN SC SCH (08:18)
[2020-05-03] MEDS: METOPROLOL SUCC 50MG EXT REL TAB PO SCH (08:18)
[2020-05-03] MEDS: PANTOprazole 40 MG TAB PO SCH (08:18)
[2020-05-03] MEDS ORDERED: REGADENOSON 0.4 MG/5 ML SYR IV ONE (10:25)
--- NOTE | 2020-05-03 11:06 | Nephrology Progress Note ---
Date of Service May 03, 2020 Assessment & Plan (1) ESRD (end stage renal disease) on dialysis: Patient on peritoneal dialysis but also has both a tunneled hemo-dialysis catheter as well as an AV fistula which may be mature. His volume status currently is acceptable as are chemistries. We are unable to replicate his outpatient prescription since we do not have icodextran on formulary; should not be needed for the moment however; continue PD with longer tx time in house than home 14 hrs on cycler with 6 x 2.8L exchanges all 2.5%; no LBF -dialysis nurse to check AVF -daily bmp umm with medication changes -cont FR 1.2L daily -cont sevelamer current dose (2) Anemia of chronic disease: On p.o. iron which is somewhat atypical for dialysis patients. Continue same; monitor hemoglobin at least every other day. Hemoglobin 9.5 yesterday. We will give Procrit 10,000 units subcu today (3) Acute on chronic combined systolic and diastolic CHF (congestive heart failure): cardiology not concerned at this time for active ischemia though he is for DSE for further eval; lower EF may be due in part to pacing (see their note); medications being optimized; some lability in bp noted but no sx. -We will follow-up results of the stress test today (4) Fatigue: May be explained by worsened ejection fraction; would however rule out bacteremia. Not overtly septic and not currently on antibiotics nor are these indicated. Doubt a role for anemia here. Immunocompromised state noted. Follow-up LORA Crocker blood cultures -low threshold to remove TDC if indicated; discussed need to remove tunneled dialysis catheter. Patient prefers to remove it outpatient after discussing with Dr. Acevedo Admission and Anticipated Discharge Date Admission Date: April 30, 2020 Subjective Patient tolerated PD well last night. Net UF was 2.2 L. Blood pressure is running low. He denies any chest pain or shortness of breath. He is planned for a dobutamine stress test this morning. Review of Systems Review of Systems: All systems reviewed & are unremarkable except as noted in HPI & below Physical Exam Physical Exam: General exam: Appears comfortable, no acute distress HEENT: Pupils are equal and reactive to light Neck: No JVD, neck is supple trachea is midline Respiratory system: Clear breath sounds bilaterally. Gastrointestinal: Abdomen is soft, non distended, non tender, bowel sounds are present CVS: Regular rate and rhythm. No murmurs, rubs or gallops Musculoskeletal: No joint or muscle tenderness Extremities: Non tender, trace edema, peripheral pulses are present Neuro: Oriented, no tremors, no focal neurological deficits Skin: No rashes Access: PD catheter with clean exit site, right IJ PermCath and right upper arm AV fistula with good bruit Results & Data ([facility]) Vital Signs (Past 12 Hours) Vital Signs Temp Pulse Pulse Resp BP Pulse Ox 05/03/20 08:00 71 05/03/20 06:57 36.7 C 65 19 118/43 L 99 05/03/20 02:45 36.4 C L 60 16 119/52 L 99 05/02/20 23:47 65 Laboratory Results 05/03/20 06:20
[2020-05-03] MEDS ORDERED: EPOETIN ALFA 20,000 UNITS/ML VIAL SQ ONE (11:30)
--- NOTE | 2020-05-03 14:57 | Hospitalist Progress Note ---
Date of Service May 03, 2020 Assessment & Plan (1) Hypotension: Pt was send to [facility] after her nurse found her BP was low He had an echo at [facility] that showed decreased systolic function with new EF 30 %. Pt was transferred [facility] BP has been running low for the past week as per patient Metoprolol was d/c due to low BP outpatient Consider to resume outpatient dose of Midodrine 5mg TID BP stable Chronic combined systolic and diastolic CHF (congestive heart failure) Echo at [facility] showed decreased systolic function with new EF 30 %. CXR showed no evidence for pulmonary edema. Possible small right pleural effusion. Repeat echo showed severe reduced LV systolic function with ejection fraction 20 to 25% with dyskinetic apical motion secondary to RV pacing along with moderate global hypokinesis. bioprosthetic mitral valve prosthesis is present with a highly mobile echodense lesion on the ventricular side of the prosthesis this represent retained chordae tendon ER. Severe left atrial enlargement Cardio on board Plan for nuclear stress test tomorrow to rule out progressive coronary artery disease Continue peritoneal dialysis for fluid management Case discussed with Dr. Win recommended to continue metoprolol succ 50mg daily and spironolactone 12.5 mg on discharge S/P nuclear stress test showed abnormal Lexiscan nuclear stress test positive for scar without significant ischemic burden. Severely reduced LV systolic function with a calculated EF of 29%. Ok to discharge from cardiology standpoint Follow up with cardiology outpatient in 1 month S/P MVR (mitral valve replacement) S/P AVR (aortic valve replacement) ECHO showed bioprosthetic mitral valve prosthesis is present with a highly mobile echodense lesion on the ventricular side of the prosthesis this represent retained chordae tendon ER. Severe left atrial enlargement Stable ESRD on PD Nephrology on board a Continue standard PD Monitor closely for volume overload Ok from nephrology standpoint to discharge home Follow up with nephrology Dr. Acevedo Elevated troponin Due to Type 2 demand ischemia related hypotension and ESRD Troponin peak to 1.95 EKG showed no ischemic changes Denies any chest pain Troponin trending down to 1.3 Nuclear stress test showed abnormal Lexiscan nuclear stress test positive for scar without significant ischemic burden. Severely reduced LV systolic function with a calculated EF of 29%. OK from cardiology standpoint to discharge home continue aspirin and metoprolol CAD s/p CABG Denies any chest pain Metoprolol was discontinued due to low BP Continue aspirin and metoprolol Elevated Lactic acid Mostly due to ESRD Afebrile and no leukocytosis Lactic acid 2.8 on admission to 1.9 Continue to hold the use of abx Continue monitor closely DM type 2 Recent Hba1c 5.4 (ESRD on PD mostly not accurate) Continue novolog sliding scale On Lantus 45 units home dose Continue inpatient Lantus 10mg BID dose Monitor BS Anemia Hgb 9.5 stable Continue procrit as per nephrology DVT prophylaxis on SCDs due to thrombocytopenia Full code Disposition Discharge home today Follow up with cardiology Dr. Luong Admission and Anticipated Discharge Date Admission Date: April 30, 2020 Subjective Pt was seen and examined Sitting in chair with no distress with present Pt just finished eating his meals He said that he feels OK He said that the stonemason already told him that his nuclear stress test negative for acute ischemic Pt said that he is ready to go home today Denies any chest pain, palpitation, dizziness and SOB Physical Exam Physical Exam: General- No acute distress Head- atraumatic Eyes- PERRL, EOMI, ENT- oropharynx clear Neck- supple, no JVD Lungs- clear to auscultation Heart- regular rhythm, +systolic murmur Abdomen- normal bowel sounds, soft, nontender Extremities- no calf tenderness Neuro- alert, oriented x 3; PERRL, EOMI; no facial palsy; no dysarthria Skin- warm & dry Results & Data Results & Data ([facility]) Vital Signs (Past 12 Hours) Vital Signs Temp Pulse Pulse Resp BP Pulse Ox 05/03/20 08:00 71 05/03/20 06:57 36.7 C 65 19 118/43 L 99
--- NOTE | 2020-05-03 15:21 | Myocardial Perfusion Study ---
Date of Service May 03, 2020 Myocardial Perfusion Study Blk Myocardial Perfusion Study Report [place] Act 112: Negative Procedure: 1. Myocardial perfusion study performed in multiple views/images 2. Lexiscan pharmacologic stress ECG Indications: 1. Decreased LV systolic function on echocardiogram Ordering physician: Quirino Procedural details: For the stress portion of the study, Lexiscan 0.4 mg was intravenously administered followed by a saline flush. This was followed by 30.8 mCi of technetium 99m Cardiolite, injected at 1200 on 05/03/20. 30 minutes following the injection, imaging of the heart was performed in multiple projections. For the rest portion of the study, 9.6 mCi technetium 99m Cardiolite was injected intravenously at 1005 on 05/03. 1 hour following the injection, imaging of the heart was performed in the same projections. Lexiscan stress ECG: Negative conduction with underlying left bundle branch block morphology Resting ECG demonstrated: V paced rhythm Maximum heart rate: 90 bpm Maximal, age-predicted heart rate: 61 % Resting blood pressure: 113/43 mmHg Maximum blood pressure: 113/[address] changes: None Arrhythmia: None Symptoms: Shortness of breath Findings: Rotating raw imaging demonstrated no significant lung uptake. There is no significant motion artifact. Heart size appeared [enlarged]. Myocardial perfusion demonstrated there is decreased tracer uptake in the anterior, inferior, inferior septal and apical hickey on rest unchanged with stress.. Ejection fraction: 29% Wall motion: Severe hypokinesis of the above wall segments No significant transient ischemic dilation. Impression: 1. Abnormal Lexiscan nuclear stress test positive for scar without significant ischemic burden. Severely reduced LV systolic function with a calculated EF of 29%.
--- NOTE | 2020-05-03 15:25 | Cardiology Progress Note ---
Date of Service May 03, 2020 Assessment & Plan (1) Hypotension: (2) History of complete heart block: (3) Paroxysmal atrial fibrillation: (4) S/P MVR (mitral valve replacement): (5) CAD (coronary artery disease): (6) S/P AVR (aortic valve replacement): (7) Restrictive lung disease: (8) Acute upper GI bleeding: (9) Anemia of chronic disease: (10) ESRD (end stage renal disease) on dialysis: Echocardiogram reviewed shows a precipitous drop of his LV systolic function. Pacemaker interrogation revealed a appropriately functioning by V device with greater than 90% pacing. Nuclear stress test was negative for ischemia His evidence-based beta-kati has been resumed and he is pacing nearly 100% of the time on monitor. Continue spironolactone. No role for Corlanor or Entresto at this time given response to beta-blockade. My suspicion is that his symptoms are due to his renal impairment. No further cardiac testing or intervention indicated at this time. Continue current medical regimen. Okay to discharge from a cardiac standpoint. My office will call to arrange follow-up with Fran Ennis in approximately 1 month. Subjective Patient seen and examined, chart reviewed. States he feels well status post stress test. Denies chest pain or shortness of breath. Notes that energy levels have significantly improved since admission particularly after having an increased fluid removed with peritoneal dialysis last p.m. Patient is anxious for discharge. Telemetry reviewed: Ventricularly paced rhythm Review of Systems Review of Systems: All systems reviewed & are unremarkable except as noted in HPI & below Physical Exam Physical Exam: General: Awake, alert and oriented x 3. No acute distress. HEENT: Normocephalic, atraumatic. Pupils equal, round and reactive to light and accommodation. Extraocular muscles are intact. Anicteric sclera. Moist mucous membranes. Neck: No JVD. No bruit. Cardiovascular: Regular. Positive S-4. Normal S-1 and S-2. No S-3. 3/6 mid to late systolic ejection murmur, greatest at the right sternal border, second intercostal space with radiation to the bilateral carotids. No rubs. Pulmonary: Clear to auscultation bilaterally. No rales, rhonchi, or wheezing. Abdomen: Bowel sounds x 4, soft. No rebound, guarding or tenderness. No organomegaly. Extremities: No clubbing, cyanosis or edema. +2 pedal pulses bilaterally. Skin: Warm and dry. Results & Data Vital Signs (Past 12 Hours) Vital Signs Temp Pulse Pulse Resp BP Pulse Ox 05/03/20 13:07 36.5 C 68 18 132/60 96 05/03/20 08:00 71 05/03/20 06:57 36.7 C 65 19 118/43 L 99 (1) CAD (coronary artery disease) Coronary Disease-Associated Artery/Lesion type: [place] artery [place] vs. transplanted heart: ramona heart Associated angina: without angina Qualified Code(s): I25.10 - Atherosclerotic heart disease of ramona coronary artery without angina pectoris
--- NOTE | 2020-05-04 08:49 | Discharge Summary ---
Date of Service May 03, 2020 Admission HPI Per Admitting Provider History obtained from patient and records. Medical history significant for chronic systolic heart failure secondary to ischemic cardiomyopathy (EF 30, TTE 2019), CAD status post CABG, PVD, SSS sp PPM not on Coumadin secondary to recurrent symptomatic anemia/GI bleed as per records, history bioprosthetic MVR/AVR, hx bioprosthetic MV echodensity on 2019 TTE/KWESI, hypertension, hyperlipidemia/statin intolerance, DM 2 insulin requiring, ESRD om PD, chronic anemia (baseline hemoglobin of 8), hypothyroidism, CLARA/restrictive lung disease/pulmonary hypertension as per records, prostate cancer status post radiation status post Casodex Rx, history of hypercalcemia/mediastinal lymphadenopathy/possible sarcoidosis on chronic steroid Rx, chronic thrombocytopenia, past tobacco abuse. Patient found to have prostatic mitral valve obstruction on outpatient TTE last July 2019. KWESI showed no mitral stenosis. 1.3 cm x 0.5 cm mobile echodensity adjacent to the ventricular aspect of prostatic mitral valve (Thrombus versus retained ruptured chordae). Observation recommended as per outpatient Cardiology note. Last confinement August 2019 for decompensated heart failure, acute gout. ESRD. Hemodialysis initiated during confinement. Patient seen at PCPs office 2 months ago for alternating left knee and right pain, soreness and stiffness, followed by leg heaviness and generalized weakness complaints. Steroid taper initiated by PCP Patient's blood pressure has been kind of low on home checks by peritoneal dialysis nurse since last month. 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 The last week patient noted generalized weakness without chest pain, cough, S OB. No fever, no chills, no headache, no abdominal pain. Blood pressure could not be obtained by dialysis nurse at patient's home today. Patient sent to [facility] Emergency Room for evaluation. BP 107/73 at the ER. Pertinent labs : Troponin I 1.62 Lactic acid of 2.4. CRP of 5.22 Blood cultures drawn at the ER. 2D echo done at the ER showed EF 30%, LV wall hypokinesis, large calcified vegetation on the bioprosthetic mitral valve as per report. Patient transferred to [facility] for further evaluation by patient's specialists. 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 Admission Exam Per Admitting Provider GENERAL: Comfortable, slightly anxious, no respiratory distress SKIN: Pallor, warm HEENT: Alopecia, pale palpebral conjunctivae, no ptosis, dry buccal mucosa NECK : Supple, no tenderness CHEST : Decreased breath sounds, no tenderness HEART : RRR, systolic murmur ABDOMEN: Some distention, nontender, PD port in place EXTREMITIES : Minimal LE swelling, no LE tenderness, no other conspicuous deformities noted NEUROLOGIC : Coherent, no facial asymmetry, no other gross focality Principal Diagnosis Hypotension: Chronic combined systolic and diastolic CHF (congestive heart failure) S/P MVR (mitral valve replacement) S/P AVR (aortic valve replacement) ESRD on PD Elevated troponin CAD s/p CABG Elevated Lactic acid DM type 2 Anemia Discharge Exam General- No acute distress Head- atraumatic Eyes- PERRL, EOMI, ENT- oropharynx clear Neck- supple, no JVD Lungs- clear to auscultation Heart- regular rhythm, +systolic murmur Abdomen- normal bowel sounds, soft, nontender Extremities- no calf tenderness Neuro- alert, oriented x 3; PERRL, EOMI; no facial palsy; no dysarthria Skin- warm & dry Discharge Data Allergies Allergy/AdvReac Type Severity Reaction Status Date / Time atorvastatin Allergy Mild Muscle Pain Verified 04/30/20 23:40 Penicillins Allergy Mild rash Verified 04/30/20 23:40 furosemide AdvReac Severe kidney Verified 04/30/20 23:40 failure ropinirole [From Requip] AdvReac Intermediate psych Verified 04/30/20 23:40 complications [id number] Reductase AdvReac Intermediate Muscle Pain Verified 04/30/20 23:40 Inhibitor Consultations 05/01/20 00:49 Consult Nephrology Routine 05/01/20 01:08 Consult Cardiology Routine Ordered Studies XR chest 1V portable CLINICAL HISTORY: low bp COMPARISON STUDY: Chest radiograph February 28, 2020. FINDINGS: Left subclavian biventricular pacer, right internal jugular dual lumen catheter and median sternotomy wires are noted. There is moderate cardiac without evidence for pulmonary edema. There is minimal right basilar opacity. There is a possible small right pleural effusion. Linear left basilar opacity favors atelectasis. IMPRESSION: 1. No evidence for pulmonary edema. 2. Linear bibasilar opacities suggestive of atelectasis. 3. Possible small right pleural effusion. ACT 112: Negative or not required by law. Electronically signed by: Toro Hill M.D. 05/01/2020 8:56 AM Dictated: 05/01/20854 Transcribed: 05/01/20854 Myocardial Perfusion Study Blk Myocardial Perfusion Study Report PA Act 112: Negative Procedure: 1. Myocardial perfusion study performed in multiple views/images 2. Lexiscan pharmacologic stress ECG Indications: 1. Decreased LV systolic function on echocardiogram Ordering physician: Quirino Procedural details: For the stress portion of the study, Lexiscan 0.4 mg was intravenously admi nistered followed by a saline flush. This was followed by 30.8 mCi of technetium 99m Cardiolite, injected at 1200 on 05/03/20. 30 minutes following the injection, imaging of the heart was performed in multiple projections. For the rest portion of the study, 9.6 mCi technetium 99m Cardiolite was injected intravenously at 1005 on 05/03. 1 hour following the injection, imaging of the heart was performed in the same projections. Lexiscan stress ECG: Negative conduction with underlying left bundle branch block morphology Resting ECG demonstrated: V paced rhythm Maximum heart rate: 90 bpm Maximal, age-predicted heart rate: 61 % Resting blood pressure: 113/43 mmHg Maximum blood pressure: 113/[address] changes: None Arrhythmia: None Symptoms: Shortness of breath Findings: Rotating raw imaging demonstrated no significant lung uptake. There is no significant motion artifact. Heart size appeared [enlarged]. Myocardial perfusion demonstrated there is decreased tracer uptake in the anterior, inferior, inferior septal and apical hickey on rest unchanged with stress.. Ejection fraction: 29% Wall motion: Severe hypokinesis of the above wall segments No significant transient ischemic dilation. Impression: 1. Abnormal Lexiscan nuclear stress test positive for scar without significant ischemic burden. Severely reduced LV systolic function with a calculated EF of 29%. Signed By:<Electronically signed by Arsalan Win DO>{f rep sign date/time1] Created/Dictated: 05/03/201516 Transcribed: 05/03/201516 Hospital Course (1) Hypotension: Pt was send to [facility] after her nurse found her BP was low He had an echo at [facility] that showed decreased systolic function with new EF 30 %. Pt was transferred to [facility] [address] to eval BP has been running low for the past week as per patient Metoprolol was d/c due to low BP outpatient Consider to resume outpatient dose of Midodrine 5mg TID BP stable Chronic combined systolic and diastolic CHF (congestive heart failure) Echo at [facility] showed decreased systolic function with new EF 30 %. CXR showed no evidence for pulmonary edema. Possible small right pleural effusion. Repeat echo showed severe reduced LV systolic function with ejection fraction 20 to 25% with dyskinetic apical motion secondary to RV pacing along with moderate global hypokinesis. bioprosthetic mitral valve prosthesis is present with a highly mobile echodense lesion on the ventricular side of the prosthesis this represent retained chordae tendon ER. Severe left atrial enlargement Cardio on board Plan for nuclear stress test tomorrow to rule out progressive coronary artery disease Continue peritoneal dialysis for fluid management Case discussed with Dr. Win recommended to continue metoprolol succ 50mg daily and spironolactone 12.5 mg on discharge S/P nuclear stress test showed abnormal Lexiscan nuclear stress test positive for scar without significant ischemic burden. Severely reduced LV systolic function with a calculated EF of 29%. Ok to discharge from cardiology standpoint Follow up with cardiology outpatient in 1 month S/P MVR (mitral valve replacement) S/P AVR (aortic valve replacement) ECHO showed bioprosthetic mitral valve prosthesis is present with a highly mobile echodense lesion on the ventricular side of the prosthesis this represent retained chordae tendon ER. Severe left atrial enlargement Stable ESRD on PD Nephrology on board a Continue standard PD Monitor closely for volume overload Ok from nephrology standpoint to discharge home Follow up with nephrology Dr. Acevedo Elevated troponin Due to Type 2 demand ischemia related hypotension and ESRD Troponin peak to 1.95 EKG showed no ischemic changes Denies any chest pain Troponin trending down to 1.3 Nuclear stress test showed abnormal Lexiscan nuclear stress test positive for scar without significant ischemic burden. Severely reduced LV systolic function with a calculated EF of 29%. OK from cardiology standpoint to discharge home continue aspirin and metoprolol CAD s/p CABG Denies any chest pain Metoprolol was discontinued due to low BP Continue aspirin and metoprolol Elevated Lactic acid Mostly due to ESRD Afebrile and no leukocytosis Lactic acid 2.8 on admission to 1.9 Continue to hold the use of abx Continue monitor closely DM type 2 Recent Hba1c 5.4 (ESRD on PD mostly not accurate) Continue novolog sliding scale On Lantus 45 units home dose Continue inpatient Lantus 10mg BID dose Monitor BS Anemia Hgb 9.5 stable Continue procrit as per nephrology DVT prophylaxis on SCDs due to thrombocytopenia Full code Disposition Discharge home today Follow up with cardiology Dr. Luong Total Time Total Time Spent Total Time Spent (In Minutes): 35 minutes Total Time Includes: Examination of the Patient, Discharge Planning, Medication Reconciliation, Communication With Other Providers and Other Discharge Plan Discharge Items Patient Disposition: Home - Self-Care Reason For Visit: HYPOTENSION Discharge Diagnosis: Hypotension (Low blood pressure) Chronic combined systolic and diastolic CHF (congestive heart failure) S/P MVR (mitral valve replacement) S/P AVR (aortic valve replacement) End Stage Renal Disease Elevated troponin Elevated Lactic acid Diabetes type 2 Anemia Activity: Resume your previous activity Non-emergency contact: Primary Care Provider, Soda Column Operator and Electrical Maintenance Engineer Call non-emergency contact if: you have any medication questions and your temperature is above 101 Follow-up/Referrals: Bhumi Fallon DO [Primary Care Provider] - Diet: Carb Consistent or DM2, Dialysis Renal and Heart Healthy Addtl Attending Provider Instructions: Follow up with your primary care provider Vasyl on 05/11 @ 2:40 PM Follow up with cardiology ( office will call you for the appointment) Follow up with nephrology Dr. Acevedo Continue your peritoneal dialysis daily Fall precaution Continue monitor your blood pressure Metoprolol restarted by cardiology team Pending Studies at Discharge: No Stand-Alone Forms: [facility], Smoking Cessation Medications and DC Order Prescriptions: New metoprolol succinate 50 mg Tablet Extended Release 24 Hr 50 mg PO QAM Qty: 30 RF: 0 spironolactone 25 mg Tablet 12.5 mg PO DAILY Qty: 30 RF: 0 Continued pantoprazole 40 mg tablet,delayed release (DR/EC) 40 mg PO DAILY RF: 0 melatonin 3 mg Tablet 6 mg PO HS PRN (Reason: Sleep) RF: 0 ferrous sulfate 325 mg (65 mg iron) Tablet 325 mg PO DAILY RF: 0 Mircera 30 mcg/0.3 mL Syringe 0 mcg subcut DIRECTED PRN (Reason: prn) RF: 0 midodrine 5 mg tablet 5 mg PO TID RF: 0 prednisone 5 mg tablet 5 mg PO DAILY RF: 0 Lantus U-100 Insulin 100 unit/mL Solution 45 unit SUBCUT HS RF: 0 aspirin 81 mg Tablet,Delayed Release (Dr/Ec) 81 mg PO HS RF: 0 levothyroxine 100 mcg Tablet 100 mcg PO DAILY RF: 0 folic acid 1 mg Tablet 5 mg PO DAILY RF: 0 Humalog U-100 Insulin 100 unit/mL Cartridge 1 sliding scale dose SUBCUT UD RF: 0 alfuzosin [Uroxatral] 10 mg tablet extended release 24 hr 1 tab PO PM RF: 0 Discharge Orders: Discharge Order (Routine); Ordered 05/03/20 Ordered By: Gianluca Sharp Admission Data Admit Date/Time: 04/30/20 23:17 Attending Provider: Gianluca Sharp Admit Provider: Fabio Vargas Primary Care Provider: Bhumi Fallon Other Providers: Vipin Acevedo ; José Luong Other Interventions: Discharge Summary Assessment (RN) Last Done: 05/03/20 16:24 DC Date/Time DO NOT enter until pt leaves facility: 05/03/20 16:55
== END 2020-05-03 16:55 | disposition home or self-care (01) | DRG 314 ==
LOC: 2S 23:17

== ENCOUNTER 2020-05-14 11:48 | Inpatient (IN) ==
--- NOTE | 2020-05-14 13:26 | XRay Report ---
XR chest 1V portable CLINICAL HISTORY: weakness COMPARISON STUDY: 05/01/2020 FINDINGS: The heart remains enlarged. There are postsurgical changes of a midline sternotomy. There i s a left subclavian dual-chamber central venous pacemaker. There is a right internal jugular dual-lum en central venous catheter. There is no lobar consolidation. There is stable blunting of the right la teral costophrenic angle. IMPRESSION: 1. Cardiomegaly. No evidence for overt failure 2. No evidence of focal pulmonary consolidation 3. Persistent blunting of the right lateral costophrenic angle, scarring versus small pleural effusio n ACT 112: Negative or not required by law. Electronically signed by: Zoran Heard M.D. 05/14/2020 1:25 PM
[2020-05-14 13:34] LABS: Basophils # (auto) 0.01 K/uL (0-0.2); Basophils % (auto) 0.1 %; Eosinophils # (auto) 0.05 K/uL (0-0.5); Eosinophils % (auto) 0.4 %; Hematocrit (blood only) 35.9 % (42-52); Hemoglobin 11.6 g/dL (14.0-18.0); Immature Granulocytes # (auto) 0.04 K/uL (0.00-0.02); Immature Granulocytes % (auto) 0.3 %; Lymphocytes # (auto) 1.67 K/uL (1.2-3.4); Lymphocytes % (auto) 13.4 %; Mean Corpuscular Hemoglobin 32.8 pg (25-34); Mean Corpuscular Hgb Conc 32.3 g/dL (32-36); Mean Corpuscular Volume 101.4 fL (80-100); Mean Platelet Volume 11.1 fL (7.4-10.4); Monocytes # (auto) 0.88 K/uL (0.11-0.59); Monocytes % (auto) 7.1 %; Neutrophils # (auto) 9.77 K/uL (1.4-6.5); Neutrophils % (auto) 78.7 %; Platelet Count 110 K/uL (130-400); RDW Coefficient of Variation 14.9 % (11.5-14.5); RDW Standard Deviation 54.9 fL (36.4-46.3); Red Blood Count 3.54 M/uL (4.7-6.1); White Blood Count 12.42 K/uL (4.8-10.8)
--- NOTE | 2020-05-14 13:49 | Emergency Department Note ---
History of Present Illness General Chief complaint: Weakness Stated complaint: WEAKNESS,DIZZY,IRREGULAR HEART RATE Time Seen by Provider: 05/14/20 12:32 Source: patient, family and old records reviewed Mode of arrival: ambulatory Limitations: no limitations History of Present Illness Provider complaint: Generalized weakness, fatigue This patient is a 74-year-old male who presents to the emergency department with complaints of generalized weakness and fatigue. Approximately 2 weeks ago the patient was evaluated in [facility] for similar symptoms. He has a very complicated past medical history including heart failure, atrial fibrillation, end-stage renal disease on dialysis and diabetes. The patient does have a pacemaker in place and has had 2 separate CABG procedures. Patient does also have a history of GI bleed when he was on Coumadin, for which he no longer takes. Patient states he has not been able to get up out of his chair much more than to use the bathroom. He does not necessarily feel chest pain or worsening shortness of breath but does feel winded with any exertion. He states his stools are dark but they usually are. He takes an iron supplement daily. Home Medications Home Medications Medication Instructions Recorded Confirmed Type Humalog U-100 Insulin 1 sliding scale dose SUBCUT UD 12/25/18 05/14/20 History Lantus U-100 Insulin 45 unit SUBCUT HS 12/25/18 05/14/20 History alfuzosin [Uroxatral] 1 tab PO PM 12/25/18 05/14/20 History aspirin 81 mg PO HS 12/25/18 05/14/20 History folic acid 5 mg PO DAILY 12/25/18 05/14/20 History levothyroxine 100 mcg PO DAILY 12/25/18 05/14/20 History pantoprazole 40 mg PO DAILY 08/06/19 05/14/20 History melatonin 6 mg PO HS PRN 04/30/20 05/14/20 History Mircera 0 mcg SUBCUT DIRECTED PRN 05/01/20 05/14/20 History ferrous sulfate 325 mg PO DAILY 05/01/20 05/14/20 History midodrine 5 mg PO TID 05/01/20 05/14/20 History prednisone 5 mg PO DAILY 05/01/20 05/14/20 History metoprolol succinate 50 mg PO QAM #30 tab 05/03/20 05/14/20 Rx spironolactone 12.5 mg PO DAILY #30 tab 05/03/20 05/14/20 Rx calcium acetate(phosphat bind) 667 mg PO TID 05/14/20 05/14/20 History Allergies Allergy/AdvReac Type Severity Reaction Status Date / Time atorvastatin Allergy Mild Muscle Pain Verified 05/14/20 12:38 Penicillins Allergy Mild rash Verified 05/14/20 12:38 furosemide AdvReac Severe kidney Verified 05/14/20 12:38 failure ropinirole [From Requip] AdvReac Intermediate psych Verified 05/14/20 12:38 complications Vlyxfrx-Aer-Wpb Reductase AdvReac Intermediate Muscle Pain Verified 05/14/20 12:38 Inhibitor Past Med/Surg History Medical History (Updated 05/15/20 @ 15:27 by Ebony Cruz MD) Anemia of chronic disease Anxiety Aortic insufficiency (Chronic) BPH (benign prostatic hyperplasia) (Chronic) CAD (coronary artery disease) (Chronic) "1999 - CABG x 1 06/2014 - ACS, cath at the time showed patent graft, non obstructive disease to LAD and circumflex, [place] RCA 100% occluded " Chronic back pain Chronic hypotension Depression (Inactive) Diverticulosis (Chronic) DM type 2 (diabetes mellitus, type 2) (Chronic) iddm Dyslipidemia (Chronic) ESRD (end stage renal disease) on dialysis (Acute) Gin's thyroiditis (Chronic) History of complete heart block (Chronic) s/p pacemaker History of pacemaker (Chronic) March 2016, [facility]. HTN (hypertension) (Chronic) Hypothyroidism Ischemic cardiomyopathy Lung nodule 3mm - benign Moderate to severe pulmonary hypertension (Chronic) hx On home oxygen therapy 2lpm via n/c CLARA (obstructive sleep apnea) (Chronic) hx. Osteoarthritis (Chronic) Pacemaker [employer] device. Placed March 2016, follows with Dr. Luong, last checked ~1.5 months ago. Paroxysmal atrial fibrillation (Chronic) infrequently Prostate cancer (Chronic 01/14/18) "History of benign prostatic hypertrophy Rising PSA, pretreatment PSA 5.7 corrected due to finasteride Status post ultrasound-guided biopsies January 14, 2018 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 (Recommendation for 6-12 months) Gold fiducial markers and Space OAR were placed. Status post completion of radiation therapy April 25, 2018. He received 7000 cGy" On 02/06/18 11:33 Tricia Soto wrote "History of benign prostatic hypertrophy Rising PSA, pretreatment PSA 5.7 corrected due to finasteride Status post ultrasound-guided biopsies January 14, 2018 Adenocarcinoma of the prostate [place] 4+3 and 4+4 Prostate volume 74.6 Prostate density 0.076 " Skin cancer Systolic and diastolic CHF, chronic (Chronic) Surgical History History of bronchoscopy History of colonoscopy History of surgical removal of lesion S/P AVR (aortic valve replacement) (Chronic) 1999, valve & 2016 Bovine Mechanical valve ([facility]) S/P CABG x 1 (Chronic) 1999 & 2016 ([facility]) S/P MVR (mitral valve replacement) (Chronic) Family History Other Hypertension Prostate cancer Social History Smoking Status: Never smoker Cigarettes Per Day: 20 x4 years; Second Hand Exposure: No; Hx Alcohol Use: No Hx Substance Use: No Preferred Language: Spanish Communication Ability: Effective 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 and A total of 10 systems reviewed and were otherwise negative Physical Exam Vital Signs Vital Signs - 24 hr 05/14/20 11:55 05/14/20 12:35 Temperature 36.9 C Temperature Source Oral Pulse Rate 66 Pulse Rhythm Regular Pulse Strength Normal Respiratory Rate 18 Respiratory Effort / Characteristics Non-Labored Spontaneous Respiratory Depth Normal Respiratory Pattern Regular Blood Pressure 104/90 Blood Pressure Mean 94 Blood Pressure Position Sitting Pulse Oximetry 96 96 Oxygen Delivery Method Room Air Room Air Sepsis Recent Fever Within 48 Hours No Sepsis New/Unexplained Change in Mental Status No Sepsis Action Taken by Nursing No Action Required Vital signs reviewed. General:Chronically ill-appearing 74 yo male, in no significant distress. HEENT: No scleral icterus, PERRLA, neck supple. Atraumatic. Cardiovascular: Regular rate and rhythm, systolic ejection murmur. Pulmonary: Clear to auscultation bilaterally, normal work of breathing. Abdomen: Soft, nontender, nondistended, positive bowel sounds. Musculoskeletal: Atraumatic, no peripheral edema. Neurologic: Patient awake alert and oriented x 3 Skin: Warm, dry, no rash Course Administered Medications Alfuzosin HCl (Uroxatral) 10 mg PO PM EZE Stop: 06/13/20 20:59 Last Admin: 05/14/20 20:56 Dose: 10 mg Documented by: [id number] Aspirin (Ecotrin Ectab) 81 mg PO HS EZE Stop: 06/13/20 20:59 Last Admin: 05/14/20 20:56 Dose: 81 mg Documented by: [id number] Calcium Acetate (Phoslo) 667 mg PO TIDM EZE Stop: 06/14/20 07:59 Last Admin: 05/15/20 12:27 Dose: 667 mg Documented by: [id number] Admin: 05/15/20 08:31 Dose: 667 mg Documented by: [id number] Ferrous Sulfate (Feosol) 325 mg PO DAILY EZE Stop: 06/14/20 08:59 Last Admin: 05/15/20 08:30 Dose: 325 mg Documented by: [id number] Folic Acid (Folvite) 5 mg PO DAILY EZE Stop: 06/14/20 08:59 Last Admin: 05/15/20 08:34 Dose: 5 mg Documented by: [id number] Insulin Aspart (Novolog Flexpen) [facility] units [facility] Stop: 06/13/20 20:59 Last Admin: 05/15/20 12:26 Dose: 6 units Documented by: [id number] Cosigned by: [id number] Admin: 05/15/20 08:28 Dose: 5 units Documented by: [id number] Cosigned by: [id number] Admin: 05/14/20 20:56 Dose: 6 units Documented by: [id number] Cosigned by: [id number] Insulin Glargine (Lantus Solostar Pen) 35 units SC [facility] Stop: 06/13/20 20:59 Last Admin: 05/14/20 20:56 Dose: 35 units Documented by: [id number] Cosigned by: [id number] Levothyroxine Sodium (Synthroid) 100 mcg PO DAILYBB EZE Stop: 06/14/20 06:29 Last Admin: 05/15/20 05:53 Dose: 100 mcg Documented by: [id number] Midodrine (Proamatine) 5 mg PO TID@0700,1200,1700 [facility] Stop: 06/14/20 06:59 Last Admin: 05/15/20 12:27 Dose: 5 mg Documented by: [id number] Admin: 05/15/20 08:30 Dose: 5 mg Documented by: [id number] Pantoprazole Sodium (Protonix) 40 mg PO DAILY EZE Stop: 06/14/20 08:59 Last Admin: 05/15/20 08:31 Dose: 40 mg Documented by: [id number] Prednisone (Prednisone) 5 mg PO DAILY EZE Stop: 06/14/20 08:59 Last Admin: 05/15/20 08:30 Dose: 5 mg Documented by: [id number] Discontinued Medications Metoprolol Succinate (Toprol Xl) 50 mg PO QA EZE Stop: 06/14/20 08:59 Last Admin: 05/15/20 08:37 Dose: Not Given Documented by: [id number] Spironolactone (Aldactone) 12.5 mg PO DAILY EZE Stop: 06/14/20 08:59 Last Admin: 05/15/20 08:31 Dose: 12.5 mg Documented by: [id number] Medical Decision Making Differential Diagnosis Differential includes acute coronary syndrome, myocardial infarction, CVA, TIA, anemia, infection, pneumonia, UTI, pyelonephritis, poor nutrition, dehydration, electrolyte disturbance,hypoglycemia. Medical Records Attestation: I reviewed the patient's medical records. Home Medications Current Medication List: was personally reviewed by me Laboratory Data Attestation: I reviewed the patient's lab results. Result diagrams: 05/15/20 05:58 05/15/20 05:58 Lab Results 05/14/20 05/14/20 05/14/20 Range/Units 13:17 13:17 13:17 WBC 12.42 H (4.8-10.8) K/uL RBC 3.54 L (4.7-6.1) M/uL Hgb 11.6 L (14.0-18.0) g/dL Hct 35.9 L (42-52) % MCV 101.4 H (80-100) fL MCH 32.8 (25-34) pg MCHC 32.3 (32-36) g/dL RDW Std Deviation 54.9 H (36.4-46.3) fL RDW Coeff of Imtiaz 14.9 H (11.5-14.5) % Plt Count 110 L (130-400) K/uL MPV 11.1 H (7.4-10.4) fL Immature Gran % (Auto) 0.3 % Neut % (Auto) 78.7 % Lymph % (Auto) 13.4 % Cuming % (Auto) 7.1 % Eos % (Auto) 0.4 % Baso % (Auto) 0.1 % Neut # (Auto) 9.77 H (1.4-6.5) K/uL Lymph # (Auto) 1.67 (1.2-3.4) K/uL Cuming # (Auto) 0.88 H (0.11-0.59) K/uL Eos # (Auto) 0.05 (0-0.5) K/uL Baso # (Auto) 0.01 (0-0.2) K/uL Immature Gran # (Auto) 0.04 H (0.00-0.02) K/uL PT 11.3 (9.0-12.0) Seconds INR 1.1 (0.9-1.1) Sodium 135 L (136-145) mmol/L Potassium 4.2 (3.5-5.1) mmol/L Chloride 98 (98-107) mmol/L Carbon Dioxide 23 (21-32) mmol/L Anion Gap 14.0 H (3-11) BUN 41 H (7-18) mg/dl Creatinine 9.34 H* (0.6-1.4) mg/dl Est Cr Clr Drug Dosing 8.4 ml/min Est GFR ( Amer) 5.8 Est GFR (Non-Af Amer) 5.0 BUN/Creatinine Ratio 4.4 L (10-20) Glucose 180 H (70-99) mg/dl POC Glucose (70-99) mg/dl Calcium 8.5 (8.5-10.1) mg/dl Magnesium 1.9 (1.8-2.4) mg/dl Total Bilirubin 0.4 (0.2-1) mg/dl AST 9 L (15-37) U/L ALT 23 (12-78) U/L Alkaline Phosphatase 170 H (45-117) U/L Troponin I 0.131 H* (0-0.045) ng/ml Total Protein 7.3 (6.4-8.2) gm/dl Albumin 3.0 L (3.4-5.0) gm/dl Globulin 4.3 H (2.5-4.0) gm/dl Albumin/Globulin Ratio 0.7 L (0.9-2) TSH 2.210 (0.300-4.500) uIu/ml 05/14/20 Range/Units 13:19 WBC (4.8-10.8) K/uL RBC (4.7-6.1) M/uL Hgb (14.0-18.0) g/dL Hct (42-52) % MCV (80-100) fL MCH (25-34) pg MCHC (32-36) g/dL RDW Std Deviation (36.4-46.3) fL RDW Coeff of Imtiaz (11.5-14.5) % Plt Count (130-400) K/uL MPV (7.4-10.4) fL Immature Gran % (Auto) % Neut % (Auto) % Lymph % (Auto) % [place]uming % (Auto) % Eos % (Auto) % Baso % (Auto) % Neut # (Auto) (1.4-6.5) K/uL Lymph # (Auto) (1.2-3.4) K/uL Cuming # (Auto) (0.11-0.59) K/uL Eos # (Auto) (0-0.5) K/uL Baso # (Auto) (0-0.2) K/uL Immature Gran # (Auto) (0.00-0.02) K/uL PT (9.0-12.0) Seconds INR (0.9-1.1) Sodium (136-145) mmol/L Potassium (3.5-5.1) mmol/L Chloride (98-107) mmol/L Carbon Dioxide (21-32) mmol/L Anion Gap (3-11) BUN (7-18) mg/dl Creatinine (0.6-1.4) mg/dl Est Cr Clr Drug Dosing ml/min Est GFR ( Amer) Est GFR (Non-Af Amer) BUN/Creatinine Ratio (10-20) Glucose (70-99) mg/dl POC Glucose 190 H (70-99) mg/dl Calcium (8.5-10.1) mg/dl Magnesium (1.8-2.4) mg/dl Total Bilirubin (0.2-1) mg/dl AST (15-37) U/L ALT (12-78) U/L Alkaline Phosphatase (45-117) U/L Troponin I (0-0.045) ng/ml Total Protein (6.4-8.2) gm/dl Albumin (3.4-5.0) gm/dl Globulin (2.5-4.0) gm/dl Albumin/Globulin Ratio (0.9-2) TSH (0.300-4.500) uIu/ml Imaging Data Radiologist's Impression: XR chest 1V portable CLINICAL HISTORY: weakness COMPARISON STUDY: 05/01/2020 FINDINGS: The heart remains enlarged. There are postsurgical changes of a midline sternotomy. There is a left subclavian dual-chamber central venous pacemaker. There is a right internal jugular dual-lumen central venous catheter. There is no lobar consolidation. There is stable blunting of the right lateral costophrenic angle. IMPRESSION: 1. Cardiomegaly. No evidence for overt failure 2. No evidence of focal pulmonary consolidation 3. Persistent blunting of the right lateral costophrenic angle, scarring versus small pleural effusion ACT 112: Negative or not required by law. Electronically signed by: Zoran Heard M.D. 05/14/2020 1:25 PM Dictated: 05/14/20 1324 Transcribed: 05/14/20 1324 ECG Data Attestation: I personally reviewed and interpreted this ECG as follows: Indication: + weakness Rate (beats per minute): 78 Rhythm: + other (V paced) ECG Intervals/blocks: + Prolonged QT (544) ECG ST segments: + Nonspecific ST abnormalities ECG Findings: + PVCs; no PACs Blood Pressure Blood Pressure Findings: Elevated blood pressure Blood Pressure Disposition: further management by hospitalist RENETTA Narrative This patient was evaluated and appeared to be in no significant distress. IV access was obtained and laboratory work was drawn. An order for cardiac monitoring was placed and the patient is noted to be ventricularly paced at 78 bpm. Patient has an excessively complicated past medical history including end- stage renal disease on peritoneal dialysis, CHF, pulmonary hypertension, diabetes. He did have that sudden drop in EF within the last several weeks which the etiology is unclear at this time. Patient's evaluation today reveals a hemoglobin of 11.6, WBC of 12.4, and a slightly elevated troponin of 0.131. The patient carries a chronically elevated troponin at baseline. I am suspicious that the patient's presentation is related to an overall poor prognosis. Given his sudden worsening of generalized weakness and now inability to have any meaningful exertion, the patient will be evaluated by the hospitalist service for further management. He and his are aware of the plan and agree. Impression & Plan Physical deconditioning, Cardiomyopathy, ESRD on peritoneal dialysis Discharge Plan Visit Data *Final* Discharge Date/Time: 05/14/20 18:20 Chief Complaint: Weakness Stated Complaint: WEAKNESS,DIZZY,IRREGULAR HEART RATE ED Provider: Ebony Cruz Discharge Problem: Physical deconditioning, Cardiomyopathy, ESRD on peritoneal dialysis Patient Disposition: Admitted As Inpatient Discharge Instructions Interventions: ED Discharge Assessment Last Done: 05/14/20 18:20 Discharge Problem: Cardiomyopathy Qualifiers: Cardiomyopathy type: other Qualified Code(s): I42.8 - Other cardiomyopathies
[2020-05-14 13:50] LABS: INR 1.1 (0.9-1.1); Prothrombin Time 11.3 Seconds (9.0-12.0)
[2020-05-14 14:04] LABS: Albumin Globulin Ratio 0.7 (0.9-2); BUN Creatinine Ratio 4.4 (10-20); Bilirubin,Total 0.4 mg/dl (0.2-1); Calcium 8.5 mg/dl (8.5-10.1); Creatinine Clr Calc Pharmacy 8.4 ml/min; Est GFR (African American) 5.8; Globulin 4.3 gm/dl (2.5-4.0); Magnesium 1.9 mg/dl (1.8-2.4); Potassium 4.2 mmol/L (3.5-5.1); Thyroid Stimulating Hormone 2.21 uIu/ml (0.300-4.500); Total Protein 7.3 gm/dl (6.4-8.2); Troponin I 0.131 ng/ml (0-0.045)
--- NOTE | 2020-05-14 18:34 | History & Physical Report ---
Date of Service May 14, 2020 Assessment & Plan (1) Generalized weakness: -Admit to telemetry -Patient presenting from home with reports of generalized weakness and difficulty ambulating -Recent admission to [facility] 04/30 through 05/03 for management of hypotension. Patient underwent nuclear stress test that was negative for ischemia. Ultimately at discharge, patient's metoprolol was resumed. Spironolactone was increased to 12.5mg daily. -Patient reports a steady decline since arriving home from the hospital -Suspect patient's symptoms are secondary to his underlying comorbid conditions (ESRD and ischemic cardiomyopathy) -Work-up unremarkable thus far. Patient has had a mild leukocytosis with WBC 12.4K -check urine and blood cultures to rule out infection; no peritoneal signs to suggest peritonitis from PD -Cardiology consult for evaluation of any medication adjustments -PT/OT consult, patient may need short-term placement for rehab (2) ESRD (end stage renal disease) on dialysis: -On PD, no acute issues -Nephrology consult -Continue routine renal medications (3) History of complete heart block: (4) History of pacemaker: -No acute issues, underwent pacemaker interrogation during recent admission (5) Paroxysmal atrial fibrillation: -EKG demonstrates paced rhythm -Not anticoagulated secondary to chronic anemia (6) S/P MVR (mitral valve replacement): (7) S/P AVR (aortic valve replacement): -Status post bioprosthetic aortic and mitral valve replacements -Has known echodense lesion on the bioprosthetic mitral valve, 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 Monitoring for now per cardiology. (8) CAD (coronary artery disease): (9) Ischemic cardiomyopathy: -Appears stable, no reports of chest pain -Elevated troponin 0.131 -chronic elevation recently, likely due to underlying renal disease -Recent echo showed EF 20 to 25% -Continue metoprolol -Volume status acceptable, continue spironolactone (10) Chronic hypotension: -BP currently stable, 123/57 -Continue midodrine (11) Thrombocytopenia: -Chronic, baseline platelet count ~ 100K -No signs of bleeding, monitor CBC (12) DVT prophylaxis: -SCDs due to thrombocytopenia History of Present Illness Chief Complaint: Generalized weakness Primary Care Provider: Bhumi Fallon DO PMH CAD, DM type II, ischemic car myopathy, aortic and mitral replacements, paroxysmal atrial fibrillation, complete heart block status post pacemaker, ESRD on peritoneal dialysis, and other problems listed below who presents to the ED for generalized weakness. Patient was recently noted to [facility] 04/30 to 05/03 for management of hypotension. Patient underwent nuclear stress test that was negative for ischemia. Initially, beta-kati was held however this was resumed at discharge. Spironolactone was also increased to 12.5 mg daily. Patient reports feeling generally weak since arriving home. This is been progressively getting worse. Reports he has much difficulty standing from the chair to ambulate to the bathroom. Patient denies chest pain or shortness of breath. No lightheadedness, dizziness, diaphoresis, syncopal events. Patient is on peritoneal dialysis and reports he has been tolerating this well. No fevers or chills. Denies abdominal pain, nausea, vomiting, diarrhea. Patient continues to make a small amount of urine, denies any dysuria. In the ED, patient is hemodynamically stable. Labs show WBC 12.4K, other labs unremarkable/at patient's baseline. Allergies Allergy/AdvReac Type Severity Reaction Status Date / Time atorvastatin Allergy Mild Muscle Pain Verified 05/14/20 12:38 Penicillins Allergy Mild rash Verified 05/14/20 12:38 furosemide AdvReac Severe kidney Verified 05/14/20 12:38 failure ropinirole [From Requip] AdvReac Intermediate psych Verified 05/14/20 12:38 complications Ijyjvie-Lia-Jfz Reductase AdvReac Intermediate Muscle Pain Verified 05/14/20 12:38 Inhibitor Home Medications Home Medications Medication Instructions Recorded Confirmed Type Humalog U-100 Insulin 1 sliding scale dose SUBCUT UD 12/25/18 05/14/20 History Lantus U-100 Insulin 45 unit SUBCUT HS 12/25/18 05/14/20 History alfuzosin [Uroxatral] 1 tab PO PM 12/25/18 05/14/20 History aspirin 81 mg PO HS 12/25/18 05/14/20 History folic acid 5 mg PO DAILY 12/25/18 05/14/20 History levothyroxine 100 mcg PO DAILY 12/25/18 05/14/20 History pantoprazole 40 mg PO DAILY 08/06/19 05/14/20 History melatonin 6 mg PO HS PRN 04/30/20 05/14/20 History Mircera 0 mcg SUBCUT DIRECTED PRN 05/01/20 05/14/20 History ferrous sulfate 325 mg PO DAILY 05/01/20 05/14/20 History midodrine 5 mg PO TID 05/01/20 05/14/20 History prednisone 5 mg PO DAILY 05/01/20 05/14/20 History metoprolol succinate 50 mg PO QAM #30 tab 05/03/20 05/14/20 Rx spironolactone 12.5 mg PO DAILY #30 tab 05/03/20 05/14/20 Rx calcium acetate(phosphat bind) 667 mg PO TID 05/14/20 05/14/20 History Past Med/Surg History Medical History (Updated 05/14/20 @ 18:48 by ANA Najera) Anemia of chronic disease Anxiety Aortic insufficiency (Chronic) BPH (benign prostatic hyperplasia) (Chronic) CAD (coronary artery disease) (Chronic) "1999 - CABG x 1 06/2014 - ACS, cath at the time showed patent graft, non obstructive disease to LAD and circumflex, [place] RCA 100% occluded " Chronic back pain Chronic hypotension Depression (Inactive) Diverticulosis (Chronic) DM type 2 (diabetes mellitus, type 2) (Chronic) iddm Dyslipidemia (Chronic) ESRD (end stage renal disease) on dialysis (Acute) Gin's thyroiditis (Chronic) History of complete heart block (Chronic) s/p pacemaker History of pacemaker (Chronic) March 2016, [facility]. HTN (hypertension) (Chronic) Hypothyroidism Ischemic cardiomyopathy Lung nodule 3mm - benign Moderate to severe pulmonary hypertension (Chronic) hx On home oxygen therapy 2lpm via n/c CLARA (obstructive sleep apnea) (Chronic) hx. Osteoarthritis (Chronic) Pacemaker [employer] device. Placed March 2016, follows with Dr. Luong, last checked ~1.5 months ago. Paroxysmal atrial fibrillation (Chronic) infrequently Prostate cancer (Chronic 01/14/18) "History of benign prostatic hypertrophy Rising PSA, pretreatment PSA 5.7 corrected due to finasteride Status post ultrasound-guided biopsies January 14, 2018 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 (Recommendation for 6-12 months) Gold fiducial markers and Space OAR were placed. Status post completion of radiation therapy April 25, 2018. 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 Prostate volume 74.6 Prostate density 0.076 " Skin cancer Systolic and diastolic CHF, chronic (Chronic) Surgical History History of bronchoscopy History of colonoscopy History of surgical removal of lesion S/P AVR (aortic valve replacement) (Chronic) 1999, valve & 2016 B[employer]ine Mechanical valve ([facility]) S/P CABG x 1 (Chronic) 1999 & 2016 ([facility]) S/P MVR (mitral valve replacement) (Chronic) Family History Other Hypertension Prostate cancer Social History Smoking Status: Never smoker Cigarettes Per Day: 20 x4 years; Second Hand Exposure: No; Hx Alcohol Use: No Hx Substance Use: No Preferred Language: Macedonian Communication Ability: Effective Teletype Installer Required: No Beliefs That Will Affect Care: None Current Living Situation: Spouse Other Information That Helps Us Care for You: No Feels Safe at Home: Yes Safety Concerns: Feels Safe At This Time Review of Systems Review of Systems: ROS per HPI, all other systems reviewed and negative Physical Exam Constitutional: WD/WN, vitals as above Eyes: PERRL, conjunctivae normal, anicteric sclerae ENMT: external ear and nose normal, oropharynx normal Respiratory: normal respiratory effort, lungs clear to auscultation Cardiovascular: Rate/Rhythm: regular rate and regular rhythm Vessels: normal peripheral pulses Extremities: no edema Chest (Breasts): Additional Comments: TDC in place to right chest, no surrounding erythema or drainage noted Gastrointestinal (Abdomen): Inspection/Auscultation: + abdomen distended and normal bowel sounds Percussion/Palpation: abdomen nontender and no hepatosplenomegaly PD catheter in place, no surrounding erythema or drainage noted Musculoskeletal: no cyanosis or clubbing, extremities motor strength 5/5 Skin: no rashes, warm and dry Neurologic: PERRL, EOMI, accommodation nl, no face palsy, no dysarthria Psychiatric: A+Ox3, euthymic affect Results & Data Results & Data ([facility]) Vital Signs (Past 12 Hours) Vital Signs Temp Pulse Pulse Resp BP BP Pulse Ox 05/14/20 17:00 88 18 123/57 L 97 05/14/20 15:00 71 18 126/62 96 05/14/20 13:49 72 18 105/50 L 96 05/14/20 12:35 96 05/14/20 11:55 36.9 C 66 18 104/90 96 Laboratory Results Short CBC 05/14/20 Range/Units 13:17 WBC 12.42 H (4.8-10.8) K/uL Hgb 11.6 L (14.0-18.0) g/dL Hct 35.9 L (42-52) % Plt Count 110 L (130-400) K/uL BMP 05/14/20 13:17 Sodium 135 L Potassium 4.2 Chloride 98 Carbon Dioxide 23 BUN 41 H Creatinine 9.34 H* Glucose 180 H Calcium 8.5 Cardiac Enzymes 05/14/20 Range/Units 13:17 Troponin I 0.131 H* (0-0.045) ng/ml Liver Function 05/14/20 Range/Units 13:17 Total Bilirubin 0.4 (0.2-1) mg/dl AST 9 L (15-37) U/L ALT 23 (12-78) U/L Alkaline Phosphatase 170 H (45-117) U/L Albumin 3.0 L (3.4-5.0) gm/dl Diagnostic Findings CXR IMPRESSION: 1. Cardiomegaly. No evidence for overt failure 2. No evidence of focal pulmonary consolidation 3. Persistent blunting of the right lateral costophrenic angle, scarring versus small pleural effusion Code Status & VTE Plan VTE Prophylaxis Plan VTE Prophylaxis will be ordered: Yes Supervising Physician Co-Signing Physician Notes Patient was seen and examined by me, care coordinated with ANA Najera. Please see her note above for further details. Mr. Shah is a 74-year-old male, with complex medical history, including CAD, status post AVR, status post MVR, atrial fibrillation, end-stage renal disease, on peritoneal dialysis, anemia of chronic disease, history of prostate cancer, who presents with weakness. Patient was recently admitted, from a April 30 to May 03, for hypotension. At that time he was seen by cardiology and nephrology. On 05/03/20 , abnormal Lexiscan stress test was positive for scar without significant ischemic burden. EF 29%. Patient presents with his , who is at the bedside. She is concerned that the patient does not move much, only is able to get up to the bathroom and back. Patient denies any fevers, chills, chest pain, shortness of breath, increased abdominal pain, nausea or vomiting. He is currently lying in bed, in no acute distress, he is alert and oriented and answering questions appropriately. Lung sounds are clear to auscultation bilaterally, without any wheezing rhonchi or crackles noted. Heart sounds with systolic murmur noted. Abdomen is currently distended due to peritoneal dialysis. However, nontender to palpation. He moves all 4 extremities spontaneously. Skin is dry and warm. Chest x-ray today shows cardiomegaly without overt failure, no evidence of pulmonary consolidation, persistent blunting of right costophrenic angle/scarring versus small pleural effusion. We will monitor on telemetry, likely interrogate pacer, will consult with cardiology. Will plan to obtain blood cultures to rule out any infection given that patient has dialysis catheter placed, in addition to his peritoneal dialysis and AV fistula. Susannah Neff MD (1) CAD (coronary artery disease) Associated angina: without angina Coronary Disease-Associated Artery/Lesion type: [place] artery [place] vs. transplanted heart: [place] heart Qualified Code(s): I25.10 - Atherosclerotic heart disease of [place] coronary artery without angina pectoris
[2020-05-14] MEDS ORDERED: GLUCOSE 10 TABS/TUBE PO PRN (19:28)
[2020-05-14] MEDS ORDERED: GLUCAGON FOR INJ 1 MG VIAL SQ PRN (19:28)
[2020-05-14] MEDS ORDERED: DEXTROSE 50% 50 ML SYRINGE IV PRN (19:28)
[2020-05-14] MEDS ORDERED: CARBOHYDRATES FOR HYPOGLYCEMIA PO PRN (19:28)
[2020-05-14] MEDS ORDERED: GLUCOSE 40% GEL 15 GM TUBE PO PRN (19:28)
[2020-05-14] MEDS ORDERED: ACETAMINOPHEN 325 MG TAB PO PRN (19:28)
[2020-05-14] MEDS: INSULIN ASPART 100 UNITS/ML 3 ML PEN SC SCH (20:56)
[2020-05-14] MEDS: INSULIN GLARGINE SOLOSTAR 100 UNITS/ML 3 ML PEN SC SCH (20:56)
[2020-05-14] MEDS: ASPIRIN 81 MG ECTAB PO SCH (20:56)
[2020-05-14] MEDS: ALFUZOSIN HCL 10 MG TAB PO SCH (20:56)
[2020-05-14] MEDS ORDERED: HEPARIN SOD 5,000 UNIT/0.5 ML VIAL SQ SCH (22:00)
[2020-05-15] MEDS: LEVOTHYROXINE SODIUM 100 MCG TABLET PO SCH (05:53)
[2020-05-15 06:25] LABS: Hematocrit (blood only) 32.5 % (42-52); Hemoglobin 10.5 g/dL (14.0-18.0); Mean Corpuscular Hemoglobin 32.2 pg (25-34); Mean Corpuscular Hgb Conc 32.3 g/dL (32-36); Mean Corpuscular Volume 99.7 fL (80-100); Mean Platelet Volume 10.9 fL (7.4-10.4); Platelet Count 105 K/uL (130-400); RDW Coefficient of Variation 14.7 % (11.5-14.5); RDW Standard Deviation 53.5 fL (36.4-46.3); Red Blood Count 3.26 M/uL (4.7-6.1); White Blood Count 8.47 K/uL (4.8-10.8)
[2020-05-15 07:01] LABS: BUN Creatinine Ratio 5.4 (10-20); Calcium 7.7 mg/dl (8.5-10.1); Creatinine Clr Calc Pharmacy 7.7 ml/min; Est GFR (African American) 5.2; Est GFR (Non-African American) 4.5; Potassium 3.9 mmol/L (3.5-5.1)
--- NOTE | 2020-05-15 07:15 | Electrocardiogram Report ---
Test Reason : Blood Pressure : / mmHG Vent. Rate : 078 BPM Atrial Rate : 080 BPM P-R Int : 000 ms QRS Dur : 158 ms QT Int : 478 ms P-R-T Axes : 000 203 078 degrees QTc Int : 544 ms Ventricular-paced rhythm with occasional Premature ventricular complexes Abnormal ECG When compared with ECG of 28-FEB-2020 11:57, Premature ventricular complexes are now Present Vent. rate has increased BY 16 BPM Confirmed by Stefano Beltre ([id number]) on 05/15/2020 7:15:22 AM Referred By: Confirmed By:Stefano Beltre
[2020-05-15] MEDS: INSULIN ASPART 100 UNITS/ML 3 ML PEN SC SCH ×4 (08:28→20:25)
[2020-05-15] MEDS: MIDODRINE HCL 2.5 MG TAB PO SCH ×3 (08:30→16:55)
[2020-05-15] MEDS: predniSONE 5 MG TAB PO SCH (08:30)
[2020-05-15] MEDS: FERROUS SULFATE 325 MG TAB PO SCH (08:30)
[2020-05-15] MEDS: PANTOprazole 40 MG TAB PO SCH (08:31)
[2020-05-15] MEDS: CALCIUM ACETATE 667 MG CAP/TAB PO SCH ×3 (08:31→16:55)
[2020-05-15] MEDS: FOLIC ACID 1 MG TAB PO SCH (08:34)
[2020-05-15] MEDS ORDERED: METOPROLOL SUCC 50MG EXT REL TAB PO SCH (09:00)
[2020-05-15] MEDS ORDERED: SPIRONOLACTONE 12.5 MG TAB PO SCH (09:00)
--- NOTE | 2020-05-15 10:55 | Hospitalist Progress Note ---
Date of Service May 15, 2020 Assessment & Plan (1) Generalized weakness: Patient presenting from home with reports of generalized weakness and difficulty ambulating Suspect patient's symptoms are secondary to his underlying comorbid conditions (ESRD and ischemic cardiomyopathy) No source of infection (WBC improved to 8K) Continue PT/OT Fall precaution Consider inpatient rehab Hypotension BP currently with SBP 98 BP has been running low Will add parameters for the spironolactone and Metoprolol, maybe to hold it Continue Midodrine 5mg TID Continue monitor BP Chronic combined systolic and diastolic CHF (congestive heart failure) CXR showed no cardiomegaly. No evidence for overt failure Echo on 05/01 showed severe reduced LV systolic function with ejection fraction 20 to 25% with dyskinetic apical motion secondary to RV pacing along with moderate global hypokinesis. bioprosthetic mitral valve prosthesis is present with a highly mobile echodense lesion on the ventricular side of the prosthesis this represent retained chordae tendon ER. Severe left atrial enlargement Nuclear Stress test on 05/03 showed abnormal Lexiscan nuclear stress test positive for scar without significant ischemic burden. Severely reduced LV systolic function with a calculated EF of 29%. Continue peritoneal dialysis for fluid management Will hold spironolactone if BP remains low cardiology on board S/P MVR (mitral valve replacement) S/P AVR (aortic valve replacement) ECHO showed bioprosthetic mitral valve prosthesis is present with a highly mobile echodense lesion on the ventricular side of the prosthesis this represent retained chordae tendon ER. Severe left atrial enlargement ESRD on PD Nephrology on board PD changed to daytime today Monitor closely for volume overload Will discuss with nephrology if this is a temporary while in the hospital Elevated troponin Due to Type 2 demand ischemia related hypotension and ESRD Troponin 0.131 on admission EKG showed no ischemic changes Denies any chest pain continue aspirin and metoprolol with parameters to hold CAD s/p CABG Denies any chest pain Continue aspirin DM type 2 Recent Hba1c 5.4 (ESRD on PD mostly not accurate) Continue novolog sliding scale On Lantus 45 units home dose Continue inpatient Lantus 35 units Monitor BS Anemia Hgb 10.5 stable Continue procrit as per nephrology DVT prophylaxis on SCDs due to thrombocytopenia Full code Disposition Admission and Anticipated Discharge Date Admission Date: May 14, 2020 Subjective Pt was seen and examined Lying in bed with no distress Pt said that he has been very tired and weak lately He said that he has no energy to do anything Currently he is undergoing PD Denies any chest pain, palpitation, dizziness and SOB Physical Exam Physical Exam: General- No acute distress Head- atraumatic Eyes- PERRL, EOMI, ENT- oropharynx clear Neck- supple, no JVD Lungs- clear to auscultation Heart- regular rhythm; no murmur Abdomen- normal bowel sounds, soft, nontender Extremities- no calf tenderness Neuro- alert, oriented x 3; PERRL, EOMI; no facial palsy; no dysarthria Skin- warm & dry Results & Data Results & Data ([facility]) Vital Signs (Past 12 Hours) Vital Signs Temp Pulse Resp BP Pulse Ox 05/15/20 09:30 36.5 C 77 18 98/39 L 05/15/20 07:05 36.5 C 77 16 98/39 L 98 05/15/20 03:34 36.9 C 73 16 130/27 L 96 05/14/20 23:57 37.2 C 81 16 99/29 L 95
[2020-05-15 12:09] LABS: Hepatitis B Surface Ab Quant < 3.10 mIU/mL (>or=10mIU/mL Immune); Hepatitis B Surface Antibody Non-Immune
[2020-05-15 12:20] LABS: Hepatitis B Surface Antigen Neg (Neg)
--- NOTE | 2020-05-15 13:49 | Electrocardiogram Report ---
Test Reason : Blood Pressure : / mmHG Vent. Rate : 071 BPM Atrial Rate : 071 BPM P-R Int : 176 ms QRS Dur : 128 ms QT Int : 452 ms P-R-T Axes : 000 234 087 degrees QTc Int : 491 ms Atrial-sensed ventricular-paced rhythm Abnormal ECG When compared with ECG of 14-MAY-2020 12:24, Premature ventricular complexes are no longer Present Vent. rate has decreased BY 7 BPM Confirmed by Adeel Fernandes ([id number]) on 05/15/2020 1:48:29 PM Referred By: REFERRED SELF Confirmed By:Adeel Fernandes
--- NOTE | 2020-05-15 15:31 | Cardiology Consultation ---
Date of Consultation May 15, 2020 Assessment & Plan (1) Ischemic cardiomyopathy: Patient with multifactorial cardiomyopathy with history of valvular heart disease. Preop cardiac catheterization prior to his redo aortic valve replacement, and mitral valve replacement in 2016 revealed single-vessel coronary heart disease with a proximal occlusion of the right coronary artery, and patent vein graft to the PDA. Based on the stress test performed last month, he appears to have a large RCA territory scar. He also appears to have anteroseptal and apical scar. The question is the wall motion is accentuated due to ongoing dyssynchrony despite biventricular pacemaker activity. The patient has had a slow progressive decline over the last few years, culminating in end-stage renal disease, and at present, is difficult to control his volume status, and his treatment with dialysis has been limited by hypotension, now with low cardiac output syndrome symptoms. At this time we will hold spironolactone. I am going to reduce his metoprolol dose back to 12.5 mg daily. Continue midodrine for heart rate support. Case discussed with Dr Acevedo of nephrology. History of Present Illness Attending Physician: Gianluca Sharp MD History of Present Illness Justus Shah is a 74-year-old male seen in cardiology consultation per the request of ANA Najera for the evaluation of generalized weakness, hypotension. The patient is well-known to the undersigned as I have followed him as an inpatient and outpatient for years. He notes poor tolerance to per itoneal dialysis and generalized weakness and orthostasis. He recently been admitted last month, with noted decline in his ejection fraction to 20-25% having been in the range of 45% at the time of a transesophageal echocardiogram performed in July 2019 by the undersigned. I reviewed the images of his recent echocardiogram performed 04/21/2020 at [facility] with findings of inferior wall hypokinesis to akinesis, and septal dyskinesis. The prosthetic mitral valve and prosthetic aortic valve appeared to be functioning normally. Severe left atrial enlargement noted. He had undergone a nuclear stress test that revealed a large fixed anteroseptal, apical, and inferior perfusion defect, with LVEF by the gated SPECT technique of 29%. Medication changes were made including addition and up titration of metoprolol succinate, and the addition of spironolactone. He however has now been able to tolerate the typical medications utilized for cardiomyopathy due to his low blo od pressure. His most recent device check performed in March, revealed appropriate biventricular pacemaker function with biventricular pacing greater than 90% the time. Outpatient Problem List: 1.S/p Redo AVR and aortic root with 23mm Epic/28mm Gelweave composite root, MVR 29mm Epic, CABG x 1 (Ao-PDA), EVH by Dr. Hendrix 03/23/16 2.Post op complete heart block prompting Biventricular pacemaker ([facility] [id number]) by Dr. Barnes 03/29/16 3.Atrial fibrillation 4.Contraindications to anticoagulation, with past multifactorial chronic anemia, past GI blood loss 5. End stage renal disease on peritoneal dialysis. 6. 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 Allergies Allergy/AdvReac Type Severity Reaction Status Date / Time atorvastatin Allergy Mild Muscle Pain Verified 05/14/20 12:38 Penicillins Allergy Mild rash Verified 05/14/20 12:38 furosemide AdvReac Severe kidney Verified 05/14/20 12:38 failure ropinirole [From Requip] AdvReac Intermediate psych Verified 05/14/20 12:38 complications Ykwheqd-Axe-Xus Reductase AdvReac Intermediate Muscle Pain Verified 05/14/20 12:38 Inhibitor Home Medications Home Medications Medication Instructions Recorded Confirmed Type Humalog U-100 Insulin 1 sliding scale dose SUBCUT UD 12/25/18 05/14/20 History Lantus U-100 Insulin 45 unit SUBCUT HS 12/25/18 05/14/20 History alfuzosin [Uroxatral] 1 tab PO PM 12/25/18 05/14/20 History aspirin 81 mg PO HS 12/25/18 05/14/20 History folic acid 5 mg PO DAILY 12/25/18 05/14/20 History levothyroxine 100 mcg PO DAILY 12/25/18 05/14/20 History pantoprazole 40 mg PO DAILY 08/06/19 05/14/20 History melatonin 6 mg PO HS PRN 04/30/20 05/14/20 History Mircera 0 mcg SUBCUT DIRECTED PRN 05/01/20 05/14/20 History ferrous sulfate 325 mg PO DAILY 05/01/20 05/14/20 History midodrine 5 mg PO TID 05/01/20 05/14/20 History prednisone 5 mg PO DAILY 07/18/20 07/31/20 History metoprolol succinate 50 mg PO QAM #30 tab 05/03/20 05/14/20 Rx spironolactone 12.5 mg PO DAILY #30 tab 05/03/20 05/14/20 Rx calcium acetate(phosphat bind) 667 mg PO TID 05/14/20 05/14/20 History Patient History Medical History (Updated 05/15/20 @ 15:27 by Ebony Cruz MD) Anemia of chronic disease Anxiety Aortic insufficiency (Chronic) BPH (benign prostatic hyperplasia) (Chronic) CAD (coronary artery disease) (Chronic) "1999 - CABG x 1 06/2014 - ACS, cath at the time showed patent graft, non obstructive disease to LAD and circumflex, [place] RCA 100% occluded " Chronic back pain Chronic hypotension Depression (Inactive) Diverticulosis (Chronic) DM type 2 (diabetes mellitus, type 2) (Chronic) iddm Dyslipidemia (Chronic) ESRD (end stage renal disease) on dialysis (Acute) Gin's thyroiditis (Chronic) History of complete heart block (Chronic) s/p pacemaker History of pacemaker (Chronic) March 2016, [facility]. HTN (hypertension) (Chronic) Hypothyroidism Ischemic cardiomyopathy Lung nodule 3mm - benign Moderate to severe pulmonary hypertension (Chronic) hx On home oxygen therapy 2lpm via n/c CLARA (obstructive sleep apnea) (Chronic) hx. Osteoarthritis (Chronic) Pacemaker [employer] device. Placed March 2016, follows with Dr. Luong, last checked ~1.5 months ago. Paroxysmal atrial fibrillation (Chronic) infrequently Prostate cancer (Chronic 01/14/18) "History of benign prostatic hypertrophy Rising PSA, pretreatment PSA 5.7 corrected due to finasteride Status post ultrasound-guided biopsies January 14, 2018 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 (Recommendation for 6-12 months) Gold fiducial markers and Space OAR were placed. Status post completion of radiation therapy April 25, 2018. 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 Prostate volume 74.6 Prostate density 0.076 " Skin cancer Systolic and diastolic CHF, chronic (Chronic) Surgical History History of bronchoscopy History of colonoscopy History of surgical removal of lesion S/P AVR (aortic valve replacement) (Chronic) 1999, valve & 2016 Bovine Mechanical valve ([facility]) S/P CABG x 1 (Chronic) 1999 & 2016 ([facility]) S/P MVR (mitral valve replacement) (Chronic) Family History Other Hypertension Prostate cancer Social History Smoking Status: Never smoker Cigarettes Per Day: 20 x4 years; Second Hand Exposure: No; Hx Alcohol Use: No Hx Substance Use: No Preferred Language: Hungarian Communication Ability: Effective Management Associate Required: No Beliefs That Will Affect Care: None marital status: Current Living Situation: Spouse Other Information That Helps Us Care for You: No Feels Safe at Home: Yes Safety Concerns: Feels Safe At This Time Review of Systems Review of Systems: All systems reviewed & are unremarkable except as noted in HPI & below Physical Exam Physical Exam: Temp Pulse Resp BP Pulse Ox 36.9 C 82 18 141/71 H 96 05/15/20 12:09 05/15/20 12:09 05/15/20 12:09 05/15/20 12:09 05/15/20 12:09 Constitutional: No acute distress, chronically ill in appearance Respiratory: normal respiratory effort, lungs clear to auscultation Cardiovascular: RRR, no murmur, no edema Vessels: no JVD Extremities: no edema Neurologic: PERRL, EOMI, accommodation nl, no face palsy, no dysarthria Results & Data ([facility]) Vital Signs (Past 12 Hours) Vital Signs Temp Pulse Pulse Resp BP Pulse Ox 05/15/20 12:09 36.9 C 82 18 141/71 H 96 05/15/20 09:30 36.5 C 77 18 98/39 L 05/15/20 08:00 117 H 05/15/20 07:05 36.5 C 77 16 98/39 L 98 05/15/20 03:34 36.9 C 73 16 130/27 L 96 Laboratory Results CBC 05/15/20 Range/Units 05:58 WBC 8.47 (4.8-10.8) K/uL RBC 3.26 L (4.7-6.1) M/uL Hgb 10.5 L (14.0-18.0) g/dL Hct 32.5 L (42-52) % Plt Count 105 L (130-400) K/uL Comprehensive Metabolic Panel 05/15/20 Range/Units 05:58 Sodium 138 (136-145) mmol/L Potassium 3.9 (3.5-5.1) mmol/L Chloride 101 (98-107) mmol/L Carbon Dioxide 25 (21-32) mmol/L BUN 54 H (7-18) mg/dl Creatinine 10.20 H* D (0.6-1.4) mg/dl Glucose 84 (70-99) mg/dl Calcium 7.7 L (8.5-10.1) mg/dl Intake and Output 05/15/20 05/15/20 05/15/20 06:59 14:59 22:59 Intake Total 100 / 100 525 / 525 Balance 100 / 100 525 / 525 Intake: Oral 100 / 100 525 / 525 Other: Weight 94.3 kg 94.3 kg Patient Weight 05/16/20 06:59 Weight 94.3 kg
--- NOTE | 2020-05-15 19:21 | Consultation Report ---
DATE OF CONSULTATION: 05/15/2020 NEPHROLOGY CONSULTATION NOTE REASON FOR CONSULT: Dialysis patient, admitted with hypotension and extreme weakness. HISTORY OF PRESENT ILLNESS: The patient is a 74-year-old male with ESRD, on chronic peritoneal dialysis at home with complicated medical history. He presented to the hospital because of severe generalized weakness where he could not get out of the bed. The patient was recently admitted at [facility] from 04/30 to 05/03 for management of hypotension. He was found to have some drop in his left ventricular ejection fraction. The patient's health status has been declining for the last few weeks coinciding with a period of decreased ejection fraction. The patient has a very extensive cardiopulmonary history. As an outpatient, it has been increasingly difficult to do dialysis because of severe weakness. However, multiple blood pressure readings are not always accurate as he has a very weak pulse. We did not do dialysis last night because of weakness, but we did dialysis starting this morning and so far blood pressure is not too low, although there were a couple of readings of doubtful accuracy. He does not have any shortness of breath, orthopnea, or lower extremity edema. Appetite has been declining and he has been losing lean weight. As an outpatient, he does take midodrine. He also takes metoprolol for AFib and heart rate does go fast when he is not taking metoprolol. He was discharged on spironolactone, but that has already been stopped as an outpatient because of low blood pressure. Cardiology has evaluated the patient earlier today who has suggested to decrease the metoprolol to the lowest possible dose. PAST MEDICAL AND SURGICAL HISTORY: Includes history of ischemic cardiomyopathy, type 2 diabetes, coronary artery disease, aortic and mitral valve replacement, paroxysmal atrial fibrillation, complete heart block, status post pacemaker, ESRD - on peritoneal dialysis. ALLERGIES: List was reviewed in detail. HOME MEDICATIONS: List was also reviewed in detail. It is worth noting that he was not taking spironolactone. FAMILY HISTORY: Negative for renal disease. SOCIAL HISTORY: He is and lives with his . Smoking in the past, but not currently. REVIEW OF SYSTEMS: As detailed in HPI unless stated otherwise, 12 systems reviewed and negative. PHYSICAL EXAMINATION: GENERAL: Elderly white male who is not in any overt respiratory distress. He is awake, alert, oriented x3. HEENT: Mucous membrane is moist. NECK: Supple. No jugular venous distention. CHEST: Bilateral clear to auscultation. CARDIOVASCULAR: S1 and S2, regular. Soft systolic murmur heard. ABDOMEN: Soft, nontender. EXTREMITIES: Show no edema at this time which is a big change from the last time I saw him. VITAL SIGNS: Blood pressure 102/66, pulse rate 75, temperature 36.5, 98% on room air. LABORATORY TESTS: From this morning was reviewed. Hemoglobin 10.5, platelet count 105. Chest x-ray done yesterday shows no major abnormality. Sodium 138, potassium 3.9, BUN 54, creatinine 10.2. ASSESSMENT AND PLAN: A 74-year-old male with very complicated cardiac history including ischemic cardiomyopathy with end-stage renal disease, on chronic peritoneal dialysis, admitted with generalized weakness and issues with hypotension. End-stage renal disease: There is no technical issue as such with peritoneal dialysis, but he has frequent hypotension with peritoneal dialysis making it difficult. He is not sure that all of his blood pressure readings are accurate as his pulse is very very weak and there might be significant degree of error in outpatient blood pressure measurements. At this time, he does not appear to be in fluid overload. He has absolutely no edema whereas last time I saw him, he had significant edema. At this time, we will continue with his regular peritoneal dialysis of 9 hours with 5 exchanges with 2800 mL of his volume. Tomorrow we will do him at regular nighttime. We will continue the midodrine. I did discuss the case with cardiology and we have decided to stop the Aldactone for good and use the lowest possible dose of metoprolol.
[2020-05-15 19:48] LABS: Appearance Urine Cloudy (Clear); Bacteria Urine Automated Negative (Negative); Blood Urine Negative (Negative); Color Urine Dark Yellow; Epithelial Cell Urine Auto >30 /lpf (0-5); Glucose Urine UA 2+ (Negative); Ketones Urine Trace (Negative); Leukocyte Esterase Urine Trace (Negative); Nitrite Urine Negative (Negative); Protein Urine 1+ (Negative); Specific Gravity Urine 1.032 (1.000-1.030); Urobilinogen Urine Negative (Negative)
[2020-05-15 19:59] LABS: Bilirubin Urine Negative (Negative); Ictotest Urine Negative (Negative)
[2020-05-15] MEDS: ASPIRIN 81 MG ECTAB PO SCH (20:20)
[2020-05-15] MEDS: ALFUZOSIN HCL 10 MG TAB PO SCH (20:20)
[2020-05-15] MEDS: INSULIN GLARGINE SOLOSTAR 100 UNITS/ML 3 ML PEN SC SCH (20:25)
[2020-05-16] MEDS: METOPROLOL SUCC 25MG EXT REL TAB PO SCH (00:29)
[2020-05-16] MEDS: MAGNESIUM SULFATE / D5W 1 GM/100 ML BAG IV SCH ×2 (00:30→02:15)
[2020-05-16] MEDS: LEVOTHYROXINE SODIUM 100 MCG TABLET PO SCH (06:15)
[2020-05-16] MEDS: INSULIN ASPART 100 UNITS/ML 3 ML PEN SC SCH ×4 (08:08→20:52)
[2020-05-16] MEDS: MIDODRINE HCL 2.5 MG TAB PO SCH ×3 (08:09→17:00)
[2020-05-16] MEDS: CALCIUM ACETATE 667 MG CAP/TAB PO SCH ×3 (08:09→17:00)
[2020-05-16] MEDS: PANTOprazole 40 MG TAB PO SCH (08:10)
[2020-05-16] MEDS: FOLIC ACID 1 MG TAB PO SCH (08:10)
[2020-05-16] MEDS: FERROUS SULFATE 325 MG TAB PO SCH (08:10)
[2020-05-16] MEDS: predniSONE 5 MG TAB PO SCH (08:10)
[2020-05-16] MEDS ORDERED: METOPROLOL SUCC 25MG EXT REL TAB PO SCH ×2 (09:00)
--- NOTE | 2020-05-16 12:09 | Cardiology Progress Note ---
Date of Service May 16, 2020 Assessment & Plan (1) Chronic hypotension: (2) Ischemic cardiomyopathy: (3) Paroxysmal atrial fibrillation: Continue midodrine. Telemetry reveals pt reverted back to AF yesterday, rates elevated to 130 bmp at time. He has a h/o PAF, low AF burden, < 1% on recent device checks. Coumadin DC'd previously due to multifactorial anemia(GI blood loss, anemia of chronic disease). Dose of metoprolol limited by low BP. Will proceed with amiodarone. Not ideal given h/o lung disease an pulm HTN, however, I feel benefits outweigh risks at present. LFTs OK this admission with exception of mild Alk Phos elevation. TSH WNL. Subjective Patient comfortable at rest. Ongoing hypertension noted, although his most recent blood pressure reading. As noted yesterday, pressures are difficult to obtain. Physical Exam Physical Exam: Temp Pulse Resp BP Pulse Ox 36.5 C 73 19 122/25 L 96 05/16/20 11:42 05/16/20 11:42 05/16/20 11:42 05/16/20 11:42 05/16/20 11:42 Constitutional: chronically ill in appearance, no acute distress Respiratory: normal respiratory effort, lungs clear to auscultation Gastrointestinal (Abdomen): normal bowel sounds, soft, nontender, no hepatosplenomegaly Neurologic: PERRL, EOMI, accommodation nl, no face palsy, no dysarthria Results & Data Vital Signs (Past 12 Hours) Vital Signs Temp Pulse Resp BP Pulse Ox 05/16/20 11:42 36.5 C 73 19 122/25 L 96 05/16/20 07:42 37.0 C 68 18 100 05/16/20 07:35 98/56 L 05/16/20 03:04 37.1 C 82 16 98/58 L 97
--- NOTE | 2020-05-16 13:42 | Electrocardiogram Report ---
Test Reason : Blood Pressure : / mmHG Vent. Rate : 068 BPM Atrial Rate : 068 BPM P-R Int : 000 ms QRS Dur : 130 ms QT Int : 454 ms P-R-T Axes : 000 250 116 degrees QTc Int : 482 ms Suspect unspecified pacemaker failure Ventricular-paced rhythm with occasional Premature ventricular complexes Abnormal ECG When compared with ECG of 15-MAY-2020 08:08, Premature ventricular complexes are now Present Vent. rate has decreased BY 3 BPM Confirmed by Adeel Fernandes ([id number]) on 05/16/2020 1:42:30 PM Referred By: REFERRED SELF Confirmed By:Adeel Fernandes
[2020-05-16] MEDS: AMIODARONE 200 MG TAB PO SCH (16:59)
--- NOTE | 2020-05-16 18:03 | Progress Notes ---
DATE: 05/16/2020 SUBJECTIVE: No new issues. The patient's blood pressure continues to be marginal, but is not very, very low. He tolerated the peritoneal dialysis yesterday pretty well and he is due tonight. OBJECTIVE: VITAL SIGNS: Blood pressure 93/36, pulse rate 82, temperature 36.6, 95% on room air. HEENT: Mucous membranes moist. NECK: Supple. No jugular venous distention. CHEST: Bilateral clear to auscultation. CARDIOVASCULAR: S1 and S2, irregular, tachycardic. ABDOMEN: Soft, nontender. EXTREMITIES: Shows no edema. ASSESSMENT AND PLAN: A 74-year-old male with very complicated cardiac history including ischemic cardiomyopathy with end-stage renal disease on chronic peritoneal dialysis, admitted with generalized weakness and issues with hypotension. 1. End-stage renal disease: We will do dialysis tonight through a cycler. We will do 5 exchanges of all 1.5% 2800 mL fill volume. Normally, we also do extra nail as an outpatient, but we will skip that while he is inpatient. Continue midodrine. 2. Atrial fibrillation: He has history of that and he went into atrial fibrillation and has been started on amiodarone today.
--- NOTE | 2020-05-16 18:50 | Hospitalist Progress Note ---
Date of Service May 16, 2020 Assessment & Plan (1) Generalized weakness: Patient presenting from home with reports of generalized weakness and difficulty ambulating Suspect patient's symptoms are secondary to his underlying comorbid conditions (ESRD and ischemic cardiomyopathy) No source of infection (WBC improved to 8K) Continue PT/OT Fall precaution Consider inpatient rehab Hypotension BP has been running low Metoprolol was decreased to 12.5 mg daily and spironolactone on hold Continue Midodrine 5mg TID Continue monitor BP Paroxysmal Afib Converted to Afib last night Rate control currently Starting on Amiodarone 200mg TID Not a good candidate for anticoagulant due to multifactorial anemia(GI blood loss, anemia of chronic disease). Chronic combined systolic and diastolic CHF (congestive heart failure) CXR showed no cardiomegaly. No evidence for overt failure Echo on 05/01 showed severe reduced LV systolic function with ejection fraction 20 to 25% with dyskinetic apical motion secondary to RV pacing along with moderate global hypokinesis. bioprosthetic mitral valve prosthesis is present with a highly mobile echodense lesion on the ventricular side of the prosthesis this represent retained chordae tendon ER. Severe left atrial enlargement Nuclear Stress test on 05/03 showed abnormal Lexiscan nuclear stress test positive for scar without significant ischemic burden. Severely reduced LV systolic function with a calculated EF of 29%. Continue peritoneal dialysis for fluid management Continue to hold spironolactone due to low BP Metoprolol changed to 12.5 mg daily cardiology on board S/P MVR (mitral valve replacement) S/P AVR (aortic valve replacement) ECHO showed bioprosthetic mitral valve prosthesis is present with a highly mobile echodense lesion on the ventricular side of the prosthesis this represent retained chordae tendon ER. Severe left atrial enlargement ESRD on PD Nephrology on board Plan to get PD done tonight Monitor closely for volume overload Elevated troponin Due to Type 2 demand ischemia related hypotension and ESRD Troponin 0.131 on admission EKG showed no ischemic changes Denies any chest pain continue aspirin and metoprolol that changed to 12.5 mg with parameters to hold CAD s/p CABG Denies any chest pain Continue aspirin DM type 2 Recent Hba1c 5.4 (ESRD on PD mostly not accurate) Continue novolog sliding scale On Lantus 45 units home dose Increased Lantus to 40 units Monitor BS Anemia Hgb 10.5 stable Continue procrit as per nephrology DVT prophylaxis on SCDs due to thrombocytopenia Full code Disposition Admission and Anticipated Discharge Date Admission Date: May 14, 2020 Subjective Pt was seen and examined Sitting in chair with no distress with at bedside Pt said that he feels much better today Pt went to Afib last night Denies any chest pain, palpitation, dizziness and SOB Physical Exam Physical Exam: General- No acute distress Head- atraumatic Eyes- PERRL, EOMI, ENT- oropharynx clear Neck- supple, no JVD Lungs- clear to auscultation Heart- irregular rhythm; no murmur Abdomen- normal bowel sounds, soft, nontender Extremities- no calf tenderness Neuro- alert, oriented x 3; PERRL, EOMI; no facial palsy; no dysarthria Skin- warm & dry Results & Data Results & Data ([facility]) Vital Signs (Past 12 Hours) Vital Signs Temp Pulse Pulse Resp BP Pulse Ox 05/16/20 15:36 93/36 L 05/16/20 15:15 82 05/16/20 15:10 36.6 C 67 18 95 05/16/20 11:42 36.5 C 73 19 122/25 L 96 05/16/20 07:42 37.0 C 68 18 100 05/16/20 07:35 98/56 L
[2020-05-16] MEDS: ALFUZOSIN HCL 10 MG TAB PO SCH (20:48)
[2020-05-16] MEDS: ASPIRIN 81 MG ECTAB PO SCH (20:48)
[2020-05-16] MEDS ORDERED: INSULIN GLARGINE SOLOSTAR 100 UNITS/ML 3 ML PEN SC SCH (21:00)
[2020-05-17] MEDS: LEVOTHYROXINE SODIUM 100 MCG TABLET PO SCH (05:52)
[2020-05-17] MEDS: AMIODARONE 200 MG TAB PO SCH ×2 (08:25→11:56)
[2020-05-17] MEDS: FOLIC ACID 1 MG TAB PO SCH (08:25)
[2020-05-17] MEDS: PANTOprazole 40 MG TAB PO SCH (08:25)
[2020-05-17] MEDS: MIDODRINE HCL 2.5 MG TAB PO SCH ×3 (08:26→16:52)
[2020-05-17] MEDS: predniSONE 5 MG TAB PO SCH (08:26)
[2020-05-17] MEDS: FERROUS SULFATE 325 MG TAB PO SCH (08:26)
[2020-05-17] MEDS: CALCIUM ACETATE 667 MG CAP/TAB PO SCH ×3 (08:26→16:52)
[2020-05-17] MEDS: METOPROLOL SUCC 25MG EXT REL TAB PO SCH (08:27)
[2020-05-17] MEDS: INSULIN ASPART 100 UNITS/ML 3 ML PEN SC SCH ×4 (08:27→20:36)
[2020-05-17 10:08] LABS: Hematocrit (blood only) 31.1 % (42-52); Hemoglobin 10.1 g/dL (14.0-18.0); Mean Corpuscular Hemoglobin 32.2 pg (25-34); Mean Corpuscular Hgb Conc 32.5 g/dL (32-36); RDW Coefficient of Variation 14.4 % (11.5-14.5); RDW Standard Deviation 51.5 fL (36.4-46.3); Red Blood Count 3.14 M/uL (4.7-6.1); White Blood Count 6.86 K/uL (4.8-10.8)
--- NOTE | 2020-05-17 10:21 | Nephrology Progress Note ---
Date of Service May 17, 2020 Assessment & Plan (1) ESRD on peritoneal dialysis: Patient with ESRD on PD. He tolerated PD well last night with net UF of 1.1 L. We will do PD again tonight 5 exchanges over 9 hours. (2) Paroxysmal atrial fibrillation: Patient with A. fib and rapid ventricular response. Currently on amiodarone. Heart rate is acceptable. Blood pressure is also acceptable. We will continue rate control and antiarrhythmic medications. Admission and Anticipated Discharge Date Admission Date: May 14, 2020 Subjective Patient feels better today denies any shortness of breath or vomiting. No edema. He has not been able to ambulate since admission. Patient was seen on peritoneal dialysis. He had a net UF of 1.1 L Review of Systems Review of Systems: All systems reviewed & are unremarkable except as noted in HPI & below Physical Exam Physical Exam: General exam: Appears comfortable, no acute distress HEENT: Pupils are equal and reactive to light Neck: No JVD, neck is supple trachea is midline Respiratory system: Clear breath sounds bilaterally. Gastrointestinal: Abdomen is soft, non distended, non tender, bowel sounds are present CVS: Regular rate and rhythm. No murmurs, rubs or gallops Musculoskeletal: No joint or muscle tenderness Extremities: Non tender, no edema, peripheral pulses are present Neuro: Oriented, no tremors, no focal neurological deficits Skin: No rashes Access: PD catheter, right upper arm AV fistula and right tunneled IJ Results & Data ([facility]) Vital Signs (Past 12 Hours) Vital Signs Temp Pulse Resp BP Pulse Ox 05/17/20 07:44 36.5 C 110 H 19 101/77 95 05/17/20 03:21 36.9 C 79 16 97/45 L 98 05/16/20 23:06 37 C 85 16 86/33 L 98 Laboratory Results 05/17/20 09:53 WBC 6.86 RBC 3.14 L MCV 99.0 MCH 32.2 MCHC 32.5 RDW Std Deviation 51.5 H RDW Coeff of Imtiaz 14.4
[2020-05-17 10:23] LABS: Mean Platelet Volume 10.4 fL (7.4-10.4); Platelet Count 96 K/uL (130-400)
[2020-05-17 11:01] LABS: Albumin Globulin Ratio 0.7 (0.9-2); Albumin Level 2.6 gm/dl (3.4-5.0); BUN Creatinine Ratio 5.8 (10-20); Bilirubin,Total 0.3 mg/dl (0.2-1); Calcium 7.6 mg/dl (8.5-10.1); Est GFR (African American) 5.4; Est GFR (Non-African American) 4.7; Globulin 3.7 gm/dl (2.5-4.0); Potassium 3.8 mmol/L (3.5-5.1); Total Protein 6.3 gm/dl (6.4-8.2)
[2020-05-17] MEDS ORDERED: 0.2 MICRON FILTER SET 1 EA IV ONE (12:38)
[2020-05-17] MEDS ORDERED: STAT IV Infusion **Titration per Protocol STA (12:38)
[2020-05-17] MEDS ORDERED: AMIODARONE IV BOLUS & DRIP IV STA (12:38)
[2020-05-17] MEDS ORDERED: AMIODARONE / D5W 150 MG/100 ML BAG IV STA (12:39)
--- NOTE | 2020-05-17 12:42 | Cardiology Progress Note ---
Date of Service May 17, 2020 Assessment & Plan (1) Ischemic cardiomyopathy: Recent low blood pressure, low cardiac output symptoms. Low blood pressure limits medication treatment for his cardiomyopathy. Toprol reduced to 12.5 mg daily, spironolactone discontinued, not on and ACEI or ARB due to low blood pressure Continue metoprolol succinate 12.5 mg daily. (2) Paroxysmal atrial fibrillation: History of paroxysmal atrial fibrillation with very low atrial fibrillation burden noted on previous device interrogations, less than 1% A. fib burden. Anticoagulation previously discontinued due to multifactorial anemia with history of GI blood loss, and anemia of chronic disease. Patient is reverted to atrial fibrillation as of the afternoon of 05/15/2020, and remains in atrial fibrillation. Oral amiodarone started yesterday. Will add IV amiodarone for rhythm control strategy. If you remains in atrial fibrillation by tomorrow, will likely need to initiate anticoagulation. Although amiodarone treatment is not ideal given his history of lung disease, his thyroid function testing and liver function testing this hospital stay are within normal limits, and given limitations with beta-kati therapy due to low blood pressure, I believe amiodarone is the most appropriate alternative therapy to allow for rhythm control strategy which will minimize his symptoms and reduce his risk of stroke, in the setting of hypotension. (3) ESRD on peritoneal dialysis: Continue PD. Subjective Mr Shah is seen in cardiology follow-up today of generalized weakness, (presumed ischemic) cardiomyopathy with recently diagnosed left ventricular systolic dysfunction, history of complex valve disease with aortic valve replacement x2, bioprosthetic mitral valve replacement, 2016, postoperative AV block prompting implantation of a biventricular Medical permanent pacemaker postoperatively in 2016. Patient with tachycardia, rates in the range of 80 to 120 bpm, ventricular paced, consistent with atrial fibrillation. He notes feeling well at rest, but he has not been walking much. He presented with symptoms of generalized weakness, orthostatic hypotension which has been his baseline recently. Physical Exam Physical Exam: Temp Pulse Resp BP Pulse Ox 36.5 C 93 H 20 120/62 96 05/17/20 11:40 05/17/20 11:40 05/17/20 11:40 05/17/20 11:40 05/17/20 11:40 Constitutional: Chronically ill in appearance, no acute distress Respiratory: normal respiratory effort, lungs clear to auscultation Cardiovascular: Rate/Rhythm: + irregularly irregular Heart Sounds: + murmur (I/ systolic murmur) Vessels: no JVD Extremities: no edema Gastrointestinal (Abdomen): normal bowel sounds, soft, nontender, no hepatosplenomegaly Results & Data Vital Signs (Past 12 Hours) Vital Signs Temp Pulse Resp BP BP Pulse Ox 05/17/20 11:40 36.5 C 93 H 20 120/62 96 05/17/20 07:44 36.5 C 110 H 19 101/77 95 05/17/20 03:21 36.9 C 79 16 97/45 L 98 Laboratory Results Cardiac Enzymes 05/17/20 Range/Units 09:53 AST 16 (15-37) U/L CBC 05/17/20 Range/Units 09:53 WBC 6.86 (4.8-10.8) K/uL RBC 3.14 L (4.7-6.1) M/uL Hgb 10.1 L (14.0-18.0) g/dL Hct 31.1 L (42-52) % Plt Count 96 L (130-400) K/uL Comprehensive Metabolic Panel 05/17/20 Range/Units 09:53 Sodium 137 (136-145) mmol/L Potassium 3.8 (3.5-5.1) mmol/L Chloride 99 (98-107) mmol/L Carbon Dioxide 23 (21-32) mmol/L BUN 58 H (7-18) mg/dl Creatinine 9.90 H* (0.6-1.4) mg/dl Glucose 176 H (70-99) mg/dl Calcium 7.6 L (8.5-10.1) mg/dl AST 16 (15-37) U/L ALT 23 (12-78) U/L Alkaline Phosphatase 138 H (45-117) U/L Total Protein 6.3 L (6.4-8.2) gm/dl Albumin 2.6 L (3.4-5.0) gm/dl Intake and Output 05/16/20 05/17/20 05/17/20 22:59 06:59 14:59 Intake Total 425 / 1115 Output Total 100 / 175 Balance 425 / 940 -100 / 940 Intake: Oral 425 / 1115 Output: Urine 100 / 175 Other: Weight 95.3 kg 96.8 kg Patient Weight 05/18/20 06:59 Weight 96.8 kg
[2020-05-17] MEDS ORDERED: AMIODARONE / D5W 360 MG/200 ML BAG IV ONE (12:49)
--- NOTE | 2020-05-17 17:44 | Hospitalist Progress Note ---
Date of Service May 17, 2020 Assessment & Plan (1) Generalized weakness: Patient presenting from home with reports of generalized weakness and difficulty ambulating Suspect patient's symptoms are secondary to his underlying comorbid conditions (ESRD and ischemic cardiomyopathy) No source of infection (WBC improved to 8K) Continue PT/OT Fall precaution Consider inpatient rehab Hypotension BP has been running low Metoprolol was decreased to 12.5 mg daily and spironolactone on hold Continue Midodrine 5mg TID Continue monitor BP Paroxysmal Afib Remains on Afib HR was elevated this morning Starting on IV amiodarone drip today by cardiology Amiodarone PO on hold Not a good candidate for anticoagulant due to multifactorial anemia(GI blood loss, anemia of chronic disease). Chronic combined systolic and diastolic CHF (congestive heart failure) CXR showed no cardiomegaly. No evidence for overt failure Echo on 05/01 showed severe reduced LV systolic function with ejection fraction 20 to 25% with dyskinetic apical motion secondary to RV pacing along with moderate global hypokinesis. bioprosthetic mitral valve prosthesis is present with a highly mobile echodense lesion on the ventricular side of the prosthesis this represent retained chordae tendon ER. Severe left atrial enlargement Nuclear Stress test on 05/03 showed abnormal Lexiscan nuclear stress test positive for scar without significant ischemic burden. Severely reduced LV systolic function with a calculated EF of 29%. Continue peritoneal dialysis for fluid management Continue to hold spironolactone due to low BP Metoprolol changed to 12.5 mg daily cardiology on board S/P MVR (mitral valve replacement) S/P AVR (aortic valve replacement) ECHO showed bioprosthetic mitral valve prosthesis is present with a highly mobile echodense lesion on the ventricular side of the prosthesis this represent retained chordae tendon ER. Severe left atrial enlargement Chronic respiratory failure with hypoxia Continue oxygen supplement Stable ESRD on PD Nephrology on board Plan to get PD done tonight Monitor closely for volume overload Elevated troponin Due to Type 2 demand ischemia related hypotension and ESRD Troponin 0.131 on admission EKG showed no ischemic changes Denies any chest pain continue aspirin and metoprolol that changed to 12.5 mg with parameters to hold CAD s/p CABG Denies any chest pain Continue aspirin DM type 2 Recent Hba1c 5.4 (ESRD on PD mostly not accurate) Continue novolog sliding scale On Lantus 45 units home dose Increased Lantus to 45 units home dose Monitor BS Anemia Hgb 10.1 stable Continue procrit as per nephrology Thrombocytopenia Platelet 96 today No active sign of bleeding Continue monitor CBC DVT prophylaxis on SCDs due to thrombocytopenia Full code Disposition Continue monitor in tele Admission and Anticipated Discharge Date Admission Date: May 14, 2020 Subjective Pt was seen and examined Sitting in chair with no distress His HR was elevated this morning Pt said that he feels OK Denies any chest pain, palpitation, dizziness and SOB Physical Exam Physical Exam: General- No acute distress Head- atraumatic Eyes- PERRL, EOMI, ENT- oropharynx clear Neck- supple, no JVD Lungs- clear to auscultation Heart- irregular rhythm; no murmur Abdomen- normal bowel sounds, soft, nontender Extremities- no calf tenderness Neuro- alert, oriented x 3; PERRL, EOMI; no facial palsy; no dysarthria Skin- warm & dry Results & Data Results & Data ([facility]) Vital Signs (Past 12 Hours) Vital Signs Temp Pulse Resp BP BP Pulse Ox 05/17/20 15:31 36.4 C L 65 18 121/82 96 05/17/20 11:40 36.5 C 93 H 20 120/62 96 05/17/20 09:00 36.5 C 77 18 05/17/20 07:44 36.5 C 110 H 19 101/77 95
[2020-05-17] MEDS: ALFUZOSIN HCL 10 MG TAB PO SCH (19:20)
[2020-05-17] MEDS: AMIODARONE / D5W 360 MG/200 ML BAG IV SCH (19:20)
[2020-05-17] MEDS: ASPIRIN 81 MG ECTAB PO SCH (19:20)
[2020-05-17] MEDS ORDERED: KETOROLAC TROMETHAMINE 15 MG/ML VIAL ONE (19:34)
[2020-05-17] MEDS: INSULIN GLARGINE SOLOSTAR 100 UNITS/ML 3 ML PEN SC SCH (20:36)
[2020-05-18] MEDS: AMIODARONE / D5W 360 MG/200 ML BAG IV SCH ×2 (06:27→17:18)
[2020-05-18] MEDS: LEVOTHYROXINE SODIUM 100 MCG TABLET PO SCH (06:27)
[2020-05-18] MEDS: INSULIN ASPART 100 UNITS/ML 3 ML PEN SC SCH ×4 (08:51→21:01)
[2020-05-18] MEDS: METOPROLOL SUCC 25MG EXT REL TAB PO SCH (08:52)
[2020-05-18] MEDS: FERROUS SULFATE 325 MG TAB PO SCH (08:53)
[2020-05-18] MEDS: CALCIUM ACETATE 667 MG CAP/TAB PO SCH ×3 (08:53→17:06)
[2020-05-18] MEDS: predniSONE 5 MG TAB PO SCH (08:53)
[2020-05-18] MEDS: PANTOprazole 40 MG TAB PO SCH (08:53)
[2020-05-18] MEDS: FOLIC ACID 1 MG TAB PO SCH (08:53)
[2020-05-18] MEDS: MIDODRINE HCL 2.5 MG TAB PO SCH ×3 (08:53→17:05)
--- NOTE | 2020-05-18 10:12 | Cardiology Progress Note ---
Date of Service May 18, 2020 Assessment & Plan (1) Ischemic cardiomyopathy: (2) Chronic hypotension: (3) ESRD on peritoneal dialysis: (4) Paroxysmal atrial fibrillation: (5) History of complete heart block: Volume status appears optimized, does not appear wet or dry at present. SBP improved. Telemetry reveals regular rhythm, in the 60s this am, either SR with ventricular pacing or perhaps AF with overdrive V pacing as he has a h/o AV block. Continue oral/ IV amiodarone load.Continue low dose metoprolol. Will interrogate his [employer] BiV pacemaker to see if any changes can be applied and to assess his underlying rhythm. Discussed case as beside with Dr Soliman of nephrology. DVT prophylaxis: start SQ heparin Subjective Mr Shah is seen in cardiology follow up of complaint of generalized weakness and dizziness. Notes feeling overall improved since admission. He however, has not walked much yet. Physical Exam Physical Exam: Temp Pulse Resp BP Pulse Ox 36.7 C 66 18 115/62 93 05/18/20 07:09 05/18/20 07:09 05/18/20 07:09 05/18/20 07:09 05/18/20 07:09 Constitutional: chronically ill in appearance, no acute distress Respiratory: normal respiratory effort, lungs clear to auscultation Cardiovascular: Rate/Rhythm: regular rhythm Heart Sounds: + murmur (I/ SM) Vessels: no JVD Extremities: no edema Gastrointestinal (Abdomen): normal bowel sounds, soft, nontender, no hepatosplenomegaly Neurologic: PERRL, EOMI, accommodation nl, no face palsy, no dysarthria Results & Data Vital Signs (Past 12 Hours) Vital Signs Temp Pulse Pulse Resp BP Pulse Ox 05/18/20 07:09 36.7 C 66 18 115/62 93 05/18/20 03:18 36.7 C 62 16 107/62 99 05/17/20 23:54 36.7 C 60 16 120/51 L 100 05/17/20 22:11 37 C 66 16 132/68 Laboratory Results Cardiac Enzymes 05/17/20 Range/Units 09:53 AST 16 (15-37) U/L CBC 05/17/20 Range/Units 09:53 WBC 6.86 (4.8-10.8) K/uL RBC 3.14 L (4.7-6.1) M/uL Hgb 10.1 L (14.0-18.0) g/dL Hct 31.1 L (42-52) % Plt Count 96 L (130-400) K/uL Comprehensive Metabolic Panel 05/17/20 Range/Units 09:53 Sodium 137 (136-145) mmol/L Potassium 3.8 (3.5-5.1) mmol/L Chloride 99 (98-107) mmol/L Carbon Dioxide 23 (21-32) mmol/L BUN 58 H (7-18) mg/dl Creatinine 9.90 H* (0.6-1.4) mg/dl Glucose 176 H (70-99) mg/dl Calcium 7.6 L (8.5-10.1) mg/dl AST 16 (15-37) U/L ALT 23 (12-78) U/L Alkaline Phosphatase 138 H (45-117) U/L Total Protein 6.3 L (6.4-8.2) gm/dl Albumin 2.6 L (3.4-5.0) gm/dl Intake and Output 05/17/20 05/18/20 05/18/20 22:59 06:59 14:59 Intake Total 200 / 960.648 185.648 / 960.648 Output Total 25 / 815 50 / 815 Balance 175 / 145.648 135.648 / 145.648 Intake: IV 200 / 485.648 185.648 / 485.648 NEXTERONE / D5W 360 mg In 200 200 / 385.648 185.648 / 385.648 ml @ 0.5 MG/MIN 16.667 mls/hr IV .Q12H [facility] Rx#:[id number] Output: Urine 25 / 75 50 / 75 Other: Other Intake Source Sips Weight 96.8 kg
[2020-05-18] MEDS ORDERED: HEPARIN SOD 5,000 UNIT/0.5 ML VIAL SQ ONE (10:30)
--- NOTE | 2020-05-18 10:42 | Nephrology Progress Note ---
Date of Service May 18, 2020 Assessment & Plan (1) ESRD on peritoneal dialysis: Patient with ESRD on PD. He tolerated PD well last night with net UF of 1.1 L. We will do PD again tonight 5 exchanges over 9 hours. (2) Paroxysmal atrial fibrillation: Patient with A. fib and rapid ventricular response. Currently on amiodarone drip. Heart rate is controlled. Blood pressure is good. We will continue rate control and antiarrhythmic medications. Admission and Anticipated Discharge Date Admission Date: May 14, 2020 Subjective Patient feels better today denies any shortness of breath or pain. He is complaining of mild leg swelling. He continues amiodarone drip. Blood pressure and heart rate have improved. Review of Systems Review of Systems: All systems reviewed & are unremarkable except as noted in HPI & below Physical Exam Physical Exam: General exam: Appears comfortable, no acute distress HEENT: Pupils are equal and reactive to light Neck: No JVD, neck is supple trachea is midline Respiratory system: Clear breath sounds bilaterally. Gastrointestinal: Abdomen is soft, non distended, non tender, bowel sounds are present CVS: Regular rate and rhythm. No murmurs, rubs or gallops Musculoskeletal: No joint or muscle tenderness Extremities: Non tender, no edema, peripheral pulses are present Neuro: Oriented, no tremors, no focal neurological deficits Skin: No rashes Access: PD catheter, right perm-cath and right upper arm AV fistula Results & Data ([facility]) Vital Signs (Past 12 Hours) Vital Signs Temp Pulse Pulse Resp BP Pulse Ox 05/18/20 07:09 36.7 C 66 18 115/62 93 05/18/20 03:18 36.7 C 62 16 107/62 99 05/17/20 23:54 36.7 C 60 16 120/51 L 100 Laboratory Results 05/17/20 09:53 Albumin 2.6 L
[2020-05-18 10:47] LABS: Albumin Globulin Ratio 0.7 (0.9-2); Albumin Level 2.7 gm/dl (3.4-5.0); BUN Creatinine Ratio 5.8 (10-20); Bilirubin,Total 0.3 mg/dl (0.2-1); Calcium 7.6 mg/dl (8.5-10.1); Creatinine Clr Calc Pharmacy 7.9 ml/min; Est GFR (African American) 5.3; Est GFR (Non-African American) 4.5; Globulin 3.7 gm/dl (2.5-4.0); Total Protein 6.4 gm/dl (6.4-8.2)
--- NOTE | 2020-05-18 16:44 | Electrocardiogram Report ---
Test Reason : Blood Pressure : / mmHG Vent. Rate : 061 BPM Atrial Rate : 061 BPM P-R Int : 000 ms QRS Dur : 152 ms QT Int : 524 ms P-R-T Axes : 000 137 123 degrees QTc Int : 527 ms Poor data quality, interpretation may be adversely affected Ventricular-paced rhythm Biventricular pacemaker detected Abnormal ECG When compared with ECG of 16-MAY-2020 07:31, Premature ventricular complexes are no longer Present Vent. rate has decreased BY 7 BPM Confirmed by Julian Cam ([id number]) on 05/18/2020 4:43:58 PM Referred By: REFERRED SELF Confirmed By:Abhijit Cam
--- NOTE | 2020-05-18 17:41 | Hospitalist Progress Note ---
Date of Service May 18, 2020 Assessment & Plan (1) Generalized weakness: Patient presenting from home with reports of generalized weakness and difficulty ambulating Suspect patient's symptoms are secondary to his underlying comorbid conditions (ESRD and ischemic cardiomyopathy) No source of infection (WBC improved to 8K) Continue PT/OT Fall precaution Clinically improved Hypotension BP has been running low Metoprolol was decreased to 12.5 mg daily and spironolactone on hold Continue Midodrine 5mg TID Continue monitor BP BP improved Paroxysmal Afib HR was elevated this morning Continue IV amiodarone drip as per cardiology Amiodarone PO on hold Not a good candidate for anticoagulant due to multifactorial anemia(GI blood loss, anemia of chronic disease). Tele monitor showed regular rhythm Chronic combined systolic and diastolic CHF (congestive heart failure) CXR showed no cardiomegaly. No evidence for overt failure Echo on 05/01 showed severe reduced LV systolic function with ejection fraction 20 to 25% with dyskinetic apical motion secondary to RV pacing along with moderate global hypokinesis. bioprosthetic mitral valve prosthesis is present with a highly mobile echodense lesion on the ventricular side of the prosthesis this represent retained chordae tendon ER. Severe left atrial enlargement Nuclear Stress test on 05/03 showed abnormal Lexiscan nuclear stress test positive for scar without significant ischemic burden. Severely reduced LV systolic function with a calculated EF of 29%. Continue peritoneal dialysis for fluid management Continue to hold spironolactone due to low BP Metoprolol changed to 12.5 mg daily, will continue cardiology on board S/P MVR (mitral valve replacement) S/P AVR (aortic valve replacement) ECHO showed bioprosthetic mitral valve prosthesis is present with a highly mobile echodense lesion on the ventricular side of the prosthesis this represent retained chordae tendon ER. Severe left atrial enlargement Chronic respiratory failure with hypoxia Continue oxygen supplement Stable ESRD on PD Nephrology on board Plan to get PD done tonight Monitor closely for volume overload Elevated troponin Due to Type 2 demand ischemia related hypotension and ESRD Troponin 0.131 on admission EKG showed no ischemic changes Denies any chest pain continue aspirin and metoprolol that changed to 12.5 mg with parameters to hold CAD s/p CABG Denies any chest pain Continue aspirin DM type 2 Recent Hba1c 5.4 (ESRD on PD mostly not accurate) Continue novolog sliding scale On Lantus 45 units home dose Increased Lantus to 45 units home dose Monitor BS Anemia Hgb 9.9 stable Continue procrit as per nephrology Thrombocytopenia Platelet 96 today No active sign of bleeding Continue monitor CBC DVT prophylaxis on SCDs due to thrombocytopenia Full code Disposition Continue monitor in tele Admission and Anticipated Discharge Date Admission Date: May 14, 2020 Subjective Pt was seen and examined Sitting in chair with no distress Pt said that he feels much better He walked with therapy twice today around the hallway Denies any chest pain, palpitation, and SOB Physical Exam Physical Exam: General- No acute distress Head- atraumatic Eyes- PERRL, EOMI, ENT- oropharynx clear Neck- supple, no JVD Lungs- clear to auscultation Heart- regular rhythm; no murmur Abdomen- normal bowel sounds, soft, nontender Extremities- no calf tenderness Neuro- alert, oriented x 3; PERRL, EOMI; no facial palsy; no dysarthria Skin- warm & dry Results & Data Results & Data ([facility]) Vital Signs (Past 12 Hours) Vital Signs Temp Pulse Pulse Resp BP Pulse Ox 05/18/20 15:24 36.4 C L 64 18 134/70 97 05/18/20 11:54 36.5 C 61 20 118/64 95 05/18/20 08:30 36.7 C 66 18 05/18/20 07:09 36.7 C 66 18 115/62 93
[2020-05-18] MEDS: ALFUZOSIN HCL 10 MG TAB PO SCH (21:01)
[2020-05-18] MEDS: ASPIRIN 81 MG ECTAB PO SCH (21:01)
[2020-05-18] MEDS: HEPARIN SOD 5,000 UNIT/0.5 ML VIAL SQ SCH (21:01)
[2020-05-18] MEDS: INSULIN GLARGINE SOLOSTAR 100 UNITS/ML 3 ML PEN SC SCH (21:03)
[2020-05-19] MEDS: LEVOTHYROXINE SODIUM 100 MCG TABLET PO SCH (04:20)
[2020-05-19] MEDS: AMIODARONE / D5W 360 MG/200 ML BAG IV SCH (04:21)
[2020-05-19] MEDS: predniSONE 5 MG TAB PO SCH (08:52)
[2020-05-19] MEDS: PANTOprazole 40 MG TAB PO SCH (08:52)
[2020-05-19] MEDS: MIDODRINE HCL 2.5 MG TAB PO SCH ×2 (08:52→11:29)
[2020-05-19] MEDS: CALCIUM ACETATE 667 MG CAP/TAB PO SCH ×2 (08:53→11:29)
[2020-05-19] MEDS: METOPROLOL SUCC 25MG EXT REL TAB PO SCH (08:53)
[2020-05-19] MEDS: FOLIC ACID 1 MG TAB PO SCH (08:53)
[2020-05-19] MEDS: FERROUS SULFATE 325 MG TAB PO SCH (08:53)
[2020-05-19] MEDS: INSULIN ASPART 100 UNITS/ML 3 ML PEN SC SCH ×2 (08:54→13:05)
[2020-05-19] MEDS: HEPARIN SOD 5,000 UNIT/0.5 ML VIAL SQ SCH (08:54)
--- NOTE | 2020-05-19 09:29 | Nephrology Progress Note ---
Date of Service May 19, 2020 Assessment & Plan (1) ESRD on peritoneal dialysis: Patient with ESRD on PD. He tolerated PD well last night with net UF of 874mL. We will do PD again tonight 5 exchanges over 9 hours using 2.5%. (2) Paroxysmal atrial fibrillation: Patient with A. fib and rapid ventricular response. Currently on amiodarone drip. Heart rate is controlled. Blood pressure is good. We will continue rate control and antiarrhythmic medications. Admission and Anticipated Discharge Date Admission Date: May 14, 2020 Subjective Patient feels better today denies any shortness of breath or leg swelling. He is concerned about weight gain of 3 kg overnight. Still on amiodarone drip. Heart rate is controlled. Review of Systems Review of Systems: All systems reviewed & are unremarkable except as noted in HPI & below Physical Exam Physical Exam: General exam: Appears comfortable, no acute distress HEENT: Pupils are equal and reactive to light Neck: No JVD, neck is supple trachea is midline Respiratory system: Clear breath sounds bilaterally. Gastrointestinal: Abdomen is soft, non distended, non tender, bowel sounds are present CVS: Regular rate and rhythm. No murmurs, rubs or gallops Musculoskeletal: No joint or muscle tenderness Extremities: Non tender, no edema, peripheral pulses are present Neuro: Oriented, no tremors, no focal neurological deficits Skin: No rashes Results & Data ([facility]) Vital Signs (Past 12 Hours) Vital Signs Temp Pulse Pulse Pulse Resp BP BP 05/19/20 07:56 36.9 C 69 20 146/98 H 05/19/20 07:45 36.7 C 66 18 05/19/20 04:00 36.7 C 63 19 96/40 L 05/19/20 02:15 62 05/19/20 00:00 36.9 C 69 19 93/43 L Pulse Ox 05/19/20 07:56 96 05/19/20 07:45 05/19/20 04:00 100 05/19/20 02:15 05/19/20 00:00 99 Laboratory Results 05/18/20 10:05 05/18/20 10:05 Albumin 2.7 L
--- NOTE | 2020-05-19 11:17 | Cardiology Progress Note ---
Date of Service May 19, 2020 Assessment & Plan (1) Ischemic cardiomyopathy: (2) Paroxysmal atrial fibrillation: (3) Systolic and diastolic CHF, chronic: (4) ESRD on peritoneal dialysis: Mr Shah is longstanding history of valvular heart disease with remote homograft surgical aortic valve replacement, then redo surgery for symptomatic aortic valve regurgitation in 2016 at which time a bioprosthetic aortic valve replacement was placed as well as a bioprosthetic mitral valve replacement. He has a remote history of CABG x1 with vein graft to the right PDA branch of the right coronary artery. At time of preoperative cardiac catheterization in 2016 chronic proximal RCA occlusion noted, with a patent graft. Recent stress test would suggest RCA territory scar that perhaps extends to the apex and anteroseptal. Echocardiogram performed last month reveals decline in LVEF to around 25% compared to 45% a year ago. Per my review of the images, left ventricular dyssynchrony noted perhaps related to septal scar. With the assistance of Dr. Cam of electrophysiology, we interrogated his [employer] biventricular pacemaker 05/18/2020 and found that although the patient is "biventricular paced "greater than 90% the time, it was determined that his left ventricular (coronary sinus) lead has not been consistently capturing. The pacing vector was therefore modified with improvement on interrogation, and narrowing of the QRS complex is noted on the surface EKG. Hopefully this will help in terms of allowing therapeutic cardiac resynchronization therapy and improved LVEF/cardiac output. In addition, patient has been placed on amiodarone. While this is not ideal given his past history of lung disease. I believe the benefits are worth the risk in terms of helping stabilize his heart rhythm, reducing his frequent ventricular ectopy and episodes of atrial fibrillation and to allow therapeutic [employer] pacing. In addition, he has been determined to be a poor candidate for anticoagulation due to past bleeding problems and this is another reason to proceed with antiarrhythmic therapy. Continue current peritoneal dialysis, it appears like he has improved by taking less volume off, and he has not developed additional edema. Medication orders: Continue low-dose metoprolol, dose limited by orthostatic hypotension. Continue midodrine. Discontinue IV amiodarone and transition back to oral amiodarone, 200 mg twice daily. If patient feels well walking in the unit today, I think you will likely be ready for discharge as long as it is okay with nephrology. Subjective Patient seen in cardiology follow-up. Overall, he feels like his energy levels are trending toward improvement. There is ongoing difficulty obtaining accurate blood pressure readings, when I was at the bedside, and automated blood pressure reading obtained in the left lower leg revealed a systolic pressure of just above 100. Telemetry reveals sinus rhythm with ventricular pacing. Physical Exam Physical Exam: Temp Pulse Resp BP Pulse Ox 36.9 C 69 20 146/98 H 96 05/19/20 07:56 05/19/20 07:56 05/19/20 07:56 05/19/20 07:56 05/19/20 07:56 Constitutional: Chronically ill in appearance, no acute distress Respiratory: normal respiratory effort, lungs clear to auscultation Cardiovascular: Rate/Rhythm: regular rhythm Heart Sounds: + murmur (I/ systolic murmur) Vessels: no JVD Extremities: no edema Gastrointestinal (Abdomen): normal bowel sounds, soft, nontender, no hepatosplenomegaly Neurologic: PERRL, EOMI, accommodation nl, no face palsy, no dysarthria Results & Data Vital Signs (Past 12 Hours) Vital Signs Temp Pulse Pulse Pulse Resp BP BP 05/19/20 07:56 36.9 C 69 20 146/98 H 05/19/20 07:45 36.7 C 66 18 05/19/20 04:00 36.7 C 63 19 96/40 L 05/19/20 02:15 62 05/19/20 00:00 36.9 C 69 19 93/43 L Pulse Ox 05/19/20 07:56 96 05/19/20 07:45 05/19/20 04:00 100 05/19/20 02:15 05/19/20 00:00 99 Laboratory Results Intake and Output 05/18/20 05/19/20 05/19/20 22:59 06:59 14:59 Intake Total 661.195 / 1435.730 284.535 / 1435.730 Output Total 50 / 556 75 / 556 874 / 874 Balance 611.195 / 879.730 209.535 / 879.730 -874 / -874 Intake: IV 181.195 / 365.730 184.535 / 365.730 NEXTERONE / D5W 360 mg In 200 181.195 / 365.730 184.535 / 365.730 ml @ 0.5 MG/MIN 16.667 mls/hr IV .Q12H [facility] Rx#:[id number] Oral 480 / 1070 100 / 1070 Output: Urine 50 / 125 75 / 125 Peritoneal Dialysis 874 / 874 Ultrafiltration Amount Other: Weight 95.2 kg 98.5 kg 98.5 kg Patient Weight 05/20/20 06:59 Weight 98.5 kg
[2020-05-19] MEDS ORDERED: AMIODARONE 200 MG TAB PO ONE (11:30)
--- NOTE | 2020-05-19 12:05 | Discharge Summary ---
Date of Service May 19, 2020 Admission HPI Per Admitting Provider [facility] CAD, DM type II, ischemic car myopathy, aortic and mitral replacements, paroxysmal atrial fibrillation, complete heart block status post pacemaker, ESRD on peritoneal dialysis, and other problems listed below who presents to the ED for generalized weakness. Patient was recently noted to [facility] 04/30 to 05/03 for management of hypotension. Patient underwent nuclear stress test that was negative for ischemia. Initially, beta-kati was held however this was resumed at discharge. Spironolactone was also increased to 12.5 mg daily. Patient reports feeling generally weak since arriving home. This is been progr essively getting worse. Reports he has much difficulty standing from the chair to ambulate to the bathroom. Patient denies chest pain or shortness of breath. No lightheadedness, dizziness, diaphoresis, syncopal events. Patient is on peritoneal dialysis and reports he has been tolerating this well. No fevers or chills. Denies abdominal pain, nausea, vomiting, diarrhea. Patient continues to make a small amount of urine, denies any dysuria. In the ED, patient is hemodynamically stable. Labs show WBC 12.4K, other labs unremarkable/at patient's baseline. Admission Exam Per Admitting Provider Constitutional: WD/WN, vitals as above Eyes: PERRL, conjunctivae normal, anicteric sclerae ENMT: external ear and nose normal, oropharynx normal Respiratory: normal respiratory effort, lungs clear to auscultation Cardiovascular: Rate/Rhythm: regular rate and regular rhythm Vessels: normal peripheral pulses Extremities: no edema Chest (Breasts): Additional Comments: TDC in place to right chest, no surrounding erythema or drainage noted Gastrointestinal (Abdomen): Inspection/Auscultation: + abdomen distended and normal bowel sounds Percussion/Palpation: abdomen nontender and no hepatosplenomegaly PD catheter in place, no surrounding erythema or drainage noted Musculoskeletal: no cyanosis or clubbing, extremities motor strength 5/5 Skin: no rashes, warm and dry Neurologic: PERRL, EOMI, accommodation nl, no face palsy, no dysarthria Psychiatric: A+Ox3, euthymic affect Principal Diagnosis Paroxysmal Atrial fibrillation ESRD on peritoneal dialysis Chronic systolic and diastolic heart failure Discharge Exam Constitutional + well hydrated; no acute distress Eyes PERRL, conjunctivae normal, anicteric sclerae ENMT external ear and nose normal, oropharynx normal Respiratory normal respiratory effort, lungs clear to auscultation Cardiovascular Rate/Rhythm: regular rate and regular rhythm Extremities: no pedal edema S1 S2 Gastrointestinal (Abdomen) normal bowel sounds, soft, nontender, no hepatosplenomegaly Neurologic PERRL, EOMI, accommodation nl, no face palsy, no dysarthria Psychiatric A+Ox3, euthymic affect Discharge Data Allergies Allergy/AdvReac Type Severity Reaction Status Date / Time atorvastatin Allergy Mild Muscle Pain Verified 05/14/20 12:38 Penicillins Allergy Mild rash Verified 05/14/20 12:38 furosemide AdvReac Severe kidney Verified 05/14/20 12:38 failure ropinirole [From Requip] AdvReac Intermediate psych Verified 05/14/20 12:38 complications [id number] Reductase AdvReac Intermediate Muscle Pain Verified 05/14/20 12:38 Inhibitor Consultations 05/14/20 16:46 ED Decision to Admit Stat 05/14/20 19:28 Consult Cardiology Routine Consult Case Management - Discharge Planning Routine Consult Nephrology Routine Hospital Course (1) Generalized weakness: Patient presented from home with reports of generalized weakness and difficulty ambulating Work up did not suggest any infective cause Likely due to chronic medical problems including ischemic cardiomyopathy and ESRD Received PT/OT while inpatient Clinically improved Hypotension BP was running low Metoprolol succinate was decreased from 50mg to 12.5 mg daily and spironolactone was initially held BP improved with pacemaker optimization and med adjustment by the Electrolysis Investigator Discharged on metoprolol succinate 12.5mg daily Paroxysmal Afib Patient was evaluated by Electrolysis Investigator Was started on amiodarone. Though this is not ideal due to history of lung disease but benefit outweighed the risk to stabilize rhythm and reduce frequent ventricular ectopy. Interrogation of biventricular pacemaker on 05/18/20 showed biventricular pacing >90% of the time. It was determined that the left ventricular lead has not been consistently capturing. The pacing vector was modified for optimization of cardiac output Had IV amiodarone loading now transitioned to po amiodarone 200mg bid. Needs to follow up with Cardiology outpatient on appointment date Not a good candidate for anticoagulant due to multifactorial anemia(GI blood loss, anemia of chronic disease). Chronic combined systolic and diastolic CHF (congestive heart failure) S/P MVR (mitral valve replacement) S/P AVR (aortic valve replacement) CAD s/p CABG CXR showed no cardiomegaly. No evidence for overt failure Echo on 05/01 showed severe reduced LV systolic function with ejection fraction 20 to 25% with dyskinetic apical motion secondary to RV pacing along with moderate global hypokinesis. Bioprosthetic mitral valve prosthesis is present with a highly mobile echodense lesion on the ventricular side of the prosthesis this represent retained chordae tendon ER. Severe left atrial enlargement Nuclear Stress test on 05/03 showed abnormal Lexiscan nuclear stress test positive for scar without significant ischemic burden. Severely reduced LV systolic function with a calculated EF of 29%. Continue peritoneal dialysis for fluid management Metoprolol changed to 12.5 mg daily ESRD on PD Currently euvolemic Continue PD at home Follow up with soaker soda worker Elevated troponin Due to Type 2 demand ischemia related hypotension and ESRD Troponin 0.131 on admission EKG showed no ischemic changes Denied any chest pain DM type 2 Recent Hba1c 5.4 (ESRD on PD mostly not accurate) Continue lantus home dose Chronic Anemia Last Hb was 10.1 on 05/17/20 Continue procrit as per nephrology Thrombocytopenia Chronic Platelet 96 on 05/17/20. Has been ranging 90-110 over avi past 3 months No active sign of bleeding Total Time Total Time Spent Total Time Spent (In Minutes): 35 Discharge Plan Discharge Items Patient Disposition: Home - Self-Care Reason For Visit: GENERALIZED WEAKNESS Discharge Diagnosis: Paroxysmal Atrial fibrillation ESRD on peritoneal dialysis Chronic systolic and diastolic heart failure Activity: Resume your previous activity Non-emergency contact: Primary Care Provider, Electrolysis Investigator and Chief Resource Officer Call non-emergency contact if: you have any medication questions and your symptoms worsen Follow-up/Referrals: José Luong DO [Electrolysis Investigator] - 05/28/20 11:00 am Vipin Acevedo MD [Surgeon] - 06/08/20 10:00 am (Date & Time 06/08/2020 10:00 AM Provider [facility] PLEASE NOTE: This is a telephone visit. Dr. Acevedo will call your home at this date and time. If this does not work for you, please call to reschedule. ) Bhumi Fallon DO [Primary Care Provider] - 05/25/20 12:00 pm (05/25/2020 12:00 PM Provider Errol Young MD Department Family [facility] [address], [place] ) Diet: Dialysis Renal, Heart Healthy and Low Sodium (2gm) Addtl Attending Provider Instructions: Mr Shah. You came to the hospital for worsening generalized weakness. You were comanaged with the Electrolysis Investigator and Chief Resource Officer. Your symptoms are due to your dysrhythmia and chronic medical problems Your pacemaker was interrogated and optimized to aid improved heart function. Your metoprolol succinate was changed from 50mg daily to 12.5mg daily due to hypotension. Please stop taking the 50mg tab and take the 12.5mg tabl prescribed. You were also started on amiodarone for better control of your heart rhythm. It is important you continue your Peritoneal dialysis and follow up with the Electrolysis Investigator, soaker soda worker and your primary doctor. It was a pleasure taking care of you. Pending Studies at Discharge: No Stand-Alone Forms: [facility] [employer], Smoking Cessation Medications and DC Order Prescriptions: New amiodarone 200 mg Tablet 200 mg PO BIDM 30 Days Qty: 60 RF: 0 metoprolol succinate 25 mg Tablet Extended Release 24 Hr 12.5 mg PO QAM 30 Days Qty: 15 RF: 0 Continued pantoprazole 40 mg tablet,delayed release (DR/EC) 40 mg PO DAILY RF: 0 melatonin 3 mg Tablet 6 mg PO HS PRN (Reason: Sleep) RF: 0 ferrous sulfate 325 mg (65 mg iron) Tablet 325 mg PO DAILY RF: 0 Mircera 30 mcg/0.3 mL Syringe 0 mcg subcut DIRECTED PRN (Reason: prn) RF: 0 midodrine 5 mg tablet 5 mg PO TID RF: 0 prednisone 5 mg tablet 5 mg PO DAILY RF: 0 spironolactone 25 mg Tablet 12.5 mg PO DAILY Qty: 30 RF: 0 calcium acetate(phosphat bind) 667 mg capsule 667 mg PO TID RF: 0 Lantus U-100 Insulin 100 unit/mL Solution 45 unit SUBCUT HS RF: 0 aspirin 81 mg Tablet,Delayed Release (Dr/Ec) 81 mg PO HS RF: 0 levothyroxine 100 mcg Tablet 100 mcg PO DAILY RF: 0 folic acid 1 mg Tablet 5 mg PO DAILY RF: 0 Humalog U-100 Insulin 100 unit/mL Cartridge 1 sliding scale dose SUBCUT UD RF: 0 alfuzosin [Uroxatral] 10 mg tablet extended release 24 hr 1 tab PO PM RF: 0 Discontinued metoprolol succinate 50 mg Tablet Extended Release 24 Hr 50 mg PO QAM Qty: 30 RF: 0 Discharge Orders: Discharge Order (Routine); Ordered 05/19/20 Ordered By: Emily Milian Admission Data Admit Date/Time: 05/14/20 16:03 Attending Provider: Emily Milian I. Admit Provider: Evelio Neff Primary Care Provider: Bhumi Fallon Other Providers: Evelio Neff ; José Luong ; Vipin Acevedo ; Gianluca Sharp Other Interventions: Discharge Summary Assessment (RN) Last Done: 05/19/20 13:38 DC Date/Time DO NOT enter until pt leaves facility: 05/19/20 14:51
[2020-05-19 12:07] VITALS: BP 100/45; TEMP 97.7; O2SAT 97
[2020-05-19 13:42] VITALS: PULSE 64
[2020-05-19] MEDS ORDERED: AMIODARONE 200 MG TAB PO SCH (17:00)
== END 2020-05-19 14:51 | disposition home health service (06) | DRG 302 ==
LOC: ED 11:48 → SUATTDRO 16:03 → 2E 16:03